=== PATIENT | male | born 1950 | race Caucasian/White ===

== ENCOUNTER 2017-08-24 19:48 | Inpatient (IN) | payer OTHER ==
[~2017-08-24] VITALS: Ht 170.2 cm; Wt 97.9 kg
[~2017-08-24 19:48] MED LIST: CADU10TA PO; CLOP75 PO; EZET10 PO; METO50TA PO; NIAS10004 PO; PRED20 PO; TREN400T PO; VASO10TA8 PO
[2017-08-24 20:05] VITALS: BP 183/85; PULSE 120; RESP 20; TEMP 98.5; O2SAT 97
--- NOTE | 2017-08-24 20:56 | RADRPT ---
EXAM DATE/TIME: 08/24/2017 20:39 [facility] COMPARISON: No previous studies available for comparison. INDICATIONS : Chest pain. MEDICAL HISTORY : Hypertension. SURGICAL HISTORY : Cardiac stents. ENCOUNTER: Initial ACUITY: 1 day PAIN SCORE: 6/10 LOCATION: Bilateral chest FINDINGS: The patient's chin obscures a portion of the medial right pulmonary apex. PA and lateral views of th e chest demonstrate the lungs to be symmetrically aerated without evidence of mass, infiltrate or eff usion. The cardiomediastinal contours are unremarkable. Osseous structures are intact. CONCLUSION: No acute cardiopulmonary disease. Mayank Villanueva MD on August 24, 2017 at 20:54 Board Certified Radiologist. This report was verified electronically.
[2017-08-24] MEDS ORDERED: NITROGLYCERIN 2% OINT 1 GM PACKET TOPICAL ONE (21:00)
--- NOTE | 2017-08-24 21:10 | PD ---
HPI Chief Complaint: Chest Pain Time Seen by Provider: 20:49 Travel History International Travel<30 days: No Contact w/Intl Traveler<30days: No Traveled to known affect area: No History of Present Illness HPI 66-year-old male came to the emergency room with history of substernal chest pain that started an hour and a half ago. Patient says the pain feels like a pressure. Currently 0 out of 10 but every time he gets up and walks a few steps the pain comes back. His heart rate was in the 1 teens to 120s when he arrived. Blood pressure in the room was more than 200. Patient has significant history of coronary artery disease, hypertension and high cholesterol. He is also had multiple peripheral vessels stented. He smokes 1 pack a day. Pain is nonradiating. Patient says he has been taking all his medication like he supposed to. His last stress test was many years ago. He has 2 stents that was put in 10 years ago. He took 2 regular strength aspirin before coming to the emergency room. [facility] Past Medical History Narrative Medical List of his past medical, surgical, social and family history is reviewed from the nursing note Arthritis: No Asthma: No Autoimmune Disease: No Blood Disorders: No Anxiety: No Depression: No Heart Rhythm Problems: No Cancer: No Cardiac Catheterization: Yes Cardiovascular Problems: Yes High Cholesterol: Yes Chemotherapy: No Chest Pain: Yes Congestive Heart Failure: No COPD: No Cerebrovascular Accident: No Diabetes: No Diminished Hearing: No Endocrine: No GERD: No Glaucoma: No Genitourinary: No Headaches: Yes Hepatitis: No Hiatal Hernia: No Hypertension: Yes Immune Disorder: No Kidney Stones: No Musculoskeletal: No Neurologic: Yes Psychiatric: No Respiratory: Yes Immunizations Current: Yes Myocardial Infarction: No Radiation Therapy: No Renal Failure: No Seizures: No Sickle Cell Disease: No Sleep Apnea: No Thyroid Disease: No Ulcer: No Past Surgical History Abdominal Surgery: Yes (APPENDECTOMY) AICD: No Appendectomy: Yes Body Medical Devices: STENT IN RIGHT AND LEFT COMMON ILIAC ARTERY Cardiac Surgery: No Coronary Stent: Yes (TIMES 2) Ear Surgery: No Endocrine Surgery: No Eye Surgery: No Genitourinary Surgery: No Gynecologic Surgery: No Joint Replacement: No Oral Surgery: Yes (WISDOM TEETH REMOVED) Pacemaker: No Thoracic Surgery: No Other Surgery: Yes (CAROTIDS) Social History Alcohol Use: No Tobacco Use: No Substance Use: No Allergies-Medications (Allergen,Severity, Reaction): Coded Allergies: No Known Allergies (Verified Allergy, Unknown, 08/24/17) Comments No known drug allergies. Reported Meds & Prescriptions Reported Meds & Active Scripts Active Reported Amlodipine-Atorvastatin 10-80 Mg Tab 1 Tab PO DAILY Plavix (Clopidogrel Bisulfate) 75 Mg Tab 75 Mg PO DAILY Enalapril (Enalapril Maleate) 20 Mg Tab 20 Mg PO BID Narrative Medication List of his home medications reviewed from the nursing note Review of Systems Except as stated in HPI: all other systems reviewed are Neg Cardiovascular: Positive: Chest Pain or Discomfort Physical Exam Narrative GENERAL: Awake, alert, obese, moderate to SKIN: Focused skin assessment warm/dry. HEAD: Atraumatic. Normocephalic. EYES: Pupils equal and round. No scleral icterus. No injection or drainage. ENT: No nasal bleeding or discharge. Mucous membranes pink and moist. NECK: Trachea midline. No JVD. CARDIOVASCULAR: Regular rate and rhythm. Tachycardia. No murmur appreciated. RESPIRATORY: No accessory muscle use. Clear to auscultation. Breath sounds equal bilaterally. GASTROINTESTINAL: Abdomen soft, non-tender, nondistended. Hepatic and splenic margins not palpable. MUSCULOSKELETAL: No obvious deformities. No clubbing. No cyanosis. No edema. NEUROLOGICAL: Awake and alert. No obvious cranial nerve deficits. Motor grossly within normal limits. Normal speech. PSYCHIATRIC: Appropriate mood and affect; insight and judgment normal. Data Data Last Documented VS Orders Orders Electrocardiogram (08/24/17 20:08) B-Type Natriuretic Peptide (08/24/17 20:08) Ckmb (Isoenzyme) Profile (08/24/17 20:08) Complete Blood Count With Diff (08/24/17 20:08) Comprehensive Metabolic Panel (08/24/17 20:08) Magnesium (Mg) (08/24/17 20:08) Prothrombin Time / Inr (Pt) (08/24/17 20:08) Act Partial Throm Time (Ptt) (08/24/17 20:08) Troponin I (08/24/17 20:08) Lipase (08/24/17 20:08) Chest, Pa & Lat (08/24/17 20:08) Nitroglycerin 2% Oint (Nitroglycerin 2% (08/24/17 21:00) Nitroglycerin-D5w 50 Mg/250 Ml (Nitrogly (08/24/17 22:00) Nitroglycerin-D5w 50 Mg/250 Ml (Nitrogly (08/24/17 22:00) Metoprolol Tartrate Inj (Lopressor Inj) (08/24/17 22:00) CKMB (08/24/17 21:15) CKMB% (08/24/17 21:15) Heparin Inj (Heparin Inj) (08/24/17 22:15) Heparin Inj (Heparin Inj) (08/25/17 04:15) Heparin Inj (Heparin Inj) (08/25/17 04:15) Heparin-D5w 25,000 U/250 Ml (Heparin-D5w (08/24/17 22:15) Act Partial Throm Time (Ptt) (08/24/17 22:09) Cbc No Diff, Includes Plts (08/24/17 22:09) Act Partial Throm Time (Ptt) (08/25/17 05:09) Occult Blood (Hemoccult) Stool (08/24/17 22:09) Admit Order (Ed Use Only) (08/24/17 22:27) Labs Laboratory Tests Test 08/24/17 21:15 White Blood Count 11.3 TH/MM3 Red Blood Count 4.73 MIL/MM3 Hemoglobin 14.4 GM/DL Hematocrit 41.5 % Mean Corpuscular Volume 87.7 FL Mean Corpuscular Hemoglobin 30.4 PG Mean Corpuscular Hemoglobin Concent 34.7 % Red Cell Distribution Width 14.6 % Platelet Count 322 TH/MM3 Mean Platelet Volume 7.4 FL Neutrophils (%) (Auto) 77.7 % Lymphocytes (%) (Auto) 11.9 % Monocytes (%) (Auto) 9.0 % Eosinophils (%) (Auto) 0.9 % Basophils (%) (Auto) 0.5 % Neutrophils # (Auto) 8.7 TH/MM3 Lymphocytes # (Auto) 1.3 TH/MM3 Monocytes # (Auto) 1.0 TH/MM3 Eosinophils # (Auto) 0.1 TH/MM3 Basophils # (Auto) 0.1 TH/MM3 CBC Comment DIFF FINAL Differential Comment Prothrombin Time 10.0 SEC Prothromb Time International Ratio 1.0 RATIO Activated Partial Thromboplast Time 23.3 SEC Blood Urea Nitrogen 23 MG/DL Creatinine 1.38 MG/DL Random Glucose 134 MG/DL Total Protein 7.8 GM/DL Albumin 4.1 GM/DL Calcium Level 10.1 MG/DL Magnesium Level 1.8 MG/DL Alkaline Phosphatase 132 U/L Aspartate Amino Transf (AST/SGOT) 25 U/L Alanine Aminotransferase (ALT/SGPT) 40 U/L Total Bilirubin 0.3 MG/DL Sodium Level 139 MEQ/L Potassium Level 4.8 MEQ/L Chloride Level 103 MEQ/L Carbon Dioxide Level 25.9 MEQ/L Anion Gap 10 MEQ/L Estimat Glomerular Filtration Rate 52 ML/MIN Total Creatine Kinase 170 U/L Creatine Kinase MB 1.9 NG/ML Troponin I 0.07 NG/ML B-Type Natriuretic Peptide 37 PG/ML Lipase 113 U/L MDM Medical Decision Making Medical Screen Exam Complete: Yes Emergency Medical Condition: Yes Medical Record Reviewed: Yes Interpretation(s) Twelve-lead EKG was reviewed by me. Normal sinus rhythm, left axis deviation, peaked T waves, tachycardia. Heart rate of 111 bpm. Differential Diagnosis ACS, non-STEMI, hypertensive emergency Narrative Course 9:53 PM patient was given 1 inch of Nitropaste and nitro drip has been ordered. Awaiting for the blood test result. Patient will need to come in medically. 10:11 PM troponin is mildly elevated. I have ordered for heparin bolus and drip. Patient will need to be admitted to at least [facility]. Awaiting for the admitting physician to call back. Critical Care Narrative Aggregate critical care time was 45 minutes. Time to perform other separately billable procedures was not included in the critical care time. My time did not include minutes spent treating any other patients simultaneously or on activities that did not directly contribute to the patient's treatment. The services I provided to this patient were to treat and/or prevent clinically significant deterioration that could result in: Chest pain, hypertensive emergency, nitro drip, elevated troponin, heparin bolus and drip I provided critical care services requiring my management, as noted below: Chart data review, documentation time, medication orders and management, vital sign assessments/reviewing monitor data, ordering and reviewing lab tests, ordering and interpreting/reviewing x-rays and diagnostic studies, care of the patient and discussion of the patient with the admitting physicians. Procedures EKG Prior to Arrival: No Diagnosis Primary Impression: Chest pain Qualified Codes: R07.9 - Chest pain, unspecified Additional Impressions: Hypertensive emergency Elevated troponin I level Renal insufficiency Admitting Information Admitting Physician Requests: Admit Scripts Metoprolol Tartrate (Metoprolol Tartrate) 25 Mg Tab 25 MG PO BID for CAD, #60 TAB 0 Refills Prov: Lakeisha Villalta MD 08/26/[address] (Aspirin 81) 81 Mg Tabdr 81 MG PO DAILY for CAD, #30 TAB 0 Refills Prov: Lakeisha Villalta MD 08/26/17 Clonidine (Catapres) 0.2 Mg Tab 0.2 MG PO Q8HR for hypertension, #90 TAB 0 Refills Prov: Lakeisha Villalta MD 08/26/17 Mallika Landry MD Aug 24, 2017 21:10
[2017-08-24 21:35] LABS: AUTOMATED NEUTROPHIL # 8.7 TH/MM3 (1.8-7.7); BASOPHIL # 0.1 TH/MM3 (0-0.2); BASOPHIL % 0.5 % (0.0-2.0); EOSINOPHIL # 0.1 TH/MM3 (0-0.4); EOSINOPHIL % 0.9 % (0.0-4.0); HEMATOCRIT 41.5 % (39.0-51.0); HEMOGLOBIN 14.4 GM/DL (13.0-17.0); LYMPH % 11.9 % (9.0-44.0); LYMPHOCYTE # 1.3 TH/MM3 (1.0-4.8); MEAN CELL VOLUME 87.7 FL (80.0-100.0); MEAN CORPUSCULAR HEMOGLOBIN 30.4 PG (27.0-34.0); MEAN CORPUSCULAR HGB CONC 34.7 % (32.0-36.0); MEAN PLATELET VOLUME 7.4 FL (7.0-11.0); NEUT % 77.7 % (16.0-70.0); PLATELET COUNT 322 TH/MM3 (150-450); RED BLOOD COUNT 4.73 MIL/MM3 (4.50-5.90); RED CELL DISTRIBUTION WIDTH 14.6 % (11.6-17.2); WHITE BLOOD COUNT 11.3 TH/MM3 (4.0-11.0)
[2017-08-24] MEDS ORDERED: ENAL20TA PO (21:54)
[2017-08-24] MEDS ORDERED: AMLO1TAB39 PO (21:54)
[2017-08-24] MEDS ORDERED: METO50TA PO (21:54)
[2017-08-24] MEDS ORDERED: PLAV75TA29 PO (21:54)
[2017-08-24] MEDS ORDERED: NIAC1TAB5 PO (21:54)
[2017-08-24 21:55] VITALS: BP 206/93; PULSE 110; RESP 18; O2SAT 96
[2017-08-24 21:56] LABS: ALBUMIN 4.1 GM/DL (3.4-5.0); ALT (GPT) 40 U/L (12-78); AST (GOT) 25 U/L (15-37); BICARBONATE 25.9 MEQ/L (21.0-32.0); BLOOD UREA NITROGEN 23 MG/DL (7-18); CALCIUM 10.1 MG/DL (8.5-10.1); CHLORIDE 103 MEQ/L (98-107); CREATININE 1.38 MG/DL (0.60-1.30); GLOMERULAR FILTRATION RATE 52 ML/MIN (>89); GLUCOSE,RANDOM 134 MG/DL (74-106); MAGNESIUM 1.8 MG/DL (1.5-2.5); SODIUM (NA) 139 MEQ/L (136-145)
[2017-08-24] MEDS ORDERED: METOPROLOL TARTRATE 5 MG/5 ML VIAL IV PUSH ONE (22:00)
[2017-08-24] MEDS ORDERED: NITROGLYCERIN-D5W 50 MG/250 ML 250 ML IV PRN (22:00)
[2017-08-24 22:01] LABS: ALKALINE PHOSPHATASE 132 U/L (45-117); TOTAL BILIRUBIN ADULT 0.3 MG/DL (0.2-1.0); TOTAL PROTEIN 7.8 GM/DL (6.4-8.2); TROPONIN I 0.07 NG/ML (0.02-0.05)
[2017-08-24] MEDS ORDERED: HEPARIN SODIUM - IV 10,000 UNITS/10 ML VIAL IV PUSH ONE (22:15)
[2017-08-24] MEDS ORDERED: HEPARIN-D5W 25,000 U/250 ML 250 ML IV PRN (22:15)
[2017-08-24 22:34] VITALS: BP 205/88; PULSE 101; RESP 18; O2SAT 93
[2017-08-24 22:41] VITALS: BP 185/77; PULSE 95
[2017-08-24 22:48] LABS: HEMATOCRIT 41.1 % (39.0-51.0); HEMOGLOBIN 14.1 GM/DL (13.0-17.0); MEAN CELL VOLUME 88.7 FL (80.0-100.0); MEAN CORPUSCULAR HEMOGLOBIN 30.5 PG (27.0-34.0); MEAN CORPUSCULAR HGB CONC 34.4 % (32.0-36.0); MEAN PLATELET VOLUME 7.4 FL (7.0-11.0); PLATELET COUNT 346 TH/MM3 (150-450); RED BLOOD COUNT 4.63 MIL/MM3 (4.50-5.90); RED CELL DISTRIBUTION WIDTH 14.7 % (11.6-17.2); WHITE BLOOD COUNT 10.9 TH/MM3 (4.0-11.0)
[2017-08-24] MEDS ORDERED: SODIUM CHLORIDE 0.9% FLUSH 10 ML FLUSH IV FLUSH PRN (23:30)
--- NOTE | 2017-08-24 23:32 | HHI.HP ---
[facility] Admission Diagnosis Chest pain, hypertensive emergency, elevated troponin Diagnoses: Travel History International Travel<30 Days: No Contact w/Intl Traveler <30 Da: No Traveled to Known Affected Are: No History of Present Illness 66-year-old male with a past medical history significant for hypertension, hyperlipidemia, CAD status post stent placement and peripheral vascular disease presents to the emergency department for evaluation of chest pain. The patient reports that 1-2 hours prior to his arrival in the emergency department he had severe, crushing substernal chest pain/pressure. He denies radiation. The patient also reports a 1 month history of new onset bilateral, pitting lower extremity edema. Denies shortness of breath or palpitations. Her had pain like this before. Denies any episodes of diaphoresis. He denies nausea/ vomiting/diarrhea. No lateralizing signs/symptoms. 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 Review of Systems Except as stated in HPI: all other systems reviewed are Neg Past Family Social History Past Medical History Hyperlipidemia Hypertension Coronary artery disease Peripheral vascular disease Past Surgical History Bilateral CEA Cardiac stent placement 2 Lower extremity stent placement bilaterally Appendectomy Reported Medications Reported Meds & Active Scripts Active Reported Niacin ER 1,000 Mg Tab 2,000 Mg PO HS Amlodipine-Atorvastatin 10-80 Mg Tab 1 Tab PO DAILY Plavix (Clopidogrel Bisulfate) 75 Mg Tab 75 Mg PO DAILY Metoprolol Tartrate 50 Mg Tab 50 Mg PO DAILY Enalapril (Enalapril Maleate) 20 Mg Tab 20 Mg PO BID Allergies: Coded Allergies: No Known Allergies (Verified Allergy, Unknown, 08/24/17) Family History Father of PR at age 46 Social History Smokes approximately one pack per day. Rare alcohol. Rare marijuana. Denies other illicit drugs. Physical Exam Vital Signs Vital Signs Date Time Temp Pulse Resp B/P (MAP) Pulse Ox O2 Delivery O2 Flow Rate FiO2 08/24/17 22:48 95 185/77 08/24/17 22:41 95 185/77 (113) 08/24/17 22:34 101 18 205/88 (127) 93 Room Air 08/24/17 21:55 110 18 206/93 (130) 96 Nasal Cannula 2.00 08/24/17 20:05 98.5 120 20 183/85 (117) 97 Physical Exam GENERAL: This, male sitting up in bed SKIN: No rashes, ecchymoses or lesions. Cool and dry. HEAD: Atraumatic. Normocephalic. No temporal or scalp tenderness. EYES: Pupils equal round and reactive. Extraocular motions intact. No scleral icterus. No injection or drainage. ENT: Nose without bleeding, purulent drainage or septal hematoma. Throat without erythema, tonsillar hypertrophy or exudate. Uvula midline. Airway patent. NECK: Trachea midline. No JVD or lymphadenopathy. Supple, nontender, no meningeal signs. CARDIOVASCULAR: Regular rate and rhythm with 2/6 TAHIR RESPIRATORY: Clear to auscultation. Breath sounds equal bilaterally. No wheezes , rales, or rhonchi. GASTROINTESTINAL: Abdomen soft, non-tender, nondistended. No hepato-splenomegaly , or palpable masses. No guarding. MUSCULOSKELETAL: 2+ pitting edema bilaterally NEUROLOGICAL: Awake and alert. Cranial nerves II through XII intact. Motor and sensory grossly within normal limits. Five out of 5 muscle strength in all muscle groups. Normal speech. Laboratory Laboratory Tests Test 08/24/17 21:15 08/24/17 22:40 White Blood Count 11.3 10.9 Red Blood Count 4.73 4.63 Hemoglobin 14.4 14.1 Hematocrit 41.5 41.1 Mean Corpuscular Volume 87.7 88.7 Mean Corpuscular Hemoglobin 30.4 30.5 Mean Corpuscular Hemoglobin Concent 34.7 34.4 Red Cell Distribution Width 14.6 14.7 Platelet Count 322 346 Mean Platelet Volume 7.4 7.4 Neutrophils (%) (Auto) 77.7 Lymphocytes (%) (Auto) 11.9 Monocytes (%) (Auto) 9.0 Eosinophils (%) (Auto) 0.9 Basophils (%) (Auto) 0.5 Neutrophils # (Auto) 8.7 Lymphocytes # (Auto) 1.3 Monocytes # (Auto) 1.0 Eosinophils # (Auto) 0.1 Basophils # (Auto) 0.1 CBC Comment DIFF FINAL Differential Comment Prothrombin Time 10.0 Prothromb Time International Ratio 1.0 Activated Partial Thromboplast Time 23.3 Blood Urea Nitrogen 23 Creatinine 1.38 Random Glucose 134 Total Protein 7.8 Albumin 4.1 Calcium Level 10.1 Magnesium Level 1.8 Alkaline Phosphatase 132 Aspartate Amino Transf (AST/SGOT) 25 Alanine Aminotransferase (ALT/SGPT) 40 Total Bilirubin 0.3 Sodium Level 139 Potassium Level 4.8 Chloride Level 103 Carbon Dioxide Level 25.9 Anion Gap 10 Estimat Glomerular Filtration Rate 52 Total Creatine Kinase 170 Creatine Kinase MB 1.9 Troponin I 0.07 B-Type Natriuretic Peptide 37 Lipase 113 Result Diagram: 08/24/17223908/24/172114 Caprini VTE Risk Assessment Caprini VTE Risk Assessment: Mod/High Risk (score >= 2) Caprini Risk Assessment Model Point Value = 1 Point Value = 2 Point Value = 3 Point Value = 5 Age 41-60 Minor surgery BMI > 25 kg/m2 Swollen legs Varicose veins or History of unexplained or recurrent spontaneous Oral contraceptives or hormone replacement Sepsis (< 1 month) Serious lung disease, including pneumonia (< 1 month) Abnormal pulmonary function Acute myocardial infarction Congestive heart failure (< 1 month) History of inflammatory bowel disease Medical patient at bed rest Age 61-74 Arthroscopic surgery Major open surgery (> 45 min) Laparoscopic surgery (> 45 min) Malignancy Confined to bed (> 72 hours) Immobilizing plaster cast Central venous access Age >= 75 History of VTE Family history of VTE Factor V Leiden Prothrombin [id number] Lupus anticoagulant Anticardiolipin antibodies Elevated serum homocysteine Heparin-induced thrombocytopenia Other congenital or acquired thrombophilia Stroke (< 1 month) Elective arthroplasty Hip, pelvis, or leg fracture Acute spinal cord injury (< 1 month) Prophylaxis Regimen Total Risk Factor Score Risk Level Prophylaxis Regimen 0-1 Low Early ambulation 2 Moderate Order ONE of the following: *Sequential Compression Device (SCD) *Heparin 5000 units SQ BID 3-4 Higher Order ONE of the following medications: *Heparin 5000 units SQ TID *Enoxaparin/Lovenox 40 mg SQ daily (WT < 150 kg, CrCl > 30 mL/min) *Enoxaparin/Lovenox 30 mg SQ daily (WT < 150 kg, CrCl > 10-29 mL/min) *Enoxaparin/Lovenox 30 mg SQ BID (WT < 150 kg, CrCl > 30 mL/min) AND/OR *Sequential Compression Device (SCD) 5 or more Highest Order ONE of the following medications: *Heparin 5000 units SQ TID (Preferred with Epidurals) *Enoxaparin/Lovenox 40 mg SQ daily (WT < 150 kg, CrCl > 30 mL/min) *Enoxaparin/Lovenox 30 mg SQ daily (WT < 150 kg, CrCl > 10-29 mL/min) *Enoxaparin/Lovenox 30 mg SQ BID (WT < 150 kg, CrCl > 30 mL/min) AND *Sequential Compression Device (SCD) Assessment and Plan Assessment and Plan Assessment/plan: 1. NSTEMI/hypertensive urgency/CAD EKG significant for atrial fibrillation with rapid ventricular response, no ST segment elevations or depressions, personally reviewed Initial troponin 0.07 ACS rule out pending; serial troponin/EKGs Heparin drip Nitro drip Cardiology consulted, appreciate recommendations Continue patient's home beta rikki, Plavix 2. DORINA Creatinine 1.38, no baseline for comparison May be chronic component Monitor renal function May be contributing to patient's elevated troponin Trend enzymes as above 3. Bilateral lower extremity edema BNP 37 Echo pending 4. Hyperlipidemia/peripheral vascular disease Continue home medications FEN NPO Electrolytes: monitor and replete prn Heparin ggt Physician Certification 2 Midnight Certification Type: Admission for Inpatient Services Order for Inpatient Services The services are ordered in accordance with Medicare regulations or non- Medicare payer requirements, as applicable. In the case of services not specified as inpatient-only, they are appropriately provided as inpatient services in accordance with the 2-midnight benchmark. Estimated LOS (days): 2 2 days is the estimated time the patient will need to remain in the hospital, assuming treatment plan goals are met and no additional complications. Post-Hospital Plan: Not yet determined Mirtha Clark MD Aug 24, 2017 23:32
[2017-08-25] VITALS (18 sets, daily range): BP systolic 101–198; BP diastolic 51–81; PULSE 60–99; RESP 16–18; TEMP 97.8–99.1; O2SAT 92–98
[2017-08-25] MEDS: NITROGLYCERIN-D5W 50 MG/250 ML 250 ML IV PRN ×4 (00:55→14:56)
[2017-08-25 03:04] LABS: BASOPHIL % 0.4 % (0.0-2.0); EOSINOPHIL # 0.1 TH/MM3 (0-0.4); EOSINOPHIL % 0.7 % (0.0-4.0); HEMATOCRIT 37.1 % (39.0-51.0); HEMOGLOBIN 12.9 GM/DL (13.0-17.0); LYMPH % 16.4 % (9.0-44.0); LYMPHOCYTE # 1.6 TH/MM3 (1.0-4.8); MEAN CELL VOLUME 88.2 FL (80.0-100.0); MEAN CORPUSCULAR HEMOGLOBIN 30.6 PG (27.0-34.0); MEAN CORPUSCULAR HGB CONC 34.7 % (32.0-36.0); MEAN PLATELET VOLUME 7.3 FL (7.0-11.0); MONO % 9.6 % (0.0-8.0); MONOCYTE # 0.9 TH/MM3 (0-0.9); NEUT % 72.9 % (16.0-70.0); PLATELET COUNT 298 TH/MM3 (150-450); RED BLOOD COUNT 4.21 MIL/MM3 (4.50-5.90); RED CELL DISTRIBUTION WIDTH 14.5 % (11.6-17.2); WHITE BLOOD COUNT 9.6 TH/MM3 (4.0-11.0)
[2017-08-25 03:27] LABS: BICARBONATE 27.5 MEQ/L (21.0-32.0); CALCIUM 10.2 MG/DL (8.5-10.1); CREATININE 0.95 MG/DL (0.60-1.30)
[2017-08-25] MEDS ORDERED: HEPARIN SODIUM - IV 10,000 UNITS/10 ML VIAL IV PUSH PRN ×2 (04:15)
[2017-08-25] MEDS: CLOPIDOGREL 75 MG TAB PO SCH (07:46)
[2017-08-25] MEDS: ENALAPRIL MALEATE 10 MG TAB PO SCH ×2 (07:47→20:40)
[2017-08-25] MEDS: SODIUM CHLORIDE 0.9% FLUSH 10 ML FLUSH IV FLUSH SCH ×2 (07:47→20:38)
[2017-08-25] MEDS: ATORVASTATIN 80 MG TAB PO SCH (07:47)
[2017-08-25] MEDS ORDERED: MIDAZOLAM HCL 2 MG/2 ML VIAL IV PUSH SCH (08:30)
[2017-08-25] MEDS ORDERED: diphenhydrAMINE HCL 50 MG CAP PO SCH (08:30)
[2017-08-25] MEDS ORDERED: DIAZEPAM 10 MG TAB PO SCH (08:30)
[2017-08-25] MEDS: SODIUM CHLOR 0.9% 1000 ML INJ 1,000 ML IV SCH ×2 (08:44→18:27)
[2017-08-25] MEDS ORDERED: METOPROLOL TARTRATE 50 MG TAB PO SCH (09:00)
[2017-08-25] MEDS ORDERED: NON-FORMULARY DRUG (Amlodipine-Atorvastatin 1 TAB) PO SCH (09:00)
--- NOTE | 2017-08-25 09:27 | MB ---
cc: Paul Brewer MD DATE OF CONSULT: REASON FOR CONSULTATION: Chest pain. HISTORY OF PRESENT ILLNESS: The patient is a 66-year-old white male with a history of coronary artery disease, hypertension, peripheral vascular disease, hyperlipidemia, who was in his usual state of health up until yesterday evening when he began to experience fairly severe substernal "pressure" associated with shortness of breath without nausea or diaphoresis. The chest discomfort lasted about 10 minutes, and he was able to relieve it temporarily by taking a deep breath and blowing out slowly. The chest discomfort recurred several times, each time lasting about 10-15 minutes. He has had no further chest discomfort this morning. He denies pleurisy, lightheadedness, syncope, near syncope, palpitations, paroxysmal nocturnal dyspnea. In the last month, he has had waxing and waning bilateral pedal edema. PAST MEDICAL HISTORY: 1. Coronary artery disease, status post stent x 2 of the distal right coronary artery 10/14/2005. 2. Hypertension. 3. Peripheral vascular disease with history of bilateral stent placements in the lower extremities about 12 years ago. 4. Carotid disease, status post right carotid endarterectomy 07/09/2005 and left carotid endarterectomy 08/17/2005. 5. Hyperlipidemia. PAST SURGICAL HISTORY: 1. Appendectomy. 2. Right carotid endarterectomy. 3. Left carotid endarterectomy. CARDIAC MEDICATIONS AT HOME: Amlodipine/atorvastatin 10/80 one daily, Plavix 75 mg daily, niacin ER 2000 mg at bedtime, metoprolol tartrate 50 mg daily, enalapril 20 mg b.i.d. ALLERGIES: NO KNOWN DRUG ALLERGIES. FAMILY HISTORY: The patient's father sustained a myocardial infarction in his 40s. SOCIAL HISTORY: The patient smokes about a pack of cigarettes per day. He denies alcohol abuse. REVIEW OF SYSTEMS: As in the history of present illness, otherwise negative or noncontributory. He also denies headache, melena, dyspepsia, bright red blood per rectum, recent flu symptoms. PHYSICAL EXAMINATION: Blood pressure 177/75 with a pulse of 96, respirations 18. GENERAL: He is a well-developed, well-nourished white male, no acute distress. HEENT: Jugular venous pressure is normal. Carotid pulses are 2+ bilaterally, possibly with a left bruit. CHEST: Reveals clear lung mckeon. CARDIAC: He has a regular rhythm and rate with a grade II/ systolic ejection murmur heard best at the base of the heart. The S2 heart sound is normal. No gallop is audible. ABDOMEN: He has a soft, obese, nontender abdomen. Bowel sounds are present. There is no definite hepatosplenomegaly. EXTREMITIES: Reveals no clubbing or cyanosis. There is trace to 1+ pretibial edema bilaterally. EKG shows sinus tachycardia, poor R-wave progression, left axis deviation. LABORATORY DATA: Includes WBC 9.6, hemoglobin 12.9, platelets 298. Potassium 4.6, BUN 22, creatinine 0.95. Troponin 0.20, CK 170. IMPRESSION: Symptoms suggestive of unstable angina in this 66-year-old white male who has a history of coronary artery disease, peripheral vascular disease, carotid disease, hypertension, hyperlipidemia, tobacco abuse. At this time he is chest pain free. EKG shows no acute ST segment or T-wave changes. His troponin level is slightly abnormal. Because of the instability of his symptoms, I have recommended he undergo cardiac catheterization with possible percutaneous coronary intervention, the risks of which have explained to him, including but not limited to , myocardial infarction, stroke, arrhythmia, bleeding, infection, renal failure. He agrees to proceed. RECOMMENDATIONS: 1. Cardiac catheterization today. 2. Check a carotid ultrasound. 3. Continue heparin drip and aspirin. 4. Continue beta rikki and CRISTÓBAL inhibitor therapy. 5. Check a fasting lipid profile. MD VICKI Scott/NATALI , 08:25 AM , 09:26 AM JIMY
--- NOTE | 2017-08-25 11:49 | RADRPT ---
EXAM DATE/TIME: 08/25/2017 11:07 [facility] COMPARISON: No previous studies available for comparison. INDICATIONS : Syncope. MEDICAL HISTORY : Hypercholesterolemia. Hypertension. SURGICAL HISTORY : Appendectomy. Carotid endarterectomy. Coronary artery stent. Cardiac cath. ENCOUNTER: Initial ACUITY: 1 day PAIN SCORE: 10 LOCATION: Bilateral neck PEAK SYSTOLIC VELOCITIES (cm/sec): ICA/CCA RATIO: Right: 4.5 Left: 2.9 ICA: Right: 131 Left: 280 CCA: Right: 29 Left: 98 ECA: Right: 98 Left: 222 VERTEBRAL: Right: 113 antegrade Left: 53 antegrade Elevated flow velocities and ICA/CCA ratios have been found to correlate with increased degrees of vessel stenosis, calculated as percentage of diameter relative to a normal segment of distal ICA/CCA FINDINGS: RIGHT CAROTID: There is mild to moderate atherosclerotic plaquing seen throughout the common carotid artery and bifu rcation. There is elevated velocity in the right internal carotid artery. LEFT CAROTID: There is moderate atherosclerotic plaquing involving the carotid bifurcation. There is elevated veloc ity in the left internal carotid artery. VERTEBRAL ARTERIES: Antegrade flow is seen in both vertebral arteries. MISCELLANEOUS: None. CONCLUSION: 1. Atherosclerotic plaquing is noted bilaterally. 2. There is elevated velocities in the internal carotid arteries bilaterally, left greater than right suggestive of at least moderate carotid artery stenosis. Recommend CTA of the carotids for further e valuation. Iam Baum MD on August 25, 2017 at 11:44 Board Certified Radiologist. This report was verified electronically.
--- NOTE | 2017-08-25 13:40 | EKG ---
Date Performed: 08/25/2017 Time Performed: 09:11:05 PTAGE: 66 years EKG: Sinus rhythm WITH SINUS ARRHYTHMIA LEFT AXIS DEVIATION ABNORMAL ECG PREVIOUS TRACING : 08/25/2017 02.46 No significant change from previous tracing noted. DOCTOR: Paul Brewer Interpretating Date/Time 08/25/2017 13:39:29
--- NOTE | 2017-08-25 14:34 | HHI.PR ---
Subjective Remarks f/u for NSTEMI Patient seen in the DOCU. He has not had a cardiac catheterization yet. Patient denying chest pain, shortness of breathing, palpitation, lightheadedness dizziness. He complains of lower extremity edema otherwise he said he is doing well. Patient is scheduled for cardiac catheterization today. Objective Vitals Vital Signs Date Time Temp Pulse Resp B/P (MAP) Pulse Ox O2 Delivery O2 Flow Rate FiO2 08/25/17 12:42 86 212/95 08/25/17 12:29 89 18 178/71 (106) 94 08/25/17 11:50 97.8 66 17 158/76 (103) 97 Nasal Cannula 2.00 08/25/17 11:04 97.9 64 17 153/75 (101) 98 Room Air 2.00 08/25/17 10:41 97.8 60 16 134/64 (87) 98 Room Air 2.00 08/25/17 09:17 98.1 69 16 162/69 (100) 97 Room Air 2.00 08/25/17 08:30 97.9 99 16 172/81 (111) 98 Room Air 2.00 08/25/17 07:10 97.8 96 18 177/75 (109) 97 Room Air 2.00 08/25/17 07:10 98 17 97 Nasal Cannula 2.00 08/25/17 06:00 88 18 173/73 (106) 94 Room Air 08/25/17 05:00 78 18 198/81 (120) 95 Room Air 08/25/17 04:00 88 18 174/74 (107) 94 Room Air 08/25/17 02:51 97 18 185/77 (113) 94 Room Air 08/25/17 00:55 91 164/70 08/25/17 00:00 98 18 164/74 (104) 96 Room Air 08/24/17 22:48 95 185/77 08/24/17 22:41 95 185/77 (113) 08/24/17 22:34 101 18 205/88 (127) 93 Room Air 08/24/17 21:55 110 18 206/93 (130) 96 Nasal Cannula 2.00 08/24/17 20:05 98.5 120 20 183/85 (117) 97 I/O 08/24/17 08/24/17 08/24/17 08/25/1708/25/18 3/8/18 07:00 15:00 23:00 07:00 15:00 23:00 Intake Total 3 ml Output Total 800 ml Balance 3 ml -800 ml Intake IV Total 3 ml Output Urine Total 800 ml # Voids 2 1 # Bowel Movements 0 Result Diagram: 08/25/1724808/25/17248 Objective Remarks GENERAL: in NAD SKIN: Warm and dry. HEAD: Normocephalic. EYES: No scleral icterus. No injection or drainage. NECK: Supple, trachea midline. No JVD or lymphadenopathy. CARDIOVASCULAR: regular rate and rhythm without murmurs, gallops, or rubs. RESPIRATORY: Breath sounds equal bilaterally. No accessory muscle use. GASTROINTESTINAL: Abdomen soft, non-tender, nondistended. MUSCULOSKELETAL: No cyanosis. trace to +1 B/L LE edema. BACK: Nontender without obvious deformity. No CVA tenderness. Medications and IVs Current Medications Nitroglycerin (Nitroglycerin 2% Oint) 1 inch ONCE ONCE TOPICAL Last administered on 08/24/17at 21:19; Start 08/24/17 at 21:00; Stop 08/24/17 at 21:01; Status DC Nitroglycerin/ Dextrose 250 ml @ 1.5 mls/hr TITRATE PRN IV Chest pain relief Last administered on 08/24/17at 22:48; Start 08/24/17 at 22:00 Nitroglycerin/ Dextrose 250 ml @ 1.5 mls/hr TITRATE PRN IV Hypertension Last administered on 08/25/17at 12:42; Start 08/24/17 at 22:00 Metoprolol Tartrate (Lopressor Inj) 5 mg ONCE ONCE IV PUSH Last administered on 08/24/17at 22:32; Start 08/24/17 at 22:00; Stop 08/24/17 at 22:01; Status DC Heparin Sodium (Porcine) (Heparin Inj) 8,000 units ONCE ONCE IV PUSH Last administered on 08/24/17at 22:32; Start 08/24/17 at 22:15; Stop 08/24/17 at 22:16; Status DC Heparin Sodium (Porcine) (Heparin Inj) 5,000 units UNSCH PRN IV PUSH APTT LESS THAN 25; Start 08/25/17 at 04:15 Heparin Sodium (Porcine) (Heparin Inj) 2,500 units UNSCH PRN IV PUSH APTT 25 TO 39; Start 08/25/17 at 04:15 Heparin Sodium/ Dextrose 250 ml @ 10 mls/hr TITRATE PRN IV Coagulation Management Last administered on 08/25/17at 00:18; Start 08/24/17 at 22:15 Sodium Chloride (NS Flush) 2 ml BID IV FLUSH ; Start 08/25/17 at 09:00 Sodium Chloride (NS Flush) 2 ml UNSCH PRN IV FLUSH FLUSH AFTER USING IV ACCESS ; Start 08/24/17 at 23:30 Clopidogrel Bisulfate (Plavix) 75 mg DAILY PO Last administered on 08/25/17at 07: 46; Start 08/25/17 at 09:00 Enalapril Maleate (Vasotec) 20 mg BID PO Last administered on 08/25/17at 07:47; Start 08/25/17 at 09:00 Metoprolol Tartrate (Lopressor) 50 mg DAILY PO Last administered on 08/25/17at 07 :47; Start 08/25/17 at 09:00 Non-Formulary Medication 1 tab DAILY PO ; Start 08/25/17 at 09:00; Status UNV Niacin (Slo-Niacin) 2,000 mg HS PO ; Start 08/25/17 at 21:00 Amlodipine Besylate (Norvasc) 10 mg DAILY PO Last administered on 08/25/17at 07: 47; Start 08/25/17 at 09:00 Atorvastatin Calcium (Lipitor) 80 mg DAILY PO Last administered on 08/25/17at 07: 47; Start 08/25/17 at 09:00 Sodium Chloride 1,000 ml @ 100 mls/hr Q10H IV Last administered on 08/25/17at 08 :44; Start 08/25/17 at 08:27; Stop 08/30/17 at 08:26 Diphenhydramine HCl (Benadryl) 50 mg [employer]ER [employer] TESTER PO ; Start 08/25/17 at 08:30; Stop 08/29/17 at 08:29 Diazepam (Valium) 10 mg [employer] TESTER PO ; Start 08/25/17 at 08:30; Stop 08/29/17 at 08:29 Midazolam HCl (Versed Inj) 1 mg [employer] TESTER IV PUSH ; Start 08/25/17 at 08:30; Stop 08/29/17 at 08:29 A/P Assessment and Plan This is a 66-year-old male past medical history of coronary disease who presented with chest pain NSTEMI -EKG significant for atrial fibrillation with rapid ventricular response, no ST segment elevations or depressions, personally reviewed -Initial troponin 0.07, 0.20, 0.16 -ACS rule out pending; serial troponin/EKGs -Heparin drip/Nitro drip -Continue beta-rikki and Plavix. Patient scheduled for cardiac catheterization with Dr. Brewer today. Hypertensive urgency -Continue home medication. On nitro drip. Will give as needed medication. DORINA -Creatinine 1.38, and now 0.96. So resolved. May be secondary to hypoperfusion. Continue to monitor. Bilateral lower extremity edema -BNP 37 -Echo pending Hyperlipidemia/peripheral vascular disease -Continue home medications DVT prophylaxis -On heparin drip Discharge Planning Patient scheduled for cardiac catheterization today. Lakeisha Villalta MD Aug 25, 2017 14:34
[2017-08-25] MEDS ORDERED: ENALAPRILAT 1.25 MG/ML VIAL IV PUSH PRN (14:45)
[2017-08-25] MEDS ORDERED: HEPARIN-NS/PF FLUSH BAG 2,000 ML IV FLUSH ONE (15:06)
[2017-08-25] MEDS ORDERED: MIDAZOLAM HCL 2 MG/2 ML VIAL ONE ×2 (15:06→16:06)
[2017-08-25] MEDS ORDERED: VERAPAMIL HCL 5 MG/2 ML VIAL ONE (15:07)
[2017-08-25] MEDS ORDERED: NITROGLYCERIN INJ 5 ML ONE (15:07)
[2017-08-25] MEDS ORDERED: HEPARIN SODIUM - IV 10,000 UNITS/10 ML VIAL ONE (15:07)
[2017-08-25] MEDS ORDERED: ENALAPRILAT 1.25 MG/ML VIAL ONE ×2 (15:44→15:53)
[2017-08-25] MEDS ORDERED: CLEVIDIPINE INJ 50 ML ONE (16:08)
[2017-08-25] MEDS ORDERED: METOPROLOL TARTRATE 5 MG/5 ML VIAL ONE (16:20)
[2017-08-25] MEDS ORDERED: ATROPINE SULFATE 1 MG/ML VIAL IV PRN (16:45)
[2017-08-25] MEDS ORDERED: MISC INFORMATION XX ONE (16:45)
[2017-08-25] MEDS ORDERED: SODIUM CHLOR 0.9% 250 ML INJ 250 ML IV PRN (16:45)
--- NOTE | 2017-08-25 16:50 | MA ---
cc: Paul Brewer MD PROCEDURE: Left heart catheterization, selective coronary angiography, left ventriculography. PROCEDURE NOTE: The patient was brought to the cardiac catheterization laboratory in a fasting state, after having signed informed consent. The right radial and right groin regions were prepped and draped as per policy. Arterial access was obtained via the right radial artery and a 6 [place] sheath placed. Coronary arteriography was performed using a Greenview catheter to engage the LAD and the anomalous left circumflex off of the right coronary. We had difficulty visualizing the right coronary with a variety of different catheters, so it was decided to take some shots through a right femoral artery approach. Arterial access was obtained via the right femoral artery and a 6 Argentine sheath placed. Additional shots of the right coronary were done using a 3DRC catheter. Left ventriculography was done using a standard 6 [place] pigtail. There were no apparent immediate complications. The femoral arteriotomy site was closed with Vascade. The radial artery access site was closed with a radial artery compression band. HEMODYNAMIC DATA: Left ventricle 189 with an end-diastolic pressure of 12, aorta 177/58 with a mean of 101. There was no significant transvalvular aortic gradient on pullback of the pigtail catheter. CORONARY ARTERIOGRAPHY: The left anterior descending is a medium size vessel, giving rise to a large diagonal. There are minimal luminal irregularities in the proximal and mid LAD and in the diagonal. In the distal LAD there is 50% to 60% tubular stenosis where the vessel is small. The left circumflex has an anomalous origin from very near the ostium of the right coronary. There appears to be diffuse ostial to proximal disease resulting in up to 40% stenosis. The right coronary artery is a large dominant vessel with what appears to be 2 distal stents, which are widely patent. In the very proximal right coronary there was some concern over a possible linear dissection in this region. [id number] analysis suggests some of this appearance may be due to streaming. It is not as evident on angiography done through the right femoral artery approach. It was decided not to intervene on the proximal right coronary where there is up to 50% disease. LEFT VENTRICULOGRAPHY: Contrast injection of the left ventricle reveals no segmental wall motion abnormalities. Ejection fraction is estimated at 70%. CONCLUSIONS: 1. Moderate 2-vessel coronary artery disease with no definite high-grade stenosis. 2. 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 3. Normal left ventricular function with estimated ejection fraction of 70%. MD VICKI Scott/NATALI , 04:34 PM , 04:47 PM JIMY
--- NOTE | 2017-08-25 16:54 | CATHPROC ---
[place] HIS Report Study Information Study Number Admission Scheduled Start Study Start [id number] Aug 24 2017 10:29PM 08/25/2017 Aug 25 2017 3:09PM [place] [facility] Cardiac Catheterization Admit Source Facility Department Emergency department [facility] - Application Specialist Physician and Clinical Staff Initial Paul Monroe Clerk Operator Antonietta Crocker,RN Clerk Operator Mirtha Rosales,ROJELIO Other Ad Leon RCIS(BS) Recorder Precious Shook,RT(R) (BS) Scrub Zoey Coughlin ,RT(R) Procedures Performed Procedure Location (Site) Vessel Name Angiogram LV LV Ventricle Coronary Angiograms LCA Left Coronary Coronary Angiograms RCA Right Coronary L Heart Cath Equipment Time Hearing Therapy Teacher Description Size Mfg Part Number Used/Scraped TRANSDUCER, TRUWAVE [id number] 15:24 KELLOGG BATES * Used W/STOCKCOCK *[id number] 16:23 [employer]gent Properties MEDICAL VASCADE, FR6 CLOSURE SYSTEM FR 6\\7 Used *[id number] [id number] *[id number] [id number] *[id number] [id number] *[id number] 534-650S *[id number] 15:24 MALLINCKRODT SYRINGE, ANGIOMAT 150ML 150ML *[id number] Used 2S RCT Logic CONCEPT DRAPE, RADIAL FEMORAL FULL 15:24 * [id number] *[id number] Used DEVELOPMENT BODY [id number] 15:24 [employer] INDUSTRIES PACK, CCL CUSTOM * Used *[id number] 15:24 [employer] SUPPORT, ARTERIAL ADULT 44632 *[id number] Used [id number] 15:24 [employer] PACER PEN, SKIN DUAL W/ RULER * Used *[id number] BAND, RADIAL COMPRESSION TR [id number] 16:40 [employer]ree[employer] 29CM Used LARGE 29 *[id number] SHEATH, FR6 RADIAL PRELUDE 15:24 [employer] FR 6 [id number] Used EASE 11CM [id number] 16:05 [employer] MEDICAL SHEATH, FR6.5 PRELUDE 11CM FR 6.5 038ACT Used *[id number] 15:24 [employer] WIRE, EXCHANGE 260CM 3MMJ 260CM Used *[id number] 15:24 NAMIC MANIFOLD, 4 PORT * Used *[id number] 16:17 NAMIC TUBING, HIGH PRESSURE 20" 20" Used *[id number] 15:24 NYCOMED OMNIPAQUE, 350 MG, 150ML 150ML [id number] Used 16:19 [employer]COMED OMNIPAQUE, 350 MG, 50ML 50ML [id number] Used [id number] 15:24 [employer] MEDICAL BLANKET,WARM AIR CCL * Used *[id number] CATHETER, FR5 OPTITORQUE [id number] 15:19 TER[employer]berry MEDICAL FR 5 Used RADIAL TIG 4.0 *[id number] History: Current Medications Medication Dosage/Unit Route Frequency Last Date/Time Taken Statins (any) Beta Janet PLAVIX History: Allergies Allergy Reaction No Known Allergies History: Risk Factors Family History of Hypertension Dyslipidemia Previous OH Previous Heart Failure Premature CAD Yes Yes Yes No No Prior Valve Prior PCI Prior PCIDate Prior CABG Surgery No Yes 10/14/2005 No Cerebrovascular Peripheral Artery Chronic Lung On Dialysis Diabetes Disease Disease Disease No No Yes No No History: Stress Tests Stress or Imaging Studies Performed No History: Other Current Smoker Method Packs a Day Years Used Pack Years Yes Cigarettes 1 50 50 Labs Hgb (g/dl) Hct (%) WBC (l/cumm) Platelets (thousands) 11.60-17.00 35.00-51.00 4.00-11.00 150.00-450.00 12.9 37.1 9.6 298 Glucose (mg/dl) BUN (mg/dl) Creatinine (mg/dl) BUN:Creatinine (1:x) 74.00-106.00 7.00-18.00 0.50-1.30 10.00-20.00 126 22 0.9 24.4 Na (meq/l) K (meq/l) 136.00-145.00 3.50-5.10 140 4.6 INR (PTT:PT) 0.90-1.10 1 Troponin I (ng/ml) CPK-MB (ng/ML) 0.02-0.05 0.50-3.60 0.16 Not Drawn Medication Medication Total Dose (Bolus/Oral) Medication Total Dosage/Unit 1% XYLOCAINE 21 mL LOPRESSOR 5 mg RADIAL COCKTAIL 1 units VASOTEC 2.5 mcg VERSED 4 mg Medications (Bolus/Oral) Medication Time Given Dosage/Unit Administered By Reason VERSED 08/25/2017 3:34:34 PM 2 mg Mirtha Rosales 2 mg VERSED given in lab by Mirtha Rosales RN in Left Antecubital via Peripheral IV. 1% XYLOCAINE 08/25/2017 3:35:18 PM 1 mL Paul Brewer 1 mL 1% XYLOCAINE given in lab by Paul Brewer in Right Radial via Subcutaneous. Ntg 200mcg Verapamil 2.5mg Heparin RADIAL COCKTAIL 08/25/2017 3:36:50 PM 1 units Tj Brewernn 2500U 1 units RADIAL COCKTAIL given in lab by Paul Brewer in Right Radial via Radial. Reason: Ntg 200mcg V erapamil 2.5mg Heparin 2500U. VASOTEC 08/25/2017 3:45:23 PM 1.25 mcg Mirtha Rosales 1.25 mcg VASOTEC given in lab by Mirtha Rosales RN in Left Antecubital via Peripheral IV. VASOTEC 08/25/2017 3:54:35 PM 1.25 mcg Mirtha Rosales 1.25 mcg VASOTEC given in lab by Mirtha Rosales RN in Left Antecubital via Peripheral IV. 1% XYLOCAINE 08/25/2017 4:06:20 PM 20 mL Paul Brewer 20 mL 1% XYLOCAINE given in lab by Paul Brewer in Right Groin via Subcutaneous. VERSED 08/25/2017 4:10:14 PM 2 mg Mirtha Rosales 2 mg VERSED given in lab by Mirtha Rosales RN in Left Antecubital via Peripheral IV. LOPRESSOR 08/25/2017 4:22:46 PM 5 mg Mirtha Rosales 5 mg LOPRESSOR given in lab by Mirtha Rosales RN in Left Antecubital via Peripheral IV. Medication (Drip) Medication Time Given Dosage/Unit Concentration/Unit Diluent (ml) Solution CLEVIPREX 08/25/2017 4:03:06 PM 1 mg/hr 50 mg 100 1 mg/hr CLEVIPREX given in lab by Mirtha Rosales RN in Left Antecubital via Peripheral IV. Pump/Dri p Flow = 2 ml/hr using [Solution Name] with a concentration of 50 mg in 100 ml. CLEVIPREX 08/25/2017 4:05:36 PM 2 mg/hr 50 mg 100 2 mg/hr CLEVIPREX given in lab by Mirtha Rosales RN in Left Antecubital via Peripheral IV. Pump/Dri p Flow = 4 ml/hr using [Solution Name] with a concentration of 50 mg in 100 ml. CLEVIPREX 08/25/2017 4:09:20 PM 4 mg/hr 50 mg 100 4 mg/hr CLEVIPREX given in lab by Mirtha Rosales RN in Left Antecubital via Peripheral IV. Pump/Dri p Flow = 8 ml/hr using [Solution Name] with a concentration of 50 mg in 100 ml. CLEVIPREX 08/25/2017 4:13:09 PM 6 mg/hr 50 mg 100 6 mg/hr CLEVIPREX given in lab by Mirtha Rosales RN in Left Antecubital via Peripheral IV. Pump/Dri p Flow = 12 ml/hr using [Solution Name] with a concentration of 50 mg in 100 ml. CLEVIPREX 08/25/2017 4:16:44 PM 8 mg/hr 50 mg 100 8 mg/hr CLEVIPREX given in lab by Mirtha Rosales RN in Left Antecubital via Peripheral IV. Pump/Dri p Flow = 16 ml/hr using [Solution Name] with a concentration of 50 mg in 100 ml. CLEVIPREX 08/25/2017 4:21:31 PM 10 mg/hr 50 mg 100 10 mg/hr CLEVIPREX given in lab by Mirtha Rosales RN in Left Antecubital via Peripheral IV. Pump/Dr ip Flow = 20 ml/hr using [Solution Name] with a concentration of 50 mg in 100 ml. CLEVIPREX 08/25/2017 4:25:34 PM 20 mg/hr 50 mg 100 20 mg/hr CLEVIPREX given in lab by Mirtha Rosales RN in Left Antecubital via Peripheral IV. Pump/Dr ip Flow = 40 ml/hr using [Solution Name] with a concentration of 50 mg in 100 ml. CLEVIPREX 08/25/2017 4:28:44 PM 24 mg/hr 50 mg 100 24 mg/hr CLEVIPREX given in lab by Mirtha Rosales RN in Left Antecubital via Peripheral IV. Pump/Dr ip Flow = 48 ml/hr using [Solution Name] with a concentration of 50 mg in 100 ml. CLEVIPREX DRIP 08/25/2017 4:30:48 PM 0 mg/hr 50 mg 100 STOPPED 0 mg/hr CLEVIPREX DRIP STOPPED given in lab by Mirtha Rosales, ROJELIO via Peripheral IV. Pump/Drip Flow = 0 ml/hr using [Solution Name] with a concentration of 50 mg in 100 ml. HEPARIN DRIP STOPPED 08/25/2017 3:29:13 PM 0 units/hr 0 Patient arrived on 0 units/hr HEPARIN DRIP STOPPED. Pump/Drip Flow = 0 ml/hr using [Solution Name]. IV Solutions 08/25/2017 3:09:01 PM 0 mL (IV) 1000 NaCl .9 Patient arrived on IV Solutions in Left Antecubital via Peripheral IV. Pump/Drip Flow = 30 ml/hr usin g NaCl .9. NITROGLYCERIN DRIP 08/25/2017 3:09:01 PM 40 mcg/min 50 mg 250 D5W Patient arrived on 40 mcg/min NITROGLYCERIN DRIP in Left Antecubital via Peripheral IV. Pump/Drip Alejandro w = 12 ml/hr using D5W with a concentration of 50 mg in 250 ml. NITROGLYCERIN DRIP 08/25/2017 3:29:16 PM 20 mcg/min 50 mg 250 D5W 20 mcg/min NITROGLYCERIN DRIP given in lab by Mirtha Rosales, ROJELIO in Left Wrist via Peripheral IV. Pu mp/Drip Flow = 6 ml/hr using D5W with a concentration of 50 mg in 250 ml. NITROGLYCERIN DRIP 08/25/2017 3:42:25 PM 50 mcg/min 50 mg 250 D5W 50 mcg/min NITROGLYCERIN DRIP given in lab by Mirtha Rosales, RN in Left Antecubital via Peripheral IV. Pump/Drip Flow = 15 ml/hr using D5W with a concentration of 50 mg in 250 ml. Initial Case Assessment Cardiovascular HR Rhythm NIBP Chest Pain 91 reg 118/61 0 Edema Present Skin color Skin None Normal Warm Dry Circulatory - Right Pulses Dorsalis Pedis Femoral Radial 3 3 3 Scale (0,1,2,3,4,d) Scale (0,1,2,3,4,d) Circulatory - Lower Extremities Color Lower Right Color Lower Left Normal Normal Neurological State Oriented to time-place- Alert Moves all extremities person Chronological Log Time Study Chronological Log 15:08:50 Patient arrived via Bed. 15:08:51 Patient Name, D.O.B, / Armband Verified By R.N. 15:08:51 Consent signed by the physician and the patient and verified by the Application Specialist staff. 15:08:52 Pre-op and post- op instructions given; patient acknowledges understanding of instructions. 15:08:52 Verbal Stimulation=2 Physical Stimulation=2 Airway=2 Respiration=2 TOTAL=8. (0=absent, 1=li mited, 2=present) 15:08:53 Presedation assessment performed by Application Specialist RN. 15:08:54 Allens test performed on the right radial and ulnar artery. 15:08:54 Immediate Presedation assesment performed by physician. 15:08:55 Patient has been NPO for More than 6Hrs. 15:08:56 Skin Breakdown none per pt 15:08:57 Patient Warmer Placed on the Table. 15:08:58 Bety Prominences Protected 15:08:59 A # 20 IV was noted in the Antecubital (left). Grade = 0 15:09:00 A # 20 IV was noted in the Wrist (left). Grade = 0 Patient arrived on 40 mcg/min NITROGLYCERIN DRIP in Left Antecubital via Peripheral IV. Pump/Dr ip Flow = 12 ml/hr 15:09:01 using D5W with a concentration of 50 mg in 250 ml. 15:09:01 Patient arrived on IV Solutions in Left Antecubital via Peripheral IV. Pump/Drip Flow = 30 ml/hr using NaCl .9. 15:09:02 History and physical on the chart or being dictated. Assessment: Initial Case, HR=91 BPM, Rhythm=reg, MWIE=356/61 mmhg, Chest Pain=0, Edema=None, Co jessica=Normal, Skin = Warm, Dry Right Pulses: Sadiq Ped=3, Femoral=3, Radial=3 15:09:57 Lower Right Extremities: Color=Normal Lower Left Extremities: Color=Normal Neurological: State=Alert, Ox3, PLUMMER Vitals capture started with the following parameters, Patient=Adult, Interval=5 min, Initial Pr tflagt=411 mmHg, 15:12:43 Deflation Rate=5 mmHg, Cuff placed on Left Leg 15:13:54 QEOU=132/61 mmhg, Pain=0, Nena=10, Cedeno=2 15:18:19 HR=86 bpm, AHRL=406/66 mmhg, SpO2=93.0 %, Resp=13 B/min, Pain=0, Nena=10, Cedeno=2 15:19:49 Right Radial and right groin prepped with 2% chlorhexidine, and draped after a 3 min. waiti ng time. 15:23:50 HR=90 bpm, JWBN=669/57 mmhg, SpO2=92.0 %, Resp=14 B/min, Pain=0, Nena=10, Cedeno=2 15:26:37 Reference ECG taken 15:28:17 HR=91 bpm, YQZP=718/61 mmhg, SpO2=96.0 %, Resp=17 B/min, Pain=0, Nena=10, Cedeno=2 15:28:30 Pressure channel 1 zero failed. 15:28:47 Pressure channel 1 zeroed. 15:29:13 Patient arrived on 0 units/hr HEPARIN DRIP STOPPED. Pump/Drip Flow = 0 ml/hr using [Solutio n Name]. 20 mcg/min NITROGLYCERIN DRIP given in lab by Mirtha Rosales, ROJELIO in Left Wrist via Peripheral IV. Pump/Drip Flow 15:29:16 = 6 ml/hr using D5W with a concentration of 50 mg in 250 ml. 15:30:44 MD arrived 15:33:51 HR=91 bpm, RCHO=221/56 mmhg, SpO2=96.0 %, Resp=13 B/min, Pain=0, Nena=10, Cedeno=2 Time Out. Correct patient, correct procedure, correct physician, power injector not loaded with contrast with surgical 15:34:17 team present. Time Out Concurred by MD and individual staff in procedure. 15:34:32 Case Start 15:34:34 2 mg VERSED given in lab by Mirtha Rosales, ROJELIO in Left Antecubital via Peripheral IV. 15:35:18 1 mL 1% XYLOCAINE given in lab by Paul Brewer in Right Radial via Subcutaneous. 15:36:25 Access site was right Radial Artery. A SHEATH, FR6 RADIAL PRELUDE EASE 11CM FR 6 was advanced into the Radial (right) using the Perc utaneous 15:36:36 technique. 1 units RADIAL COCKTAIL given in lab by Paul Brewer in Right Radial via Radial. Reason: Ntg 20 0mcg Verapamil 15:36:50 2.5mg Heparin 2500U. A CATHETER, FR5 OPTITORQUE RADIAL TIG 4.0 FR 5 was advanced over a wire. OMNIPAQUE, 350 MG, 150 ML 150ML 15:37:22 was used for injections. 15:38:21 HR=91 bpm, LFCI=615/60 mmhg, SpO2=95.0 %, Resp=16 B/min, Pain=0, Nena=10, Cedeno=2 Recorded Pressure: Ao, HR=89, Condition=Condition 1 15:38:32 (Aorta) Ao 185/67/109 15:38:52 The LCA was injected and visualized at various angles. OMNIPAQUE, 350 MG, 150ML 150ML used . 15:40:41 The RCA was injected and visualized at various angles. OMNIPAQUE, 350 MG, 150ML 150ML used . 50 mcg/min NITROGLYCERIN DRIP given in lab by Mirtha Rosales, ROJELIO in Left Antecubital via Perip heral IV. Pump/Drip 15:42:25 Flow = 15 ml/hr using D5W with a concentration of 50 mg in 250 ml. 15:43:18 VS=655 bpm, KJVM=113/74 mmhg, SpO2=96.0 %, Resp=17 B/min, Pain=0, Nena=10, Cedeno=2 After removing the current catheter a JR 5.0 INFINITI CATHETER FR 6 was advanced over a WIRE, E XCHANGE 260CM 15:43:28 3MMJ 260CM. 15:45:23 1.25 mcg VASOTEC given in lab by Mirtha Rosales, ROJELIO in Left Antecubital via Peripheral IV. After removing the current catheter a 3DRC INFINITI CATHETER FR 6 was advanced over a WIRE, EXC HANGE 260CM 15:47:05 3MMJ 260CM. 15:48:23 BB=942 bpm, VEKH=054/70 mmhg, SpO2=96.0 %, Resp=13 B/min, Pain=0, Nena=10, Cedeno=2 15:50:09 The RCA was injected and visualized at various angles. OMNIPAQUE, 350 MG, 150ML 150ML used . After removing the current catheter a AR MOD INFINITI CATHETER FR 6 was advanced over a WIRE, E XCHANGE 260CM 15:52:50 3MMJ 260CM. 15:53:22 WE=467 bpm, VMJK=134/74 mmhg, SpO2=95.0 %, Resp=17 B/min, Pain=0, Nena=10, Cedeno=2 15:54:35 1.25 mcg VASOTEC given in lab by Mirtha Rosales RN in Left Antecubital via Peripheral IV. 15:58:23 PZ=510 bpm, MESE=639/71 mmhg, SpO2=95.0 %, Resp=15 B/min, Pain=0, Nena=10, Cedeno=2 1 mg/hr CLEVIPREX given in lab by Mirtha Rosales, ROJELIO in Left Antecubital via Peripheral IV. Pu mp/Drip Flow = 2 ml/hr 16:03:06 using [Solution Name] with a concentration of 50 mg in 100 ml. 16:03:20 UG=596 bpm, LZJE=802/68 mmhg, SpO2=96.0 %, Resp=13 B/min, Pain=0, Nena=10, Cedeno=2 2 mg/hr CLEVIPREX given in lab by Mirtha Rosales RN in Left Antecubital via Peripheral IV. Pu mp/Drip Flow = 4 ml/hr 16:05:36 using [Solution Name] with a concentration of 50 mg in 100 ml. 16:06:20 20 mL 1% XYLOCAINE given in lab by Paul Brewer in Right Groin via Subcutaneous. 16:08:54 JL=408 bpm, XNQA=068/63 mmhg, SpO2=95.0 %, Resp=10 B/min, Pain=0, Nena=10, Cedeno=2 4 mg/hr CLEVIPREX given in lab by Mirtha Rosales RN in Left Antecubital via Peripheral IV. Pu mp/Drip Flow = 8 ml/hr 16:09:20 using [Solution Name] with a concentration of 50 mg in 100 ml. 16:10:14 2 mg VERSED given in lab by Mirtha Rosales RN in Left Antecubital via Peripheral IV. 16:10:24 Access site was Right Femoral Artery. 16:10:30 A SHEATH, FR6.5 PRELUDE 11CM FR 6.5 was advanced into the Fem Art (right) using the Percuta neous technique. A 3DRC INFINITI CATHETER FR 6 was advanced over a wire. OMNIPAQUE, 350 MG, 150ML 150ML was used for 16:11:36 injections. 6 mg/hr CLEVIPREX given in lab by Mirtha Rosales RN in Left Antecubital via Peripheral IV. Pu mp/Drip Flow = 12 16:13:09 ml/hr using [Solution Name] with a concentration of 50 mg in 100 ml. 16:13:24 WV=670 bpm, NIBP=87/60 mmhg, SpO2=94.0 %, Resp=16 B/min, Pain=0, Nena=10, Ceedno=2 16:14:43 Catheter was removed A PIGTAIL STR INFINITI CATHETER FR 6 was advanced over a wire. OMNIPAQUE, 350 MG, 150ML 150ML w as used for 16:16:10 injections. 8 mg/hr CLEVIPREX given in lab by Mirtha Rosales RN in Left Antecubital via Peripheral IV. Pu mp/Drip Flow = 16 16:16:44 ml/hr using [Solution Name] with a concentration of 50 mg in 100 ml. Recorded Pressure: LV, HR=98, Condition=Condition 1 16:17:19 (Left Ventricle) LV 179/9/14 16:18:23 HR=99 bpm, NIBP=92/51 mmhg, SpO2=94.0 %, Resp=19 B/min, Pain=0, Nena=10, Cedeno=2 16:18:39 The LV was injected at 12 cc/sec for a total of 42. OMNIPAQUE, 350 MG, 50ML 50ML used. Recorded Pressure: LV, Ao, RA=431, Condition=Condition 1 16:19:04 (Left Ventricle) LV 189/12/24, (Aorta) Ao 177/58/101 16:19:20 An injection in the Fem Art (right) was made through the SHEATH, FR6.5 PRELUDE 11CM FR 6.5. 16:19:28 Catheter was removed 10 mg/hr CLEVIPREX given in lab by Mirtha Rosales RN in Left Antecubital via Peripheral IV. P ump/Drip Flow = 20 16:21:31 ml/hr using [Solution Name] with a concentration of 50 mg in 100 ml. 16:22:46 5 mg LOPRESSOR given in lab by Mirtha Rosales RN in Left Antecubital via Peripheral IV. 16:23:22 HR=88 bpm, NIBP=98/51 mmhg, SpO2=95.0 %, Resp=11 B/min, Pain=0, Nena=10, Cedeno=2 16:23:40 VASCADE, FR6 CLOSURE SYSTEM FR 6\\7 placement in the Fem Art (right) 16:25:30 Case End 20 mg/hr CLEVIPREX given in lab by Mirtha Rosales RN in Left Antecubital via Peripheral IV. P ump/Drip Flow = 40 16:25:34 ml/hr using [Solution Name] with a concentration of 50 mg in 100 ml. 16:25:41 Catheter(s) removed without difficulty 16:25:48 No case complications noted. 16:25:53 A Left Heart Cath was performed. 24 mg/hr CLEVIPREX given in lab by Mirtha Rosales RN in Left Antecubital via Peripheral IV. P ump/Drip Flow = 48 16:28:44 ml/hr using [Solution Name] with a concentration of 50 mg in 100 ml. 16:29:04 HR=78 bpm, NIBP=90/36 mmhg, Resp=21 B/min, Pain=0, Nena=10, Cedeno=2 0 mg/hr CLEVIPREX DRIP STOPPED given in lab by Mirtha Rosales RN via Peripheral IV. Pump/Drip Flow = 0 ml/hr 16:30:48 using [Solution Name] with a concentration of 50 mg in 100 ml. 16:34:24 HR=70 bpm, WEMK=774/139 mmhg, SpO2=92.0 %, Resp=17 B/min, Pain=0, Nena=10, Cedeno=2 16:38:32 HR=70 bpm, WKPY=114/47 mmhg, SpO2=91.0 %, Resp=20 B/min, Pain=0, Nena=10, Cedeno=2 Radial Compression Device Used. 13 mLs of air placed in BAND, RADIAL COMPRESSION TR LARGE 29 2 9CM. Affected 16:42:43 hand 91 % O2 saturation. 16:43:25 HR=82 bpm, TCZJ=754/50 mmhg, SpO2=91.0 %, Resp=20 B/min, Pain=0, Nena=10, Cedeno=2 16:48:07 Vitals capture stopped. 16:52:37 Patient moved to stretcher End Study - Contrast Media Used In Study Contrast Total Opened (mL) Total Used (mL) Total Wasted (mL) Omnipaque 165 165 0 End Study - Maximum Contrast Load Max Contrast Load (mL) 530.1 End Study - Radiation Exposure Fluoro Time (minutes) 13.5 End Study - Sheaths Sheaths Pulled By Sheath Hold Time (min) Paul Brewer End Study - Patient Disposition Complications Transferred To Interventional Outcome No Application Specialist Holding No attempt made
[2017-08-25] MEDS ORDERED: SODIUM CHLOR 0.9% 1000 ML INJ 1,000 ML IV SCH (17:00)
[2017-08-25] MEDS ORDERED: IOHEXOL 350 MG/ML 100 ML BTL (for Cath Lab) OTHER ONE (17:44)
--- NOTE | 2017-08-25 18:33 | EKG ---
Date Performed: 08/25/2017 Time Performed: 02:46:29 PTAGE: 66 years EKG: Sinus rhythm POOR R WAVE PROGRESSION LEFT ANTERIOR FASCICULAR BLOCK ABNORMAL ECG PREVIOUS TRACING : 08/18/2017 23.38 No significant change from previous tracing noted. DOCTOR: Paul Brewer Interpretating Date/Time 08/25/2017 18:31:17
[2017-08-25] MEDS: cloNIDine HCL 0.2 MG TAB PO SCH (20:32)
[2017-08-25] MEDS: METOPROLOL TARTRATE 50 MG TAB PO SCH (20:38)
[2017-08-25] MEDS ORDERED: NIACIN 500 MG EXTENDED RELEASE TAB PO SCH (21:00)
--- NOTE | 2017-08-25 21:26 | EKG ---
Date Performed: 08/24/2017 Time Performed: 20:27:02 PTAGE: 66 years EKG: Sinus rhythm POSSIBLE LEFT ANTERIOR FASCICULAR BLOCK POOR R WAVE PROGRESSION ABNORMAL ECG NO PREVIOUS TRACING DOCTOR: Paul Brewer Interpretating Date/Time 08/25/2017 21:25:53
[2017-08-26] VITALS (10 sets, daily range): BP systolic 105–130; BP diastolic 49–55; PULSE 54–87; RESP 18; TEMP 98.4–98.7; O2SAT 94–95
[2017-08-26] MEDS: SODIUM CHLOR 0.9% 1000 ML INJ 1,000 ML IV SCH (04:27)
[2017-08-26] MEDS: cloNIDine HCL 0.2 MG TAB PO SCH (05:19)
[2017-08-26 07:21] LABS: BICARBONATE 26.3 MEQ/L (21.0-32.0); CALCIUM 8.7 MG/DL (8.5-10.1); CREATININE 0.96 MG/DL (0.60-1.30)
[2017-08-26 07:25] LABS: CHOLESTEROL/ HDL RATIO 3.74 RATIO; HDL CHOLESTEROL 37.4 MG/DL (40.0-60.0)
--- NOTE | 2017-08-26 08:18 | PD.CARD.PN ---
Subjective Subjective Remarks Infrequent, fleeting chest discomfort, relieved by taking deep breath, holding it, and slowly exhaling. No dyspnea, headache, palpitations, dizziness. Objective Medications Item Value Date Time Clonidine 0.2 mg 08/25/170 (Catapres) Q8HR/PO 08/26/17 0519 Niacin 2,000 mg 08/25/172099 (Slo-Niacin) HS/PO 08/25/172037 Metoprolol 50 mg 08/25/172099 Tartrate BID/PO 08/25/172037 (Lopressor) Clopidogrel 75 mg 08/25/17899 Bisulfate DAILY/PO 08/25/1746 (Plavix) Enalapril Maleate 20 mg 08/25/17899 (Vasotec) BID/PO 08/25/172039 Amlodipine 10 mg 08/25/17899 Besylate DAILY/PO 08/25/17746 (Norvasc) Atorvastatin 80 mg 08/25/17899 Calcium DAILY/PO 08/25/17746 (Lipitor) Nitroglycerin/ 250 ml @ 1.5 mls/hr 08/24/172199 Dextrose TITRATE PRN/IV 08/25/17 1456 Current Medications Medications (Trade) Dose Ordered Sig/Rickey Route Start Time Stop Time Status Last Admin Nitroglycerin/ Dextrose 250 ml @ 1.5 mls/hr TITRATE PRN IV 08/24/17 22:00 08/24/17 22:48 Nitroglycerin/ Dextrose 250 ml @ 1.5 mls/hr TITRATE PRN IV 08/24/17 22:00 08/25/17 14:56 (NS Flush) 2 ml BID IV FLUSH 08/25/17 09:00 08/25/17 20:38 (NS Flush) 2 ml UNSCH PRN IV FLUSH 08/24/17 23:30 (Plavix) 75 mg DAILY PO 08/25/17 09:00 08/25/17 07:46 (Vasotec) 20 mg BID PO 08/25/17 09:00 08/25/17 20:40 (Slo-Niacin) 2,000 mg HS PO 08/25/17 21:00 08/25/17 20:38 (Norvasc) 10 mg DAILY PO 08/25/17 09:00 08/25/17 07:47 (Lipitor) 80 mg DAILY PO 08/25/17 09:00 08/25/17 07:47 Sodium Chloride 1,000 ml @ 100 mls/hr Q10H IV 08/25/17 08:27 08/30/17 08:26 08/26/17 04:27 (Benadryl) 50 mg PROFESSOR OF RADIOLOGY PO 08/25/17 08:30 08/29/17 08:29 (Valium) 10 mg PROFESSOR OF RADIOLOGY PO 08/25/17 08:30 08/29/17 08:29 (Versed Inj) 1 mg PROFESSOR OF RADIOLOGY IV PUSH 08/25/17 08:30 08/29/17 08:29 (Vasotec Inj) 1.25 mg Q6H PRN IV PUSH 08/25/17 14:45 (Lopressor) 50 mg BID PO 08/25/17 21:00 08/25/17 20:38 (Atropine Inj) 0.5 mg UNSCH PRN IV 08/25/17 16:45 (Catapres) 0.2 mg Q8HR PO 08/25/17 22:00 08/26/17 05:19 Vital Signs / I&O Vital Signs Date Time Temp Pulse Resp B/P (MAP) Pulse Ox O2 Delivery O2 Flow Rate FiO2 08/26/17 07:44 98.4 84 18 105/55 (72) 95 08/26/17 07:44 68 08/26/17 06:11 87 08/26/17 05:06 65 08/26/17 04:27 54 08/26/17 04:14 98.7 64 130/49 (76) 94 08/26/17 03:06 59 08/26/17 02:00 68 08/26/17 01:00 66 08/26/17 00:00 64 08/25/17 23:00 72 08/25/17 23:00 99.1 77 101/51 (68) 92 08/25/17 22:00 78 08/25/17 21:00 82 08/25/17 20:00 88 08/25/17 19:00 66 08/25/17 19:00 98.1 77 101/51 (68) 92 08/25/17 18:00 76 08/25/17 18:00 76 08/25/17 17:00 95 Nasal Cannula 08/25/17 16:03 111 254/109 08/25/17 14:56 71 170/73 08/25/17 14:39 63 170/67 08/25/17 12:42 86 212/95 08/25/17 12:29 89 18 178/71 (106) 94 08/25/17 11:50 97.8 66 17 158/76 (103) 97 Nasal Cannula 2.00 08/25/17 11:04 97.9 64 17 153/75 (101) 98 Room Air 2.00 08/25/17 10:41 97.8 60 16 134/64 (87) 98 Room Air 2.00 08/25/17 09:17 98.1 69 16 162/69 (100) 97 Room Air 2.00 08/25/17 08:30 97.9 99 16 172/81 (111) 98 Room Air 2.00 I/O 08/25/17 08/25/17 08/25/17 08/26/17 08/26/17 08/26/17 07:00 15:00 23:00 07:00 15:00 23:00 Intake Total 3 ml 240 ml Output Total 800 ml 500 ml Balance 3 ml -800 ml -260 ml Intake Oral 240 ml IV Total 3 ml Output Urine Total 800 ml 500 ml # Voids 2 1 1 # Bowel Movements 0 1 Physical Exam GENERAL: Well developed, well nourished. No acute distress. HEENT: Jugular venous pressure hard to assess. CHEST: Lungs clear to auscultation bilaterally. Unlabored respiratory effort. CARDIAC: Regular rate and rhythm without S3, S4, or murmur. ABDOMEN: Soft, nontender, no hepatosplenomegaly. Bowel sounds present. EXTREMITIES: No clubbing, cyanosis. Trace edema. Right radial arteriotomy stable, normal radial pulse. Laboratory Laboratory Tests Test 08/25/17 09:00 08/26/17 04:42 Troponin I 0.16 NG/ML Blood Urea Nitrogen 15 MG/DL Creatinine 0.96 MG/DL Random Glucose 108 MG/DL Calcium Level 8.7 MG/DL Sodium Level 139 MEQ/L Potassium Level 4.4 MEQ/L Chloride Level 105 MEQ/L Carbon Dioxide Level 26.3 MEQ/L Anion Gap 8 MEQ/L Estimat Glomerular Filtration Rate 79 ML/MIN Triglycerides Level 144 MG/DL Cholesterol Level 140 MG/DL LDL Cholesterol 74 MG/DL HDL Cholesterol 37.4 MG/DL Cholesterol/HDL Ratio 3.74 RATIO Assessment and Plan Problem List: (1) CAD (coronary artery disease) ICD Codes: I25.10 - Atherosclerotic heart disease of [place] coronary artery without angina pectoris Status: Chronic Plan: Stable overnight. Infrequent CP's persist, overall atypical for ischemia. No definite high grade CAD on cath. REC OK to discharge home from a cardiac standpoint half-way aggressive lipid lowering management continue beta rikki, aspirin; probably should also continue Plavix with his history of PVD (2) Hypertensive emergency ICD Codes: I16.1 - Hypertensive emergency Status: Acute Plan: BP's much better on multi-drug regimen. Continue same. Stressed importance of low sodium diet. (3) Hyperlipidemia ICD Codes: E78.5 - Hyperlipidemia, unspecified Status: Chronic Plan: Fairly good lipid profile this admission. Continue atorvastatin. (4) Carotid artery disease ICD Codes: I77.9 - Disorder of arteries and arterioles, unspecified Status: Chronic Plan: Carotid USN results noted. Patient neurologically stable. Probably can have CTA done as outpatient. Code Status full code Discussed Condition With patient Problem Qualifiers (1) CAD (coronary artery disease): Qualified Codes: I25.119 - Atherosclerotic heart disease of [place] coronary artery with unspecified angina pectoris (2) Hyperlipidemia: Qualified Codes: E78.2 - Mixed hyperlipidemia (3) Carotid artery disease: Qualified Codes: I77.9 - Disorder of arteries and arterioles, unspecified Paul Brewer MD Aug 26, 2017 08:18
[2017-08-26] MEDS: SODIUM CHLORIDE 0.9% FLUSH 10 ML FLUSH IV FLUSH SCH (09:04)
[2017-08-26] MEDS: ENALAPRIL MALEATE 10 MG TAB PO SCH (09:05)
[2017-08-26] MEDS: METOPROLOL TARTRATE 50 MG TAB PO SCH (09:05)
[2017-08-26] MEDS: ATORVASTATIN 80 MG TAB PO SCH (09:05)
[2017-08-26] MEDS: CLOPIDOGREL 75 MG TAB PO SCH (09:05)
[2017-08-26] MEDS ORDERED: CLON.2 PO (09:11)
[2017-08-26] MEDS ORDERED: ASPI1TAB57 PO (09:11)
[2017-08-26] MEDS ORDERED: METO25TA3 PO (09:11)
--- NOTE | 2017-08-26 09:15 | HHI.DCPOC ---
Discharge Care Plan Diagnosis: (1) CAD (coronary artery disease) (2) Hypertensive emergency (3) Hyperlipidemia (4) Carotid artery disease Additional Problems Please see your primary care provider within 1 week due to hospitalization. You will also need a CTA of your neck/carotids due to plaque in the carotid arteries. Your primary care provider should order this on your visit in 1 week. Goals to Promote Your Health * To prevent worsening of your condition and complications * To maintain your health at the optimal level Directions to Meet Your Goals Take your medications as prescribed Follow your dietary instruction Follow activity as directed Keep your appointments as scheduled Take your immunizations and boosters as scheduled If your symptoms worsen call your PCP, if no PCP go to Urgent Care Center or Emergency Room Smoking is Dangerous to Your Health. Avoid second hand smoke Call the 24-hour hour crisis hotline for domestic abuse at Lakeisha Villalta MD Aug 26, 2017 09:15
--- NOTE | 2017-08-26 09:15 | HHI.DS ---
Discharge Summary Admission Date Aug 24, 2017 at 22:29 Admitting Diagnosis Chest pain, hypertensive emergency, elevated troponin Brief History - From Admission 66-year-old male with a past medical history significant for hypertension, hyperlipidemia, CAD status post stent placement and peripheral vascular disease presents to the emergency department for evaluation of chest pain. The patient reports that 1-2 hours prior to his arrival in the emergency department he had severe, crushing substernal chest pain/pressure. He denies radiation. The patient also reports a 1 month history of new onset bilateral, pitting lower extremity edema. Denies shortness of breath or palpitations. Her had pain like this before. Denies any episodes of diaphoresis. He denies nausea/ vomiting/diarrhea. No lateralizing signs/symptoms. 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 CBC/BMP: 08/25/17 0249 08/26/17 0442 Significant Findings Laboratory Tests Test 08/24/17 21:15 08/24/17 22:40 08/24/17 23:20 08/25/17 02:49 White Blood Count 11.3 TH/MM3 (4.0-11.0) Neutrophils (%) (Auto) 77.7 % (16.0-70.0) 72.9 % (16.0-70.0) Monocytes (%) (Auto) 9.0 % (0.0-8.0) 9.6 % (0.0-8.0) Neutrophils # (Auto) 8.7 TH/MM3 (1.8-7.7) Monocytes # (Auto) 1.0 TH/MM3 (0-0.9) Activated Partial Thromboplast Time 23.3 SEC (24.3-30.1) 229.2 SEC (24.3-30.1) Blood Urea Nitrogen 23 MG/DL (7-18) 22 MG/DL (7-18) Creatinine 1.38 MG/DL (0.60-1.30) Random Glucose 134 MG/DL (74-106) 126 MG/DL (74-106) Alkaline Phosphatase 132 U/L (45-117) Estimat Glomerular Filtration Rate 52 ML/MIN (>89) 80 ML/MIN (>89) Troponin I 0.07 NG/ML (0.02-0.05) 0.20 NG/ML (0.02-0.05) Red Blood Count 4.21 MIL/MM3 (4.50-5.90) Hemoglobin 12.9 GM/DL (13.0-17.0) Hematocrit 37.1 % (39.0-51.0) Calcium Level 10.2 MG/DL (8.5-10.1) Test 08/25/17 09:00 08/26/17 04:42 Troponin I 0.16 NG/ML (0.02-0.05) Random Glucose 108 MG/DL (74-106) Estimat Glomerular Filtration Rate 79 ML/MIN (>89) HDL Cholesterol 37.4 MG/DL (40.0-60.0) PE at Discharge GENERAL: in NAD SKIN: Warm and dry. HEAD: Normocephalic. EYES: No scleral icterus. No injection or drainage. NECK: Supple, trachea midline. No JVD or lymphadenopathy. CARDIOVASCULAR: regular rate and rhythm without murmurs, gallops, or rubs. RESPIRATORY: Breath sounds equal bilaterally. No accessory muscle use. GASTROINTESTINAL: Abdomen soft, non-tender, nondistended. MUSCULOSKELETAL: No cyanosis. trace to +1 B/L LE edema. BACK: Nontender without obvious deformity. No CVA tenderness. Pt Condition on Discharge: Good Discharge Disposition: Discharge Home Discharge Instructions DIET: Follow Instructions for: Heart Healthy Diet Activities you can perform: Regular-No Restrictions Lakeisha Villalta MD Aug 26, 2017 09:15
== END 2017-08-26 10:08 | disposition home or self-care (01) | DRG 287 ==
LOC: NEPD 19:48 → NEDA 22:29 → HCIS 08-25 17:53
PROVIDERS: ADMIT Family Medicine; ATTEND Family Medicine
PROC: B2111ZZ Fluoroscopy of Multiple Coronary Arteries using Low Osmolar Contrast (ICD-10-PCS; 2017-08-25)
PROC: B2151ZZ Fluoroscopy of Left Heart using Low Osmolar Contrast (ICD-10-PCS; 2017-08-25)
PROC: 4A023N7 Measurement of Cardiac Sampling and Pressure, Left Heart, Percutaneous Approach (ICD-10-PCS; principal; 2017-08-25 15:00)
DX: I25.119 Atherosclerotic heart disease of native coronary artery with unspecified angina pectoris (principal); N17.9 Acute kidney failure, unspecified; Q24.5 Malformation of coronary vessels; I16.1 Hypertensive emergency; I73.9 Peripheral vascular disease, unspecified; I10 Essential (primary) hypertension; I48.91 Unspecified atrial fibrillation; E78.2 Mixed hyperlipidemia; F17.210 Nicotine dependence, cigarettes, uncomplicated; R60.0 Localized edema; Z95.5 Presence of coronary angioplasty implant and graft
CPT/HCPCS: 71046; 80048; 80053; 80061; 82550; 82552; 83690; 83735; 83880; 84484; 85025; 85027; 85610; 85730; 93005; 93458; 93880; 99152; 99153; C1760; C1769; C1893; C9248; G0269; J1644; J2250; J3010; J7030; Q9967

== ENCOUNTER 2017-10-02 14:02 | Inpatient (IN) | payer OTHER ==
[2017-10-02] VITALS (9 sets, daily range): BP systolic 126–245; BP diastolic 58–109; PULSE 61–128; RESP 15–22; TEMP 98.4; O2SAT 92–98
[~2017-10-02] VITALS: Ht 170.2 cm; Wt 97.5 kg
[~2017-10-02 14:02] MED LIST changes: +AMLO1TAB39 PO; +ASPI1TAB57 PO; -CADU10TA PO; +CLON.2 PO; -CLOP75 PO; +ENAL20TA PO; -EZET10 PO; +METO25TA3 PO; -METO50TA PO; -NIAS10004 PO; +PLAV75TA29 PO; -PRED20 PO; -TREN400T PO; -VASO10TA8 PO
[2017-10-02] MEDS ORDERED: IOHEXOL 350 MG/ML 10 ML VIAL (for RAD DIAG) IVCONTRAST ONE (14:03)
[2017-10-02] MEDS ORDERED: ONDANSETRON HCL 4 MG/2 ML VIAL IV PUSH ONE (14:30)
[2017-10-02] MEDS ORDERED: SODIUM CHLORIDE 0.9% FLUSH 10 ML FLUSH IVF PRN (14:30)
[2017-10-02] MEDS ORDERED: MORPHINE SULFATE 2 MG/ML SYRINGE IV PUSH ONE (14:30)
[2017-10-02] MEDS: NITROGLYCERIN 0.4 MG SL 25 TABS/BTL SL SCH ×3 (14:35→15:27)
--- NOTE | 2017-10-02 15:03 | RADRPT ---
EXAM DATE/TIME: 10/02/2017 14:46 [facility] COMPARISON: CHEST PA & LAT, August 24, 2017, 20:39. INDICATIONS : Chest pain. MEDICAL HISTORY : Hypertension. SURGICAL HISTORY : Cardiac stent. ENCOUNTER: Initial ACUITY: 1 day PAIN SCORE: 2/10 LOCATION: Bilateral chest FINDINGS: Opacity at the right cardiophrenic angle is unchanged and presumably epicardial fat. Lungs are clear and no significant effusion is suspected. Heart size and pulmonary vascular is within normal limits. CONCLUSION: Stable chest no acute disease Luke oGldberg MD on October 02, 2017 at 15:00 Board Certified Radiologist. This report was verified electronically.
[2017-10-02 15:16] LABS: BASOPHIL # 0.1 TH/MM3 (0-0.2); BASOPHIL % 0.6 % (0.0-2.0); EOSINOPHIL # 0.1 TH/MM3 (0-0.4); EOSINOPHIL % 0.7 % (0.0-4.0); HEMATOCRIT 39.1 % (39.0-51.0); HEMOGLOBIN 13.4 GM/DL (13.0-17.0); LYMPH % 12.2 % (9.0-44.0); LYMPHOCYTE # 1.2 TH/MM3 (1.0-4.8); MEAN CELL VOLUME 88.2 FL (80.0-100.0); MEAN CORPUSCULAR HEMOGLOBIN 30.3 PG (27.0-34.0); MEAN CORPUSCULAR HGB CONC 34.3 % (32.0-36.0); MEAN PLATELET VOLUME 7.7 FL (7.0-11.0); MONO % 6.9 % (0.0-8.0); MONOCYTE # 0.7 TH/MM3 (0-0.9); NEUT % 79.6 % (16.0-70.0); PLATELET COUNT 303 TH/MM3 (150-450); RED BLOOD COUNT 4.43 MIL/MM3 (4.50-5.90); RED CELL DISTRIBUTION WIDTH 14.3 % (11.6-17.2)
--- NOTE | 2017-10-02 15:25 | PD ---
HPI Chief Complaint: Chest Pain Time Seen by Provider: 14:24 Travel History International Travel<30 days: No Contact w/Intl Traveler<30days: No Traveled to known affect area: No History of Present Illness HPI Patient is a 66-year-old male presenting to the emergency department for evaluation of chest pain. Patient states his symptoms started last night, he reports pain is pressure-like and a 10 out of 10. He reports that the pain radiates up into his shoulders and causes his shoulders ache. He also reports feeling his heart beating fast. He states that the palpitations are worse with any activity or with food. Patient states that he has edema to his lower extremities, this started 3 months ago, his primary doctor has him on a water pill but told him not to take it every day. Patient has not taken any diuretics in 4-5 days. Patient states that he feels short of breath when he lays down. He reports taking (2) 325 mg aspirin prior to arrival. Symptom onset was sudden, symptoms are severe in nature. There are no alleviating factors at this point. PFSH Past Medical History Hx Anticoagulant Therapy: Yes (Plavix) Cardiac Catheterization: Yes High Cholesterol: Yes Chest Pain: Yes Coronary Artery Disease: Yes Headaches: Yes Hypertension: Yes Neurologic: Yes Immunizations Current: Yes Past Surgical History Appendectomy: Yes Body Medical Devices: STENT IN RIGHT AND LEFT COMMON ILIAC ARTERY Coronary Stent: Yes (TIMES 2) Oral Surgery: Yes (WISDOM TEETH REMOVED) Other Surgery: Yes (CAROTIDS) Social History Alcohol Use: No Tobacco Use: Yes Substance Use: No Allergies-Medications (Allergen,Severity, Reaction): Coded Allergies: No Known Allergies (Verified Allergy, Unknown, 10/02/17) Reported Meds & Prescriptions Reported Meds & Active Scripts Active Metoprolol Tartrate 25 Mg Tab 25 Mg PO BID Aspirin 81 (Aspirin) 81 Mg Tabdr 81 Mg PO DAILY Catapres (Clonidine) 0.2 Mg Tab 0.2 Mg PO Q8HR Reported Amlodipine-Atorvastatin 10-80 Mg Tab 1 Tab PO DAILY Plavix (Clopidogrel Bisulfate) 75 Mg Tab 75 Mg PO DAILY Enalapril (Enalapril Maleate) 20 Mg Tab 20 Mg PO BID Review of Systems Except as stated in HPI: all other systems reviewed are Neg HENT: Positive: Headaches Cardiovascular: Positive: Chest Pain or Discomfort, Palpitations, Tachycardia, Dyspnea on exertion, Edema Respiratory: Positive: Shortness of Breath, No: Cough Gastrointestinal: No: Nausea, Vomiting, Abdominal Pain Musculoskeletal: No: Myalgias Neurologic: No: Weakness, Dizziness, Syncope, Focal Abnormalities Physical Exam Narrative GENERAL: Overweight, well-developed, alert elderly gentleman. Appears uncomfortable, no acute distress. SKIN: Warm and dry. HEAD: Atraumatic. Normocephalic. EYES: Pupils equal and round. No scleral icterus. No injection or drainage. ENT: No nasal bleeding or discharge. Mucous membranes pink and moist. NECK: Trachea midline. No JVD. CARDIOVASCULAR: Tachycardic RESPIRATORY: No accessory muscle use. Clear to auscultation. Breath sounds equal bilaterally. GASTROINTESTINAL: Abdomen soft, non-tender, nondistended. Hepatic and splenic margins not palpable. MUSCULOSKELETAL: Extremities without clubbing, cyanosis. No obvious deformities. 2+ pitting edema to bilateral lower extremities. NEUROLOGICAL: Awake and alert. No obvious cranial nerve deficits. Motor grossly within normal limits. Five out of 5 muscle strength in the arms and legs. Normal speech. PSYCHIATRIC: Appropriate mood and affect; insight and judgment normal. Data Data Last Documented VS Vital Signs Date Time Temp Pulse Resp B/P (MAP) Pulse Ox O2 Delivery O2 Flow Rate FiO2 10/02/17 17:54 88 18 140/65 (90) 94 Nasal Cannula 2.00 Orders Orders Electrocardiogram (10/02/17 14:24) B-Type Natriuretic Peptide (10/02/17 14:24) Ckmb (Isoenzyme) Profile (10/02/17 14:24) Complete Blood Count With Diff (10/02/17 14:24) Comprehensive Metabolic Panel (10/02/17 14:24) Magnesium (Mg) (10/02/17 14:24) Prothrombin Time / Inr (Pt) (10/02/17 14:24) Act Partial Throm Time (Ptt) (10/02/17 14:24) Troponin I (10/02/17 14:24) Lipase (10/02/17 14:24) Chest, Single Ap (10/02/17 14:24) Ecg Monitoring (10/02/17 14:24) Bilateral Bp Monitoring (10/02/17 14:24) Iv Access Insert/Monitor (10/02/17 14:24) Oximetry (10/02/17 14:24) Oxygen Administration (10/02/17 14:24) Sodium Chloride 0.9% Flush (Ns Flush) (10/02/17 14:30) Nitroglycerin Sl (Nitrostat Sl) (10/02/17 14:30) Ct Pulmonary Angiogram (10/02/17 ) Morphine Inj (Morphine Inj) (10/02/17 14:30) Ondansetron Inj (Zofran Inj) (10/02/17 14:30) CKMB (10/02/17 14:45) CKMB% (10/02/17 14:45) Magnesium Sulfate 1 Gm Premix (Magnesium (10/02/17 15:45) Iohexol 350 Inj (Omnipaque 350 Inj) (10/02/17 14:03) Heparin Inj (Heparin Inj) (10/02/17 17:45) Heparin Inj (Heparin Inj) (10/02/17 23:45) Heparin Inj (Heparin Inj) (10/02/17 23:45) Heparin-D5w 25,000 U/250 Ml (Heparin-D5w (10/02/17 17:45) Cbc No Diff, Includes Plts (10/05/17 06:00) Act Partial Throm Time (Ptt) (10/03/17 00:45) Occult Blood (Hemoccult) Stool (10/02/17 17:45) Nitroglycerin 2% Oint (Nitroglycerin 2% (10/02/17 17:45) Admit Order (Ed Use Only) (10/02/17 17:57) Labs Laboratory Tests Test 10/02/17 14:45 White Blood Count 10.0 TH/MM3 Red Blood Count 4.43 MIL/MM3 Hemoglobin 13.4 GM/DL Hematocrit 39.1 % Mean Corpuscular Volume 88.2 FL Mean Corpuscular Hemoglobin 30.3 PG Mean Corpuscular Hemoglobin Concent 34.3 % Red Cell Distribution Width 14.3 % Platelet Count 303 TH/MM3 Mean Platelet Volume 7.7 FL Neutrophils (%) (Auto) 79.6 % Lymphocytes (%) (Auto) 12.2 % Monocytes (%) (Auto) 6.9 % Eosinophils (%) (Auto) 0.7 % Basophils (%) (Auto) 0.6 % Neutrophils # (Auto) 8.0 TH/MM3 Lymphocytes # (Auto) 1.2 TH/MM3 Monocytes # (Auto) 0.7 TH/MM3 Eosinophils # (Auto) 0.1 TH/MM3 Basophils # (Auto) 0.1 TH/MM3 CBC Comment DIFF FINAL Differential Comment Prothrombin Time 10.4 SEC Prothromb Time International Ratio 1.0 RATIO Activated Partial Thromboplast Time 24.0 SEC Blood Urea Nitrogen 18 MG/DL Creatinine 1.30 MG/DL Random Glucose 203 MG/DL Total Protein 7.5 GM/DL Albumin 3.8 GM/DL Calcium Level 10.8 MG/DL Magnesium Level 1.4 MG/DL Alkaline Phosphatase 115 U/L Aspartate Amino Transf (AST/SGOT) 22 U/L Alanine Aminotransferase (ALT/SGPT) 32 U/L Total Bilirubin 0.3 MG/DL Sodium Level 137 MEQ/L Potassium Level 4.2 MEQ/L Chloride Level 102 MEQ/L Carbon Dioxide Level 27.4 MEQ/L Anion Gap 8 MEQ/L Estimat Glomerular Filtration Rate 56 ML/MIN Total Creatine Kinase 107 U/L Creatine Kinase MB 2.0 NG/ML Troponin I 0.32 NG/ML B-Type Natriuretic Peptide 79 PG/ML Lipase 102 U/L [facility] Medical Decision Making Medical Screen Exam Complete: Yes Emergency Medical Condition: Yes Medical Record Reviewed: Yes Interpretation(s) Laboratory Tests Test 10/02/17 14:45 White Blood Count 10.0 TH/MM3 Red Blood Count 4.43 MIL/MM3 Hemoglobin 13.4 GM/DL Hematocrit 39.1 % Mean Corpuscular Volume 88.2 FL Mean Corpuscular Hemoglobin 30.3 PG Mean Corpuscular Hemoglobin Concent 34.3 % Red Cell Distribution Width 14.3 % Platelet Count 303 TH/MM3 Mean Platelet Volume 7.7 FL Neutrophils (%) (Auto) 79.6 % Lymphocytes (%) (Auto) 12.2 % Monocytes (%) (Auto) 6.9 % Eosinophils (%) (Auto) 0.7 % Basophils (%) (Auto) 0.6 % Neutrophils # (Auto) 8.0 TH/MM3 Lymphocytes # (Auto) 1.2 TH/MM3 Monocytes # (Auto) 0.7 TH/MM3 Eosinophils # (Auto) 0.1 TH/MM3 Basophils # (Auto) 0.1 TH/MM3 CBC Comment DIFF FINAL Differential Comment Prothrombin Time 10.4 SEC Prothromb Time International Ratio 1.0 RATIO Activated Partial Thromboplast Time 24.0 SEC Blood Urea Nitrogen 18 MG/DL Creatinine 1.30 MG/DL Random Glucose 203 MG/DL Total Protein 7.5 GM/DL Albumin 3.8 GM/DL Calcium Level 10.8 MG/DL Magnesium Level 1.4 MG/DL Alkaline Phosphatase 115 U/L Aspartate Amino Transf (AST/SGOT) 22 U/L Alanine Aminotransferase (ALT/SGPT) 32 U/L Total Bilirubin 0.3 MG/DL Sodium Level 137 MEQ/L Potassium Level 4.2 MEQ/L Chloride Level 102 MEQ/L Carbon Dioxide Level 27.4 MEQ/L Anion Gap 8 MEQ/L Estimat Glomerular Filtration Rate 56 ML/MIN Total Creatine Kinase 107 U/L Creatine Kinase MB 2.0 NG/ML Troponin I 0.32 NG/ML B-Type Natriuretic Peptide 79 PG/ML Lipase 102 U/L Vital Signs Date Time Temp Pulse Resp B/P (MAP) Pulse Ox O2 Delivery O2 Flow Rate FiO2 10/02/17 14:09 128 22 245/109 (154) 216/92 (133) Differential Diagnosis [place] versus ACS versus pulmonary embolism versus metabolic abnormality versus arrhythmia versus other Narrative Course Patient is a 66-year-old male who presented to emergency room for evaluation of chest pain. Patient is hypotensive and tachycardic on arrival. Labs and imaging ordered and pending. Nitroglycerin and morphine ordered for pain. Patient was placed on 2 L of oxygen via nasal cannula. Chest x-ray shows no acute disease CBC with no acute findings Chemistry with magnesium 1.4, 1 g of mag sulfate ordered. BNP is normal Cardiac enzymes resulted with a troponin of 0.32, this is elevated when compared to prior in August of this year, troponin at that time was 0.16. Patient was reassessed, he reported improvement in his pain after administration of nitroglycerin and morphine, patient is currently pain-free. Blood pressure has trended down and is stable at 126 systolic. Discussed findings with Dr. Farley, reviewed prior cardiac cath with her as well as patient's current lab findings and presentation. She recommended patient be placed on a heparin drip and nitro paste to his chest wall if blood pressure could sustain it. Medications are ordered. [facility] paged for admission. Dr. Santiago accepted admit, admit orders placed. Plan of care and patient presentation was also discussed with my attending physician. Diagnosis Primary Impression: Non-ST elevation (NSTEMI) myocardial infarction Admitting Information Admitting Physician Requests: Admit Condition: Stable Vivian Kaur Oct 02, 2017 15:25
[2017-10-02 15:26] LABS: ALBUMIN 3.8 GM/DL (3.4-5.0); ALT (GPT) 32 U/L (12-78); AST (GOT) 22 U/L (15-37); BICARBONATE 27.4 MEQ/L (21.0-32.0); BLOOD UREA NITROGEN 18 MG/DL (7-18); CALCIUM 10.8 MG/DL (8.5-10.1); CHLORIDE 102 MEQ/L (98-107); GLOMERULAR FILTRATION RATE 56 ML/MIN (>89); GLUCOSE,RANDOM 203 MG/DL (74-106); MAGNESIUM 1.4 MG/DL (1.5-2.5); PROTHROMBIN TIME - PATIENT 10.4 SEC (9.8-11.6); SODIUM (NA) 137 MEQ/L (136-145)
[2017-10-02 15:30] LABS: ALKALINE PHOSPHATASE 115 U/L (45-117); TOTAL BILIRUBIN ADULT 0.3 MG/DL (0.2-1.0); TOTAL PROTEIN 7.5 GM/DL (6.4-8.2); TROPONIN I 0.32 NG/ML (0.02-0.05)
[2017-10-02] MEDS ORDERED: MAGNESIUM SULFATE 1 GM PREMIX 100 ML IV ONE (15:45)
--- NOTE | 2017-10-02 17:04 | RADRPT ---
EXAM DATE/TIME: 10/02/2017 16:31 [facility] COMPARISON: No previous studies available for comparison. INDICATIONS : Right mid chest pain IV CONTRAST: 50 cc Omnipaque 350 (iohexol) IV RADIATION DOSE: 21.35 CTDIvol (mGy) MEDICAL HISTORY : Cardiovascular disease. Hypertension. SURGICAL HISTORY : Appendectomy. Carotid surgery ENCOUNTER: Initial ACUITY: 1 day PAIN SCALE: 5/10 LOCATION: Right chest TECHNIQUE: Volumetric scanning of the chest was performed using a pulmonary embolism protocol MIP images were re constructed. Using automated exposure control and adjustment of the mA and/or kV according to patien t size, radiation dose was kept as low as reasonably achievable to obtain optimal diagnostic quality images. DICOM format image data is available electronically for review and comparison. Follow-up recommendations for detected pulmonary nodules are based at a minimum on nodule size and pa tient risk factors according to Fleischner Society Guidelines. FINDINGS: PULMONARY ARTERIES: No filling defects are seen in the pulmonary arteries through the segmental level. LUNGS: There is no consolidation or pneumothorax . No concerning pulmonary nodule is visualized. PLEURAE: There is no pleural thickening or pleural effusion. MEDIASTINUM: There is good visualization of the great vessels of the middle mediastinum. No evidence of mediastin al or hilar adenopathy/mass. MUSCULOSKELETAL: Within normal limits for patient age. MISCELLANEOUS: Lobular bilateral low density adrenal masses. CONCLUSION: No evidence of pulmonary embolism. Bilateral adrenal masses which appear fairly benign. Recommend elective followup evaluation with MRI Luke Goldberg MD on October 02, 2017 at 16:59 Board Certified Radiologist. This report was verified electronically.
[2017-10-02] MEDS ORDERED: NITROGLYCERIN 2% OINT 1 GM PACKET TOPICAL ONE (17:45)
[2017-10-02] MEDS ORDERED: HEPARIN SODIUM - IV 10,000 UNITS/10 ML VIAL IV ONE (17:45)
[2017-10-02] MEDS: HEPARIN-D5W 25,000 U/250 ML 250 ML IV PRN (18:55)
[2017-10-02] MEDS ORDERED: SENNOSIDES 8.6 MG TAB PO PRN (19:15)
[2017-10-02] MEDS ORDERED: LACTULOSE SYRUP 20 GM/30 ML CUP PO PRN (19:15)
[2017-10-02] MEDS ORDERED: MAGNESIUM HYDROXIDE SUSP 30 ML CUP PO PRN (19:15)
[2017-10-02] MEDS ORDERED: SODIUM CHLORIDE 0.9% FLUSH 10 ML FLUSH IV FLUSH PRN (19:15)
[2017-10-02] MEDS ORDERED: BISACODYL 10 MG SUPP RECTAL PRN (19:15)
[2017-10-02] MEDS ORDERED: NALOXONE HCL 0.4 MG/ML AMP IV PUSH PRN (19:15)
--- NOTE | 2017-10-02 19:22 | HHI.HP ---
[facility] Unknown Admission Diagnosis NSTEMI Diagnoses: Travel History International Travel<30 Days: No Contact w/Intl Traveler <30 Da: No Traveled to Known Affected Are: No History of Present Illness 66-year-old male with a history of coronary artery disease (previous stent) presents to the ER with substernal chest pain. The chest pain began this morning is limited to his chest and is associated with some shortness of breath with exertion. He states that he was here 1 month ago and had a angiogram which did not show any blockage on his previous stent. ER workup however reveals a troponin level of 0.32. Further history reveals that he has had ankle edema which developed only 3 months ago and has been persistent and worsening since then. He is somewhat anxious about leaving the hospital to obtain a carotid MRI which he has scheduled for tomorrow early afternoon. I explained to him that currently the heart is symptomatic and should be addressed first, he seemed to agree with this logic. Review of Systems Constitutional: COMPLAINS OF: Diaphoretic episodes, Fatigue, DENIES: Fever, Weight gain, Weight loss, Chills, Dizziness Eyes: DENIES: Blurred vision, Diplopia, Eye inflammation, Eye pain, Vision loss , Photosensitivity Ears, nose, mouth, throat: DENIES: Tinnitus, Hearing loss, Vertigo, Throat pain , Hoarseness Respiratory: DENIES: Apneas, Cough, Wheezing, Hemoptysis, Sputum production Cardiovascular: COMPLAINS OF: Chest pain, Dyspnea on Exertion, Lower Extremity Edema, DENIES: Palpitations, Syncope Gastrointestinal: DENIES: Abdominal pain, Black stools, Bloody stools, Constipation Musculoskeletal: DENIES: Joint pain, Muscle aches, Stiffness Neurologic: DENIES: Abnormal gait, Headache, Localized weakness, Paresthesias, Seizures, Speech Problems Psychiatric: DENIES: Anxiety, Confusion, Mood changes, Depression, Hallucinations Past Family Social History Past Medical History Coronary artery disease, rotator cuff tendinitis Past Surgical History Appendectomy, carotid endarterectomy, previous stent placement Allergies: Coded Allergies: No Known Allergies (Verified Allergy, Unknown, 10/02/17) Family History Coronary artery disease Social History Smokes one half pack per day of cigarettes >40 years Social alcohol use Physical Exam Vital Signs Vital Signs Date Time Temp Pulse Resp B/P (MAP) Pulse Ox O2 Delivery O2 Flow Rate FiO2 10/02/17 19:02 96 16 144/70 (94) 95 10/02/17 17:54 88 18 140/65 (90) 94 Nasal Cannula 2.00 10/02/17 16:41 90 18 156/77 (103) 92 Nasal Cannula 2.00 10/02/17 15:29 121 15 131/71 (91) 97 10/02/17 15:29 121 15 131/71 (91) 97 Nasal Cannula 2.00 10/02/17 15:28 95 Nasal Cannula 10/02/17 15:25 115 15 126/65 (85) 98 Nasal Cannula 2.00 10/02/17 15:25 115 15 126/65 (85) 98 Nasal Cannula 2.00 10/02/17 14:40 95 Room Air 10/02/17 14:09 128 22 245/109 (154) 216/92 (133) Physical Exam GENERAL: This is obese, generally deconditioned patient SKIN: No rashes, ecchymoses or lesions. Cool and dry. HEAD: Atraumatic. Normocephalic. No temporal or scalp tenderness. EYES: Pupils equal round and reactive. Extraocular motions intact. No scleral icterus. No injection or drainage. ENT: Nose without bleeding, purulent drainage or septal hematoma. Throat without erythema, tonsillar hypertrophy or exudate. Uvula midline. Airway patent. NECK: Trachea midline. No JVD or lymphadenopathy. Supple, nontender, no meningeal signs. CARDIOVASCULAR: Sinus tachycardia without murmurs, gallops, or rubs. RESPIRATORY: Clear to auscultation. Breath sounds equal bilaterally. No wheezes , rales, or rhonchi. GASTROINTESTINAL: Abdomen soft, non-tender, nondistended. No hepato-splenomegaly , or palpable masses. No guarding. MUSCULOSKELETAL: 1+ edema to mid breen. No joint tenderness, effusion, or edema noted. No calf tenderness. Negative Homans sign bilaterally. Clicking of left rotator cuff demonstrated, this causes him some mild pain. NEUROLOGICAL: Awake and alert. Cranial nerves II through XII intact. Motor and sensory grossly within normal limits. Five out of 5 muscle strength in all muscle groups. Normal speech. Laboratory Laboratory Tests Test 10/02/17 14:45 White Blood Count 10.0 Red Blood Count 4.43 Hemoglobin 13.4 Hematocrit 39.1 Mean Corpuscular Volume 88.2 Mean Corpuscular Hemoglobin 30.3 Mean Corpuscular Hemoglobin Concent 34.3 Red Cell Distribution Width 14.3 Platelet Count 303 Mean Platelet Volume 7.7 Neutrophils (%) (Auto) 79.6 Lymphocytes (%) (Auto) 12.2 Monocytes (%) (Auto) 6.9 Eosinophils (%) (Auto) 0.7 Basophils (%) (Auto) 0.6 Neutrophils # (Auto) 8.0 Lymphocytes # (Auto) 1.2 Monocytes # (Auto) 0.7 Eosinophils # (Auto) 0.1 Basophils # (Auto) 0.1 CBC Comment DIFF FINAL Differential Comment Prothrombin Time 10.4 Prothromb Time International Ratio 1.0 Activated Partial Thromboplast Time 24.0 Blood Urea Nitrogen 18 Creatinine 1.30 Random Glucose 203 Total Protein 7.5 Albumin 3.8 Calcium Level 10.8 Magnesium Level 1.4 Alkaline Phosphatase 115 Aspartate Amino Transf (AST/SGOT) 22 Alanine Aminotransferase (ALT/SGPT) 32 Total Bilirubin 0.3 Sodium Level 137 Potassium Level 4.2 Chloride Level 102 Carbon Dioxide Level 27.4 Anion Gap 8 Estimat Glomerular Filtration Rate 56 Total Creatine Kinase 107 Creatine Kinase MB 2.0 Troponin I 0.32 B-Type Natriuretic Peptide 79 Lipase 102 Result Diagram: 10/02/17 1445 10/02/17 1445 Caprini VTE Risk Assessment Caprini VTE Risk Assessment: Mod/High Risk (score >= 2) Caprini Risk Assessment Model Point Value = 1 Point Value = 2 Point Value = 3 Point Value = 5 Age 41-60 Minor surgery BMI > 25 kg/m2 Swollen legs Varicose veins or History of unexplained or recurrent spontaneous Oral contraceptives or hormone replacement Sepsis (< 1 month) Serious lung disease, including pneumonia (< 1 month) Abnormal pulmonary function Acute myocardial infarction Congestive heart failure (< 1 month) History of inflammatory bowel disease Medical patient at bed rest Age 61-74 Arthroscopic surgery Major open surgery (> 45 min) Laparoscopic surgery (> 45 min) Malignancy Confined to bed (> 72 hours) Immobilizing plaster cast Central venous access Age >= 75 History of VTE Family history of VTE Factor V Leiden Prothrombin [id number] Lupus anticoagulant Anticardiolipin antibodies Elevated serum homocysteine Heparin-induced thrombocytopenia Other congenital or acquired thrombophilia Stroke (< 1 month) Elective arthroplasty Hip, pelvis, or leg fracture Acute spinal cord injury (< 1 month) Prophylaxis Regimen Total Risk Factor Score Risk Level Prophylaxis Regimen 0-1 Low Early ambulation 2 Moderate Order ONE of the following: *Sequential Compression Device (SCD) *Heparin 5000 units SQ BID 3-4 Higher Order ONE of the following medications: *Heparin 5000 units SQ TID *Enoxaparin/Lovenox 40 mg SQ daily (WT < 150 kg, CrCl > 30 mL/min) *Enoxaparin/Lovenox 30 mg SQ daily (WT < 150 kg, CrCl > 10-29 mL/min) *Enoxaparin/Lovenox 30 mg SQ BID (WT < 150 kg, CrCl > 30 mL/min) AND/OR *Sequential Compression Device (SCD) 5 or more Highest Order ONE of the following medications: *Heparin 5000 units SQ TID (Preferred with Epidurals) *Enoxaparin/Lovenox 40 mg SQ daily (WT < 150 kg, CrCl > 30 mL/min) *Enoxaparin/Lovenox 30 mg SQ daily (WT < 150 kg, CrCl > 10-29 mL/min) *Enoxaparin/Lovenox 30 mg SQ BID (WT < 150 kg, CrCl > 30 mL/min) AND *Sequential Compression Device (SCD) Assessment and Plan Assessment and Plan Chest pain (NSTEMI) Heparin drip started in the ER along with Nitropaste, oxygen added, morphine added Serial troponins, serial EKG Echocardiogram ordered Follow patient on telemetry Cardiology consulted h/o Carotid stenosis Patient has carotid MRI ordered for tomorrow, history of bilateral endarterectomy Demonstrates patient's tendency to develop vascular plaques Rotator cuff tendinitis Not a current issue but consider chronic pain masking baseline chest pain Tobacco abuse Patient encouraged to stop smoking Nicotine patch may be made available when the cardiac causes of chest pain are ruled out or treated DVT prophylaxis Heparin drip Billy Santiago MD Oct 02, 2017 19:22
[2017-10-02] MEDS: SODIUM CHLORIDE 0.9% FLUSH 10 ML FLUSH IV FLUSH SCH (19:38)
[2017-10-02] MEDS: ENALAPRIL MALEATE 10 MG TAB PO SCH (21:23)
[2017-10-02] MEDS: METOPROLOL TARTRATE 25 MG TAB PO SCH (21:23)
[2017-10-02] MEDS ORDERED: HEPARIN SODIUM - IV 10,000 UNITS/10 ML VIAL IV PRN (23:45)
[2017-10-03] VITALS (13 sets, daily range): BP systolic 113–147; BP diastolic 60–90; PULSE 57–84; RESP 16–19; TEMP 97.4–98.6; O2SAT 91–97
[2017-10-03 01:12] LABS: AUTOMATED NEUTROPHIL # 6.1 TH/MM3 (1.8-7.7); BASOPHIL # 0.1 TH/MM3 (0-0.2); BASOPHIL % 0.5 % (0.0-2.0); EOSINOPHIL # 0.2 TH/MM3 (0-0.4); EOSINOPHIL % 2.2 % (0.0-4.0); HEMATOCRIT 37.6 % (39.0-51.0); HEMOGLOBIN 12.5 GM/DL (13.0-17.0); LYMPH % 24.8 % (9.0-44.0); LYMPHOCYTE # 2.5 TH/MM3 (1.0-4.8); MEAN CORPUSCULAR HEMOGLOBIN 29.3 PG (27.0-34.0); MEAN CORPUSCULAR HGB CONC 33.3 % (32.0-36.0); MEAN PLATELET VOLUME 7.8 FL (7.0-11.0); MONO % 11.2 % (0.0-8.0); MONOCYTE # 1.1 TH/MM3 (0-0.9); NEUT % 61.3 % (16.0-70.0); PLATELET COUNT 334 TH/MM3 (150-450); RED BLOOD COUNT 4.27 MIL/MM3 (4.50-5.90); RED CELL DISTRIBUTION WIDTH 14.3 % (11.6-17.2); WHITE BLOOD COUNT 9.9 TH/MM3 (4.0-11.0)
[2017-10-03 01:39] LABS: BICARBONATE 28.3 MEQ/L (21.0-32.0); CALCIUM 10.3 MG/DL (8.5-10.1); CREATININE 1.17 MG/DL (0.60-1.30); TROPONIN I 2.86 NG/ML (0.02-0.05)
[2017-10-03] MEDS: HEPARIN SODIUM - IV 10,000 UNITS/10 ML VIAL IV PRN ×2 (01:40→11:31)
[2017-10-03] MEDS: ONDANSETRON HCL 4 MG/2 ML VIAL IVP PRN (04:46)
--- NOTE | 2017-10-03 08:05 | HHI.PR ---
Subjective Remarks Chest pain overnight. Also shortness of breath. Feels better now. Pain is better controlled by medications. He is on no heparin drip Nitropaste. No nausea or vomiting. No diaphoresis or lightheadedness. No palpitations. Plan for cardiac cath tomorrow by Dr. Brewer. Objective Vitals Vital Signs Date Time Temp Pulse Resp B/P (MAP) Pulse Ox O2 Delivery O2 Flow Rate FiO2 10/03/17 04:00 97.4 84 19 147/68 (94) 92 10/03/17 04:00 Room Air 10/03/17 03:56 58 10/03/17 00:00 97.9 81 16 113/62 (79) 91 10/03/17 00:00 Room Air 10/02/17 23:48 65 10/02/17 22:50 98.4 61 20 166/58 (94) 93 10/02/17 20:58 69 10/02/17 20:45 Room Air 10/02/17 19:02 96 16 144/70 (94) 95 10/02/17 17:54 88 18 140/65 (90) 94 Nasal Cannula 2.00 10/02/17 16:41 90 18 156/77 (103) 92 Nasal Cannula 2.00 10/02/17 15:29 121 15 131/71 (91) 97 10/02/17 15:29 121 15 131/71 (91) 97 Nasal Cannula 2.00 10/02/17 15:28 95 Nasal Cannula 10/02/17 15:25 115 15 126/65 (85) 98 Nasal Cannula 2.00 10/02/17 15:25 115 15 126/65 (85) 98 Nasal Cannula 2.00 10/02/17 14:40 95 Room Air 10/02/17 14:09 128 22 245/109 (154) 216/92 (133) I/O 10/02/17 10/02/17 10/02/17 10/03/17 10/03/17 10/03/17 07:00 15:00 23:00 07:00 15:00 23:00 Intake Total 100 ml 420 ml Output Total 700 ml Balance 100 ml -280 ml Intake Oral 420 ml IV Total 100 ml Output Urine Total 700 ml # Bowel Movements 0 Result Diagram: 10/03/173 10/03/173 Imaging Last Impressions Chest X-Ray 10/02/17 1424 Signed Impressions: Service Date/Time: Monday, October 02, 2017 14:46 - CONCLUSION: Stable chest no acute disease Luke Goldberg MD CT Angiography 10/02/17 0000 Signed Impressions: Service Date/Time: Monday, October 02, 2017 16:31 - CONCLUSION: No evidence of pulmonary embolism. Bilateral adrenal masses which appear fairly benign. Recommend elective followup evaluation with MRI Luke Goldberg MD Objective Remarks GENERAL: This is obese, generally deconditioned patient CARDIOVASCULAR: Sinus tachycardia without murmurs, gallops, or rubs. RESPIRATORY: Clear to auscultation. Breath sounds equal bilaterally. No wheezes , rales, or rhonchi. GASTROINTESTINAL: Abdomen soft, non-tender, nondistended. No hepato-splenomegaly , or palpable masses. No guarding. MUSCULOSKELETAL: 1+ edema to mid breen. No joint tenderness, effusion, or edema noted. No calf tenderness. Negative Homans sign bilaterally. Clicking of left rotator cuff demonstrated, this causes him some mild pain. NEUROLOGICAL: Awake and alert. Cranial nerves II through XII intact. Motor and sensory grossly within normal limits. Five out of 5 muscle strength in all muscle groups. Normal speech. A/P Assessment and Plan Admit to inpatient Chest pain (NSTEMI) Continue Heparin drip , Nitropaste, oxygen added, morphine added Troponin trending up EKG reviewed Echocardiogram pending Follow patient on telemetry Cardiology consulted, plan for cardiac cath 10/04 H/o Carotid stenosis Patient has carotid MRI ordered for tomorrow, history of bilateral endarterectomy Demonstrates patient's tendency to develop vascular plaques Rotator cuff tendinitis Not a current issue but consider chronic pain masking baseline chest pain Tobacco abuse Patient encouraged to stop smoking Nicotine patch may be made available when the cardiac causes of chest pain are ruled out or treated DVT prophylaxis Heparin Drip Discussed with pt, nurse. Plan for cardiac cath 10/04 by Yeny Bosch MD Oct 03, 2017 08:05
[2017-10-03] MEDS: METOPROLOL TARTRATE 25 MG TAB PO SCH ×2 (08:36→20:38)
[2017-10-03] MEDS: ATORVASTATIN 80 MG TAB PO SCH (08:36)
[2017-10-03] MEDS: ENALAPRIL MALEATE 10 MG TAB PO SCH ×2 (08:36→20:38)
[2017-10-03] MEDS: SODIUM CHLORIDE 0.9% FLUSH 10 ML FLUSH IV FLUSH SCH ×2 (08:37→20:39)
--- NOTE | 2017-10-03 10:37 | EKG ---
Date Performed: 10/02/2017 Time Performed: 14:20:52 PTAGE: 66 years EKG: SINUS TACHYCARDIA PATTERN CONSISTENT WITH PULMONARY DISEASE LEFT ANTERIOR FASCICULAR BLOCK POSSIBLE INFERIOR MYOCARDIAL INFARCTION ABNORMAL ECG Since the PREVIOUS TRACING , no significant change noted PREVIOUS TRACING DOCTOR: Yves Quiroz Interpretating Date/Time 10/03/2017 10:34:30
--- NOTE | 2017-10-03 10:37 | EKG ---
Date Performed: 10/02/2017 Time Performed: 20:05:37 PTAGE: 66 years EKG: Sinus rhythm PATTERN CONSISTENT WITH PULMONARY DISEASE LEFT ANTERIOR FASCICULAR BLOCK ABNORMAL ECG Since the PREVIOUS TRACING , no significant change noted PREVIOUS TRACIN10/02/2017 14.20 DOCTOR: Yves Quiroz Interpretating Date/Time 10/03/2017 10:34:16
[2017-10-03] MEDS: HEPARIN-D5W 25,000 U/250 ML 250 ML IV PRN (11:32)
--- NOTE | 2017-10-03 12:07 | MB ---
cc: Paul Brewer MD DATE: 10/03/2017 REASON FOR CONSULTATION: Acute non-ST elevation myocardial infarction. HISTORY OF PRESENT ILLNESS: The patient is a 66-year-old white male with a history of coronary artery disease, peripheral vascular disease, carotid disease, hypertension and hyperlipidemia, who was doing fairly well up until 2 evenings ago when he began to experience bilateral upper chest and substernal chest discomfort described as "heartburn." There has been no associated shortness of breath, nausea or diaphoresis. The chest discomfort has been present in a constant fashion until today (2 days later). He has not been able to identify any exacerbating factors. He has gained some relief of his chest discomfort with analgesics. He denies pleurisy, dizziness, syncope, near syncope, and paroxysmal nocturnal dyspnea. The patient has noticed some increase in bilateral pedal edema in the last couple of weeks. At times, he also experiences pounding palpitations with minimal activity or when he lies flat at night. PAST MEDICAL HISTORY: 1. Coronary artery disease, status post stent x 2 of the distal right coronary artery 10/14/2005. 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 2. Hypertension. 3. Hyperlipidemia. 4. Carotid disease, status post right carotid endarterectomy 07/09/2005 and left carotid endarterectomy 08/17/2005. 5. Peripheral vascular disease with history of bilateral stent placements in the lower extremities about 12 years ago. PAST SURGICAL HISTORY: 1. Appendectomy. 2. Right carotid endarterectomy. 3. Left carotid endarterectomy. CARDIAC MEDICATIONS AT HOME: 1. Enalapril 20 mg b.i.d. 2. Plavix 75 mg daily. 3. Amlodipine/atorvastatin 10/80 one daily. 4. Clonidine 0.2 mg q.8 hours. 5. Aspirin 81 mg daily. 6. Metoprolol tartrate 25 mg b.i.d. ALLERGIES: NO KNOWN DRUG ALLERGIES. FAMILY HISTORY: Noncontributory. SOCIAL HISTORY: The patient smokes about a pack of cigarettes per day. There is no history of alcohol abuse. REVIEW OF SYSTEMS: As in the history of present illness, otherwise negative or noncontributory. He also denies melena, dyspepsia, bright red blood per rectum, headache, and unilateral weakness or numbness. PHYSICAL EXAMINATION: VITAL SIGNS: His blood pressure 136/90 with a pulse of 65, respirations 18. GENERAL: He is a well-developed, well-nourished white male, in no acute distress. NECK: Jugular venous pressure is hard to assess, it appears to be normal. Carotid pulses are 2+ bilaterally, possibly with a right carotid bruit. CHEST: Reveals clear lungs mckeon. CARDIAC: He has a regular rhythm and rate with a grade II/ systolic ejection murmur heard at the base of the heart. The S2 heart sound is normal. No gallop is audible. ABDOMEN: He has a soft, obese, nontender abdomen. Bowel sounds are present. There is no definite hepatosplenomegaly. EXTREMITIES: Reveals no clubbing or cyanosis. There is trace pretibial edema bilaterally. LABORATORY DATA: Includes WBC 9.9, hemoglobin 12.5, platelets 334. Potassium 4.3, BUN 18, creatinine 1.17. Troponin 2.86. CK 107. Total cholesterol 140. IMAGING STUDIES: Chest x-ray shows no acute disease. EKG shows sinus tachycardia, poor R-wave progression. IMPRESSION: Somewhat atypical chest pains for the past 48 hours, although with abnormal troponin levels, in this 66-year-old white male with a history of coronary artery disease, peripheral vascular disease, carotid disease, hypertension, and hyperlipidemia. Troponin level has increased to 2.86 today. On the other hand, his CK is negative for myocardial infarction despite at least 40 hours of constant chest discomfort. EKG showed no acute ST segment or T-wave changes. CT angiogram of the chest is reportedly negative for pulmonary embolism. He did on his last heart catheterization a month ago have questionable borderline disease in the very proximal right coronary. No definite high grade disease was seen in his left circumflex or left anterior descending. Overall, there is no evidence for congestive heart failure by exam or chest x-ray. His ejection fraction by cardiac catheterization last month was 70%. In light of his abnormal troponin levels and ongoing chest pains and ongoing chest pains, I have recommended he undergo cardiac catheterization with possible percutaneous coronary intervention. The nature of these procedures and potential risks have been outlined. He agrees to proceed. RECOMMENDATIONS: 1. Cardiac catheterization tomorrow. We will also consider intravascular ultrasound imaging and/or fractional flow reserve measurement of the right coronary. 2. Continue his usual comprehensive home cardiac medical regimen. MD VICKI Scott/NICANOR , 11:43 AM , 12:05 PM MTDD
[2017-10-03] MEDS ORDERED: diphenhydrAMINE HCL 50 MG CAP PO SCH (14:00)
[2017-10-03] MEDS ORDERED: DIAZEPAM 10 MG TAB PO SCH (14:00)
[2017-10-03] MEDS ORDERED: MIDAZOLAM HCL 2 MG/2 ML VIAL IV PUSH SCH (14:00)
[2017-10-03] MEDS: SODIUM CHLOR 0.9% 1000 ML INJ 1,000 ML IV SCH (14:00)
[2017-10-03] MEDS: ASPIRIN EC 325 MG TABEC PO SCH (17:03)
[2017-10-03] MEDS: CLOPIDOGREL 75 MG TAB PO SCH (17:03)
--- NOTE | 2017-10-03 17:23 | EKG ---
Date Performed: 10/03/2017 Time Performed: 00:43:46 PTAGE: 66 years EKG: Sinus arrhythmia Left axis deviation Since the previous tracing, no significant change note d Abnormal ECG PREVIOUS TRACING : 10/02/2017 20.05 DOCTOR: Yves Quiroz Interpretating Date/Time 10/03/2017 17:22:09
--- NOTE | 2017-10-03 19:52 | ECHRPT ---
Indication: Chest Pain CONCLUSIONS The left ventricular systolic function is normal with an estimated ejection fraction in the range of 55-60%. Mild concentric left ventricular hypertrophy. Trace mitral valve regurgitation. Diffuse calcification of the aortic valve. Mild aortic valve stenosis (mean gradient 17, VIOLA 1.4) There is trace tricuspid valve regurgitation. BP: 147 / 68 HR: 61 Rhythm: Sinus MEASUREMENTS (Male / Female) Normal Values Technical Quality:Fair 2D ECHO LV Diastolic Diameter PLAX 4.2 cm 4.2 - 5.9 / 3.9 - 5.3 cm LV Systolic Diameter PLAX 3.0 cm IVS Diastolic Thickness 1.4 cm 0.6 - 1.0 / 0.6 - 0.9 cm LVPW Diastolic Thickness 1.4 cm 0.6 - 1.0 / 0.6 - 0.9 cm LV Relative Wall Thickness 0.7 RV Internal Dim ED PLAX 3.1 cm LVOT Diameter 2.0 cm LA Systolic Diameter LX 4.5 cm 3.0 - 4.0 / 2.7 - 3.8 cm M-MODE Aortic Root Diameter MM 2.6 cm LA Systolic Diameter MM 4.3 cm LA Ao Ratio MM 1.6 AV Cusp Separation MM 1.3 cm DOPPLER AV Peak Velocity 303.0 cm/s AV Peak Gradient 36.7 mmHg AV Mean Gradient 17.0 mmHg AV Velocity Time Integral 61.5 cm LVOT Peak Velocity 116.0 cm/s LVOT Peak Gradient 5.4 mmHg LVOT Velocity Time Integral 26.9 cm LVOT Cardiac Index 2385.5 cm/minm AV Area Cont Eq vti 1.4 cm AV Area Cont Eq pk 1.2 cm MV Area PHT 2.8 cm Mitral E Point Velocity 74.5 cm/s Mitral A Point Velocity 68.1 cm/s Mitral E to A Ratio 1.1 LV E' Lateral Velocity 10.9 cm/s Mitral E to LV E' Lateral Ratio 6.8 LV E' Septal Velocity 7.3 cm/s Mitral E to LV E' Septal Ratio 10.2 TR Peak Velocity 258.0 cm/s TR Peak Gradient 26.6 mmHg FINDINGS LEFT VENTRICLE The left ventricular systolic function is normal with an estimated ejection fraction in the range of 55-60%. Mild concentric left ventricular hypertrophy. Normal left ventricular size. No regional wall motion abnormalities are present. RIGHT VENTRICLE Normal right ventricular size and systolic function. LEFT ATRIUM The left atrial size is mildly dilated. RIGHT ATRIUM The right atrial size is normal. ATRIAL SEPTUM Normal atrial septal thickness AORTA The aortic root and proximal ascending aorta are normal in size on limited imaging. MITRAL VALVE Mitral annular calcification is present. Trace mitral valve regurgitation. No mitral valve stenosis. AORTIC VALVE The aortic valve is not well visualized. Diffuse calcification of the aortic valve. Mild aortic valve stenosis. Aortic valve area is 1.4 cm. Aortic valve mean gradient is 17 mmHg. TRICUSPID VALVE Structurally normal tricuspid valve. There is trace tricuspid valve regurgitation. The estimated pulmonary arterial pressure is 37 mmHg. PULMONARY VALVE No pulmonary valve regurgitation or stenosis. VESSELS The inferior vena cava is normal in size. PERICARDIUM No pericardial effusion. Jerrell Bradford DO (Electronically Signed) Final Date:03 October 2017 19:51
[2017-10-04] VITALS (9 sets, daily range): BP systolic 117–203; BP diastolic 56–85; PULSE 49–98; RESP 16–20; TEMP 97.1–99; O2SAT 94–96
[2017-10-04] MEDS: SODIUM CHLORIDE 0.9% FLUSH 10 ML FLUSH IV FLUSH SCH ×2 (08:29→20:45)
[2017-10-04] MEDS: CLOPIDOGREL 75 MG TAB PO SCH (08:30)
[2017-10-04] MEDS: ENALAPRIL MALEATE 10 MG TAB PO SCH ×2 (08:30→21:00)
[2017-10-04] MEDS: ASPIRIN EC 325 MG TABEC PO SCH (08:30)
[2017-10-04] MEDS: ATORVASTATIN 80 MG TAB PO SCH (08:30)
[2017-10-04] MEDS: METOPROLOL TARTRATE 25 MG TAB PO SCH ×2 (08:31→20:44)
[2017-10-04] MEDS: SODIUM CHLOR 0.9% 1000 ML INJ 1,000 ML IV SCH ×3 (10:00→20:00)
[2017-10-04] MEDS ORDERED: MIDAZOLAM HCL 2 MG/2 ML VIAL ONE ×3 (13:29→14:22)
[2017-10-04] MEDS ORDERED: HEPARIN SODIUM - IV 10,000 UNITS/10 ML VIAL ONE ×2 (13:29→14:56)
[2017-10-04] MEDS ORDERED: HEPARIN-NS/PF FLUSH BAG 2,000 ML IV FLUSH ONE (13:29)
[2017-10-04] MEDS ORDERED: NITROGLYCERIN INJ 5 ML ONE (13:29)
[2017-10-04] MEDS ORDERED: LIDOCAINE HCL 1% PF 30 ML VIAL ONE (13:35)
[2017-10-04] MEDS ORDERED: ENALAPRILAT 1.25 MG/ML VIAL ONE (13:59)
[2017-10-04] MEDS ORDERED: cloNIDine HCL 0.1 MG TAB ONE (14:01)
[2017-10-04] MEDS ORDERED: NITROGLYCERIN-D5W 50 MG/250 ML 0 ML ONE (14:02)
[2017-10-04] MEDS: CLEVIDIPINE INJ 50 ML ONE ×2 (14:02→14:03)
[2017-10-04] MEDS ORDERED: TIROFIBAN INFUSION INJ 250 ML IV ONE (14:28)
[2017-10-04] MEDS: TIROFIBAN INFUSION INJ 250 ML IV SCH (14:36)
[2017-10-04] MEDS ORDERED: METOPROLOL TARTRATE 5 MG/5 ML VIAL ONE (14:42)
[2017-10-04] MEDS ORDERED: TICAGRELOR 90 MG TAB PO ONE (15:24)
--- NOTE | 2017-10-04 15:31 | HHI.PR ---
Subjective Remarks The patient was seen earlier in the morning. Plan for cardiac cath in the afternoon. Patient still with intermittent chest pain overnight and shortness of breath. Chest pain is substernal and nonradiating. There is no associated diaphoresis or nausea. Objective Vitals Vital Signs Date Time Temp Pulse Resp B/P (MAP) Pulse Ox O2 Delivery O2 Flow Rate FiO2 10/04/17 12:00 97.7 51 20 132/59 (83) 94 10/04/17 08:00 97.6 73 20 203/85 (124) 95 10/04/17 08:00 97 Room Air 10/04/17 08:00 54 10/04/17 04:00 Room Air 10/04/17 04:00 98.1 68 16 138/62 (87) 96 10/04/17 03:43 49 10/04/17 00:00 97.7 70 16 117/64 (81) 96 Manual Cuff/Auscultation 10/04/17 00:00 Room Air 10/03/17 23:51 57 10/03/17 20:00 Room Air 10/03/17 20:00 98.5 73 16 113/75 (88) 92 Manual Cuff/Auscultation 10/03/17 19:40 73 10/03/17 18:38 60 10/03/17 16:24 97 10/03/17 16:00 98.6 70 18 132/60 (84) 91 I/O 10/03/17 10/03/17 10/03/17 10/04/17 10/04/17 10/04/17 07:00 15:00 23:00 07:00 15:00 23:00 Intake Total 420 ml 480 ml Output Total 700 ml 1950 ml 875 ml Balance -280 ml 480 ml -1950 ml -875 ml Intake Oral 420 ml 480 ml Output Urine Total 700 ml 1950 ml 875 ml # Voids 3 # Bowel Movements 0 0 Result Diagram: 10/03/17 0043 10/03/17 0043 Imaging Last Impressions Chest X-Ray 10/02/17 1424 Signed Impressions: Service Date/Time: Monday, October 02, 2017 14:46 - CONCLUSION: Stable chest no acute disease Luke Goldberg MD CT Angiography 10/02/17 0000 Signed Impressions: Service Date/Time: Dilan, October 02, 2017 16:31 - CONCLUSION: No evidence of pulmonary embolism. Bilateral adrenal masses which appear fairly benign. Recommend elective followup evaluation with MRI Luke Goldberg MD Objective Remarks GENERAL: This is obese, generally deconditioned patient CARDIOVASCULAR: Sinus tachycardia without murmurs, gallops, or rubs. RESPIRATORY: Clear to auscultation. Breath sounds equal bilaterally. No wheezes , rales, or rhonchi. GASTROINTESTINAL: Abdomen soft, non-tender, nondistended. No hepato-splenomegaly , or palpable masses. No guarding. MUSCULOSKELETAL: 1+ edema to mid breen. No joint tenderness, effusion, or edema noted. No calf tenderness. Negative Homans sign bilaterally. Clicking of left rotator cuff demonstrated, this causes him some mild pain. NEUROLOGICAL: Awake and alert. Cranial nerves II through XII intact. Motor and sensory grossly within normal limits. Five out of 5 muscle strength in all muscle groups. Normal speech. A/P Assessment and Plan Admit to inpatient Chest pain (NSTEMI) Continue Heparin drip , Nitropaste, oxygen, morphine as need Troponin trending up EKG reviewed Echocardiogram pending Follow patient on telemetry Cardiology consulted Plan for cardiac cath 10/04 H/o Carotid stenosis Patient has carotid MRI ordered for tomorrow, history of bilateral endarterectomy Demonstrates patient's tendency to develop vascular plaques Rotator cuff tendinitis Not a current issue but consider chronic pain masking baseline chest pain Tobacco abuse Patient encouraged to stop smoking Nicotine patch may be made available when the cardiac causes of chest pain are ruled out or treated DVT prophylaxis Heparin Drip Discussed with pt, nurse. Plan for cardiac cath 10/04 by Yeny Bosch MD Oct 04, 2017 15:31
[2017-10-04] MEDS ORDERED: SODIUM CHLOR 0.9% 1000 ML INJ 1,000 ML IV SCH (15:32)
--- NOTE | 2017-10-04 15:32 | PD.CARD.PN ---
Subjective Subjective Remarks Continued episodic severe substernal CP today and last night. No pleurisy, dyspnea, nausea, dizziness, palpitations. Objective Medications Item Value Date Time Aspirin 325 mg 10/03/17 1400 (Ecotrin Ec) DAILY/PO 10/04/17 0830 Clopidogrel 75 mg 10/03/17 1400 Bisulfate DAILY/PO 10/04/17 08 (Plavix) Atorvastatin 80 mg 10/03/17 0900 Calcium DAILY/PO 10/04/17 08 (Lipitor) Amlodipine 10 mg 10/03/17 0900 Besylate DAILY/PO 10/04/17 0830 (Norvasc) Enalapril Maleate 20 mg 10/02/17 2100 (Vasotec) BID/PO 10/04/17 0830 Metoprolol 25 mg 10/02/17 2100 Tartrate BID/PO 10/04/17 0831 (Lopressor) Heparin Sodium/ 250 ml @ 10 mls/hr 10/02/17 1745 Dextrose TITRATE PRN/IV 10/03/17 1132 Current Medications Medications (Trade) Dose Ordered Sig/Rickey Route Start Time Stop Time Status Last Admin (NS Flush) 2 ml UNSCH PRN IVF 10/02/17 14:30 10/02/17 15:27 (Heparin Inj) 5,000 units UNSCH PRN IV 10/02/17 23:45 (Heparin Inj) 2,500 units UNSCH PRN IV 10/02/17 23:45 10/03/17 11:31 Heparin Sodium/ Dextrose 250 ml @ 10 mls/hr TITRATE PRN IV 10/02/17 17:45 10/03/17 11:32 (NS Flush) 2 ml UNSCH PRN IV FLUSH 10/02/17 19:15 (NS Flush) 2 ml BID IV FLUSH 10/02/17 21:00 (Zofran Inj) 4 mg Q6H PRN IVP 10/02/17 19:15 10/03/17 04:46 (Narcan Inj) 0.4 mg UNSCH PRN IV PUSH 10/02/17 19:15 (Milk Of Magnesia Liq) 30 ml Q12H PRN PO 10/02/17 19:15 (Senokot) 17.2 mg Q12H PRN PO 10/02/17 19:15 (Dulcolax Supp) 10 mg DAILY PRN RECTAL 10/02/17 19:15 (Lactulose Liq) 30 ml DAILY PRN PO 10/02/17 19:15 (Morphine Inj) 2 mg Q3H PRN IV PUSH 10/02/17 19:15 (Vasotec) 20 mg BID PO 10/02/17 21:00 10/04/17 08:30 (Lopressor) 25 mg BID PO 10/02/17 21:00 10/04/17 08:31 (Lipitor) 80 mg DAILY PO 10/03/17 09:00 10/04/17 08:30 (Norvasc) 10 mg DAILY PO 10/03/17 09:00 10/04/17 08:30 (Ecotrin Ec) 325 mg DAILY PO 10/03/17 14:00 10/04/17 08:30 (Plavix) 75 mg DAILY PO 10/03/17 14:00 10/04/17 08:30 Sodium Chloride 1,000 ml @ 100 mls/hr Q10H IV 10/03/17 14:00 10/08/17 13:59 10/04/17 10:00 (Benadryl) 50 mg FILM LIBRARY CLERK PO 10/03/17 14:00 10/07/17 13:59 10/04/17 13:15 (Valium) 10 mg FILM LIBRARY CLERK PO 10/03/17 14:00 10/07/17 13:59 10/04/17 13:15 (Versed Inj) 1 mg FILM LIBRARY CLERK IV PUSH 10/03/17 14:00 10/07/17 13:59 Vital Signs / I&O Vital Signs Date Time Temp Pulse Resp B/P (MAP) Pulse Ox O2 Delivery O2 Flow Rate FiO2 10/04/17 12:00 97.7 51 20 132/59 (83) 94 10/04/17 08:00 97.6 73 20 203/85 (124) 95 10/04/17 08:00 97 Room Air 10/04/17 08:00 54 10/04/17 04:00 Room Air 10/04/17 04:00 98.1 68 16 138/62 (87) 96 10/04/17 03:43 49 10/04/17 00:00 97.7 70 16 117/64 (81) 96 Manual Cuff/Auscultation 10/04/17 00:00 Room Air 10/03/17 23:51 57 10/03/17 20:00 Room Air 10/03/17 20:00 98.5 73 16 113/75 (88) 92 Manual Cuff/Auscultation 10/03/17 19:40 73 10/03/17 18:38 60 10/03/17 16:24 97 10/03/17 16:00 98.6 70 18 132/60 (84) 91 I/O 10/03/17 10/03/17 10/03/17 10/04/17 10/04/17 10/04/17 07:00 15:00 23:00 07:00 15:00 23:00 Intake Total 420 ml 480 ml Output Total 700 ml 1950 ml 875 ml Balance -280 ml 480 ml -1950 ml -875 ml Intake Oral 420 ml 480 ml Output Urine Total 700 ml 1950 ml 875 ml # Voids 3 # Bowel Movements 0 0 Physical Exam GENERAL: Well developed, well nourished. No acute distress. HEENT: Jugular venous pressure is normal. CHEST: Lungs clear to auscultation bilaterally. Unlabored respiratory effort. CARDIAC: Regular rate and rhythm without S3, S4. II/ TAHIR base. Normal S2. ABDOMEN: Soft, nontender, no hepatosplenomegaly. Bowel sounds present. EXTREMITIES: No clubbing, cyanosis, or edema. Laboratory Laboratory Tests Test 10/03/17 17:08 10/04/17 00:19 10/04/17 06:46 Activated Partial Thromboplast Time 37.3 SEC 43.1 SEC 42.7 SEC Assessment and Plan Problem List: (1) CAD (coronary artery disease) ICD Codes: I25.10 - Atherosclerotic heart disease of [place] coronary artery without angina pectoris Status: Chronic Plan: Continued CP's. Cath today shows unchanged angiographic findings compared to last month, but IVUS of RCA today confirms severe, ulcerated, calcified proximal disease, which was stented. Borderline disease in distal LAD also assessed with IFR measurement (0.9) indicating disease not hemodynamically significant. 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 Recommend optimize hypertension regimen, screen for pheochromocytoma. Code Status full code Discussed Condition With patient and brother Problem Qualifiers (1) CAD (coronary artery disease): Qualified Codes: I25.110 - Atherosclerotic heart disease of [place] coronary artery with unstable angina pectoris (2) Hypertension: Qualified Codes: I10 - Essential (primary) hypertension Paul Brewer MD Oct 04, 2017 15:32
[2017-10-04] MEDS ORDERED: TEMAZEPAM 15 MG CAP PO PRN (15:45)
[2017-10-04] MEDS ORDERED: MISC INFORMATION XX ONE (15:45)
--- NOTE | 2017-10-04 15:57 | MA ---
cc: Paul Brewer MD DATE: 10/04/2017 PROCEDURES PERFORMED: Left heart catheterization, selective coronary angiography, intravascular ultrasound imaging/angioplasty/stent of the proximal right coronary, instantaneous wave-free ratio (IFR) measurement of the left anterior descending coronary artery, aortic root injection. DESCRIPTION OF PROCEDURE: The patient was brought to the cardiac catheterization laboratory in a fasting state after having signed informed consent. The right groin was prepped and draped as per policy and anesthetized with 1% lidocaine. Arterial access was obtained via the right femoral artery and a 6-Romanian sheath placed. Coronary arteriography was performed using 6-Romanian Althea left 4.0 and right progressive catheters. The aortic valve was crossed briefly with a pigtail catheter, which was used to do aortic root injection. Percutaneous coronary intervention was done as described below. There were no apparent immediate complications. His arteriotomy site was closed with VASCADE with achievement of good hemostasis. HEMODYNAMIC DATA: Left ventricle 203 with an end diastolic pressure of 15. Aorta 192/62 with a mean of 114. There was an approximately 10 mmHg gradient across the aortic valve on pullback of the pigtail catheter. 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 The left anterior descending is a relatively small vessel giving rise to a large branching diagonal which may have up to 40% mid stenosis. There is diffuse up to 15% disease of the proximal LAD. In the distal third of the mid LAD, there is a somewhat eccentric, up to 60 percent stenosis. 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 There is diffuse ostial to mid disease resulting in up to 40% stenosis. The left circumflex gives rise to small distal posterolateral branches, which are free of disease. The right coronary artery is a fairly large dominant vessel, demonstrating 2 widely patent stents distally. In the very proximal vessel, there is what appears to be either calcified or dissected vessel with angiographically what appears to be 50% stenosis. LEFT VENTRICULOGRAPHY: not done. PERCUTANEOUS CORONARY INTERVENTION DESCRIPTION: Aggrastat was given as per double bolus protocol. Adequate heparin was given during the procedure to achieve an ACT greater than 250 seconds. Using a 6-Romanian progressive right guiding catheter, the ostium of the right coronary was reengaged. Using a 0.014 [place] wire the proximal disease was crossed and the tip of the wire positioned distally. Due to uncertainties regarding the significance of the proximal disease, it was decided to perform intravascular ultrasound imaging. Ultrasound images reveal heavily calcified disease with the worst diameter stenosis probably approaching 70%. Area stenosis was also measured in this region and was 69%. In addition, there is a region of what appears to be ulcerated plaque. Given these findings, it was decided to percutaneously intervene on this disease. Predilation was done using a 2.5 mm Euphora balloon catheter. Stenting was done using a 2.75 x 12 mm Resolute [place] stent, which was deployed at 15 atmospheres for 35 seconds. Final angiography shows reduction of the initial disease to 0% residual with no definite evidence for dissection or distal embolization. The intravascular ultrasound catheter was also used to re-image the vessel after stenting. The stent appears well deployed and symmetrical. The guiding catheter was exchanged for a Althea left 4.0. Due to uncertainties regarding the significance of the mid LAD disease, it was decided to perform IFR measurement. A pressure wire was normalized and then advanced distal to the lesion. The IFR was measured at 0.90. Therefore, it is decided not to intervene on this disease. AORTIC ROOT INJECTION: During the case, the patient had systolic blood pressures spiking to as high as 300. He was treated with intravenous Vasotec and Cleviprex drip with a drop in his blood pressure by the end of the case to 140/90. As the patient continued to complain of fairly severe sharp substernal chest pain with slight radiation to his back, it was decided to perform aortic root injection. No definite aortic dissection is seen. CONCLUSIONS: 1. Status post intravascular ultrasound imaging of the proximal right coronary confirming severe, ulcerated, calcified disease, now status post angioplasty and stent of this region. 2. Status post instantaneous wave-free ratio measurement of the left anterior descending confirming the absence of hemodynamically significant disease in the mid portion. 3. 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 4. Mild aortic stenosis. 5. Severe systemic hypertension. 6. No definite evidence for thoracic aortic dissection on aortic root contrast injection. MD VICKI Scott/NICANOR , 03:24 PM , 03:56 PM JIMY
--- NOTE | 2017-10-04 16:05 | CATHPROC ---
[facility] HIS Report Study Information Study Number Admission Scheduled Start Study Start [id number] Oct 02 2017 5:58PM 10/03/2017 Oct 04 2017 1:27PM [place] [facility] Cardiac Catheterization Admit Source Facility Department Other [facility] - [facility] Finisher Physician and Clinical Staff Initial Paul Monroe Connection Worker Chen Snider,ROJELIO Connection Worker Dat Best RN Connection Worker Martine Montenegro,ROJELIO Recorder Hunter Rios RN Scrub Zoey Coughlin ,RT(R) Procedures Performed Procedure Location (Site) Vessel Name Angiogram LV AO Arch (A1) Aorta Coronary Angiograms LCA Left Coronary Coronary Angiograms RCA Right Coronary Drug Eluting Inflatio RCA Ost Right Coronary IVUS RCA Right Coronary PTCA RCA Ost Right Coronary Wire insertion Fem Art (right) Femoral Art Equipment Time Garage Construction Equipment Mechanic Description Size Mfg Part Number Used/Scraped [id number] 14:14 [employer] CRITICAL CARE WIRE, [employer] PROWATER 180CM 180CM Used *[id number] TRANSDUCER, TRUWAVE [id number] 13:34 KELLOGG BATES * Used W/STOCKCOCK *[id number] 15:04 [employer]Maze[employer] MEDICAL VASCADE, FR6 CLOSURE SYSTEM FR 6\7 Used *[id number] [phone] *[id number] 670-130-00 *[id number] 534-676T *[id number] 534-648T *3005020 670-004-00 *8709714 534-620T *8922525 534-650S *4436829 670-054-00 *[id number] 13:34 MEDLINE INDUSTRIES PACK, CCL CUSTOM * Used *[id number] 13:34 MEDLINE PACER PEN, SKIN DUAL W/ RULER * Used *[id number] 14:28 MEDTRONIC BALLOON, 2.5 X 12MM EUPHORA 12MM Used *[id number] 14:37 MEDTRONIC STENT, 2.75 15MM NAGI 2.75 15MM Used *[id number] 14:31 [employer] Cloud Superstructure 30 REGINE INDEFLATOR Used *[id number] 13:34 [employer] Cloud Superstructure SHEATH, FR6.5 PRELUDE 11CM FR 6.5 038ACT Used *[id number] 13:34 MERIT MEDICAL WIRE, 3MMJ .035 180CM 180CM Used *[id number] 13:34 NAMIC MANIFOLD, 4 PORT * Used *[id number] 13:34 NYCOMED OMNIPAQUE, 350 MG, 150ML 150ML [id number] Used 14:28 NYCOMED OMNIPAQUE, 350 MG, 50ML 50ML [id number] Used 15:00 NYCOMED OMNIPAQUE, 350 MG, 50ML 50ML [id number] Used 15:01 NYCOMED OMNIPAQUE, 350 MG, 50ML 50ML [id number] Used 15:01 NYCOMED OMNIPAQUE, 350 MG, 50ML 50ML [id number] Used [id number] 13:34 [employer]MAN MED[employer] BLANKET,WARM AIR CCL * Used *[id number] CATHETER, [employer] [id number] 14:14 VOLCANO Used IMAGING *[id number] CATHETER, [employer] [id number] 14:12 VOLCANO Used IMAGING *[id number] 14:50 [employer]OLCANO PRIME WIRE, VERRATA 185CM 185CM 44915 *[id number] Used Equipment Model, Serial, Lot Number and Expiration Data Description Model Number Serial Number Lot Number Expiration Date CATHETER, [employer] [id number] 07-20-2019 IMAGING CATHETER, [employer] [id number] 07-20-2019 IMAGING PRIME WIRE, VERRATA 185CM [id number] 08-17-2020 STENT, 2.75 15MM NAGI [id number] 04-19-2019 History: Allergies Allergy Reaction No Known Allergies History: Risk Factors Family History of Hypertension Dyslipidemia Previous IN Previous Heart Failure Premature CAD Yes Yes No No No Prior Valve Prior PCI Prior PCIDate Prior CABG Surgery No Yes 10/13/2005 No Cerebrovascular Peripheral Artery Chronic Lung On Dialysis Diabetes Disease Disease Disease No No Yes No No History: CV Disease Selection Items Known CAD History: Stress Tests Stress or Imaging Studies Performed No History: Other Disease Selection Items CAD HTN History: Other Current Smoker Method Packs a Day Years Used Pack Years Yes Cigarettes 1 50 50 Labs Hgb (g/dl) Hct (%) WBC (l/cumm) Platelets (thousands) 11.60-17.00 35.00-51.00 4.00-11.00 150.00-450.00 12.5 37.6 9.9 334 Glucose (mg/dl) BUN (mg/dl) Creatinine (mg/dl) BUN:Creatinine (1:x) 74.00-106.00 7.00-18.00 0.50-1.30 10.00-20.00 98 18 1.1 16.4 Na (meq/l) K (meq/l) 136.00-145.00 3.50-5.10 141 4.3 INR (PTT:PT) 0.90-1.10 1 Troponin I (ng/ml) CPK-MB (ng/ML) 0.02-0.05 0.50-3.60 2.8 Not Drawn Medication Medication Total Dose (Bolus/Oral) Medication Total Dosage/Unit 1% XYLOCAINE 20 mL AGGRASTAT BOLUS 50 mL BRILINTA 180 mg FENTANYL 50 mcg HEPARIN 9800 units LOPRESSOR 5 mg NITROGLYCERIN S/L 0.8 mg NTG (IC) 100 mcg VERSED 4 mg Medications (Bolus/Oral) Medication Time Given Dosage/Unit Administered By Reason VERSED 10/04/2017 1:38:00 PM 1 mg Chen Snider 1 mg VERSED given by Chen Snider, ROJELIO via Peripheral IV. NITROGLYCERIN S/L 10/04/2017 1:39:43 PM 0.4 mg Chen Snider 0.4 mg NITROGLYCERIN S/L given by Chen Snider, ROJELIO via Sublingual. 1% XYLOCAINE 10/04/2017 1:50:03 PM 20 mL Paul Brewer 20 mL 1% XYLOCAINE given in lab by Paul Brewer in Right Groin via Subcutaneous. NITROGLYCERIN S/L 10/04/2017 2:02:27 PM 0.4 mg Paul Brewer 0.4 mg NITROGLYCERIN S/L given in lab by Paul Brewer via Sublingual. VERSED 10/04/2017 2:03:39 PM 1 mg Chen Snider 1 mg VERSED given in lab by Chen Snider, ROJELIO via Peripheral IV. HEPARIN 10/04/2017 2:11:52 PM 6800 units Chen Snider 6800 units HEPARIN given by Chen Snider RN via Peripheral IV. Ordered by Paul Brewer. HEPARIN 10/04/2017 2:19:00 PM 3000 units Martine Montenegro 3000 units HEPARIN given by Martine Montenegro RN via Peripheral IV. Ordered by Paul Brewer. VERSED 10/04/2017 2:25:41 PM 2 mg Chen Snider 2 mg VERSED given by Chen Snider RN via Peripheral IV. Ordered by Paul Brewer. FENTANYL 10/04/2017 2:25:48 PM 50 mcg Chen Snider 50 mcg FENTANYL given by Chen Snider RN via Peripheral IV. Ordered by Paul Brewer. AGGRASTAT BOLUS 10/04/2017 2:31:54 PM 50 mL Martine Montenegro 50 mL AGGRASTAT BOLUS given by Martine Montenegro RN via Peripheral IV. Ordered by Paul Brewer. NTG (IC) 10/04/2017 2:33:19 PM 100 mcg Paul Brewer 100 mcg NTG (IC) given by Paul Brewer via Intra-coronary. Ordered by Paul Brewer. IC RCA LOPRESSOR 10/04/2017 3:06:00 PM 5 mg Martine Montenegro 5 mg LOPRESSOR given by Martine Montenegro RN via Peripheral IV. Ordered by Paul Brewer. BRILINTA 10/04/2017 3:24:46 PM 180 mg Chen Snider 180 mg BRILINTA given by Chen Snider RN. Ordered by Paul Brewer. Medication (Drip) Medication Time Given Dosage/Unit Concentration/Unit Diluent (ml) Solution AGGRASTAT DRIP 10/04/2017 2:36:04 PM 140 mcg/kg/min 12.5 g 250 NaCl .9 140 mcg/kg/min AGGRASTAT DRIP given by Martine Montenegro RN via Peripheral IV. Pump/Drip Flow = 16.26 ml/hr using NaCl .9 with a concentration of 12.5 g in 250 ml. Ordered by Paul Brewer. Initial Case Assessment Cardiovascular Edema Present Skin color Skin None Normal Warm Dry Circulatory - Right Pulses Dorsalis Pedis Femoral 1 1 Scale (0,1,2,3,4,d) Circulatory - Left Pulses Dorsalis Pedis Femoral 1 1 Scale (0,1,2,3,4,d) Neurological State Oriented to time-place- Alert Moves all extremities person Chronological Log Time Study Chronological Log 13:27:19 Patient arrived via Bed. 13:27:20 Patient Name, D.O.B, / Armband Verified By R.N. 13:29:03 Patient has been NPO for More than 6Hrs. 13:29:06 Skin Breakdown-none per pt Vitals capture started with the following parameters, Patient=Adult, Interval=5 min, Initial Pr ttnnvz=778 mmHg, 13:33:34 Deflation Rate=5 mmHg, Cuff placed on Left Arm 13:33:48 Patient Warmer Placed on the Table. 13:33:51 Bety Prominences Protected Assessment: Initial Case, Edema=None, Color=Normal, Skin = Warm, Dry Right Pulses: Sadiq Ped=1, Femoral=1 13:33:57 Left Pulses: Sadiq Ped=1, Femoral=1 Neurological: State=Alert, Ox3, PLUMMER 13:34:15 Bilateral groins prepped with 2% chlorhexidine, and draped after a 3 minute waiting time. 13:34:22 Reference ECG taken 13:35:08 QJ=554 bpm, OBZK=740/121 mmhg, SpO2=99.0 %, Resp=13 B/min, Pain=0, Nena=10, Cedeno=2 13:38:00 1 mg VERSED given by Chen Snider, ROJELIO via Peripheral IV. 13:39:42 Pressure channel 1 zeroed. 13:39:43 0.4 mg NITROGLYCERIN S/L given by Chen Snider, ROJELIO via Sublingual. 13:40:28 EA=698 bpm, CFES=469/109 mmhg, SpO2=97.0 %, Resp=8 B/min, Pain=7, Nena=10, Cedeno=2 HR=97 bpm, OFIJ=253/81 mmhg, SpO2=94.0 %, Resp=8 B/min, Pain=2, Nena=10, Cedeno=2 chest pain resolving 13:44:19 from medication 13:49:07 Pressure channel 1 zeroed. 13:49:16 HR=99 bpm, YIWW=697/83 mmhg, SpO2=92.0 %, Resp=19 B/min, Pain=1 Time Out. Correct patient, correct procedure, correct physician, power injector loaded, or not loaded with contrast with 13:49:56 surgical team present. Time Out Concurred by MD and individual staff in procedure. 13:50:01 Case Start 13:50:03 20 mL 1% XYLOCAINE given in lab by Paul Brewer in Right Groin via Subcutaneous. 13:51:46 A SHEATH, FR6.5 PRELUDE 11CM FR 6.5 was advanced into the Fem Art (right) using the Modifmatthew d Seldinger technique. 13:52:00 A catheter was advanced over a wire. OMNIPAQUE, 350 MG, 150ML 150ML was used for injections . 13:52:15 The LCA was injected and visualized at various angles. OMNIPAQUE, 350 MG, 150ML 150ML used . Recorded Pressure: Ao, HR=91, Condition=Condition 1 13:53:53 (Aorta) Ao 144/73/98 13:54:21 HR=90 bpm, NMIN=216/76 mmhg, SpO2=98.0 %, Resp=15 B/min, Pain=0, Nena=10, Cedeno=2 After removing the current catheter a 3DRC INFINITI CATHETER FR 6 was advanced over a WIRE, 3MM J .035 180CM 13:56:20 180CM. 13:56:36 The RCA was injected and visualized at various angles. OMNIPAQUE, 350 MG, 150ML 150ML used . 14:00:11 HQ=793 bpm, IWRM=447/115 mmhg, SpO2=99.0 %, Resp=8 B/min, Pain=0, Nena=10, Cedeno=2 14:00:36 Vitals capture stopped. Vitals capture started with the following parameters, Patient=Adult, Interval=5 min, Initial Pr xgjfuz=112 mmHg, 14:01:00 Deflation Rate=5 mmHg, Cuff placed on Left Arm 14:01:28 vasotec 1.25 mg IV x 1 given by Kyleigh Hernandez RN Recorded Pressure: Ao, ZF=652, Condition=Condition 1 14:02:04 (Aorta) Ao 292/117/195 After removing the current catheter a AR MOD INFINITI CATHETER FR 6 was advanced over a WIRE, 3 MMJ .035 180CM 14:02:15 180CM. 14:02:27 0.4 mg NITROGLYCERIN S/L given in lab by Paul Brewer via Sublingual. Recorded Pressure: Ao, HX=537, Condition=Condition 1 14:03:07 (Aorta) Ao 299/122/202 Recorded Pressure: Ao, WV=938, Condition=Condition 1 14:03:12 (Aorta) Ao 304/126/200 14:03:24 The RCA was injected and visualized at various angles. OMNIPAQUE, 350 MG, 150ML 150ML used . 14:03:39 1 mg VERSED given in lab by Chen Snider, ROJELIO via Peripheral IV. 14:03:47 JG=297 bpm, DPTU=041/142 mmhg, SpO2=99.0 %, Resp=14 B/min, Pain=8, Nena=10, Cedeno=2 14:05:27 cleviprex started at 3mg/hr titrating to keep sbp < 160 IV by dat best 14:06:59 MK=496 bpm, JKSV=889/92 mmhg, SpO2=97.0 %, Resp=10 B/min, Pain=2 14:10:57 Catheter was removed 14:11:46 ZL=574 bpm, JYBT=224/74 mmhg, SpO2=94.0 %, Resp=23 B/min, Pain=0, Nena=10, Cedeno=2 14:11:52 6800 units HEPARIN given by Chen Snider, ROJELIO via Peripheral IV. Ordered by Paul Brewer. A 3DRC GUIDE CATHETER FR 6 was advanced over a wire. OMNIPAQUE, 350 MG, 150ML 150ML was used fo r 14:13:02 injections. 14:14:18 A WIRE, [employer] PROWATER 180CM 180CM was inserted via Fem Art (right). 14:14:26 NIBP STAT measurement started. 14:15:04 GQ=977 bpm, OVYA=172/80 mmhg, SpO2=96.0 %, Resp=17 B/min, Pain=0 14:17:30 UV=104 bpm, DRPK=811/70 mmhg, SpO2=98.0 %, Resp=19 B/min, Pain=0, Nena=10, Cedeno=2 14:18:49 ACT (Normal Range 90-180) = 180 14:19:00 3000 units HEPARIN given by Martine Montenegro, ROJELIO via Peripheral IV. Ordered by Paul Brewer . 14:20:07 An CATHETER, [employer] IMAGING was advanced through the lesion. Images saved o [employer] IVUS hard drive 14:20:17 IVUS in progress using CATHETER, [employer] IMAGING 14:21:42 ZL=120 bpm, LYQQ=712/82 mmhg, SpO2=99.0 %, Resp=11 B/min, Pain=0, Nena=10, Cedeno=2 14:25:41 2 mg VERSED given by Chen Snider, ROJELIO via Peripheral IV. Ordered by Paul Brewer. 14:25:48 50 mcg FENTANYL given by Chen Snider, RN via Peripheral IV. Ordered by Paul Brewer. 14:28:07 BV=977 bpm, UNYD=099/81 mmhg, SpO2=99.0 %, Resp=9 B/min, Pain=0, Nena=10, Cedeno=2 14:30:20 A BALLOON, 2.5 X 12MM EUPHORA 12MM was inserted over WIRE, ASAHI PROWATER 180CM 180CM via t he RCA Ost. A BALLOON, 2.5 X 12MM EUPHORA 12MM over a WIRE, ASAHI PROWATER 180CM 180CM in the RCA Ost was i nflated 14:30:52 using a 30 REGINE INDEFLATOR at 13 regine for 30 sec. 14:31:50 Balloon Removed. 14:31:54 DK=731 bpm, PULV=374/85 mmhg, Resp=12 B/min, Pain=2, Nena=10, Cedeno=2 14:31:54 50 mL AGGRASTAT BOLUS given by Martine Montenegro, ROJELIO via Peripheral IV. Ordered by Keyur Brewern. 14:33:19 100 mcg NTG (IC) given by Paul Brewer via Intra-coronary. Ordered by Paul Brewer. IC RCA 140 mcg/kg/min AGGRASTAT DRIP given by Martine Montenegro, ROJELIO via Peripheral IV. Pump/Drip Flow = 16.26 ml/hr 14:36:04 using NaCl .9 with a concentration of 12.5 g in 250 ml. Ordered by Paul Brewer. 14:37:24 EP=561 bpm, FHRH=201/94 mmhg, SpO2=98.0 %, Resp=6 B/min, Pain=0, Nena=10, Cedeno=2 A STENT, 2.75 15MM NAGI 2.75 15MM was advanced through a 3DRC GUIDE CATHETER FR 6 over a WIRE, ASAHI 14:37:59 PROWATER 180CM 180CM. A STENT, 2.75 15MM NAGI 2.75 15MM was deployed using a 30 REGINE INDEFLATOR at 14 atmospheres for 35 seconds 14:38:12 in the RCA Ost. 14:38:59 Delivery device removed 14:39:49 PIV #20 left hand started by Antonietta Brown. 14:41:24 An CATHETER, [employer] IMAGING was advanced through the lesion. Images saved on to IVUS hard drive 14:41:41 ACT (Normal Range 90-180) = 363 14:41:58 IVUS in progress using CATHETER, [employer] IMAGING 14:43:09 IVUS catheter removed 14:43:26 YV=581 bpm, HSOH=071/94 mmhg, SpO2=98.0 %, Resp=13 B/min, Pain=3 14:45:00 Wire removed A XB 3.5 GUIDE CATHETER FR 6 was advanced over a wire. OMNIPAQUE, 350 MG, 150ML 150ML was used for 14:45:47 injections. 14:46:00 The LCA was injected and visualized at various angles. OMNIPAQUE, 350 MG, 150ML 150ML used . 14:48:34 HR=97 bpm, UHZQ=212/93 mmhg, SpO2=96.0 %, Resp=8 B/min, Pain=0, Nena=10, Cedeno=2 14:51:50 HR=97 bpm, GGCO=095/68 mmhg, SpO2=95.0 %, Resp=10 B/min, Pain=0, Nena=10, Cedeno=2 14:53:13 Pressure channel 1 zeroed. 14:55:28 A PRIME WIRE, VERRATA 185CM 185CM was inserted via Fem Art (right). 14:57:11 Flow Wire was was placed in the LAD Mid. The IFR measures 0.89 Percent. 14:58:01 HR=93 bpm, FVAJ=274/81 mmhg, SpO2=98.0 %, Resp=8 B/min, Pain=0, Nena=10, Cedeno=2 14:58:20 The PRIME WIRE, VERRATA 185CM 185CM was removed. After removing the current catheter a PIGTAIL STR INFINITI CATHETER FR 6 was advanced over a WI RE, 3MMJ .035 14:59:11 180CM 180CM. Recorded Pressure: LV, HR=97, Condition=Condition 1 15:00:38 (Left Ventricle) LV 202/3/21 Recorded Pressure: LV, Ao, HR=97, Condition=Condition 1 15:00:46 (Left Ventricle) LV 203/4/23, (Aorta) Ao 192/62/114 15:01:48 HR=97 bpm, YPWL=339/81 mmhg, UcK3=668.0 %, Resp=9 B/min, Pain=0, Nena=10, Cedeno=2 15:03:29 The AO Arch (A1) was injected at 20 cc/sec for a total of 40. OMNIPAQUE, 350 MG, 50ML 50ML used. 15:04:00 Catheter was removed 15:04:22 An injection in the Fem Art (right) was made through the SHEATH, FR6.5 PRELUDE 11CM FR 6.5. 15:04:40 VASCADE, FR6 CLOSURE SYSTEM FR 6\7 placement in the Fem Art (right) 15:06:00 5 mg LOPRESSOR given by Martine Montenegro RN via Peripheral IV. Ordered by Paul Brewer. 15:06:41 Case End 15:06:49 HR=97 bpm, AQNR=293/88 mmhg, FbY9=302.0 %, Resp=12 B/min, Pain=0, Nena=10, Cedeno=2 15:07:32 Sterile dressing applied to site 15:07:38 Bedside Report will be given. 15:07:40 Implantable Device card placed in patient's chart. 15:11:48 HR=99 bpm, VIOH=375/83 mmhg, SpO2=97.0 %, Resp=15 B/min, Pain=0, Nena=10, Cedeno=2 15:16:52 HR=97 bpm, IKPP=112/72 mmhg, SpO2=97.0 %, Resp=10 B/min, Pain=0, Nena=10, Cedeno=2 15:21:49 IAXI=829/69 mmhg, Pain=0, Nena=10, Cedeno=2 15:24:46 180 mg BRILINTA given by Chen Snider RN. Ordered by Paul Brewer. 15:26:40 Vitals capture stopped. Vitals capture started with the following parameters, Patient=Adult, Interval=5 min, Initial P wfbgpiw=336 mmHg, 15:26:53 Deflation Rate=5 mmHg, Cuff placed on Left Arm 15:27:31 CVHK=427/66 mmhg 15:29:39 Vitals capture stopped. End Study - Contrast Media Used In Study Contrast Total Opened (mL) Total Used (mL) Total Wasted (mL) Omnipaque 300 280 20 End Study - Maximum Contrast Load Max Contrast Load (mL) 440.1 End Study - Radiation Exposure Fluoro Time (minutes) 13.3 End Study - Patient Disposition Complications Transferred To Interventional Outcome No Critical Care Bed successful
[2017-10-04] MEDS ORDERED: IOHEXOL 350 MG/ML 100 ML BTL (for Cath Lab) OTHER ONE (16:09)
[2017-10-04] MEDS: MORPHINE SULFATE 4 MG/ML INJ IV PUSH PRN (16:37)
[2017-10-04] MEDS ORDERED: cloNIDine HCL 0.2 MG TAB PO ONE (17:00)
[2017-10-04] MEDS: ONDANSETRON HCL 4 MG/2 ML VIAL IVP PRN (20:48)
[2017-10-05 03:00] VITALS: BP 138/60; PULSE 56; PULSE 65; RESP 18; TEMP 98.6; O2SAT 94
[2017-10-05] MEDS: TIROFIBAN INFUSION INJ 250 ML IV SCH (05:00)
[2017-10-05 05:16] LABS: AUTOMATED NEUTROPHIL # 6.4 TH/MM3 (1.8-7.7); BASOPHIL % 0.5 % (0.0-2.0); EOSINOPHIL # 0.2 TH/MM3 (0-0.4); EOSINOPHIL % 1.6 % (0.0-4.0); HEMATOCRIT 32.4 % (39.0-51.0); LYMPHOCYTE # 1.6 TH/MM3 (1.0-4.8); MEAN CELL VOLUME 87.9 FL (80.0-100.0); MEAN CORPUSCULAR HEMOGLOBIN 29.8 PG (27.0-34.0); MEAN CORPUSCULAR HGB CONC 33.9 % (32.0-36.0); MONO % 11.7 % (0.0-8.0); MONOCYTE # 1.1 TH/MM3 (0-0.9); NEUT % 69.2 % (16.0-70.0); PLATELET COUNT 298 TH/MM3 (150-450); RED BLOOD COUNT 3.69 MIL/MM3 (4.50-5.90); RED CELL DISTRIBUTION WIDTH 13.9 % (11.6-17.2); WHITE BLOOD COUNT 9.2 TH/MM3 (4.0-11.0)
[2017-10-05 05:37] LABS: BICARBONATE 24.8 MEQ/L (21.0-32.0); CALCIUM 8.2 MG/DL (8.5-10.1); CHOLESTEROL/ HDL RATIO 3.64 RATIO; CREATININE 0.94 MG/DL (0.60-1.30); HDL CHOLESTEROL 28.8 MG/DL (40.0-60.0)
[2017-10-05] MEDS: SODIUM CHLOR 0.9% 1000 ML INJ 1,000 ML IV SCH ×2 (06:00→16:00)
[2017-10-05 07:00] VITALS: BP 152/53; PULSE 64; PULSE 71; RESP 16; TEMP 97.9; O2SAT 95
--- NOTE | 2017-10-05 08:26 | PD.CARD.PN ---
Subjective Subjective Remarks Feels "really good". No further CP. No pleurisy, dyspnea, nausea, dizziness, palpitations, groin pain. Objective Medications Item Value Date Time Aspirin 81 mg 10/05/17 0900 (Aspirin Chew) DAILY/PO Ticagrelor 90 mg 10/05/17 0900 (Brilinta) BID/PO Clonidine 0.2 mg 10/05/17 0900 (Catapres) TID/PO Tirofiban/Sodium 250 ml @ 17.424 mls/hr 10/04/17 1532 Chloride .[id number]/IV 10/05/17 0500 Atorvastatin 80 mg 10/03/17 0900 Calcium DAILY/PO 10/04/17 0830 (Lipitor) Amlodipine 10 mg 10/03/17 0900 Besylate DAILY/PO 10/04/17 0830 (Norvasc) Enalapril Maleate 20 mg 10/02/17 2100 (Vasotec) BID/PO 10/04/17 2100 Metoprolol 25 mg 10/02/17 2100 Tartrate BID/PO 10/04/172043 (Lopressor) Current Medications Medications (Trade) Dose Ordered Sig/Rickey Route Start Time Stop Time Status Last Admin (NS Flush) 2 ml UNSCH PRN IVF 10/02/17 14:30 10/02/17 15:27 (NS Flush) 2 ml UNSCH PRN IV FLUSH 10/02/17 19:15 (NS Flush) 2 ml BID IV FLUSH 10/02/17 21:00 (Zofran Inj) 4 mg Q6H PRN IVP 10/02/17 19:15 10/04/17 20:48 (Narcan Inj) 0.4 mg UNSCH PRN IV PUSH 10/02/17 19:15 (Milk Of Magnesia Liq) 30 ml Q12H PRN PO 10/02/17 19:15 (Senokot) 17.2 mg Q12H PRN PO 10/02/17 19:15 (Dulcolax Supp) 10 mg DAILY PRN RECTAL 10/02/17 19:15 (Lactulose Liq) 30 ml DAILY PRN PO 10/02/17 19:15 (Morphine Inj) 2 mg Q3H PRN IV PUSH 10/02/17 19:15 10/04/17 16:37 (Vasotec) 20 mg BID PO 10/02/17 21:00 10/04/17 21:00 (Lopressor) 25 mg BID PO 10/02/17 21:00 10/04/17 20:44 (Lipitor) 80 mg DAILY PO 10/03/17 09:00 10/04/17 08:30 (Norvasc) 10 mg DAILY PO 10/03/17 09:00 10/04/17 08:30 Sodium Chloride 1,000 ml @ 100 mls/hr Q10H IV 10/03/17 14:00 10/08/17 13:59 10/04/17 20:00 (Benadryl) 50 mg FURNITURE STAINER PO 10/03/17 14:00 10/07/17 13:59 10/04/17 13:15 (Valium) 10 mg FURNITURE STAINER PO 10/03/17 14:00 10/07/17 13:59 10/04/17 13:15 (Versed Inj) 1 mg FURNITURE STAINER IV PUSH 10/03/17 14:00 10/07/17 13:59 (Restoril) 15 mg HS PRN PO 10/04/17 15:45 (Aspirin Chew) 81 mg DAILY PO 10/05/17 09:00 (Brilinta) 90 mg BID PO 10/05/17 09:00 Tirofiban/Sodium Chloride 250 ml @ 17.424 mls/ hr [id number] IV 10/04/17 15:32 10/05/17 09:31 10/05/17 05:00 (Catapres) 0.2 mg TID PO 10/05/17 09:00 Clevidipine 50 ml @ 2 mls/hr TITRATE PRN IV 10/04/17 17:00 10/04/17 21:40 Vital Signs / I&O Vital Signs Date Time Temp Pulse Resp B/P (MAP) Pulse Ox O2 Delivery O2 Flow Rate FiO2 10/05/17 07:00 64 10/05/17 07:00 97.9 71 16 152/53 (86) 95 10/05/17 03:00 65 10/05/17 03:00 98.6 56 18 138/60 (86) 94 10/04/17 23:00 62 10/04/17 23:00 62 18 137/71 (93) 95 4/17/18 21:40 75 153/46 417/18 21:00 96 21 417/18 20:48 101 167/77 4/17/18 20:48 101 17/18 20:39 102 167/77 417/18 19:00 94 Room Air 10/04/18 19:00 71 417/18 19:00 99.0 70 16 151/56 (87) 96 10/04/18 17:41 64 147/64 417/18 17:00 64 147/64 17/18 16:42 16 417/18 16:00 98 Nasal Cannula 3.00 10/04/18 16:00 97.1 98 16 164/72 (102) 96 10/04/18 16:00 98 10/04/18 16:00 110 179/98 17/18 15:45 98 164/72 17/18 15:27 99 128/66 4/17/18 15:27 99 128/66 4/17/18 15:27 99 128/66 4/17/18 15:27 99 128/66 4/17/18 15:27 99 128/66 4/17/18 15:27 99 128/66 4/17/18 15:27 99 128/66 4/17/18 14:03 115 300/126 4/17/18 14:03 115 300/126 /17/18 14:03 115 300/126 /17/18 14:03 115 300/126 /17/18 14:03 115 300/126 4/17/18 14:03 115 300/126 17/18 14:03 115 300/126 17/18 14:03 115 300/126 17/18 12:00 97.7 51 20 132/59 (83) 94 I/O 4/17/18 4/17/18 4/17/18 4/18/18 4/18/18 4/18/18 07:00 15:00 23:00 07:00 15:00 23:00 Intake Total 721.3 ml 1200 ml Output Total 1950 ml 875 ml 550 ml 975 ml Balance -1950 ml -875 ml 171.3 ml 225 ml Intake Oral 240 ml 1200 ml IV Total 481.3 ml Output Urine Total 1950 ml 875 ml 550 ml 975 ml # Voids 2 1 # Bowel Movements 0 1 Physical Exam GENERAL: Well developed, well nourished. No acute distress. HEENT: Jugular venous pressure is normal. CHEST: Lungs clear to auscultation bilaterally. Unlabored respiratory effort. CARDIAC: Regular rate and rhythm without S3, S4. II/ TAHIR base. Normal S2. ABDOMEN: Soft, nontender, no hepatosplenomegaly. Bowel sounds present. EXTREMITIES: No clubbing, cyanosis, or edema. Right groin nontender, no hematoma. Laboratory Laboratory Tests Test 10/05/17 03:21 10/05/17 03:27 White Blood Count 9.2 TH/MM3 Red Blood Count 3.69 MIL/MM3 Hemoglobin 11.0 GM/DL Hematocrit 32.4 % Mean Corpuscular Volume 87.9 FL Mean Corpuscular Hemoglobin 29.8 PG Mean Corpuscular Hemoglobin Concent 33.9 % Red Cell Distribution Width 13.9 % Platelet Count 298 TH/MM3 Mean Platelet Volume 8.0 FL Neutrophils (%) (Auto) 69.2 % Lymphocytes (%) (Auto) 17.0 % Monocytes (%) (Auto) 11.7 % Eosinophils (%) (Auto) 1.6 % Basophils (%) (Auto) 0.5 % Neutrophils # (Auto) 6.4 TH/MM3 Lymphocytes # (Auto) 1.6 TH/MM3 Monocytes # (Auto) 1.1 TH/MM3 Eosinophils # (Auto) 0.2 TH/MM3 Basophils # (Auto) 0.0 TH/MM3 CBC Comment DIFF FINAL Differential Comment Blood Urea Nitrogen 14 MG/DL Creatinine 0.94 MG/DL Random Glucose 76 MG/DL Calcium Level 8.2 MG/DL Sodium Level 142 MEQ/L Potassium Level 3.9 MEQ/L Chloride Level 110 MEQ/L Carbon Dioxide Level 24.8 MEQ/L Anion Gap 7 MEQ/L Estimat Glomerular Filtration Rate 81 ML/MIN Total Creatine Kinase 104 U/L Triglycerides Level 135 MG/DL Cholesterol Level 105 MG/DL LDL Cholesterol 49 MG/DL HDL Cholesterol 28.8 MG/DL Cholesterol/HDL Ratio 3.64 RATIO Assessment and Plan Problem List: (1) CAD (coronary artery disease) ICD Codes: I25.10 - Atherosclerotic heart disease of [place] coronary artery without angina pectoris Status: Chronic Plan: Doing well this morning. No further CP. Cath yesterday showed unchanged angiographic findings compared to last month, but IVUS of RCA today confirms severe, ulcerated, calcified proximal disease, which was stented. Borderline disease in distal LAD also assessed with IFR measurement (0.9) indicating disease not hemodynamically significant. REC changed Plavix to Brilinta continue beta rikki, CRISTÓBAL-I OK for discharge late today on current multidrug cardiac regimen if remains stable (2) Hypertension ICD Codes: I10 - Essential (primary) hypertension Status: Chronic Plan: Marked elevations in BP in cleaner laboratory equipment, up to as high as 300/120 treated with IV Cleviprex. BP's much better overnight. Recommend optimize hypertension regimen, screen for pheochromocytoma (24 hour urine collection for catecholamines finishes 4 PM today). Code Status full code Discussed Condition With patient Problem Qualifiers (1) CAD (coronary artery disease): Qualified Codes: I25.110 - Atherosclerotic heart disease of [place] coronary artery with unstable angina pectoris (2) Hypertension: Qualified Codes: I10 - Essential (primary) hypertension Paul Brewer MD Oct 05, 2017 08:26
[2017-10-05] MEDS: MORPHINE SULFATE 4 MG/ML INJ IV PUSH PRN (08:43)
[2017-10-05] MEDS ORDERED: AMLO10 PO (08:55)
[2017-10-05] MEDS ORDERED: BRIL90TA PO (08:55)
[2017-10-05] MEDS ORDERED: METO25TA3 PO ×2 (08:55→17:03)
--- NOTE | 2017-10-05 08:56 | HHI.DS ---
Discharge Summary Admission Date Oct 03, 2017 at 13:23 Discharge Date: Oct 05, 2017 Admitting Diagnosis NSTEMI (1) Carotid artery disease ICD Code: I77.9 - Disorder of arteries and arterioles, unspecified Status: Chronic (2) Adrenal abnormality ICD Code: E27.9 - Disorder of adrenal gland, unspecified (3) CAD (coronary artery disease) ICD Code: I25.10 - Atherosclerotic heart disease of [place] coronary artery without angina pectoris Status: Chronic (4) Hyperlipidemia ICD Code: E78.5 - Hyperlipidemia, unspecified Status: Chronic (5) Hypertension ICD Code: I10 - Essential (primary) hypertension Status: Chronic (6) Hypertensive emergency ICD Code: I16.1 - Hypertensive emergency Procedures cardiac cath by Dr Brewer 10/04/17 Brief History - From Admission 66-year-old male with a history of coronary artery disease (previous stent) presents to the ER with substernal chest pain. The chest pain began this morning is limited to his chest and is associated with some shortness of breath with exertion. He states that he was here 1 month ago and had a angiogram which did not show any blockage on his previous stent. ER workup however reveals a troponin level of 0.32. Further history reveals that he has had ankle edema which developed only 3 months ago and has been persistent and worsening since then. He is somewhat anxious about leaving the hospital to obtain a carotid MRI which he has scheduled for tomorrow early afternoon. I explained to him that currently the heart is symptomatic and should be addressed first, he seemed to agree with this logic. CBC/BMP: 10/05/17 0321 10/05/17 0327 Significant Findings Laboratory Tests Test 10/02/17 14:45 10/02/17 20:10 10/03/17 00:43 10/03/17 09:30 Red Blood Count 4.43 MIL/MM3 (4.50-5.90) 4.27 MIL/MM3 (4.50-5.90) Neutrophils (%) (Auto) 79.6 % (16.0-70.0) Neutrophils # (Auto) 8.0 TH/MM3 (1.8-7.7) Activated Partial Thromboplast Time 24.0 SEC (24.3-30.1) 34.8 SEC (24.3-30.1) 35.1 SEC (24.3-30.1) Random Glucose 203 MG/DL (74-106) Calcium Level 10.8 MG/DL (8.5-10.1) 10.3 MG/DL (8.5-10.1) Magnesium Level 1.4 MG/DL (1.5-2.5) Estimat Glomerular Filtration Rate 56 ML/MIN (>89) 63 ML/MIN (>89) Troponin I 0.32 NG/ML (0.02-0.05) 0.81 NG/ML (0.02-0.05) 2.86 NG/ML (0.02-0.05) Hemoglobin 12.5 GM/DL (13.0-17.0) Hematocrit 37.6 % (39.0-51.0) Monocytes (%) (Auto) 11.2 % (0.0-8.0) Monocytes # (Auto) 1.1 TH/MM3 (0-0.9) Test 10/03/17 17:08 10/04/17 00:19 10/04/17 06:46 10/05/17 03:21 Activated Partial Thromboplast Time 37.3 SEC (24.3-30.1) 43.1 SEC (24.3-30.1) 42.7 SEC (24.3-30.1) Red Blood Count 3.69 MIL/MM3 (4.50-5.90) Hemoglobin 11.0 GM/DL (13.0-17.0) Hematocrit 32.4 % (39.0-51.0) Monocytes (%) (Auto) 11.7 % (0.0-8.0) Monocytes # (Auto) 1.1 TH/MM3 (0-0.9) Test 10/05/17 03:27 Calcium Level 8.2 MG/DL (8.5-10.1) Chloride Level 110 MEQ/L (98-107) Estimat Glomerular Filtration Rate 81 ML/MIN (>89) Cholesterol Level 105 MG/DL (120-200) HDL Cholesterol 28.8 MG/DL (40.0-60.0) Imaging Last Impressions Chest X-Ray 10/02/17 6454 Signed Impressions: Service Date/Time: Monday, October 02, 2017 14:46 - CONCLUSION: Stable chest no acute disease Luke Goldberg MD CT Angiography 10/02/17 0000 Signed Impressions: Service Date/Time: Monday, October 02, 2017 16:31 - CONCLUSION: No evidence of pulmonary embolism. Bilateral adrenal masses which appear fairly benign. Recommend elective followup evaluation with MRI Luke Goldberg MD PE at Discharge GENERAL: This is obese, generally deconditioned patient CARDIOVASCULAR: Sinus tachycardia without murmurs, gallops, or rubs. RESPIRATORY: Clear to auscultation. Breath sounds equal bilaterally. No wheezes , rales, or rhonchi. GASTROINTESTINAL: Abdomen soft, non-tender, nondistended. No hepato-splenomegaly , or palpable masses. No guarding. MUSCULOSKELETAL: 1+ edema to mid breen. No joint tenderness, effusion, or edema noted. No calf tenderness. Negative Homans sign bilaterally. Clicking of left rotator cuff demonstrated, this causes him some mild pain. NEUROLOGICAL: Awake and alert. Cranial nerves II through XII intact. Motor and sensory grossly within normal limits. Five out of 5 muscle strength in all muscle groups. Normal speech. Hospital Course CAD Hypertension emergency Continue oxygen, morphine as need Troponins elevated EKG reviewed Echocardiogram ejection fraction 55-60%. Mild concentric left ventricular hypertrophy. Trace mitral valve regurg, mild aortic valve stenosis. Follow patient on telemetry Cardiology consulted S/P cardiac cath 10/04/[address] Brewer showed unchanged angiographic findings compared to last month, but IVUS of RCA today confirms severe, ulcerated, calcified proximal disease, which was stented. Borderline disease in distal LAD also assessed with IFR measurement (0.9) indicating disease not hemodynamically significant. Changed Plavix to Brilinta Continue beta rikki, CRISTÓBAL-I Patient however noted with BP 300.126 after cardiac cath Treated with IV Cleviprex. Screen for pheochromocytoma (24 hour urine collection for catecholamines). BP better controlled cleared by cardiology for dc to follow up as OP with PCP and cardio H/o Carotid stenosis Patient has carotid MRI ordered for tomorrow, history of bilateral endarterectomy Demonstrates patient's tendency to develop vascular plaques Rotator cuff tendinitis Not a current issue but consider chronic pain masking baseline chest pain Tobacco abuse Patient encouraged to stop smoking Nicotine patch may be made available when the cardiac causes of chest pain are ruled out or treated DVT prophylaxis Heparin Drip Discussed with pt, nurse. S/P cardiac cath 10/[address] Brewer Patient eager to go home. Patient improved, cleared by cardiology for DC to follow up as OP with PCP and cardio Pt Condition on Discharge: Stable Discharge Disposition: Discharge Home Discharge Time: > 30 minutes Discharge Instructions DIET: Follow Instructions for: Heart Healthy Diet Activities you can perform: Regular-No Restrictions Follow up Referrals: Cardiology - 1 Week PCP Follow-up - 2-3 Days New Orders: MRI Abdomen W & W/O Contrast New Medications: Metoprolol Tartrate (Metoprolol Tartrate) 25 Mg Tab 25 MG PO BID for Blood Pressure Management, #60 TAB 0 Refills Amlodipine (Norvasc) 10 Mg Tab 10 MG PO DAILY for Blood Pressure Management, #30 TAB Ticagrelor (Brilinta) 90 Mg Tab 90 MG PO BID for Blood Clot Prevention, #60 TAB Continued Medications: Amlodipine-Atorvastatin (Amlodipine-Atorvastatin) 10-80 Mg Tab 1 TAB PO DAILY for Blood Pressure Management, #30 TAB [address] (Aspirin 81) 81 Mg Tabdr 81 MG PO DAILY for CAD, #30 TAB 0 Refills Clonidine (Catapres) 0.2 Mg Tab 0.2 MG PO Q8HR for hypertension, #90 TAB 0 Refills Enalapril (Enalapril) 20 Mg Tab 20 MG PO BID, #30 TAB 0 Refills Discontinued Medications: Clopidogrel (Plavix) 75 Mg Tab 75 MG PO DAILY for Blood Clot Prevention, #30 TAB 0 Refills Yeny Suero MD Oct 05, 2017 08:56
[2017-10-05] MEDS ORDERED: ASPIRIN 81 MG CHEW TAB PO SCH (09:00)
[2017-10-05] MEDS ORDERED: TICAGRELOR 90 MG TAB PO SCH (09:00)
[2017-10-05] MEDS: METOPROLOL TARTRATE 25 MG TAB PO SCH (09:07)
[2017-10-05] MEDS: cloNIDine HCL 0.2 MG TAB PO SCH ×2 (09:07→13:00)
[2017-10-05] MEDS: ATORVASTATIN 80 MG TAB PO SCH (09:08)
[2017-10-05] MEDS: SODIUM CHLORIDE 0.9% FLUSH 10 ML FLUSH IV FLUSH SCH (09:09)
--- NOTE | 2017-10-05 09:42 | HHI.PR ---
Subjective Remarks Is in the chair he was noted with elevated blood pressure blood pressure 260 in the morning, he was started on Cleviprex in the morning of. Blood pressure is better controlled with p.o. medications. He was cleared by cardiology for discharge. Discharge patient today after urine catecholamine test collected. Objective Vitals Vital Signs Date Time Temp Pulse Resp B/P (MAP) Pulse Ox O2 Delivery O2 Flow Rate FiO2 10/05/17 09:09 16 10/05/17 08:55 96 218/70 10/05/17 07:00 64 10/05/17 07:00 97.9 71 16 152/53 (86) 95 10/05/17 03:00 65 10/05/17 03:00 98.6 56 18 138/60 (86) 94 10/04/17 23:00 62 10/04/17 23:00 62 18 137/71 (93) 95 10/04/17 21:40 75 153/46 10/04/17 21:00 96 21 10/04/17 20:48 101 167/77 10/04/17 20:48 101 10/04/17 20:39 102 167/77 10/04/17 19:00 94 Room Air 10/04/17 19:00 71 10/04/17 19:00 99.0 70 16 151/56 (87) 96 10/04/17 17:41 64 147/64 10/04/17 17:00 64 147/64 10/04/17 16:00 98 Nasal Cannula 3.00 10/04/17 16:00 97.1 98 16 164/72 (102) 96 10/04/17 16:00 98 10/04/17 16:00 110 179/98 10/04/17 15:45 98 164/72 10/04/17 15:27 99 128/66 18 15:27 99 128/66 18 15:27 99 128/66 10/04/17 15:27 99 128/66 10/04/17 15:27 99 128/66 10/04/17 15:27 99 128/66 10/04/17 15:27 99 128/66 10/04/17 14:03 115 300/126 10/04/17 14:03 115 300/126 10/04/17 14:03 115 300/126 10/04/17 14:03 115 300/126 10/04/17 14:03 115 300/126 10/04/17 14:03 115 300/126 10/04/17 14:03 115 300/126 10/04/17 14:03 115 300/126 10/04/17 12:00 97.7 51 20 132/59 (83) 94 I/O 10/04/17 10/04/17 10/04/17 10/05/17 10/05/17 10/05/17 07:00 15:00 23:00 07:00 15:00 23:00 Intake Total 721.3 ml 1200 ml Output Total 1950 ml 875 ml 550 ml 975 ml Balance -1950 ml -875 ml 171.3 ml 225 ml Intake Oral 240 ml 1200 ml IV Total 481.3 ml Output Urine Total 1950 ml 875 ml 550 ml 975 ml # Voids 2 1 # Bowel Movements 0 1 Result Diagram: 10/05/17 0321 10/05/17 0327 Imaging Last Impressions Chest X-Ray 10/02/17 1424 Signed Impressions: Service Date/Time: Monday, October 02, 2017 14:46 - CONCLUSION: Stable chest no acute disease Luke Goldberg MD CT Angiography 10/02/17 0000 Signed Impressions: Service Date/Time: Monday, October 02, 2017 16:31 - CONCLUSION: No evidence of pulmonary embolism. Bilateral adrenal masses which appear fairly benign. Recommend elective followup evaluation with MRI Luke Goldberg MD Objective Remarks GENERAL: This is obese, generally deconditioned patient CARDIOVASCULAR: Sinus tachycardia without murmurs, gallops, or rubs. RESPIRATORY: Clear to auscultation. Breath sounds equal bilaterally. No wheezes , rales, or rhonchi. GASTROINTESTINAL: Abdomen soft, non-tender, nondistended. No hepato-splenomegaly , or palpable masses. No guarding. MUSCULOSKELETAL: 1+ edema to mid breen. No joint tenderness, effusion, or edema noted. No calf tenderness. Negative Homans sign bilaterally. Clicking of left rotator cuff demonstrated, this causes him some mild pain. NEUROLOGICAL: Awake and alert. Cranial nerves II through XII intact. Motor and sensory grossly within normal limits. Five out of 5 muscle strength in all muscle groups. Normal speech. A/P Assessment and Plan CAD Hypertension emergency Continue oxygen, morphine as need Troponins elevated EKG reviewed Echocardiogram ejection fraction 55-60%. Mild concentric left ventricular hypertrophy. Trace mitral valve regurg, mild aortic valve stenosis. Follow patient on telemetry Cardiology consulted S/P cardiac cath 10/04/[address] Brewer showed unchanged angiographic findings compared to last month, but IVUS of RCA today confirms severe, ulcerated, calcified proximal disease, which was stented. Borderline disease in distal LAD also assessed with IFR measurement (0.9) indicating disease not hemodynamically significant. Changed Plavix to Brilinta Continue beta rikki, CRISTÓBAL-I Patient however noted with BP 300.126 after cardiac cath Treated with IV Cleviprex. Screen for pheochromocytoma (24 hour urine collection for catecholamines). BP better controlled cleared by cardiology for dc to follow up as OP with PCP and cardio H/o Carotid stenosis Patient has carotid MRI ordered for tomorrow, history of bilateral endarterectomy Demonstrates patient's tendency to develop vascular plaques Rotator cuff tendinitis Not a current issue but consider chronic pain masking baseline chest pain Tobacco abuse Patient encouraged to stop smoking Nicotine patch may be made available when the cardiac causes of chest pain are ruled out or treated DVT prophylaxis Heparin Drip Discussed with pt, nurse. S/P cardiac cath 10/[address] Brewer Patient eager to go home. Patient improved, cleared by cardiology for DC to follow up as OP with PCP and cardio Yeny Suero MD Oct 05, 2017 09:42
[2017-10-05] MEDS ORDERED: NIFEdipine 60 MG SUSTAINED RELEASE TAB PO SCH (09:45)
[2017-10-05] MEDS: ENALAPRIL MALEATE 10 MG TAB PO SCH (09:47)
[2017-10-05 11:00] VITALS: BP 112/59; PULSE 55; PULSE 58; RESP 16; TEMP 98.4; O2SAT 97
[2017-10-05] MEDS ORDERED: NITROGLYCERIN 2% OINT 1 GM PACKET TOPICAL SCH (12:00)
[2017-10-05 15:00] VITALS: BP 135/68; PULSE 58; PULSE 59; RESP 16; TEMP 98.1; O2SAT 95
--- NOTE | 2017-10-05 21:45 | EKG ---
Date Performed: 10/05/2017 Time Performed: 09:02:50 PTAGE: 66 years EKG: Sinus arrhythmia Left axis deviation Lateral T wave changes are nonspecific Borderline ECG PREVIOUS TRACING : 10/03/2017 00.43 Since the previous tracing, no significant change noted DOCTOR: Brendan Jimenes Interpretating Date/Time 10/05/2017 21:43:59
[2017-10-08 16:14] LABS: URINE EPINEPHRINE 4.5 mcg/24 h (<21)
== END 2017-10-05 17:31 | disposition home or self-care (01) | DRG 247 ==
LOC: NEPC 14:02 → INTOOBSV 17:58 → NEDA 17:58 → N04A 20:58 → OBSVTOIN 10-03 13:23 → HCPC 10-04 14:28 → HCVI 10-04 15:50
PROVIDERS: ADMIT Hospitalist; ATTEND Hospitalist
PROC: B2111ZZ Fluoroscopy of Multiple Coronary Arteries using Low Osmolar Contrast (ICD-10-PCS; 2017-10-04)
PROC: 4A023N7 Measurement of Cardiac Sampling and Pressure, Left Heart, Percutaneous Approach (ICD-10-PCS; 2017-10-04)
PROC: B2151ZZ Fluoroscopy of Left Heart using Low Osmolar Contrast (ICD-10-PCS; 2017-10-04)
PROC: B240ZZ3 Ultrasonography of Single Coronary Artery, Intravascular (ICD-10-PCS; 2017-10-04)
PROC: 027034Z Dilation of Coronary Artery, One Artery with Drug-eluting Intraluminal Device, Percutaneous Approach (ICD-10-PCS; principal; 2017-10-04 13:45)
DX: I21.4 Non-ST elevation (NSTEMI) myocardial infarction (principal); I95.9 Hypotension, unspecified; I16.1 Hypertensive emergency; I10 Essential (primary) hypertension; E78.5 Hyperlipidemia, unspecified; I25.110 Atherosclerotic heart disease of native coronary artery with unstable angina pectoris; F17.210 Nicotine dependence, cigarettes, uncomplicated; R00.0 Tachycardia, unspecified; G89.29 Other chronic pain; I73.9 Peripheral vascular disease, unspecified; I35.0 Nonrheumatic aortic (valve) stenosis; E27.9 Disorder of adrenal gland, unspecified; Z95.5 Presence of coronary angioplasty implant and graft; Z82.49 Family history of ischemic heart disease and other diseases of the circulatory system; Z79.82 Long term (current) use of aspirin; Z79.02 Long term (current) use of antithrombotics/antiplatelets
CPT/HCPCS: 71045; 71275; 80048; 80053; 80061; 82384; 82550; 82552; 83690; 83735; 83880; 84484; 85002; 85025; 85610; 85730; 92928; 92978; 93005; 93306; 93454; 93567; 93571; 99152; 99153; C1725; C1753; C1760; C1769; C1874; C1887; C1893; C9248; G0269; J1644; J2250; J2270; J2405; J3010; J3246; J3475; J7030; Q0163; Q9967

== ENCOUNTER 2017-10-24 11:49 | Observation (INO) | payer MEDICARE ==
[2017-10-24] VITALS (15 sets, daily range): BP systolic 110–183; BP diastolic 49–91; PULSE 37–78; RESP 16–20; TEMP 97.8–98.8; O2SAT 95–99
[~2017-10-24] VITALS: Ht 170.2 cm; Wt 93.8 kg
[~2017-10-24 11:49] MED LIST changes: +AMLO10 PO; +BRIL90TA PO; -PLAV75TA29 PO
--- NOTE | 2017-10-24 12:07 | PD ---
Physical Exam Time Seen by Provider: 12:04 Narrative 66-year-old male with history of hypertension, hypercholesterolemia, lower extremity edema, significant CAD with recent NSTEMI and cardiac stenting by Dr. Brewer on October 04, 2017, presents emergency department today for evaluation of acute onset chest pain radiating to his bilateral shoulders into his head. Patient states these were his symptoms prior to his last cardiac event. Pain was initially intermittent but has become more constant. He did take 2 325 mg tablets of aspirin at the onset. He was given sublingual nitro spray in route by EVAC which helped alleviate the pain temporarily. Patient has had mild shortness of breath with activity. Denies any nausea, vomiting. No episodes of diaphoresis or lightheaded sensation. He continues to smoke tobacco cigarettes. He has no other symptoms to report. GENERAL: Well-nourished male patient, sitting up in bed, in no acute distress. SKIN: Focused skin assessment warm/dry. HEAD: Atraumatic. Normocephalic. EYES: Pupils equal and round. No scleral icterus. No injection or drainage. ENT: No nasal bleeding or discharge. Mucous membranes pink and moist. NECK: Trachea midline. No JVD. CARDIOVASCULAR: Regular rate and rhythm. RESPIRATORY: No accessory muscle use. Diminished to auscultation. Breath sounds equal bilaterally. GASTROINTESTINAL: Abdomen soft, non-tender, nondistended. Hepatic and splenic margins not palpable. MUSCULOSKELETAL: No obvious deformities. No clubbing. No cyanosis. 2+ bilateral lower extremity edema. NEUROLOGICAL: Awake and alert. No obvious cranial nerve deficits. Motor grossly within normal limits. Normal speech. PSYCHIATRIC: Appropriate mood and affect; insight and judgment normal. Data Data Last Documented VS Vital Signs Date Time Temp Pulse Resp B/P (MAP) Pulse Ox O2 Delivery O2 Flow Rate FiO2 10/24/17 12:36 52 18 114/49 (70) 95 Room Air 10/24/17 12:07 97.8 Orders Orders Electrocardiogram (10/24/17 12:03) Basic Metabolic Panel (Bmp) (10/24/17 12:03) Ckmb (Isoenzyme) Profile (10/24/17 12:03) Complete Blood Count With Diff (10/24/17 12:03) Magnesium (Mg) (10/24/17 12:03) Prothrombin Time / Inr (Pt) (10/24/17 12:03) Act Partial Throm Time (Ptt) (10/24/17 12:03) Troponin I (10/24/17 12:03) Lipase (10/24/17 12:03) Ecg Monitoring (10/24/17 12:03) Bilateral Bp Monitoring (10/24/17 12:03) Iv Access Insert/Monitor (10/24/17 12:03) Oximetry (10/24/17 12:03) Oxygen Administration (10/24/17 12:03) Morphine Inj (Morphine Inj) (10/24/17 12:15) Sodium Chloride 0.9% Flush (Ns Flush) (10/24/17 12:15) Nitroglycerin Sl (Nitrostat Sl) (10/24/17 12:15) Chest, Pa & Lat (10/24/17 12:03) CKMB (10/24/17 12:15) CKMB% (10/24/17 12:15) Labs Laboratory Tests Test 10/24/17 12:15 White Blood Count 11.0 TH/MM3 Red Blood Count 3.45 MIL/MM3 Hemoglobin 10.3 GM/DL Hematocrit 30.2 % Mean Corpuscular Volume 87.6 FL Mean Corpuscular Hemoglobin 29.8 PG Mean Corpuscular Hemoglobin Concent 34.0 % Red Cell Distribution Width 14.4 % Platelet Count 337 TH/MM3 Mean Platelet Volume 7.7 FL Neutrophils (%) (Auto) 79.4 % Lymphocytes (%) (Auto) 9.9 % Monocytes (%) (Auto) 8.1 % Eosinophils (%) (Auto) 2.0 % Basophils (%) (Auto) 0.6 % Neutrophils # (Auto) 8.7 TH/MM3 Lymphocytes # (Auto) 1.1 TH/MM3 Monocytes # (Auto) 0.9 TH/MM3 Eosinophils # (Auto) 0.2 TH/MM3 Basophils # (Auto) 0.1 TH/MM3 CBC Comment DIFF FINAL Differential Comment Prothrombin Time 10.0 SEC Prothromb Time International Ratio 1.0 RATIO Activated Partial Thromboplast Time 22.7 SEC Blood Urea Nitrogen 22 MG/DL Creatinine 1.12 MG/DL Random Glucose 118 MG/DL Calcium Level 9.7 MG/DL Magnesium Level 1.9 MG/DL Sodium Level 139 MEQ/L Potassium Level 4.2 MEQ/L Chloride Level 105 MEQ/L Carbon Dioxide Level 23.5 MEQ/L Anion Gap 11 MEQ/L Estimat Glomerular Filtration Rate 66 ML/MIN Total Creatine Kinase 116 U/L Troponin I 0.04 NG/ML Lipase 89 U/L Maggie Roque October 24, 2017 12:07
[2017-10-24] MEDS ORDERED: FURO40TA PO (12:10)
[2017-10-24] MEDS ORDERED: MORPHINE SULFATE 4 MG/ML INJ IV PUSH ONE (12:15)
[2017-10-24] MEDS ORDERED: SODIUM CHLORIDE 0.9% FLUSH 10 ML FLUSH IVF PRN (12:15)
[2017-10-24] MEDS: NITROGLYCERIN 0.4 MG SL 25 TABS/BTL SL SCH ×3 (12:20→12:29)
[2017-10-24 12:24] LABS: AUTOMATED NEUTROPHIL # 8.7 TH/MM3 (1.8-7.7); BASOPHIL # 0.1 TH/MM3 (0-0.2); BASOPHIL % 0.6 % (0.0-2.0); EOSINOPHIL # 0.2 TH/MM3 (0-0.4); HEMATOCRIT 30.2 % (39.0-51.0); HEMOGLOBIN 10.3 GM/DL (13.0-17.0); LYMPH % 9.9 % (9.0-44.0); LYMPHOCYTE # 1.1 TH/MM3 (1.0-4.8); MEAN CELL VOLUME 87.6 FL (80.0-100.0); MEAN CORPUSCULAR HEMOGLOBIN 29.8 PG (27.0-34.0); MEAN PLATELET VOLUME 7.7 FL (7.0-11.0); MONO % 8.1 % (0.0-8.0); MONOCYTE # 0.9 TH/MM3 (0-0.9); NEUT % 79.4 % (16.0-70.0); PLATELET COUNT 337 TH/MM3 (150-450); RED BLOOD COUNT 3.45 MIL/MM3 (4.50-5.90); RED CELL DISTRIBUTION WIDTH 14.4 % (11.6-17.2)
[2017-10-24 12:53] LABS: BLOOD UREA NITROGEN 22 MG/DL (7-18); CREATININE 1.12 MG/DL (0.60-1.30); GLOMERULAR FILTRATION RATE 66 ML/MIN (>89)
[2017-10-24 12:54] LABS: BICARBONATE 23.5 MEQ/L (21.0-32.0); CALCIUM 9.7 MG/DL (8.5-10.1); CHLORIDE 105 MEQ/L (98-107); GLUCOSE,RANDOM 118 MG/DL (74-106); MAGNESIUM 1.9 MG/DL (1.5-2.5); SODIUM (NA) 139 MEQ/L (136-145)
[2017-10-24 12:55] LABS: TROPONIN I 0.04 NG/ML (0.02-0.05)
--- NOTE | 2017-10-24 12:56 | RADRPT ---
EXAM DATE/TIME: 10/24/2017 12:47 [facility] COMPARISON: CHEST PA & LAT, August 24, 2017, 20:39. INDICATIONS : Intermittent chest pain for two weeks after heart stent was put in. MEDICAL HISTORY : Hypertension. Cardiovascular disease. Hypertension. Current smoker. SURGICAL HISTORY : Appendectomy. Carotid surgery. Heart stent. ENCOUNTER: Initial ACUITY: 2 weeks PAIN SCORE: 10/10 LOCATION: Bilateral chest FINDINGS: PA and lateral views of the chest demonstrate the lungs to be symmetrically aerated without evidence of mass, infiltrate or effusion. The cardiomediastinal contours are unremarkable. Osseous structure s are intact. CONCLUSION: No acute disease. No significant change has occurred. Iam Baum MD on October 24, 2017 at 12:54 Board Certified Radiologist. This report was verified electronically.
--- NOTE | 2017-10-24 13:12 | PD ---
HPI Chief Complaint: Chest Pain Time Seen by Provider: 11:57 Travel History International Travel<30 days: No Contact w/Intl Traveler<30days: No Traveled to known affect area: No History of Present Illness HPI 66-year-old male with history of hypertension, hypercholesterolemia, lower extremity edema, significant CAD with recent NSTEMI and cardiac stenting by Dr. Brewer on October 04, 2017, presents emergency department today for evaluation of acute onset chest pain radiating to his bilateral shoulders into his head. Patient states these were his symptoms prior to his last cardiac event. Pain was initially intermittent but has become more constant. He did take 2 325 mg tablets of aspirin at the onset. He was given sublingual nitro spray in route by [facility] which helped alleviate the pain temporarily. Patient has had mild shortness of breath with activity. Denies any nausea, vomiting. No episodes of diaphoresis or lightheaded sensation. He continues to smoke tobacco cigarettes. He has no other symptoms to report. PFSH Past Medical History Hx Anticoagulant Therapy: Yes Arthritis: No Asthma: No Autoimmune Disease: No Anxiety: No Depression: No Heart Rhythm Problems: No Cancer: No Cardiac Catheterization: Yes Cardiovascular Problems: Yes High Cholesterol: Yes Chemotherapy: No Chest Pain: Yes Congestive Heart Failure: No COPD: No Cerebrovascular Accident: No Coronary Artery Disease: Yes Diabetes: No Diminished Hearing: No Endocrine: No GERD: No Genitourinary: No Headaches: Yes Hiatal Hernia: No Hypertension: Yes Immune Disorder: No Implanted Vascular Access Dvce: Yes Kidney Stones: No Musculoskeletal: Yes ("BAD LEFT SHOULDER") Neurologic: Yes Psychiatric: No Reproductive: No Respiratory: No Immunizations Current: Yes Migraines: No Radiation Therapy: No Renal Failure: No Seizures: No Sickle Cell Disease: No Sleep Apnea: No Thyroid Disease: No Ulcer: No Past Surgical History Abdominal Surgery: Yes (APPENDECTOMY) AICD: No Appendectomy: Yes Body Medical Devices: STENT IN RIGHT AND LEFT COMMON ILIAC ARTERY Cardiac Surgery: Yes (STENTS BOTH LEGS) Coronary Stent: Yes (TIMES 2) Ear Surgery: No Endocrine Surgery: No Eye Surgery: No Genitourinary Surgery: No Gynecologic Surgery: No Insulin Pump: No Joint Replacement: No Neurologic Surgery: No Oral Surgery: Yes (WISDOM TEETH REMOVED) Pacemaker: No Thoracic Surgery: No Other Surgery: Yes (CAROTIDS) Social History Alcohol Use: No Tobacco Use: Yes Substance Use: No Allergies-Medications (Allergen,Severity, Reaction): Coded Allergies: No Known Allergies (Verified Allergy, Unknown, 10/02/17) Reported Meds & Prescriptions Reported Meds & Active Scripts Active Metoprolol Tartrate 25 Mg Tab 25 Mg PO BID Norvasc (Amlodipine Besylate) 10 Mg Tab 10 Mg PO DAILY Brilinta (Ticagrelor) 90 Mg Tab 90 Mg PO BID Aspirin 81 (Aspirin) 81 Mg Tabdr 81 Mg PO DAILY Catapres (Clonidine) 0.2 Mg Tab 0.2 Mg PO Q8HR Reported Furosemide 40 Mg Tab 40 Mg PO DAILY Amlodipine-Atorvastatin 10-80 Mg Tab 1 Tab PO DAILY Enalapril (Enalapril Maleate) 20 Mg Tab 20 Mg PO BID Review of Systems Except as stated in HPI: all other systems reviewed are Neg Physical Exam Narrative GENERAL: Well-nourished male patient, sitting up in bed, in no acute distress. SKIN: Focused skin assessment warm/dry. HEAD: Atraumatic. Normocephalic. EYES: Pupils equal and round. No scleral icterus. No injection or drainage. ENT: No nasal bleeding or discharge. Mucous membranes pink and moist. NECK: Trachea midline. No JVD. CARDIOVASCULAR: Regular rate and rhythm. RESPIRATORY: No accessory muscle use. Diminished to auscultation. Breath sounds equal bilaterally. GASTROINTESTINAL: Abdomen soft, non-tender, nondistended. Hepatic and splenic margins not palpable. MUSCULOSKELETAL: No obvious deformities. No clubbing. No cyanosis. 2+ bilateral lower extremity edema. NEUROLOGICAL: Awake and alert. No obvious cranial nerve deficits. Motor grossly within normal limits. Normal speech. PSYCHIATRIC: Appropriate mood and affect; insight and judgment normal. Data Data Last Documented VS Vital Signs Date Time Temp Pulse Resp B/P (MAP) Pulse Ox O2 Delivery O2 Flow Rate FiO2 10/24/17 13:44 56 17 137/63 (87) 95 Room Air 10/24/17 12:07 97.8 Orders Orders Electrocardiogram (10/24/17 12:03) Basic Metabolic Panel (Bmp) (10/24/17 12:03) Ckmb (Isoenzyme) Profile (10/24/17 12:03) Complete Blood Count With Diff (10/24/17 12:03) Magnesium (Mg) (10/24/17 12:03) Prothrombin Time / Inr (Pt) (10/24/17 12:03) Act Partial Throm Time (Ptt) (10/24/17 12:03) Troponin I (10/24/17 12:03) Lipase (10/24/17 12:03) Ecg Monitoring (10/24/17 12:03) Bilateral Bp Monitoring (10/24/17 12:03) Iv Access Insert/Monitor (10/24/17 12:03) Oximetry (10/24/17 12:03) Oxygen Administration (10/24/17 12:03) Morphine Inj (Morphine Inj) (10/24/17 12:15) Sodium Chloride 0.9% Flush (Ns Flush) (10/24/17 12:15) Nitroglycerin Sl (Nitrostat Sl) (10/24/17 12:15) Chest, Pa & Lat (10/24/17 12:03) CKMB (10/24/17 12:15) CKMB% (10/24/17 12:15) Calcium Gluconate Inj (Calcium Gluconate (10/24/17 13:30) Naloxone Inj (Narcan Inj) (10/24/17 13:30) Labs Laboratory Tests Test 10/24/17 12:15 White Blood Count 11.0 TH/MM3 Red Blood Count 3.45 MIL/MM3 Hemoglobin 10.3 GM/DL Hematocrit 30.2 % Mean Corpuscular Volume 87.6 FL Mean Corpuscular Hemoglobin 29.8 PG Mean Corpuscular Hemoglobin Concent 34.0 % Red Cell Distribution Width 14.4 % Platelet Count 337 TH/MM3 Mean Platelet Volume 7.7 FL Neutrophils (%) (Auto) 79.4 % Lymphocytes (%) (Auto) 9.9 % Monocytes (%) (Auto) 8.1 % Eosinophils (%) (Auto) 2.0 % Basophils (%) (Auto) 0.6 % Neutrophils # (Auto) 8.7 TH/MM3 Lymphocytes # (Auto) 1.1 TH/MM3 Monocytes # (Auto) 0.9 TH/MM3 Eosinophils # (Auto) 0.2 TH/MM3 Basophils # (Auto) 0.1 TH/MM3 CBC Comment DIFF FINAL Differential Comment Prothrombin Time 10.0 SEC Prothromb Time International Ratio 1.0 RATIO Activated Partial Thromboplast Time 22.7 SEC Blood Urea Nitrogen 22 MG/DL Creatinine 1.12 MG/DL Random Glucose 118 MG/DL Calcium Level 9.7 MG/DL Magnesium Level 1.9 MG/DL Sodium Level 139 MEQ/L Potassium Level 4.2 MEQ/L Chloride Level 105 MEQ/L Carbon Dioxide Level 23.5 MEQ/L Anion Gap 11 MEQ/L Estimat Glomerular Filtration Rate 66 ML/MIN Total Creatine Kinase 116 U/L Creatine Kinase MB 2.2 NG/ML Troponin I 0.04 NG/ML Lipase 89 U/L MDM Medical Decision Making Medical Screen Exam Complete: Yes Emergency Medical Condition: Yes Medical Record Reviewed: Yes Differential Diagnosis ACS versus vasospasm versus PE versus dissection versus anxiety Narrative Course 66-year-old male presents emergency department for evaluation of acute onset chest pain radiating to his shoulders and head 2 hours prior to arrival. This was temporarily relieved with sublingual nitro spray in route by [facility] ambulance. He states the pain is severe. Vital signs are stable at this time. He is given a small amount of morphine and cardiac workup is initiated. A call has been placed to Dr. Brewer, the sheet taker who placed a stent on October 04. Laboratory Tests Test 10/24/17 12:15 White Blood Count 11.0 TH/MM3 Red Blood Count 3.45 MIL/MM3 Hemoglobin 10.3 GM/DL Hematocrit 30.2 % Mean Corpuscular Volume 87.6 FL Mean Corpuscular Hemoglobin 29.8 PG Mean Corpuscular Hemoglobin Concent 34.0 % Red Cell Distribution Width 14.4 % Platelet Count 337 TH/MM3 Mean Platelet Volume 7.7 FL Neutrophils (%) (Auto) 79.4 % Lymphocytes (%) (Auto) 9.9 % Monocytes (%) (Auto) 8.1 % Eosinophils (%) (Auto) 2.0 % Basophils (%) (Auto) 0.6 % Neutrophils # (Auto) 8.7 TH/MM3 Lymphocytes # (Auto) 1.1 TH/MM3 Monocytes # (Auto) 0.9 TH/MM3 Eosinophils # (Auto) 0.2 TH/MM3 Basophils # (Auto) 0.1 TH/MM3 CBC Comment DIFF FINAL Differential Comment Prothrombin Time 10.0 SEC Prothromb Time International Ratio 1.0 RATIO Activated Partial Thromboplast Time 22.7 SEC Blood Urea Nitrogen 22 MG/DL Creatinine 1.12 MG/DL Random Glucose 118 MG/DL Calcium Level 9.7 MG/DL Magnesium Level 1.9 MG/DL Sodium Level 139 MEQ/L Potassium Level 4.2 MEQ/L Chloride Level 105 MEQ/L Carbon Dioxide Level 23.5 MEQ/L Anion Gap 11 MEQ/L Estimat Glomerular Filtration Rate 66 ML/MIN Total Creatine Kinase 116 U/L Creatine Kinase MB 2.2 NG/ML Troponin I 0.04 NG/ML Lipase 89 U/L Last Impressions Chest X-Ray 10/24/17 1203 Signed Impressions: Service Date/Time: Tuesday, October 24, 2017 12:47 - CONCLUSION: No acute disease. No significant change has occurred. Iam Baum MD The patient is found to have heart rate decreasing into 34 bpm. I discussed this with my attending who is also reviewed the patient's case. He is ordered calcium gluconate. We will also give him a dose of Narcan in case this is secondary to morphine administration. Patient remains awake and alert. He is asymptomatic regarding this bradycardia. I spoke with Dr. Marcus, sheet taker covering for Dr. Brewer. He requests admission to medicine and consult placed to Dr. Brewer. Diagnosis Primary Impression: Chest pain Qualified Codes: R07.9 - Chest pain, unspecified Additional Impression: Bradycardia Admitting Information Admitting Physician Requests: Observation Condition: Stable Maggie Roque October 24, 2017 13:12
[2017-10-24] MEDS ORDERED: CALCIUM GLUCONATE INJ 1 GM in DEXTROSE 5% IN WATER 100ML INJ 100 ML IV ONE ×2 (13:30)
[2017-10-24] MEDS ORDERED: NALOXONE HCL 0.4 MG/ML AMP IV PUSH ONE (13:30)
[2017-10-24] MEDS ORDERED: ATROPINE SULFATE 1 MG/ML VIAL ONE (13:59)
[2017-10-24] MEDS ORDERED: ATROPINE SULFATE 1 MG/ML VIAL IV PUSH ONE (14:00)
--- NOTE | 2017-10-24 14:15 | PD ---
Data Data Last Documented VS Vital Signs Date Time Temp Pulse Resp B/P (MAP) Pulse Ox O2 Delivery O2 Flow Rate FiO2 10/24/17 13:44 56 17 137/63 (87) 95 Room Air 10/24/17 12:07 97.8 Orders Orders Electrocardiogram (10/24/17 12:03) Basic Metabolic Panel (Bmp) (10/24/17 12:03) Ckmb (Isoenzyme) Profile (10/24/17 12:03) Complete Blood Count With Diff (10/24/17 12:03) Magnesium (Mg) (10/24/17 12:03) Prothrombin Time / Inr (Pt) (10/24/17 12:03) Act Partial Throm Time (Ptt) (10/24/17 12:03) Troponin I (10/24/17 12:03) Lipase (10/24/17 12:03) Ecg Monitoring (10/24/17 12:03) Bilateral Bp Monitoring (10/24/17 12:03) Iv Access Insert/Monitor (10/24/17 12:03) Oximetry (10/24/17 12:03) Oxygen Administration (10/24/17 12:03) Morphine Inj (Morphine Inj) (10/24/17 12:15) Sodium Chloride 0.9% Flush (Ns Flush) (10/24/17 12:15) Nitroglycerin Sl (Nitrostat Sl) (10/24/17 12:15) Chest, Pa & Lat (10/24/17 12:03) CKMB (10/24/17 12:15) CKMB% (10/24/17 12:15) Calcium Gluconate Inj (Calcium Gluconate (10/24/17 13:30) Naloxone Inj (Narcan Inj) (10/24/17 13:30) Atropine Inj (Atropine Inj) (10/24/17 14:00) Atropine Inj (Atropine Inj) (10/24/17 13:59) Admit Order (Ed Use Only) (10/24/17 14:19) Consult Cardiology (10/24/17 ) Labs Laboratory Tests Test 10/24/17 12:15 White Blood Count 11.0 TH/MM3 Red Blood Count 3.45 MIL/MM3 Hemoglobin 10.3 GM/DL Hematocrit 30.2 % Mean Corpuscular Volume 87.6 FL Mean Corpuscular Hemoglobin 29.8 PG Mean Corpuscular Hemoglobin Concent 34.0 % Red Cell Distribution Width 14.4 % Platelet Count 337 TH/MM3 Mean Platelet Volume 7.7 FL Neutrophils (%) (Auto) 79.4 % Lymphocytes (%) (Auto) 9.9 % Monocytes (%) (Auto) 8.1 % Eosinophils (%) (Auto) 2.0 % Basophils (%) (Auto) 0.6 % Neutrophils # (Auto) 8.7 TH/MM3 Lymphocytes # (Auto) 1.1 TH/MM3 Monocytes # (Auto) 0.9 TH/MM3 Eosinophils # (Auto) 0.2 TH/MM3 Basophils # (Auto) 0.1 TH/MM3 CBC Comment DIFF FINAL Differential Comment Prothrombin Time 10.0 SEC Prothromb Time International Ratio 1.0 RATIO Activated Partial Thromboplast Time 22.7 SEC Blood Urea Nitrogen 22 MG/DL Creatinine 1.12 MG/DL Random Glucose 118 MG/DL Calcium Level 9.7 MG/DL Magnesium Level 1.9 MG/DL Sodium Level 139 MEQ/L Potassium Level 4.2 MEQ/L Chloride Level 105 MEQ/L Carbon Dioxide Level 23.5 MEQ/L Anion Gap 11 MEQ/L Estimat Glomerular Filtration Rate 66 ML/MIN Total Creatine Kinase 116 U/L Creatine Kinase MB 2.2 NG/ML Troponin I 0.04 NG/ML Lipase 89 U/L MDM Medical Record Reviewed: Yes Supervised Visit with TITA: Yes Narrative Course I, Dr. Bradford, have reviewed the advance practice practitioner's documentation and am in agreement, met with the patient face to face, made the diagnosis, and the medical decision making was done by me. *My assessment and Findings: Patient will be admitted. Some runs of bradycardia into the 30s were observed here. The patient is on a beta-rikki and he received morphine here. We gave Narcan and calcium. The patient dipped to 36 again and atropine was given and the pulse increased to 76. In any case the patient will be admitted for ongoing treatment and evaluation. Patient will go to the [facility]. Case discussed with Dr. Marcus. It should be noted there is a difference in the blood pressure in the left and right upper extremity. We have seen numerous prior variances upper extremity blood pressure here and overall I think it is really quite unlikely the patient has arterial dissection. There is a 2+ radial artery pulse bilaterally and there is no pain after 2 mg of morphine. EKG shows a heart rate of 62 second-degree AV block noted D/w Dr Rice for [facility]. Critical Care Narrative Aggregate critical care time was 35 minutes. Time to perform other separately billable procedures was not included in the critical care time. My time did not include minutes spent treating any other patients simultaneously or on activities that did not directly contribute to the patient's treatment. The services I provided to this patient were to treat and/or prevent clinically significant deterioration that could result in: Bradycardia, cardiopulmonary arrest I provided critical care services requiring my management, as noted below: Chart data review, documentation time, medication orders and management, vital sign assessments/reviewing monitor data, ordering and reviewing lab tests, ordering and interpreting/reviewing x-rays and diagnostic studies, care of the patient and discussion of the patient with the admitting physicians. Diagnosis Primary Impression: Chest pain Qualified Codes: R07.9 - Chest pain, unspecified Additional Impression: Bradycardia Condition: Stable Don Bradford MD October 24, 2017 14:15
[2017-10-24] MEDS ORDERED: IOHEXOL 350 MG/ML 100 ML BTL (for Cath Lab) OTHER ONE (14:23)
[2017-10-24] MEDS ORDERED: IOHEXOL 350 MG/ML 50 ML BTL (for Cath Lab) OTHER ONE (14:23)
--- NOTE | 2017-10-24 14:33 | HHI.HP ---
HPI Service Family Medicine Primary Care Physician Unknown Admission Diagnosis chest pain; new bradycardia Diagnoses: International Travel<30 Days: No Contact w/Intl Traveler<30days: No Known Affected Area: No History of Present Illness 66 yo male with history of hypertension, HLD, lower extremity edema, significant CAD with recent NSTEMI and cardiac stenting by Dr. Brewer on September presenting to the ED today with acute onset chest pain. Shortly after waking up this morning he felt significant chest pain that radiated to his back , bilateral shoulder pain and headache. [place] that his BP was elevated at that time. Took two 325mg Aspirin with minimal relief. Took a metoprolol and clonidine with still no relief. Called EMS and had some relief after getting sublingual nitroglycerin en route. No N/V. He states he has been able to feel his heart beating in his head and has had elevated HR and chest pain on minimal exertion since being discharged from his most recent hospitalization. (Karthik Garcia MD R1) Review of Systems Constitutional: COMPLAINS OF: Fatigue, DENIES: Fever, Weight gain, Weight loss , Chills, Dizziness Eyes: DENIES: Blurred vision, Diplopia, Eye pain Ears, nose, mouth, throat: DENIES: Tinnitus, Throat pain, Running Nose Respiratory: DENIES: Cough, Wheezing, Shortness of breath Cardiovascular: COMPLAINS OF: Chest pain, Palpitations, Lower Extremity Edema ( chronic), DENIES: Syncope, Orthopnea Gastrointestinal: DENIES: Abdominal pain, Bloody stools, Diarrhea, Nausea, Vomiting Genitourinary: DENIES: Hematuria, Dysuria Musculoskeletal: DENIES: Joint pain, Muscle aches Integumentary: DENIES: Rash Hematologic/lymphatic: DENIES: Bruising Neurologic: COMPLAINS OF: Headache, DENIES: Localized weakness, Paresthesias Psychiatric: DENIES: Confusion (Karthik Garcia MD R1) Past Family Social History Past Medical History HTN HLD lower extremity edema Significant CAD with recent NSTEMI and cardiac stenting by Dr. Brewer on September Past Surgical History Appendectomy Carotid endarterectomy bilateral Recent cardiac stent placement (September 2017) (Karthik Garcia MD R1) Allergies: Coded Allergies: No Known Allergies (Verified Allergy, Unknown, 10/02/17) Family History CAD Social History Lives at home by himself, currently retired. Formerly worked with [employer] Smokes one half pack per day of cigarettes >40 years Rare alcohol use No illicit drug use (Karthik Garcia MD R1) Physical Exam Vital Signs Vital Signs Date Time Temp Pulse Resp B/P (MAP) Pulse Ox O2 Delivery O2 Flow Rate FiO2 10/24/17 13:44 56 17 137/63 (87) 95 Room Air 10/24/17 12:36 52 18 114/49 (70) 95 Room Air 10/24/17 12:07 97.8 74 18 166/67 (100) 97 Room Air 126/58 (80) 10/24/17 12:05 97 Room Air 10/24/17 12:05 97.8 71 18 183/76 (111) 97 Room Air 10/24/17 12:03 72 18 97 Room Air 10/24/17 12:02 97.8 64 18 183/76 (111) 97 Room Air 10/24/17 11:56 97.8 78 17 177/74 (108) 98 Physical Exam GENERAL: This is a well-nourished, well-developed patient, in no apparent distress. SKIN: No rashes, ecchymoses or lesions. Cool and dry. HEAD: Atraumatic. Normocephalic. No temporal or scalp tenderness. EYES: Pupils equal round and reactive. Extraocular motions intact. No scleral icterus. No injection or drainage. ENT: Nose without bleeding, purulent drainage or septal hematoma. Throat without erythema, tonsillar hypertrophy or exudate. Uvula midline. Airway patent. NECK: Trachea midline. No JVD or lymphadenopathy. Supple, nontender, no meningeal signs. CARDIOVASCULAR: Regular rate and rhythm without murmurs, gallops, or rubs. RESPIRATORY: Clear to auscultation. Breath sounds equal bilaterally. No wheezes , rales, or rhonchi. GASTROINTESTINAL: Abdomen soft, non-tender, nondistended. No hepato-splenomegaly , or palpable masses. No guarding. MUSCULOSKELETAL: Extremities without clubbing, cyanosis. 2+ pitting edema to level of knee bilaterally. No joint tenderness, effusion, or edema noted. No calf tenderness. Negative Homans sign bilaterally. NEUROLOGICAL: Awake and alert. Cranial nerves II through XII intact. Motor and sensory grossly within normal limits. Five out of 5 muscle strength in all muscle groups. Normal speech. Laboratory Laboratory Tests Test 10/24/17 12:15 White Blood Count 11.0 Red Blood Count 3.45 Hemoglobin 10.3 Hematocrit 30.2 Mean Corpuscular Volume 87.6 Mean Corpuscular Hemoglobin 29.8 Mean Corpuscular Hemoglobin Concent 34.0 Red Cell Distribution Width 14.4 Platelet Count 337 Mean Platelet Volume 7.7 Neutrophils (%) (Auto) 79.4 Lymphocytes (%) (Auto) 9.9 Monocytes (%) (Auto) 8.1 Eosinophils (%) (Auto) 2.0 Basophils (%) (Auto) 0.6 Neutrophils # (Auto) 8.7 Lymphocytes # (Auto) 1.1 Monocytes # (Auto) 0.9 Eosinophils # (Auto) 0.2 Basophils # (Auto) 0.1 CBC Comment DIFF FINAL Differential Comment Prothrombin Time 10.0 Prothromb Time International Ratio 1.0 Activated Partial Thromboplast Time 22.7 Blood Urea Nitrogen 22 Creatinine 1.12 Random Glucose 118 Calcium Level 9.7 Magnesium Level 1.9 Sodium Level 139 Potassium Level 4.2 Chloride Level 105 Carbon Dioxide Level 23.5 Anion Gap 11 Estimat Glomerular Filtration Rate 66 Total Creatine Kinase 116 Creatine Kinase MB 2.2 Troponin I 0.04 Lipase 89 (Karthik Garcia MD R1) Result Diagram: 10/24/17 1215 10/24/17 1215 Imaging Last 48 hours Impressions Chest X-Ray 10/24/17 1203 Signed Impressions: Service Date/Time: Tuesday, October 24, 2017 12:47 - CONCLUSION: No acute disease. No significant change has occurred. Iam Baum MD (Karthik Garcia MD R1) Caprini VTE Risk Assessment Caprini VTE Risk Assessment: Mod/High Risk (score >= 2) Caprini Risk Assessment Model Point Value = 1 Point Value = 2 Point Value = 3 Point Value = 5 Age 41-60 Minor surgery BMI > 25 kg/m2 Swollen legs Varicose veins or History of unexplained or recurrent spontaneous Oral contraceptives or hormone replacement Sepsis (< 1 month) Serious lung disease, including pneumonia (< 1 month) Abnormal pulmonary function Acute myocardial infarction Congestive heart failure (< 1 month) History of inflammatory bowel disease Medical patient at bed rest Age 61-74 Arthroscopic surgery Major open surgery (> 45 min) Laparoscopic surgery (> 45 min) Malignancy Confined to bed (> 72 hours) Immobilizing plaster cast Central venous access Age >= 75 History of VTE Family history of VTE Factor V Leiden Prothrombin [id number] Lupus anticoagulant Anticardiolipin antibodies Elevated serum homocysteine Heparin-induced thrombocytopenia Other congenital or acquired thrombophilia Stroke (< 1 month) Elective arthroplasty Hip, pelvis, or leg fracture Acute spinal cord injury (< 1 month) Prophylaxis Regimen Total Risk Factor Score Risk Level Prophylaxis Regimen 0-1 Low Early ambulation 2 Moderate Order ONE of the following: *Sequential Compression Device (SCD) *Heparin 5000 units SQ BID 3-4 Higher Order ONE of the following medications: *Heparin 5000 units SQ TID *Enoxaparin/Lovenox 40 mg SQ daily (WT < 150 kg, CrCl > 30 mL/min) *Enoxaparin/Lovenox 30 mg SQ daily (WT < 150 kg, CrCl > 10-29 mL/min) *Enoxaparin/Lovenox 30 mg SQ BID (WT < 150 kg, CrCl > 30 mL/min) AND/OR *Sequential Compression Device (SCD) 5 or more Highest Order ONE of the following medications: *Heparin 5000 units SQ TID (Preferred with Epidurals) *Enoxaparin/Lovenox 40 mg SQ daily (WT < 150 kg, CrCl > 30 mL/min) *Enoxaparin/Lovenox 30 mg SQ daily (WT < 150 kg, CrCl > 10-29 mL/min) *Enoxaparin/Lovenox 30 mg SQ BID (WT < 150 kg, CrCl > 30 mL/min) AND *Sequential Compression Device (SCD) (Karthik Garcia MD R1) Assessment and Plan Assessment and Plan 66 yo male with history of hypertension, HLD, lower extremity edema, significant CAD with recent NSTEMI and cardiac stenting by Dr. Brewer on September presenting to the ED today with acute onset chest pain. Patient had some runs of bradycardia into the 30's in the ED and received Calcium, Narcan (after receiving morphine in the ED), Atropine and the pulse responded to 76. EKG on admission showed 2nd degree AV block. Consulting Cardiology on admission. Code Status Full code Discussed Condition With Dr. James Lara (Karthik Garcia MD R1) Problem List: (1) Chest pain ICD Codes: R07.9 - Chest pain, unspecified Status: Acute Plan: Patient with a significant history of CAD with recent NSTEMI and cardiac stenting by Dr. Brewer on October 04, 2017 EKG on admission showing second-degree AV block Troponin 0.04 on admission Patient noted to be bradycardic into the 30s in the ED. See bradycardia below We will consult cardiology We will trend troponins, EKGs Telemetry Continuing home Brilinta, Vasotec, atorvastatin, Norvasc, aspirin Will avoid morphine for now as patient was bradycardic in the ED [place] pain scale (2) Bradycardia ICD Codes: R00.1 - Bradycardia, unspecified Status: Acute Plan: Patient noted to be bradycardic into the 30s on admission Received Calcium, Narcan (after receiving morphine in the ED), Atropine and the pulse responded to 76. EKG on admission showed 2nd degree AV block Cardiology consult to Pacing on telemetry Holding home metoprolol (3) Peripheral edema ICD Codes: R60.9 - Edema, unspecified Plan: Patient noted to have 2+ pitting edema in bilateral lower extremities Appears to be chronic per chart review Echocardiogram done in September 2017 with ejection fraction 55-60%. Mild concentric left ventricular hypertrophy. Trace mitral valve regurg, mild aortic valve stenosis. Continuing home Lasix Lungs are clear to auscultation on admission (4) Hypertension ICD Codes: I10 - Essential (primary) hypertension Status: Chronic Plan: Known history of hypertension Hypertensive up to 183/76 on admission Vital signs recorded have significant difference between the right upper extremity and left upper extremity Per the ED documentation, there have been numerous prior variances and blood pressures in the ED pods so this lowers the suspicion for any type of arterial dissection. Urine catecholamine screen during previous hospitalization was normal We will continue to monitor Continuing home antihypertensive medications Adding additional Vasotec IV as needed (5) Hyperlipidemia ICD Codes: E78.5 - Hyperlipidemia, unspecified Status: Chronic Plan: Known history of hyperlipidemia Continue home atorvastatin (6) FEN Plan: No IV fluids at this time We will replace electrolytes as needed Heart healthy diet Heparin 3 times daily for DVT prophylaxis (Karthik Garcia MD R1) Problem List: (1) Chest pain ICD Codes: R07.9 - Chest pain, unspecified Status: Acute Plan: Patient with a significant history of CAD with recent NSTEMI and cardiac stenting by Dr. Brewer on October 04, 2017 EKG on admission showing second-degree AV block Troponin 0.04 on admission Patient noted to be bradycardic into the 30s in the ED. See bradycardia below We will consult cardiology We will trend troponins, EKGs Telemetry Continuing home Brilinta, Vasotec, atorvastatin, Norvasc, aspirin Will avoid morphine for now as patient was bradycardic in the ED [place] pain scale (2) Bradycardia ICD Codes: R00.1 - Bradycardia, unspecified Status: Acute Plan: Patient noted to be bradycardic into the 30s on admission Received Calcium, Narcan (after receiving morphine in the ED), Atropine and the pulse responded to 76. EKG on admission showed 2nd degree AV block Cardiology consult to Pacing on telemetry Holding home metoprolol (3) Peripheral edema ICD Codes: R60.9 - Edema, unspecified Plan: Patient noted to have 2+ pitting edema in bilateral lower extremities Appears to be chronic per chart review Echocardiogram done in September 2017 with ejection fraction 55-60%. Mild concentric left ventricular hypertrophy. Trace mitral valve regurg, mild aortic valve stenosis. Continuing home Lasix Lungs are clear to auscultation on admission (4) Hypertension ICD Codes: I10 - Essential (primary) hypertension Status: Chronic Plan: Known history of hypertension Hypertensive up to 183/76 on admission Vital signs recorded have significant difference between the right upper extremity and left upper extremity Per the ED documentation, there have been numerous prior variances and blood pressures in the ED pods so this lowers the suspicion for any type of arterial dissection. Urine catecholamine screen during previous hospitalization was normal We will continue to monitor Continuing home antihypertensive medications Adding additional Vasotec IV as needed (5) Hyperlipidemia ICD Codes: E78.5 - Hyperlipidemia, unspecified Status: Chronic Plan: Known history of hyperlipidemia Continue home atorvastatin (6) FEN Plan: No IV fluids at this time We will replace electrolytes as needed Heart healthy diet Heparin 3 times daily for DVT prophylaxis See the residents documentation for details. I saw and evaluated the patient regarding the schumacher portions of this evaluation and agree with the residents findings and plans as written. Parts of this note were created using [employer] voice recognition software program. While efforts were made to correct any mistakes made by this software, some mistakes, errors, and omissions may remain in the final note that were not caught when the note was originally created. Plan of care was discussed and agreed upon with the patient as specifically documented in the above note. An opportunity to ask questions with explanation was provided. Patient voiced understanding on all information reviewed and discussed. (Dakotah Lara MD) Problem Qualifiers (1) Chest pain: Qualified Codes: R07.9 - Chest pain, unspecified Karthik Garcia MD R1 October 24, 2017 14:32 Dakotah Lara MD October 26, 2017 11:21
[2017-10-24] MEDS ORDERED: NALOXONE HCL 0.4 MG/ML AMP IV PUSH PRN ×2 (15:15→17:15)
[2017-10-24] MEDS ORDERED: ACETAMINOPHEN 325 MG TAB PO PRN ×2 (15:15→17:15)
[2017-10-24] MEDS ORDERED: ONDANSETRON HCL 4 MG/2 ML VIAL IVP PRN (15:15)
[2017-10-24] MEDS ORDERED: LACTULOSE SYRUP 20 GM/30 ML CUP PO PRN (15:15)
[2017-10-24] MEDS ORDERED: BISACODYL 10 MG SUPP RECTAL PRN (15:15)
[2017-10-24] MEDS ORDERED: MAGNESIUM HYDROXIDE SUSP 30 ML CUP PO PRN (15:15)
[2017-10-24] MEDS ORDERED: SENNOSIDES 8.6 MG TAB PO PRN (15:15)
[2017-10-24] MEDS ORDERED: SODIUM CHLORIDE 0.9% FLUSH 10 ML FLUSH IV FLUSH PRN (15:15)
[2017-10-24] MEDS ORDERED: HEPARIN SODIUM - SQ 10,000 UNITS/ML VIAL SQ SCH (16:00)
[2017-10-24] MEDS ORDERED: ENALAPRILAT 1.25 MG/ML VIAL IV PUSH PRN (17:00)
[2017-10-24] MEDS ORDERED: ACETAMINOPHEN/HYDROcodone 325 MG/5 MG TAB PO PRN (17:15)
[2017-10-24] MEDS ORDERED: ACETAMINOPHEN/HYDROcodone 325 MG/7.5 MG TAB PO PRN (17:15)
[2017-10-24] MEDS ORDERED: oxyCODONE/ACETAMINOPHEN 5 MG/325 MG TAB PO PRN (17:15)
[2017-10-24] MEDS ORDERED: oxyCODONE/ACETAMINOPHEN 10 MG/325 MG TAB PO PRN (17:15)
[2017-10-24] MEDS: SODIUM CHLORIDE 0.9% FLUSH 10 ML FLUSH IV FLUSH SCH (20:51)
[2017-10-24] MEDS: ENALAPRIL MALEATE 10 MG TAB PO SCH (20:51)
[2017-10-24] MEDS: METOPROLOL TARTRATE 25 MG TAB PO SCH (20:51)
[2017-10-24] MEDS: TICAGRELOR 90 MG TAB PO SCH (20:51)
[2017-10-24] MEDS: DOCUSATE SODIUM 50 MG/SENNA 8.6 MG TAB PO SCH (20:51)
[2017-10-24] MEDS ORDERED: HEPARIN SODIUM - IV 10,000 UNITS/10 ML VIAL IV PUSH ONE (21:30)
[2017-10-24] MEDS: cloNIDine HCL 0.2 MG TAB PO SCH (22:00)
[2017-10-24] MEDS: HEPARIN-D5W 25,000 U/250 ML 250 ML IV PRN (23:04)
[2017-10-25] VITALS (25 sets, daily range): BP systolic 112–149; BP diastolic 55–67; PULSE 54–97; RESP 18–19; TEMP 97.8–98.2; O2SAT 96–99
[2017-10-25] MEDS ORDERED: HEPARIN SODIUM - IV 10,000 UNITS/10 ML VIAL IV PUSH PRN (03:30)
[2017-10-25] MEDS: cloNIDine HCL 0.2 MG TAB PO SCH ×3 (06:00→22:43)
[2017-10-25 06:49] LABS: AUTOMATED NEUTROPHIL # 6.3 TH/MM3 (1.8-7.7); BASOPHIL # 0.1 TH/MM3 (0-0.2); BASOPHIL % 0.6 % (0.0-2.0); EOSINOPHIL # 0.3 TH/MM3 (0-0.4); EOSINOPHIL % 2.9 % (0.0-4.0); HEMATOCRIT 29.2 % (39.0-51.0); HEMOGLOBIN 9.9 GM/DL (13.0-17.0); LYMPH % 19.9 % (9.0-44.0); LYMPHOCYTE # 1.9 TH/MM3 (1.0-4.8); MEAN CELL VOLUME 87.1 FL (80.0-100.0); MEAN CORPUSCULAR HEMOGLOBIN 29.6 PG (27.0-34.0); MEAN PLATELET VOLUME 8.1 FL (7.0-11.0); MONO % 10.6 % (0.0-8.0); PLATELET COUNT 323 TH/MM3 (150-450); RED BLOOD COUNT 3.35 MIL/MM3 (4.50-5.90); WHITE BLOOD COUNT 9.5 TH/MM3 (4.0-11.0)
[2017-10-25 07:04] LABS: BICARBONATE 26.2 MEQ/L (21.0-32.0); CALCIUM 9.8 MG/DL (8.5-10.1); CREATININE 1.13 MG/DL (0.60-1.30)
[2017-10-25] MEDS: SODIUM CHLOR 0.9% 1000 ML INJ 1,000 ML IV SCH ×2 (07:56→17:41)
[2017-10-25] MEDS ORDERED: MIDAZOLAM HCL 2 MG/2 ML VIAL IV PUSH SCH (08:00)
[2017-10-25] MEDS ORDERED: DIAZEPAM 10 MG TAB PO SCH (08:00)
[2017-10-25] MEDS ORDERED: diphenhydrAMINE HCL 50 MG CAP PO SCH (08:00)
--- NOTE | 2017-10-25 08:13 | MB ---
cc: Paul Brewer MD DATE: 10/25/2017 REASON FOR CONSULTATION: Chest pain, non-ST elevation myocardial infarction. HISTORY OF PRESENT ILLNESS: The patient is a 66-year-old white male with a history of coronary artery disease status post recent stenting of the right coronary artery, peripheral vascular disease, carotid disease, hypertension and hyperlipidemia, who soon after discharge from the hospital recently began to develop recurrent substernal chest discomfort described as pressure. Most of the episodes lasted 20-30 minutes until yesterday when the chest discomfort lasted for several hours. There is usually no associated shortness of breath, nausea or diaphoresis. He has gained some relief of the chest discomforts by purse lipped breathing. He denies pleurisy, dizziness, syncope, near syncope, palpitations, change in chronic pedal edema, paroxysmal nocturnal dyspnea. He reports compliance with his medications. PAST MEDICAL HISTORY: 1. Coronary artery disease status post stent of the distal right coronary artery x 2 on 10/14/[address] Ora Gutierrez. He is also status post stent of the proximal right coronary artery 10/04/2017 using a 2.75 x 12 mm Resolute Idris stent. On that heart catheterization, instantaneous wave free ratio measurement of the left anterior descending was done for borderline disease in the mid LAD showing the absence of hemodynamically significant disease in this region. 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 2. Hypertension. 3. Hyperlipidemia. 4. Carotid disease status post left carotid endarterectomy 08/17/2005 status post right carotid endarterectomy 07/09/2005. 5. Peripheral vascular disease with history of bilateral stent placements in the lower extremities 12 years ago. PAST SURGICAL HISTORY: 1. Appendectomy. 2. Right carotid endarterectomy. 3. Left carotid endarterectomy. MEDICATIONS AT HOME: 1. Metoprolol tartrate 25 mg b.i.d. 2. Amlodipine 10 mg daily. 3. Brilinta 90 mg b.i.d. 4. Aspirin 81 mg daily. 5. Clonidine 0.2 mg q. 8 hours. 6. Furosemide 40 mg daily. 7. Atorvastatin 80 mg at bedtime. 8. Enalapril 20 mg b.i.d. ALLERGIES: NO KNOWN DRUG ALLERGIES. FAMILY HISTORY: Noncontributory. SOCIAL HISTORY: The patient smokes about a half pack of cigarettes per day. He denies alcohol abuse. REVIEW OF SYSTEMS: As in the history of present illness, otherwise negative or noncontributory. He also denies headache, abdominal pain, melena, dyspepsia, bright red blood per rectum. PHYSICAL EXAMINATION: VITAL SIGNS: Blood pressure 136/67 with a pulse of 70, respirations 18. GENERAL: He is a well-developed, well-nourished white male, in no acute distress. NECK: Jugular venous pressure is normal. Carotid pulses are 2+ bilaterally and without bruits. CHEST: Examination of the chest reveals clear lung [place]ckeon. CARDIAC: He has a regular rhythm and rate with a grade 1-2/6 systolic ejection murmur heard at the right upper sternal border. The S2 heart sound is normal. No gallop is audible. ABDOMEN: He has a soft, nontender abdomen. Bowel sounds are present. There is no definite hepatosplenomegaly. EXTREMITIES: Reveals no clubbing or cyanosis. There is 1+ pretibial edema bilaterally. LABORATORY DATA: Includes WBC 9.5, hemoglobin 9.9, platelets 323. Potassium 4.2, BUN 19, creatinine 1.13. Troponin 14.6. Chest x-ray shows no acute disease. IMPRESSION: Recurrent non-ST elevation myocardial infarction in this 66-year-old white male with a history of recent proximal right coronary artery stenting, history of hypertension, hyperlipidemia, peripheral vascular and carotid disease. The patient does report compliance with his medications. No acute ST segment or T-wave changes are seen on EKGs. It is somewhat unlikely that his right coronary artery stent has a subacutely thrombosed without EKG changes. As noted above, the borderline disease in the mid LAD was further evaluated with instantaneous wave free ratio measurement confirming the absence of hemodynamically significant disease in this region. The very proximal right coronary artery stent placed recently may be overlapping the origin of a relatively small left circumflex which has an anomalous origin. In light of the abnormal cardiac enzymes and ongoing stuttering chest discomfort, I have recommended he undergo cardiac catheterization with possible repeat percutaneous coronary intervention, the risks of which have been explained to him including, but not limited to , myocardial infarction, stroke, arrhythmia, bleeding, infection, renal failure. He agrees to proceed. RECOMMENDATIONS: 1. Continue his comprehensive home cardiac medication regimen. 2. Cardiac catheterization today. 3. Continue heparin drip. MD DEIDRE Scott , 07:55 AM , 08:13 AM MTDD
[2017-10-25] MEDS: TICAGRELOR 90 MG TAB PO SCH ×2 (08:33→20:42)
[2017-10-25] MEDS: DOCUSATE SODIUM 50 MG/SENNA 8.6 MG TAB PO SCH ×2 (08:33→20:41)
[2017-10-25] MEDS: ASPIRIN EC 81 MG TABEC PO SCH (08:33)
[2017-10-25] MEDS: FUROSEMIDE 40 MG TAB PO SCH (08:33)
[2017-10-25] MEDS: ENALAPRIL MALEATE 10 MG TAB PO SCH ×2 (08:33→20:41)
[2017-10-25] MEDS: ATORVASTATIN 80 MG TAB PO SCH (08:33)
[2017-10-25] MEDS: METOPROLOL TARTRATE 25 MG TAB PO SCH ×2 (08:33→20:41)
[2017-10-25] MEDS: SODIUM CHLORIDE 0.9% FLUSH 10 ML FLUSH IV FLUSH SCH ×2 (08:34→20:43)
--- NOTE | 2017-10-25 11:00 | EKG ---
Date Performed: 10/24/2017 Time Performed: 23:14:16 PTAGE: 66 years EKG: Sinus bradycardia Left axis deviation Possible inferior infarct - age undetermined Abnormal ECG PREVIOUS TRACING : 10/24/2017 18.01 DOCTOR: Arnaud Brar Interpretating Date/Time 10/25/2017 10:59:59
--- NOTE | 2017-10-25 11:28 | EKG ---
Date Performed: 10/24/2017 Time Performed: 18:01:50 PTAGE: 66 years EKG: Sinus bradycardia with PAC(s). ST junctional depression is nonspecific Borderline ECG PREVIOUS TRACING : 10/24/2017 12.04 DOCTOR: Arnaud Brar Interpretating Date/Time 10/25/2017 11:27:06
--- NOTE | 2017-10-25 14:16 | EKG ---
Date Performed: 10/24/2017 Time Performed: 12:04:30 PTAGE: 66 years EKG: Sinus rhythm WITH 2ND DEGREE AV BLOCK, MOBITZ TYPE II ABNORMAL ECG PREVIOUS TRACING : 10/05/2017 09.02 DOCTOR: Arnaud Brar Interpretating Date/Time 10/25/2017 14:14:48
--- NOTE | 2017-10-25 14:53 | HHI.FPPN ---
Subjective Remarks Overnight patient's troponin was markedly elevated up to 14.6. Cardiology was made aware at that time the patient was made n.p.o. and placed on heparin drip with plan for cath. Patient did have some chest pain overnight but is currently resolved at time of interview. Currently denying shortness of breath , nausea or vomiting. (Karthik Garcia MD R1) Objective Vitals Vital Signs Date Time Temp Pulse Resp B/P (MAP) Pulse Ox O2 Delivery O2 Flow Rate FiO2 10/25/17 14:00 74 10/25/17 13:06 95 10/25/17 12:00 93 10/25/17 11:35 58 10/25/17 11:35 98.2 57 18 118/58 (78) 99 10/25/17 10:03 62 10/25/17 09:49 56 10/25/17 08:00 97.9 97 18 144/67 (92) 96 10/25/17 08:00 85 10/25/17 06:00 70 10/25/17 05:00 61 10/25/17 04:00 80 10/25/17 03:00 98.1 74 18 136/67 (90) 97 10/25/17 03:00 74 10/25/17 02:00 56 10/25/17 01:00 54 10/25/17 00:00 66 10/24/17 23:00 98.8 64 18 124/63 (83) 95 10/24/17 23:00 64 10/24/17 22:00 37 10/24/17 21:00 55 10/24/17 20:18 37 16 110/54 (72) 97 10/24/17 20:00 57 10/24/17 19:00 98.2 57 20 172/91 (118) 99 10/24/17 18:01 98.4 56 18 142/83 (102) 98 10/24/17 17:14 52 17 179/65 (103) 99 10/24/17 16:51 97.8 60 16 179/65 (103) 97 Room Air I/O 10/24/17 10/24/17 10/24/17 10/25/17 10/25/17 10/25/17 07:00 15:00 23:00 07:00 15:00 23:00 Intake Total 100 ml 680 ml Output Total 2025 ml Balance 100 ml -1345 ml Intake Oral 680 ml IV Total 100 ml Output Urine Total 2025 ml (Karthik Garcia MD R1) Result Diagram: 10/25/1754010/25/17540 Objective Remarks GENERAL: This is a well-nourished, well-developed patient, in no apparent distress. SKIN: No rashes, ecchymoses or lesions. Cool and dry. HEAD: Atraumatic. Normocephalic. No temporal or scalp tenderness. EYES: Pupils equal round and reactive. Extraocular motions intact. No scleral icterus. No injection or drainage. CARDIOVASCULAR: Regular rate and rhythm without murmurs, gallops, or rubs. RESPIRATORY: Clear to auscultation. Breath sounds equal bilaterally. No wheezes , rales, or rhonchi. GASTROINTESTINAL: Abdomen soft, non-tender, nondistended. No hepato-splenomegaly , or palpable masses. No guarding. MUSCULOSKELETAL: Extremities without clubbing, cyanosis. 2+ pitting edema to level of knee bilaterally -unchanged from prior exam. No joint tenderness, effusion, or edema noted. No calf tenderness. Negative Homans sign bilaterally. NEUROLOGICAL: Awake and alert. Normal speech (Karthik Garcia MD R1) A/P Assessment and Plan 66 yo male with history of hypertension, HLD, lower extremity edema, significant CAD with recent NSTEMI and cardiac stenting by Dr. Brewer on September presenting to the ED today with acute onset chest pain. Patient had some runs of bradycardia into the 30's in the ED and received Calcium, Narcan (after receiving morphine in the ED), Atropine and the pulse responded to 76. EKG on admission showed 2nd degree AV block. Cardiology consulted on admission. Patient has significant rise in troponin up to 14. Cardiology was made aware patient was made n.p.o. and placed on heparin drip with plan for heart cath on . Unfortunately due to scheduling conflict patient's heart cath will take place on 10/26. Discharge Planning Heart cath planned for 10/26. (Karthik Garcia MD R1) Problem List: (1) Chest pain ICD Codes: R07.9 - Chest pain, unspecified Status: Acute Plan: Patient with a significant history of CAD with recent NSTEMI and cardiac stenting by Dr. Brewer on October 04, 2017 EKG on admission showing second-degree AV block Troponin 0.04 on admission but next reading was markedly elevated at 14.6 Patient noted to be bradycardic into the 30s in the ED. See bradycardia below Cardiology consulted, currently on heparin drip with plan for heart cath Telemetry Continuing home Brilinta, Vasotec, atorvastatin, Norvasc, aspirin Will avoid morphine for now as patient was bradycardic in the ED [place] pain scale (2) Bradycardia ICD Codes: R00.1 - Bradycardia, unspecified Status: Acute Plan: Patient noted to be bradycardic into the 30s on admission Received Calcium, Narcan (after receiving morphine in the ED), Atropine and the pulse responded to 76. EKG on admission showed 2nd degree AV block, subsequent EKGs with sinus bradycardia Cardiology consulted On telemetry Holding home metoprolol (3) Peripheral edema ICD Codes: R60.9 - Edema, unspecified Plan: Patient noted to have 2+ pitting edema in bilateral lower extremities Appears to be chronic per chart review Echocardiogram done in September 2017 with ejection fraction 55-60%. Mild concentric left ventricular hypertrophy. Trace mitral valve regurg, mild aortic valve stenosis. Continuing home Lasix Lungs are clear to auscultation on admission (4) Hypertension ICD Codes: I10 - Essential (primary) hypertension Status: Chronic Plan: Known history of hypertension Hypertensive up to 183/76 on admission Vital signs recorded have significant difference between the right upper extremity and left upper extremity Per the ED documentation, there have been numerous prior variances and blood pressures in the ED pods so this lowers the suspicion for any type of arterial dissection. Urine catecholamine screen during previous hospitalization was normal We will continue to monitor Continuing home antihypertensive medications Adding additional Vasotec IV as needed (5) Hyperlipidemia ICD Codes: E78.5 - Hyperlipidemia, unspecified Status: Chronic Plan: Known history of hyperlipidemia Continue home atorvastatin (6) FEN Plan: No IV fluids at this time We will replace electrolytes as needed Heart healthy diet, n.p.o. at midnight for heart cath on 10/26 Heparin drip (Karthik Garcia MD R1) Problem List: (1) Chest pain ICD Codes: R07.9 - Chest pain, unspecified Status: Acute Plan: Patient with a significant history of CAD with recent NSTEMI and cardiac stenting by Dr. Brewer on October 04, 2017 EKG on admission showing second-degree AV block Troponin 0.04 on admission but next reading was markedly elevated at 14.6 Patient noted to be bradycardic into the 30s in the ED. See bradycardia below Cardiology consulted, currently on heparin drip with plan for heart cath Telemetry Continuing home Brilinta, Vasotec, atorvastatin, Norvasc, aspirin Will avoid morphine for now as patient was bradycardic in the ED [place] pain scale (2) Bradycardia ICD Codes: R00.1 - Bradycardia, unspecified Status: Acute Plan: Patient noted to be bradycardic into the 30s on admission Received Calcium, Narcan (after receiving morphine in the ED), Atropine and the pulse responded to 76. EKG on admission showed 2nd degree AV block, subsequent EKGs with sinus bradycardia Cardiology consulted On telemetry Holding home metoprolol (3) Peripheral edema ICD Codes: R60.9 - Edema, unspecified Plan: Patient noted to have 2+ pitting edema in bilateral lower extremities Appears to be chronic per chart review Echocardiogram done in September 2017 with ejection fraction 55-60%. Mild concentric left ventricular hypertrophy. Trace mitral valve regurg, mild aortic valve stenosis. Continuing home Lasix Lungs are clear to auscultation on admission (4) Hypertension ICD Codes: I10 - Essential (primary) hypertension Status: Chronic Plan: Known history of hypertension Hypertensive up to 183/76 on admission Vital signs recorded have significant difference between the right upper extremity and left upper extremity Per the ED documentation, there have been numerous prior variances and blood pressures in the ED pods so this lowers the suspicion for any type of arterial dissection. Urine catecholamine screen during previous hospitalization was normal We will continue to monitor Continuing home antihypertensive medications Adding additional Vasotec IV as needed (5) Hyperlipidemia ICD Codes: E78.5 - Hyperlipidemia, unspecified Status: Chronic Plan: Known history of hyperlipidemia Continue home atorvastatin (6) FEN Plan: No IV fluids at this time We will replace electrolytes as needed Heart healthy diet, n.p.o. at midnight for heart cath on 10/26 Heparin drip See the residents documentation for details. I saw and evaluated the patient regarding the schumacher portions of this evaluation and agree with the residents findings and plans as written. Parts of this note were created using [employer] voice recognition software program. While efforts were made to correct any mistakes made by this software, some mistakes, errors, and omissions may remain in the final note that were not caught when the note was originally created. Plan of care was discussed and agreed upon with the patient as specifically documented in the above note. An opportunity to ask questions with explanation was provided. Patient voiced understanding on all information reviewed and discussed. (Dakotah Lara MD) Problem Qualifiers (1) Chest pain: Qualified Codes: R07.9 - Chest pain, unspecified Karthik Garcia MD R1 October 25, 2017 14:53 Dakotah Lara MD October 26, 2017 11:59
[2017-10-25] MEDS: HEPARIN SODIUM - IV 10,000 UNITS/10 ML VIAL IV PUSH PRN ×2 (15:22→23:22)
[2017-10-25] MEDS: HEPARIN-D5W 25,000 U/250 ML 250 ML IV PRN (22:42)
[2017-10-26] VITALS (24 sets, daily range): BP systolic 111–123; BP diastolic 49–58; PULSE 53–94; RESP 15–20; TEMP 97.7–98.5; O2SAT 93–98
[2017-10-26] MEDS: cloNIDine HCL 0.2 MG TAB PO SCH ×2 (06:20→21:03)
[2017-10-26 06:36] LABS: AUTOMATED NEUTROPHIL # 5.2 TH/MM3 (1.8-7.7); BASOPHIL # 0.1 TH/MM3 (0-0.2); BASOPHIL % 0.8 % (0.0-2.0); EOSINOPHIL # 0.2 TH/MM3 (0-0.4); EOSINOPHIL % 2.4 % (0.0-4.0); HEMATOCRIT 27.6 % (39.0-51.0); HEMOGLOBIN 9.4 GM/DL (13.0-17.0); LYMPH % 24.1 % (9.0-44.0); LYMPHOCYTE # 2.1 TH/MM3 (1.0-4.8); MEAN CELL VOLUME 86.3 FL (80.0-100.0); MEAN CORPUSCULAR HEMOGLOBIN 29.4 PG (27.0-34.0); MEAN CORPUSCULAR HGB CONC 34.1 % (32.0-36.0); MEAN PLATELET VOLUME 7.8 FL (7.0-11.0); NEUT % 60.7 % (16.0-70.0); PLATELET COUNT 307 TH/MM3 (150-450); RED BLOOD COUNT 3.19 MIL/MM3 (4.50-5.90); RED CELL DISTRIBUTION WIDTH 14.3 % (11.6-17.2); WHITE BLOOD COUNT 8.6 TH/MM3 (4.0-11.0)
[2017-10-26 07:04] LABS: BICARBONATE 25.9 MEQ/L (21.0-32.0); CREATININE 1.21 MG/DL (0.60-1.30)
[2017-10-26] MEDS: ATORVASTATIN 80 MG TAB PO SCH (08:49)
[2017-10-26] MEDS: ASPIRIN EC 81 MG TABEC PO SCH (08:50)
[2017-10-26] MEDS: DOCUSATE SODIUM 50 MG/SENNA 8.6 MG TAB PO SCH ×2 (08:50→21:05)
[2017-10-26] MEDS: FUROSEMIDE 40 MG TAB PO SCH (08:50)
[2017-10-26] MEDS: TICAGRELOR 90 MG TAB PO SCH ×2 (08:51→21:05)
[2017-10-26] MEDS: ENALAPRIL MALEATE 10 MG TAB PO SCH ×2 (08:51→21:07)
[2017-10-26] MEDS: SODIUM CHLORIDE 0.9% FLUSH 10 ML FLUSH IV FLUSH SCH ×2 (08:51→21:05)
[2017-10-26] MEDS: SODIUM CHLOR 0.9% 1000 ML INJ 1,000 ML IV SCH ×3 (08:52→15:48)
[2017-10-26] MEDS: METOPROLOL TARTRATE 25 MG TAB PO SCH ×2 (09:04→21:05)
--- NOTE | 2017-10-26 10:38 | HHI.FPPN ---
Subjective Remarks Patient seen and examined this morning. No acute events overnight. Patient unable to have cath yesterday, is scheduled today for early this afternoon. Denies any symptoms. Denies any chest pain, shortness of breath. No abdominal pain, leg pain. (Rik Rice MD R2) Objective Vitals Vital Signs Date Time Temp Pulse Resp B/P (MAP) Pulse Ox O2 Delivery O2 Flow Rate FiO2 10/26/17 10:00 66 10/26/17 09:00 65 10/26/17 08:00 53 10/26/17 07:00 60 10/26/17 07:00 98.0 67 16 123/52 (75) 97 10/26/17 06:35 58 10/26/17 05:13 68 10/26/17 04:03 69 10/26/17 03:25 98.4 59 18 119/58 (78) 98 10/26/17 03:00 60 10/26/17 02:00 60 10/26/17 01:12 68 10/26/17 00:00 64 10/25/17 23:18 98.2 65 19 149/55 (86) 97 10/25/17 23:00 61 10/25/17 22:00 68 10/25/17 21:00 72 10/25/17 20:30 98.2 88 19 112/62 (79) 98 10/25/17 20:00 90 10/25/17 19:00 69 10/25/17 18:09 66 10/25/17 17:14 74 10/25/17 16:01 64 10/25/17 15:32 97.8 74 18 135/62 (86) 99 10/25/17 15:32 74 10/25/17 14:00 74 10/25/17 13:06 95 10/25/17 12:00 93 10/25/17 11:35 58 10/25/17 11:35 98.2 57 18 118/58 (78) 99 I/O 10/25/17 10/25/17 10/25/17 10/26/17 10/26/17 10/26/17 07:00 15:00 23:00 07:00 15:00 23:00 Intake Total 680 ml 530 ml 240 ml Output Total 2025 ml 2150 ml 300 ml Balance -1345 ml -1620 ml -60 ml Intake Oral 680 ml 530 ml 240 ml Output Urine Total 2025 ml 2150 ml 300 ml # Bowel Movements 1 1 (Rik Rice MD R2) Result Diagram: 10/26/17 0616 10/26/17 0616 Objective Remarks GENERAL: This is a well-nourished, well-developed patient, in no apparent distress. CARDIOVASCULAR: Regular rate and rhythm without murmurs, gallops, or rubs. RESPIRATORY: Clear to auscultation. Breath sounds equal bilaterally. GASTROINTESTINAL: Abdomen soft, non-tender, nondistended. MUSCULOSKELETAL: Extremities without clubbing, cyanosis. 2+ pitting edema to level of knee bilaterally -unchanged from prior exam. NEUROLOGICAL: Awake and alert. Normal speech (Rik Rice MD R2) A/P Assessment and Plan 66 yo male with history of hypertension, HLD, lower extremity edema, significant CAD with recent NSTEMI and cardiac stenting by Dr. Brewer on September presenting to the ED today with acute onset chest pain. Patient had some runs of bradycardia into the 30's in the ED and received Calcium, Narcan (after receiving morphine in the ED), Atropine and the pulse responded to 76. EKG on admission showed 2nd degree AV block. Cardiology consulted on admission. Patient has significant rise in troponin up to 14. Cardiology was made aware patient was made n.p.o. and placed on heparin drip with plan for heart cath on . Unfortunately due to scheduling conflict patient's heart cath will take place on 10/26. Discharge Planning Heart cath planned for 10/26. Pending cardiology recs (Rik Rice MD R2) Problem List: (1) NSTEMI (non-ST elevated myocardial infarction) ICD Codes: I21.4 - Non-ST elevation (NSTEMI) myocardial infarction Status: Acute Plan: Patient with a significant history of CAD with recent NSTEMI and cardiac stenting by Dr. Brewer on October 04, 2017 EKG on admission showing second-degree AV block Troponin 0.04 on admission but next reading was markedly elevated at 14.6 Patient noted to be bradycardic into the 30s in the ED. See bradycardia below Cardiology consulted, currently on heparin drip with plan for heart cath today Telemetry Continuing home Brilinta, Vasotec, atorvastatin, Norvasc, aspirin [place] pain scale (2) Bradycardia ICD Codes: R00.1 - Bradycardia, unspecified Status: Acute Plan: Patient noted to be bradycardic into the 30s on admission Received Calcium, Narcan (after receiving morphine in the ED), Atropine and the pulse responded to 76. EKG on admission showed 2nd degree AV block, subsequent EKGs with sinus bradycardia Cardiology consulted On telemetry Holding home metoprolol (3) Peripheral edema ICD Codes: R60.9 - Edema, unspecified Plan: Patient noted to have 2+ pitting edema in bilateral lower extremities Appears to be chronic per chart review Echocardiogram done in September 2017 with ejection fraction 55-60%. Mild concentric left ventricular hypertrophy. Trace mitral valve regurg, mild aortic valve stenosis. Continuing home Lasix Monitor fluid status (4) Hypertension ICD Codes: I10 - Essential (primary) hypertension Status: Chronic Plan: Known history of hypertension Hypertensive up to 183/76 on admission Vital signs recorded have significant difference between the right upper extremity and left upper extremity Per the ED documentation, there have been numerous prior variances and blood pressures in the ED pods so this lowers the suspicion for any type of arterial dissection. Urine catecholamine screen during previous hospitalization was normal We will continue to monitor Continuing home antihypertensive medications Adding additional Vasotec IV as needed (5) Hyperlipidemia ICD Codes: E78.5 - Hyperlipidemia, unspecified Status: Chronic Plan: Known history of hyperlipidemia Continue home atorvastatin (6) FEN Plan: No IV fluids at this time We will replace electrolytes as needed Heart healthy diet, n.p.o. at midnight for heart cath on 10/26 Heparin drip (Rik Rice MD R2) Problem List: (1) NSTEMI (non-ST elevated myocardial infarction) ICD Codes: I21.4 - Non-ST elevation (NSTEMI) myocardial infarction Status: Acute Plan: Patient with a significant history of CAD with recent NSTEMI and cardiac stenting by Dr. Brewer on October 04, 2017 EKG on admission showing second-degree AV block Troponin 0.04 on admission but next reading was markedly elevated at 14.6 Patient noted to be bradycardic into the 30s in the ED. See bradycardia below Cardiology consulted, currently on heparin drip with plan for heart cath today Telemetry Continuing home Brilinta, Vasotec, atorvastatin, Norvasc, aspirin [place] pain scale (2) Bradycardia ICD Codes: R00.1 - Bradycardia, unspecified Status: Acute Plan: Patient noted to be bradycardic into the 30s on admission Received Calcium, Narcan (after receiving morphine in the ED), Atropine and the pulse responded to 76. EKG on admission showed 2nd degree AV block, subsequent EKGs with sinus bradycardia Cardiology consulted On telemetry Holding home metoprolol (3) Peripheral edema ICD Codes: R60.9 - Edema, unspecified Plan: Patient noted to have 2+ pitting edema in bilateral lower extremities Appears to be chronic per chart review Echocardiogram done in September 2017 with ejection fraction 55-60%. Mild concentric left ventricular hypertrophy. Trace mitral valve regurg, mild aortic valve stenosis. Continuing home Lasix Monitor fluid status (4) Hypertension ICD Codes: I10 - Essential (primary) hypertension Status: Chronic Plan: Known history of hypertension Hypertensive up to 183/76 on admission Vital signs recorded have significant difference between the right upper extremity and left upper extremity Per the ED documentation, there have been numerous prior variances and blood pressures in the ED pods so this lowers the suspicion for any type of arterial dissection. Urine catecholamine screen during previous hospitalization was normal We will continue to monitor Continuing home antihypertensive medications Adding additional Vasotec IV as needed (5) Hyperlipidemia ICD Codes: E78.5 - Hyperlipidemia, unspecified Status: Chronic Plan: Known history of hyperlipidemia Continue home atorvastatin (6) FEN Plan: No IV fluids at this time We will replace electrolytes as needed Heart healthy diet, n.p.o. at midnight for heart cath on 10/26 Heparin drip See the residents documentation for details. I saw and evaluated the patient regarding the schumacher portions of this evaluation and agree with the residents findings and plans as written. Parts of this note were created using [employer] voice recognition software program. While efforts were made to correct any mistakes made by this software, some mistakes, errors, and omissions may remain in the final note that were not caught when the note was originally created. Plan of care was discussed and agreed upon with the patient as specifically documented in the above note. An opportunity to ask questions with explanation was provided. Patient voiced understanding on all information reviewed and discussed. (Dakotah Lara MD) Rik Rice MD R2 October 26, 2017 10:38 Dakotah Lara MD October 26, 2017 12:20
[2017-10-26] MEDS ORDERED: HEPARIN-NS/PF FLUSH BAG 2,000 ML IV FLUSH ONE (13:24)
[2017-10-26] MEDS ORDERED: MIDAZOLAM HCL 2 MG/2 ML VIAL ONE ×2 (13:25→14:37)
[2017-10-26] MEDS ORDERED: NITROGLYCERIN 400 MCG/SPRAY 4.9 GM BOTTLE SL ONE (13:32)
[2017-10-26] MEDS ORDERED: TIROFIBAN INFUSION INJ 250 ML IV ONE (14:15)
[2017-10-26] MEDS ORDERED: METOPROLOL TARTRATE 5 MG/5 ML VIAL ONE (14:30)
[2017-10-26] MEDS ORDERED: CLEVIDIPINE INJ 50 ML ONE (15:31)
[2017-10-26] MEDS ORDERED: ATROPINE SULFATE 1 MG/10 ML SYRINGE ONE ×2 (15:31→18:18)
[2017-10-26] MEDS ORDERED: TIROFIBAN INFUSION INJ 250 ML IV SCH (15:48)
--- NOTE | 2017-10-26 15:48 | PD.CARD.PN ---
Subjective Subjective Remarks Continued episodic CP, brief episodes today. No pleurisy, dyspnea, dizziness. Objective Medications Item Value Date Time Aspirin 81 mg 10/25/17 0900 (Ecotrin Ec) DAILY/PO 10/26/17 0850 Furosemide 40 mg 10/25/17 0900 (Lasix) DAILY/PO 10/26/17 0850 Atorvastatin 80 mg 10/25/17 0900 Calcium DAILY/PO 10/26/17 0849 (Lipitor) Amlodipine 10 mg 10/25/17 0900 Besylate DAILY/PO 10/26/17 0850 (Norvasc) Clonidine 0.2 mg 10/24/17 2200 (Catapres) Q8HR/PO 10/26/17 0620 Heparin Sodium/ 250 ml @ 10 mls/hr 10/24/17 2130 Dextrose TITRATE PRN/IV 10/25/17 2242 Enalapril Maleate 20 mg 10/24/17 2100 (Vasotec) BID/PO 10/26/17 0851 Metoprolol 25 mg 10/24/17 2100 Tartrate BID/PO 10/26/17 0904 (Lopressor) Ticagrelor 90 mg 10/24/17 2100 (Brilinta) BID/PO 10/26/17 0851 Current Medications Medications (Trade) Dose Ordered Sig/Rickey Route Start Time Stop Time Status Last Admin (NS Flush) 2 ml UNSCH PRN IV FLUSH 10/24/17 15:15 10/25/17 23:22 (NS Flush) 2 ml BID IV FLUSH 10/24/17 21:00 10/26/17 08:51 (Tylenol) 650 mg Q4H PRN PO 10/24/17 15:15 (Zofran Inj) 4 mg Q6H PRN IVP 10/24/17 15:15 (Narcan Inj) 0.4 mg UNSCH PRN IV PUSH 10/24/17 15:15 (Savita-Colace) 1 tab BID PO 10/24/17 21:00 10/26/17 08:50 (Milk Of Magnesia Liq) 30 ml Q12H PRN PO 10/24/17 15:15 (Senokot) 17.2 mg Q12H PRN PO 10/24/17 15:15 (Dulcolax Supp) 10 mg DAILY PRN RECTAL 10/24/17 15:15 (Lactulose Liq) 30 ml DAILY PRN PO 10/24/17 15:15 (Ecotrin Ec) 81 mg DAILY PO 10/25/17 09:00 10/26/17 08:50 (Catapres) 0.2 mg Q8HR PO 10/24/17 22:00 10/26/17 06:20 (Vasotec) 20 mg BID PO 10/24/17 21:00 10/26/17 08:51 (Lasix) 40 mg DAILY PO 10/25/17 09:00 10/26/17 08:50 (Lopressor) 25 mg BID PO 10/24/17 21:00 10/26/17 09:04 (Brilinta) 90 mg BID PO 10/24/17 21:00 10/26/17 08:51 (Lipitor) 80 mg DAILY PO 10/25/17 09:00 10/26/17 08:49 (Norvasc) 10 mg DAILY PO 10/25/17 09:00 10/26/17 08:50 (Vasotec Inj) 1.25 mg Q6H PRN IV PUSH 10/24/17 17:00 (Tylenol) 650 mg Q6H PRN PO 10/24/17 17:15 (Narcan Inj) 0.4 mg UNSCH PRN IV PUSH 10/24/17 17:15 ([place] 5-325 Mg) 1 tab Q4H PRN PO 10/24/17 17:15 ([place] 7.5-325 Mg) 1 tab Q4H PRN PO 10/24/17 17:15 (Heparin Inj) 5,000 units UNSCH PRN IV PUSH 10/25/17 03:30 (Heparin Inj) 2,500 units UNSCH PRN IV PUSH 10/25/17 03:30 10/25/17 23:22 Heparin Sodium/ Dextrose 250 ml @ 10 mls/hr TITRATE PRN IV 10/24/17 21:30 10/25/17 22:42 Sodium Chloride 1,000 ml @ 100 mls/hr Q10H IV 10/25/17 07:56 10/30/17 07:55 10/26/17 08:52 (Benadryl) 50 mg PERFECT BINDER FEEDER OFFBEARER PO 10/25/17 08:00 10/29/17 07:59 (Valium) 10 mg PERFECT BINDER FEEDER OFFBEARER PO 10/25/17 08:00 10/29/17 07:59 (Versed Inj) 1 mg PERFECT BINDER FEEDER OFFBEARER IV PUSH 10/25/17 08:00 10/29/17 07:59 Vital Signs / I&O Vital Signs Date Time Temp Pulse Resp B/P (MAP) Pulse Ox O2 Delivery O2 Flow Rate FiO2 10/26/17 12:00 56 10/26/17 11:00 65 10/26/17 11:00 98.5 56 15 111/55 (73) 98 10/26/17 10:00 66 10/26/17 09:00 65 10/26/17 08:00 53 10/26/17 07:00 60 10/26/17 07:00 98.0 67 16 123/52 (75) 97 10/26/17 06:35 58 10/26/17 05:13 68 10/26/17 04:03 69 10/26/17 03:25 98.4 59 18 119/58 (78) 98 10/26/17 03:00 60 10/26/17 02:00 60 10/26/17 01:12 68 10/26/17 00:00 64 10/25/17 23:18 98.2 65 19 149/55 (86) 97 10/25/17 23:00 61 10/25/17 22:00 68 10/25/17 21:00 72 10/25/17 20:30 98.2 88 19 112/62 (79) 98 10/25/17 20:00 90 10/25/17 19:00 69 10/25/17 18:09 66 10/25/17 17:14 74 10/25/17 16:01 64 I/O 10/25/17 10/25/17 10/25/17 10/26/17 10/26/17 10/26/17 06:59 14:59 22:59 06:59 14:59 22:59 Intake Total 680 ml 530 ml 240 ml Output Total 2025 ml 2150 ml 300 ml Balance -1345 ml -1620 ml -60 ml Intake Oral 680 ml 530 ml 240 ml Output Urine Total 2025 ml 2150 ml 300 ml # Bowel Movements 1 1 Physical Exam GENERAL: Well developed, well nourished. No acute distress. HEENT: Jugular venous pressure is normal. CHEST: Lungs clear to auscultation anteriorly. CARDIAC: Regular rate and rhythm without S3, S4. II/ TAHIR base. Normal S2. ABDOMEN: Soft, nontender, no hepatosplenomegaly. Bowel sounds present. EXTREMITIES: No clubbing, cyanosis, or edema. Laboratory Laboratory Tests Test 10/25/17 22:15 10/26/17 06:16 Activated Partial Thromboplast Time 32.9 SEC 43.3 SEC White Blood Count 8.6 TH/MM3 Red Blood Count 3.19 MIL/MM3 Hemoglobin 9.4 GM/DL Hematocrit 27.6 % Mean Corpuscular Volume 86.3 FL Mean Corpuscular Hemoglobin 29.4 PG Mean Corpuscular Hemoglobin Concent 34.1 % Red Cell Distribution Width 14.3 % Platelet Count 307 TH/MM3 Mean Platelet Volume 7.8 FL Neutrophils (%) (Auto) 60.7 % Lymphocytes (%) (Auto) 24.1 % Monocytes (%) (Auto) 12.0 % Eosinophils (%) (Auto) 2.4 % Basophils (%) (Auto) 0.8 % Neutrophils # (Auto) 5.2 TH/MM3 Lymphocytes # (Auto) 2.1 TH/MM3 Monocytes # (Auto) 1.0 TH/MM3 Eosinophils # (Auto) 0.2 TH/MM3 Basophils # (Auto) 0.1 TH/MM3 CBC Comment DIFF FINAL Differential Comment Blood Urea Nitrogen 23 MG/DL Creatinine 1.21 MG/DL Random Glucose 107 MG/DL Calcium Level 9.0 MG/DL Sodium Level 139 MEQ/L Potassium Level 4.1 MEQ/L Chloride Level 105 MEQ/L Carbon Dioxide Level 25.9 MEQ/L Anion Gap 8 MEQ/L Estimat Glomerular Filtration Rate 60 ML/MIN Assessment and Plan Problem List: (1) CAD (coronary artery disease) ICD Codes: I25.10 - Atherosclerotic heart disease of [place] coronary artery without angina pectoris Status: Chronic Plan: Cath today shows very difficult to discern RCA anatomy. Finally able to visualize severe residual ostial RCA disease stented with difficulty. Recently placed proximal RCA stent widely patent. 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 24 hour urine catecholamines recently normal. BP 114/65 after cath done. Continue to monitor on multidrug regimen. (3) Hyperlipidemia ICD Codes: E78.5 - Hyperlipidemia, unspecified Status: Chronic Plan: Continue statin therapy. Code Status full code Discussed Condition With patient Problem Qualifiers (1) CAD (coronary artery disease): Qualified Codes: I25.110 - Atherosclerotic heart disease of [place] coronary artery with unstable angina pectoris (2) Hypertension: Qualified Codes: I10 - Essential (primary) hypertension (3) Hyperlipidemia: Qualified Codes: E78.2 - Mixed hyperlipidemia Paul Brewer MD October 26, 2017 15:48
--- NOTE | 2017-10-26 15:49 | CATHPROC ---
[facility] HIS Report Study Information Study Number Admission Scheduled Start Study Start [id number] Oct 24 2017 2:22PM 10/25/2017 Oct 26 2017 1:08PM [place] Service Cardiac Catheterization Admit Source Facility Department Emergency department [facility] - [facility] Physician and Clinical Staff Initial Paul [place] Dater Assemblercorazon Hernandez RN, Silvana Diana,RT(R) Scrub Antonietta Owens,RT(R) Procedures Performed Procedure Location (Site) Vessel Name Angiogram LV Aortic Coronary Angiograms LCA Left Coronary Coronary Angiograms RCA Right Coronary Drug Eluting Inflatio RCA Ost Right Coronary L Heart Cath PTCA RCA Ost Right Coronary Wire insertion Fem Art (right) Femoral Art Equipment Time State Trooper Description Size Mfg Part Number Used/Scraped [id number] 14:25 [employer] WIRE, ASAHI PROWATER 180CM 180CM Used *[id number] WIRE, BALANCE MIDDLEWEIGHT [id number] 14:47 [employer] 190CM Used 190CM *[id number] TRANSDUCER, TRUWAVE [id number] 13:57 KELLOGG BATES * Used W/STOCKCOCK *[id number] ART 3.5 SH GUIDE CATHETER [id number] 14:20 [employer] FR 6 Used RUNWAY *[id number] BALLOON, 3.0 6MM NC QUANTUM [id number] 15:16 [employer] 3.0 6MM Used APEX MR *[id number] 534-676T *3328034 670-131-00 *1392376 670-035-00 *0884823 534-648T *4678477 534-620T *0537896 534-621T *3508667 534-650S *[id number] 13:57 MEDLINE INDUSTRIES PACK, CCL CUSTOM * Used *[id number] 13:57 MEDLINE PACER PEN, SKIN DUAL W/ RULER * Used *[id number] 14:43 MEDTRONIC BALLOON, 2.5 X 6MM EUPHORA 6MM Used *[id number] BALLOON, 2.75 X 12MM [id number] 14:53 MEDTRONIC 12MM Used EUPHORA *[id number] [id number] 15:02 MEDTRONIC STENT, 3.0 8MM NAGI 3.0 8MM Used *[id number] [id number] 14:45 Integrated Micro-Chromatography Systems 30 REGINE INDEFLATOR Used *[id number] 13:57 [employer] MEDICAL SHEATH, FR6.5 PRELUDE 11CM FR 6.5 038ACT Used *[id number] 13:57 [employer] [employer] MEDICAL WIRE, 3MMJ .035 180CM 180CM Used *8308931 [id number] 13:57 NAMIC MANIFOLD, 4 PORT * Used *[id number] 13:57 NYCOMED OMNIPAQUE, 350 MG, 150ML 150ML [id number] Used 15:33 NYCOMED OMNIPAQUE, 350 MG, 150ML 150ML [id number] Used 13:58 NYCOMED OMNIPAQUE, 350 MG, 50ML 50ML [id number] Used [id number] 13:57 [facility] BLANKET,WARM AIR CCL * Used *[id number] Equipment Model, Serial, Lot Number and Expiration Data Description Model Number Serial Number Lot Number Expiration Date BALLOON, 3.0 6MM NC QUANTUM [id number] 12-30-2019 APEX MR STENT, 3.0 8MM NAGI [id number] 07-12-2019 History: Current Medications Medication Dosage/Unit Route Frequency Last Date/Time Taken ASA LOPRESSOR LASIX LIPITOR BRILINTA VASOTEC NORVASC History: Allergies Allergy Reaction No Known Allergies History: Risk Factors Family History of Hypertension Dyslipidemia Previous NV Previous Heart Failure Premature CAD Yes Yes No No No Prior Valve Prior PCI Prior PCIDate Prior CABG Surgery No Yes 10/04/2017 No Cerebrovascular Peripheral Artery Chronic Lung On Dialysis Diabetes Disease Disease Disease No No Yes No No History: Symptoms/Diagnosis Selection Items Chest pain History: CV Disease Selection Items Known CAD History: Stress Tests Stress or Imaging Studies Performed No History: Other Disease Selection Items CAD HTN History: Other Current Smoker Method Packs a Day Years Used Pack Years Yes Cigarettes 1 50 50 Labs Hgb (g/dl) Hct (%) WBC (l/cumm) Platelets (thousands) 11.60-17.00 35.00-51.00 4.00-11.00 150.00-450.00 9.4 27.6 8.6 307 Glucose (mg/dl) BUN (mg/dl) Creatinine (mg/dl) BUN:Creatinine (1:x) 74.00-106.00 7.00-18.00 0.50-1.30 10.00-20.00 107 23 1.2 19.2 Na (meq/l) K (meq/l) 136.00-145.00 3.50-5.10 139 4.1 INR (PTT:PT) 0.90-1.10 1 Troponin I (ng/ml) CPK-MB (ng/ML) 0.02-0.05 0.50-3.60 13.2 Not Drawn Medication Medication Total Dose (Bolus/Oral) Medication Total Dosage/Unit 1% XYLOCAINE 20 mL AGGRASTAT BOLUS 46 mL ATROPINE 0.5 mg FENTANYL 100 mcg HEPARIN 6000 units LOPRESSOR 5 mg NITROGLYCERIN S/L 0.8 mg NTG (IC) 50 mcg OXYGEN 2 l/min VERSED 4 mg Medications (Bolus/Oral) Medication Time Given Dosage/Unit Administered By Reason NITROGLYCERIN S/L 10/26/2017 1:33:14 PM 0.4 mg Nigel Hernandez RN 0.4 mg NITROGLYCERIN S/L given in lab by Nigel Hernandez RN via Sublingual. NITROGLYCERIN S/L 10/26/2017 1:38:25 PM 0.4 mg Nigel Hernandez RN 0.4 mg NITROGLYCERIN S/L given in lab by Nigel Hernandez RN via Sublingual. OXYGEN 10/26/2017 1:46:05 PM 2 l/min Nigel Hernandez RN 2 l/min OXYGEN given in lab by Nigel Hernandez RN via Nasal. Ordered by Paul Brewer. 1% XYLOCAINE 10/26/2017 1:55:26 PM 20 mL Paul Brewer 20 mL 1% XYLOCAINE given in lab by Paul Brewer in Right Groin via Subcutaneous. VERSED 10/26/2017 1:55:50 PM 2 mg Nigel Hernandez RN 2 mg VERSED given in lab by Nigel Hernandez RN in Right Forearm via Peripheral IV. Ordered by Tj Brewer. HEPARIN 10/26/2017 2:20:26 PM 6000 units Nigel Hernandez RN 6000 units HEPARIN given in lab by Nigel Hernandez RN in Right Forearm via Peripheral IV. Ordered by Paul Chance. AGGRASTAT BOLUS 10/26/2017 2:20:46 PM 46 mL Nigel Hernandez RN 46 mL AGGRASTAT BOLUS given in lab by Nigel Hernandez RN in Right Forearm via Peripheral IV. Ordered by Paul Brewer. ATROPINE 10/26/2017 2:27:15 PM 0.5 mg Nigel Hernandez RN 0.5 mg ATROPINE given in lab by David SERRATO, Nigel in Right Forearm via Peripheral IV. Ordered by Paul Brewer. LOPRESSOR 10/26/2017 2:31:07 PM 5 mg David SERRATO, Nigel 5 mg LOPRESSOR given in lab by David SERRATO, Nigel in Right Forearm via Peripheral IV. Ordered by Paul Brewer. FENTANYL 10/26/2017 2:36:18 PM 50 mcg David SERRATO, Nigel 50 mcg FENTANYL given in lab by David SERRATO, Nigel in Right Forearm via Peripheral IV. Ordered by Paul Brewer. VERSED 10/26/2017 2:37:54 PM 2 mg David SERRATO, Nigel 2 mg VERSED given in lab by David SERRATO, Nigel in Right Forearm via Peripheral IV. Ordered by Tj Brewer. FENTANYL 10/26/2017 2:41:41 PM 50 mcg David SERRATO, Nigel 50 mcg FENTANYL given in lab by David SERRATO, Nigel in Right Forearm via Peripheral IV. Ordered by Paul Brewer. NTG (IC) 10/26/2017 3:13:26 PM 50 mcg Antonietta Owens 50 mcg NTG (IC) given in lab by Antonietta Owens, RT(R) in Right Groin via Intra-coronary. Ordered by Paul Maddox. Medication (Drip) Medication Time Given Dosage/Unit Concentration/Unit Diluent (ml) Solution AGGRASTAT DRIP 10/26/2017 2:24:36 PM 0.148 mcg/kg/min 12.5 mg 250 NaCl .9 0.148 mcg/kg/min AGGRASTAT DRIP given in lab by David SERRATO, Nigel in Right Forearm via Peripheral IV. P ump/Drip Flow = 16.5 ml/hr using NaCl .9 with a concentration of 12.5 mg in 250 ml. Ordered by Paul Brewer. CLEVIPREX 10/26/2017 2:34:09 PM 1 mg/hr 50 mg 100 1 mg/hr CLEVIPREX given in lab by Nigel Hernandez RN in Right Forearm via Peripheral IV. Pump/Drip Flow = 2 ml/hr using [Solution Name] with a concentration of 50 mg in 100 ml. Ordered by Paul Brewer. CLEVIPREX DRIP 10/26/2017 3:27:27 PM 2 mg/hr 50 mg 100 STOPPED 2 mg/hr CLEVIPREX DRIP STOPPED given in lab by Nigel Hernandez RN in Right Forearm via Peripheral IV. Pu mp/Drip Flow = 4 ml/hr using [Solution Name] with a concentration of 50 mg in 100 ml. Ordered by Paul Brewer. HEPARIN DRIP STOPPED 10/26/2017 1:08:18 PM 12 units/hr 0 12 units/hr HEPARIN DRIP STOPPED given by Nigel Hernandez RN in Right Forearm via Peripheral IV. Pump/Dr ip Flow = 0 ml/hr using [Solution Name]. IV Solutions 10/26/2017 1:18:35 PM 50 mL (IV) NaCl .9 IV Solutions given in lab by Nigel Hernandez RN in Right Forearm via Peripheral IV. Pump/Drip Flow using NaCl .9. Initial Case Assessment Cardiovascular HR Rhythm NIBP Chest Pain 81 SR 158/74 5 Edema Present Skin color Skin Moderate Normal Warm Dry Circulatory - Right Pulses Dorsalis Pedis Femoral d 2 Scale (0,1,2,3,4,d) Circulatory - Left Pulses Dorsalis Pedis Femoral d 2 Scale (0,1,2,3,4,d) Neurological State Oriented to time-place- Alert Moves all extremities person Respiration - General Respiration Rate SpO2 (%) (B/min) 12 99 Chronological Log Time Study Chronological Log 12 units/hr HEPARIN DRIP STOPPED given by Nigel Hernandez RN in Right Forearm via Peripheral IV. Pump/Drip Flow = 0 13:08:18 ml/hr using [Solution Name]. 13:18:22 Patient arrived via Bed. 13:18:23 Patient Name, D.O.B, / Armband Verified By R.N. 13:18:24 Consent signed by the physician and the patient and verified by the [employer] staff. 13:18:24 Pre-op and post- op instructions given; patient acknowledges understanding of instructions. 13:18:25 Verbal Stimulation=2 Physical Stimulation=2 Airway=2 Respiration=2 TOTAL=8. (0=absent, 1=li mited, 2=present) 13:18:28 Presedation assessment performed by P[employer] RN. 13:18:30 Patient has been NPO for More than 6Hrs. 13:18:30 Skin Breakdown- +2 lower extremity edema 13:18:31 Patient Warmer Placed on the Table. 13:18:32 Bety Prominences Protected 13:18:34 A # 22 IV was noted in the Forearm (right). Grade = 0 13:18:35 IV Solutions given in lab by Nigel Hernandez RN in Right Forearm via Peripheral IV. Pump/Drip Flow using NaCl .9. 13:18:36 History and physical on the chart or being dictated. Assessment: Initial Case, HR=81 BPM, Rhythm=SR, LHOR=663/74 mmhg, Chest Pain=5, Edema=Mod, [place] r=Normal, Skin = Warm, Dry Right Pulses: Sadiq Ped=d, Femoral=2 13:18:37 Left Pulses: Sadiq Ped=d, Femoral=2 Neurological: State=Alert, Ox3, PLUMMER Respiration: Resp=12 B/min, SpO2=99 % Vitals capture started with the following parameters, Patient=Adult, Interval=5 min, Initial Pr qpbhax=492 mmHg, 13:24:27 Deflation Rate=5 mmHg, Cuff placed on Unknown 13:25:08 Reference ECG taken 13:25:10 HR=90 bpm, CQHI=844/74 mmhg, QeO3=585.0 %, Resp=9 B/min 13:30:13 HR=75 bpm, FFLM=327/74 mmhg, GzN6=029.0 %, Resp=10 B/min 13:30:55 Pt states active chest pain of 5-6, first time occuring today 13:32:17 Bilateral groins prepped with 2% chlorhexidine, and draped after a 3 minute waiting time. 13:33:14 0.4 mg NITROGLYCERIN S/L given in lab by Nigel Hernandez RN via Sublingual. 13:35:14 HR=96 bpm, PZTK=666/88 mmhg, WjW1=988.0 %, Resp=7 B/min 13:35:32 paged 13:36:52 Pressure channel 1 zeroed. 13:38:25 0.4 mg NITROGLYCERIN S/L given in lab by Nigel Hernandez RN via Sublingual. 13:40:15 HR=68 bpm, YBQK=563/56 mmhg, SpO2=99.0 %, Resp=7 B/min 13:40:20 Pt states chest pain at 4 after 2 sprays nitro SL 13:42:06 MD responded 13:44:08 Pt states chest pain at 2 13:45:06 HR=74 bpm, HPHP=211/60 mmhg, SpO2=94.0 %, Resp=10 B/min 13:46:05 2 l/min OXYGEN given in lab by Nigel Hernandez RN via Nasal. Ordered by Paul Brewer. 13:50:07 HR=66 bpm, EJNI=287/54 mmhg, SpO2=99.0 %, Resp=12 B/min 13:50:30 Pt states chest pain at 0 Time Out. Correct patient, correct procedure, correct physician, power injector loaded with con trast with surgical team 13:54:11 present. Time Out Concurred by MD and individual staff in procedure. 13:55:23 Case Start 13:55:26 20 mL 1% XYLOCAINE given in lab by Paul Brewer in Right Groin via Subcutaneous. 13:55:34 HR=71 bpm, RJJJ=232/84 mmhg, SpO2=98.0 %, Resp=9 B/min 13:55:50 2 mg VERSED given in lab by Nigel Hernandez RN in Right Forearm via Peripheral IV. Ordered by Paul Brewer. 13:56:36 Access site was Right Femoral Artery. 13:57:02 A SHEATH, FR6.5 PRELUDE 11CM FR 6.5 was advanced into the Fem Art (right) using the Percuta neous technique. A PIGTAIL STR INFINITI CATHETER FR 6 was advanced over a wire. OMNIPAQUE, 350 MG, 50ML 50ML was used for 13:57:25 injections. 13:59:19 The Aortic was injected at 20 cc/sec for a total of 40. OMNIPAQUE, 350 MG, 50ML 50ML used. 14:00:07 HR=57 bpm, MFBT=113/57 mmhg, SpO2=98.0 %, Resp=12 B/min After removing the current catheter a AR MOD INFINITI CATHETER FR 6 was advanced over a WIRE, 3 MMJ .035 180CM 14:01:09 180CM. Recorded Pressure: Ao, HR=74, Condition=Condition 1 14:02:03 (Aorta) Ao 135/46/78 After removing the current catheter a JR 4.0 INFINITI CATHETER FR 6 was advanced over a WIRE, 3 MMJ .035 180CM 14:03:33 180CM. 14:05:08 HR=75 bpm, OLCS=438/50 mmhg, SpO2=99.0 %, Resp=15 B/min After removing the current catheter a 3DRC INFINITI CATHETER FR 6 was advanced over a WIRE, 3MM J .035 180CM 14:05:12 180CM. 14:07:15 The RCA was injected and visualized at various angles. OMNIPAQUE, 350 MG, 150ML 150ML used . 14:10:05 HR=71 bpm, NIBP=86/48 mmhg, SpO2=99.0 %, Resp=20 B/min After removing the current catheter a AL .75 SH GUIDE CATHETER FR 6 was advanced over a WIRE, 3 MMJ .035 180CM 14:13:48 180CM. 14:14:51 Activated Clotting Time Drawn 14:15:02 HR=61 bpm, NIBP=96/48 mmhg, SpO2=99.0 %, Resp=16 B/min Recorded Pressure: LV, HR=59, Condition=Condition 1 14:17:38 (Left Ventricle) LV 124/6/16 After removing the current catheter a ART 3.5 SH GUIDE CATHETER RUNWAY FR 6 was advanced over a WIRE, 3MMJ 14:19:45 .035 180CM 180CM. 14:20:26 6000 units HEPARIN given in lab by Nigel Hernandez RN in Right Forearm via Peripheral IV. Orde red by Paul Brewer. 14:20:44 HR=62 bpm, CLSP=341/51 mmhg, SpO2=98.0 %, Resp=13 B/min 14:20:46 46 mL AGGRASTAT BOLUS given in lab by Nigel Hernandez RN in Right Forearm via Peripheral IV. O rdered by Paul Brewer. 14:20:58 ACT (Normal Range 90-180) = 127 0.148 mcg/kg/min AGGRASTAT DRIP given in lab by Nigel Hernandez RN in Right Forearm via Peripheral IV. Pump/Drip Flow 14:24:36 = 16.5 ml/hr using NaCl .9 with a concentration of 12.5 mg in 250 ml. Ordered by Paul Brewer. 14:25:06 HR=81 bpm, LJNS=344/62 mmhg, SpO2=99.0 %, Resp=10 B/min 14:25:44 Activated Clotting Time Drawn 14:26:16 A WIRE, ASAPLUMgrid PROWATER 180CM 180CM was inserted via Fem Art (right). 14:27:15 0.5 mg ATROPINE given in lab by Nigel Hernandez RN in Right Forearm via Peripheral IV. Ordered by Glenn. Daniella 14:28:41 Wire removed After removing the current catheter a [address] [place] [address] GUIDE CATHETER FR 6 was advanced over a WIRE, 3MM J .035 180CM 14:30:08 180CM. 14:30:40 Pt states chest pain at 8 14:30:42 BS=643 bpm, RUOP=942/91 mmhg, SpO2=99.0 %, Resp=12 B/min 14:31:07 5 mg LOPRESSOR given in lab by Nigel Hernandez RN in Right Forearm via Peripheral IV. Ordered by Paul Brewer. 14:32:08 ACT (Normal Range 90-180) = 355 14:33:01 A WIRE, ASAHI PROWATER 180CM 180CM was inserted via Fem Art (right). 1 mg/hr CLEVIPREX given in lab by Nigle Hernandez RN in Right Forearm via Peripheral IV. Pump/Drip Flow = 2 ml/hr using 14:34:09 [Solution Name] with a concentration of 50 mg in 100 ml. Ordered by Paul Brewer. Recorded Pressure: Ao, NJ=450, Condition=Condition 1 14:34:37 (Aorta) Ao 203/81/135 14:35:18 EM=471 bpm, XOPP=141/100 mmhg, SpO2=99.0 %, Resp=8 B/min 14:36:18 50 mcg FENTANYL given in lab by Nigel Hernandez RN in Right Forearm via Peripheral IV. Ordered by Glenn. Daniella 14:36:41 Cleviprex incresed to 3 mg/hr 14:37:54 2 mg VERSED given in lab by Nigel Hernandez RN in Right Forearm via Peripheral IV. Ordered by Glenn. Daniella 14:40:20 BP=939 bpm, RHES=916/86 mmhg, SpO2=99.0 %, Resp=9 B/min 14:40:42 Cleviprex incresed to 15 mg/hr 14:41:41 50 mcg FENTANYL given in lab by Nigel Hernandez RN in Right Forearm via Peripheral IV. Ordered by Paul Brewer. 14:42:38 Interventional wire has crossed the lesion A BALLOON, 2.5 X 6MM EUPHORA 6MM was inserted over WIRE, ASAHI PROWATER 180CM 180CM via the Fem Art 14:43:30 (right). A BALLOON, 2.5 X 6MM EUPHORA 6MM over a WIRE, ASAHI PROWATER 180CM 180CM in the RCA Ost was inf lated 14:44:45 using a 30 REGINE INDEFLATOR at 8 regine for 30 sec. 14:45:37 Cleviprex incresed to 40 mg/hr 14:45:49 OY=158 bpm, FBQG=832/78 mmhg, SpO2=98.0 %, Resp=9 B/min A BALLOON, 2.5 X 6MM EUPHORA 6MM over a WIRE, ASAHI PROWATER 180CM 180CM in the RCA Ost was inf lated 14:45:58 using a 30 REGINE INDEFLATOR at 8 regine for 13 sec. 14:46:38 Balloon Removed. 14:48:19 A WIRE, BALANCE MIDDLEWEIGHT 190CM 190CM was inserted via Fem Art (right). 14:50:26 Cleviprex decresed to 32 mg/hr 14:50:52 [place]=804 bpm, CUAB=001/74 mmhg, SpO2=98.0 %, Resp=10 B/min A BALLOON, 2.75 X 12MM EUPHORA 12MM was inserted over WIRE, BALANCE MIDDLEWEIGHT 190CM 190CM vi a the 14:53:19 Fem Art (right). 14:55:15 AV=073 bpm, NBYO=426/71 mmhg, SpO2=98.0 %, Resp=7 B/min 14:55:33 Balloon Removed. No inflation. 14:56:45 Prowater Wire removed for reshaping 14:57:31 A WIRE, ASAHI PROWATER 180CM 180CM was inserted via Fem Art (right). A BALLOON, 2.75 X 12MM EUPHORA 12MM was inserted over WIRE, ASAHI PROWATER 180CM 180CM via the Fem Art 14:59:29 (right). A BALLOON, 2.75 X 12MM EUPHORA 12MM over a WIRE, ASAHI PROWATER 180CM 180CM in the RCA Ost was inflated 15:00:15 using a 30 REGINE INDEFLATOR at 11 regine for 20 sec. 15:00:20 HR=96 bpm, PKDL=725/69 mmhg, SpO2=96.0 %, Resp=7 B/min A BALLOON, 2.75 X 12MM EUPHORA 12MM over a WIRE, ASAHI PROWATER 180CM 180CM in the RCA Ost was inflated 15:01:00 using a 30 REGINE INDEFLATOR at 13 regine for 30 sec. 15:01:48 Balloon Removed. A STENT, 3.0 8MM NAGI 3.0 8MM was advanced through a [address] [place] [address] GUIDE CATHETER FR 6 over a WIRE, A GAVIN 15:02:55 PROWATER 180CM 180CM. 15:04:17 Cleviprex decresed to 3 mg/hr 15:05:13 HR=94 bpm, OSZF=376/65 mmhg, SpO2=95.0 %, Resp=12 B/min 15:08:03 BMW Wire removed 15:10:41 Cleviprex incresed to 4 mg/hr 15:10:44 HR=97 bpm, EVWC=969/75 mmhg, SpO2=95.0 %, Resp=12 B/min A STENT, 3.0 8MM NAGI 3.0 8MM was deployed using a 30 REGINE INDEFLATOR at 15 atmospheres for 35 s econds in the 15:11:56 RCA Ost. 15:12:30 Delivery device removed 15:13:26 50 mcg NTG (IC) given in lab by Antonietta Owens RT(R) in Right Groin via Intra-coronary. Or dered by Paul Brewer. 15:15:21 JO=113 bpm, NIBP=98/58 mmhg, SpO2=91.0 %, Resp=15 B/min A BALLOON, 3.0 6MM NC QUANTUM APEX MR 3.0 6MM was inserted over WIRE, ASAHI PROWATER 180CM 180C M via 15:17:29 the Fem Art (right). A BALLOON, 3.0 6MM NC QUANTUM APEX MR 3.0 6MM over a WIRE, ASAHI PROWATER 180CM 180CM in the RC A Ost 15:17:38 was inflated using a 30 REGINE INDEFLATOR at 17 regine for 30 sec. A BALLOON, 3.0 6MM NC QUANTUM APEX MR 3.0 6MM over a WIRE, ASAHI PROWATER 180CM 180CM in the RC A Ost 15:18:28 was inflated using a 30 REGINE INDEFLATOR at 18 regine for 30 sec. A BALLOON, 3.0 6MM NC QUANTUM APEX MR 3.0 6MM over a WIRE, ASAHI PROWATER 180CM 180CM in the RC A Ost 15:19:22 was inflated using a 30 REGINE INDEFLATOR at 18 regine for 30 sec. 15:20:10 HR=94 bpm, XLWH=462/64 mmhg, SpO2=95.0 %, Resp=7 B/min 15:20:15 Balloon Removed. 15:23:00 Wire removed After removing the current catheter a JL 4.0 INFINITI CATHETER FR 6 was advanced over a WIRE, 3 MMJ .035 180CM 15:24:12 180CM. 15:25:13 HR=90 bpm, UJYA=387/69 mmhg, SpO2=96.0 %, Resp=12 B/min 15:26:05 Cleviprex decresed to 2 mg/hr 15:26:36 The LCA was injected and visualized at various angles. OMNIPAQUE, 350 MG, 150ML 150ML used . 15:27:26 Catheter was removed 2 mg/hr CLEVIPREX DRIP STOPPED given in lab by Nigel Hernandez RN in Right Forearm via Peripheral IV. Pump/Drip Flow 15::27 = 4 ml/hr using [Solution Name] with a concentration of 50 mg in 100 ml. Ordered by John Brewer 15:27:38 Case End 15:30:16 HR=92 bpm, VKSU=438/69 mmhg, SpO2=96.0 %, Resp=11 B/min 15:31:29 In the Fem Art (right) the SHEATH, FR6.5 PRELUDE 11CM FR 6.[address] by Paul Brewer. 15:31:34 Sterile dressing applied to site 15:31:41 Cine recording checked. 15:31:44 Bedside Report will be given. 15:31:45 Implantable Device card placed in patient's chart. 15:31:49 Report called to floor. 15:31:51 A Left Heart Cath was performed. 15:35:19 HR=88 bpm, AAZY=964/64 mmhg, SpO2=96.0 %, Resp=11 B/min 15:37:10 Activated Clotting Time Drawn 15:42:18 ACT (Normal Range 90-180) = 318 15:43:10 Vitals capture stopped. 15:45:53 Patient moved to stretcher End Study - Contrast Media Used In Study Contrast Total Opened (mL) Total Used (mL) Total Wasted (mL) Omnipaque 240 240 0 End Study - Maximum Contrast Load Max Contrast Load (mL) 387.9 End Study - Radiation Exposure Fluoro Time (minutes) 34.8 End Study - Patient Disposition Complications Transferred To Interventional Outcome No Telemetry Bed successful
[2017-10-26] MEDS ORDERED: TEMAZEPAM 15 MG CAP PO PRN (16:00)
--- NOTE | 2017-10-26 16:03 | MA ---
cc: Paul Brewer MD DATE: 10/26/2017 PROCEDURE: Very difficult coronary arteriography, angioplasty and stent of the ostium of the right coronary artery, aortic root injection, left heart catheterization. PROCEDURE NOTES: The patient was brought to the cardiac catheterization laboratory in a fasting state after having signed informed consent. The right groin was prepped and draped as per policy and anesthetized with 1% lidocaine. Arterial access was obtained via the right femoral artery and a 6-Colombian sheath placed. Coronary arteriography was performed using a 6-Colombian Althea left 4.0 to engage the LAD, 6-Colombian Amplatz right modified to engage the anomalous left circumflex, progressive right catheter to engage the right coronary. Aortic root injection was done with a pigtail catheter. The aortic valve was crossed a number of times during manipulation of catheters demonstrating no significant transvalvular aortic gradient. Percutaneous coronary intervention was done as described below. There were no apparent immediate complications. HEMODYNAMIC DATA: Left ventricle 169 with an end diastolic pressure of 18, aorta 177/90. AORTIC ROOT INJECTION: Contrast injection of the aortic root was done to most definitively assess the origin of the left circumflex. Frame by frame analysis of the root injection shows that the origin of the left circumflex is separate from the right coronary, but very close to the origin of the right coronary. There was some concern initially that the previously placed stent in the proximal right coronary was overlapping the origin of the left circumflex. 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 The left circumflex is a relatively small vessel with diffuse ostial to mid disease resulting in up to 40% stenosis. The left anterior descending artery is a relatively small caliber vessel with a 50% to 60% mid stenosis. The LAD gives rise to a very large branching diagonal, which has up to 30% mid stenosis. This mid disease was further evaluated by IFR measurement during his recent cardiac catheterization and shown not to be hemodynamically significant. The right coronary artery demonstrates a widely patent very proximal stent. However, angiography suggests severe 99% stenosis at the true ostium of this vessel. LEFT VENTRICULOGRAPHY: Not done. PERCUTANEOUS CORONARY INTERVENTION: Adequate heparin was given during the procedure to achieve an ACT greater than 300 seconds. Aggrastat was given as per protocol. Initially, we used an Amplatz left 0.75 SH guiding catheter. We were unable to wire the ostium of the right coronary. This was exchanged for a 6-Colombian ART 3.5 with side holes. We were once again unable to wire the ostium of the right coronary artery. We finally used a progressive right guiding catheter with side holes. With difficulty, we were able to wire the ostium with a Prowater guidewire. Predilation of the ostium was done using a 2.5 mm Euphora balloon catheter. However, I suspected that the Prowater guidewire was traversing underneath a stent strut as it was difficult to advance the balloon more distally. We advanced a balanced middleweight guidewire alongside the Prowater. However, we were once again unable to advance a balloon catheter, and it was suspected that the balance middleweight guidewire was also traversing underneath a stent strut. The Prowater wire was retracted and reshaped, enabling passage through the stent in a curved tip manner, and we were confident that the wire was not traversing underneath a stent strut. Additional predilation of the ostium of the right coronary was done using a 2.75 mm Euphora balloon catheter. We then advanced a 3.0 x 8 mm Resolute [place] stent. It was extremely difficult to visualize the true ostium of the vessel. The stent was positioned and repositioned numerous times with attempts to retract the guiding catheter in order to visualize the true ostium. It was finally deployed using a balloon inflation of 15 atmospheres for 35 seconds. Post-dilation of the stent was done using a 3.0 mm noncompliant Quantum Nathalie balloon catheter, which was inflated to as high at 18 atmospheres along the length of the stent. The last post-dilation was done with the balloon protruding into the aortic root. Overall, final angiography shows good results with reduction of the initial 95-99% stenosis at the ostium to roughly 0% residual with no definite evidence for dissection or distal embolization. The patient tolerated the procedure well. He did develop chest pains with balloon inflations as well as elevations in blood pressure. CONCLUSIONS: 1. Moderate disease of the left anterior descending and left circumflex. 2. 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 3. Status post difficult angioplasty and stent of the true ostium of the right coronary artery. 4. Widely patent very proximal right coronary stent placed recently. MD VICKI Scott/NICK , 03:38 PM , 04:02 PM JIMY
[2017-10-26] MEDS ORDERED: TICAGRELOR 90 MG TAB PO SCH (21:00)
[2017-10-27] VITALS (31 sets, daily range): BP systolic 105–134; BP diastolic 51–67; PULSE 54–96; RESP 18–20; TEMP 98.2–98.5; O2SAT 93–98
[2017-10-27] MEDS: SODIUM CHLOR 0.9% 1000 ML INJ 1,000 ML IV SCH ×2 (04:23→05:30)
[2017-10-27] MEDS: cloNIDine HCL 0.2 MG TAB PO SCH ×3 (05:21→21:37)
--- NOTE | 2017-10-27 07:43 | PD.CARD.PN ---
Subjective Subjective Remarks Feels "great". No CP, palpitations, dyspnea, dizziness. Objective Medications Item Value Date Time Tirofiban/Sodium 250 ml @ 16.758 mls/hr 10/26/17 1548 Chloride .[id number] 10/27/17 0246 Aspirin 81 mg 10/25/17 0900 (Ecotrin Ec) DAILY/PO 10/26/17 0850 Furosemide 40 mg 10/25/17 0900 (Lasix) DAILY/PO 10/26/17 0850 Atorvastatin 80 mg 10/25/17 0900 Calcium DAILY/PO 10/26/17 0849 (Lipitor) Amlodipine 10 mg 10/25/17 0900 Besylate DAILY/PO 10/26/17 0850 (Norvasc) Clonidine 0.2 mg 10/24/17 2200 (Catapres) Q8HR/PO 10/27/17 0521 Enalapril Maleate 20 mg 10/24/17 2100 (Vasotec) BID/PO 10/26/17 210 Metoprolol 25 mg 10/24/17 2100 Tartrate BID/PO 10/26/17 210 (Lopressor) Ticagrelor 90 mg 10/24/17 2100 (Brilinta) BID/PO 10/26/17 210 Current Medications Medications (Trade) Dose Ordered Sig/Rickey Route Start Time Stop Time Status Last Admin (NS Flush) 2 ml UNSCH PRN IV FLUSH 10/24/17 15:15 10/25/17 23:22 (NS Flush) 2 ml BID IV FLUSH 10/24/17 21:00 10/26/17 08:51 (Tylenol) 650 mg Q4H PRN PO 10/24/17 15:15 (Zofran Inj) 4 mg Q6H PRN IVP 10/24/17 15:15 (Narcan Inj) 0.4 mg UNSCH PRN IV PUSH 10/24/17 15:15 (Savita-Colace) 1 tab BID PO 10/24/17 21:00 10/26/17 21:05 (Milk Of Magnesia Liq) 30 ml Q12H PRN PO 10/24/17 15:15 (Senokot) 17.2 mg Q12H PRN PO 10/24/17 15:15 (Dulcolax Supp) 10 mg DAILY PRN RECTAL 10/24/17 15:15 (Lactulose Liq) 30 ml DAILY PRN PO 10/24/17 15:15 (Ecotrin Ec) 81 mg DAILY PO 10/25/17 09:00 10/26/17 08:50 (Catapres) 0.2 mg Q8HR PO 10/24/17 22:00 10/27/17 05:21 (Vasotec) 20 mg BID PO 10/24/17 21:00 10/26/17 21:07 (Lasix) 40 mg DAILY PO 10/25/17 09:00 10/26/17 08:50 (Lopressor) 25 mg BID PO 10/24/17 21:00 10/26/17 21:05 (Brilinta) 90 mg BID PO 10/24/17 21:00 10/26/17 21:05 (Lipitor) 80 mg DAILY PO 10/25/17 09:00 10/26/17 08:49 (Norvasc) 10 mg DAILY PO 10/25/17 09:00 10/26/17 08:50 (Vasotec Inj) 1.25 mg Q6H PRN IV PUSH 10/24/17 17:00 (Tylenol) 650 mg Q6H PRN PO 10/24/17 17:15 (Narcan Inj) 0.4 mg UNSCH PRN IV PUSH 10/24/17 17:15 (Lamar 5-325 Mg) 1 tab Q4H PRN PO 10/24/17 17:15 (Lamar 7.5-325 Mg) 1 tab Q4H PRN PO 10/24/17 17:15 (Benadryl) 50 mg [employer] APPRAISER PO 10/25/17 08:00 10/29/17 07:59 (Valium) 10 mg COMMER[employer] APPRAISER PO 10/25/17 08:00 10/29/17 07:59 (Versed Inj) 1 mg COMMERCIAL REAL ESTATE APPRAISER IV PUSH 10/25/17 08:00 10/29/17 07:59 (Restoril) 15 mg HS PRN PO 10/26/17 16:00 10/26/17 23:13 Tirofiban/Sodium Chloride 250 ml @ 16.758 mls/ hr [id number] IV 10/26/17 15:48 10/27/17 09:47 10/27/17 02:46 Vital Signs / I&O Vital Signs Date Time Temp Pulse Resp B/P (MAP) Pulse Ox O2 Delivery O2 Flow Rate FiO2 10/27/17 06:02 83 10/27/17 05:48 76 10/27/17 04:08 63 10/27/17 03:00 98.3 78 18 106/55 (72) 94 10/27/17 03:00 64 10/27/17 02:00 58 10/27/17 01:00 58 10/27/17 00:12 63 10/26/17 23:15 98.2 65 18 120/57 (78) 94 10/26/17 23:00 64 10/26/17 22:12 65 10/26/17 21:00 72 10/26/17 20:00 62 10/26/17 19:42 98.0 62 20 113/49 (70) 95 10/26/17 19:00 60 10/26/17 18:00 94 10/26/17 17:00 97.7 71 20 117/53 (74) 93 10/26/17 17:00 71 10/26/17 16:00 87 10/26/17 14:34 120 210/100 10/26/17 12:00 56 10/26/17 11:00 65 10/26/17 11:00 98.5 56 15 111/55 (73) 98 10/26/17 10:00 66 10/26/17 09:00 65 10/26/17 08:00 53 I/O 10/26/17 10/26/17 10/26/17 10/27/17 10/27/17 10/27/17 07:00 15:00 23:00 07:00 15:00 23:00 Intake Total 240 ml 16 ml 648 ml Output Total 300 ml 1000 ml 1625 ml Balance -60 ml -984 ml -977 ml Intake Oral 240 ml 16 ml 600 ml IV Total 48 ml Output Urine Total 300 ml 1000 ml 1625 ml # Bowel Movements 1 Physical Exam GENERAL: Well developed, well nourished. No acute distress. HEENT: Jugular venous pressure is normal. CHEST: Lungs clear to auscultation anteriorly. CARDIAC: Regular rate and rhythm without S3, S4. II/ TAHIR base. Normal S2. ABDOMEN: Soft, nontender, no hepatosplenomegaly. Bowel sounds present. EXTREMITIES: No clubbing, cyanosis, or edema. Assessment and Plan Problem List: (1) CAD (coronary artery disease) ICD Codes: I25.10 - Atherosclerotic heart disease of [place] coronary artery without angina pectoris Status: Chronic Plan: Doing well. Cath yesterday showed very difficult to discern RCA anatomy. Finally able to visualize severe residual ostial RCA disease stented with difficulty. Recently placed proximal RCA stent widely patent. 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 REC discharge today on same home medications (2) Hypertension ICD Codes: I10 - Essential (primary) hypertension Status: Chronic Plan: Labile BP's, mostly normotensive past 24 hours. 24 hour urine catecholamines recently normal. Continue to monitor as outpatient on multidrug regimen. (3) Hyperlipidemia ICD Codes: E78.5 - Hyperlipidemia, unspecified Status: Chronic Plan: Continue statin therapy. Code Status full code Discussed Condition With patient Problem Qualifiers (1) CAD (coronary artery disease): Qualified Codes: I25.110 - Atherosclerotic heart disease of [place] coronary artery with unstable angina pectoris (2) Hypertension: Qualified Codes: I10 - Essential (primary) hypertension (3) Hyperlipidemia: Qualified Codes: E78.2 - Mixed hyperlipidemia Paul Brewer MD October 27, 2017 07:43
[2017-10-27 07:46] LABS: AUTOMATED NEUTROPHIL # 6.5 TH/MM3 (1.8-7.7); BASOPHIL % 0.5 % (0.0-2.0); EOSINOPHIL # 0.1 TH/MM3 (0-0.4); EOSINOPHIL % 1.7 % (0.0-4.0); HEMOGLOBIN 7.4 GM/DL (13.0-17.0); LYMPH % 13.4 % (9.0-44.0); LYMPHOCYTE # 1.2 TH/MM3 (1.0-4.8); MEAN CELL VOLUME 87.3 FL (80.0-100.0); MEAN CORPUSCULAR HGB CONC 35.5 % (32.0-36.0); MEAN PLATELET VOLUME 8.1 FL (7.0-11.0); MONO % 9.1 % (0.0-8.0); MONOCYTE # 0.8 TH/MM3 (0-0.9); NEUT % 75.3 % (16.0-70.0); PLATELET COUNT 249 TH/MM3 (150-450); RED BLOOD COUNT 2.38 MIL/MM3 (4.50-5.90); RED CELL DISTRIBUTION WIDTH 14.6 % (11.6-17.2); WHITE BLOOD COUNT 8.7 TH/MM3 (4.0-11.0)
[2017-10-27 07:53] LABS: HEMATOCRIT 20.8 % (39.0-51.0)
[2017-10-27 08:17] LABS: BICARBONATE 24.9 MEQ/L (21.0-32.0); CALCIUM 8.4 MG/DL (8.5-10.1); CREATININE 1.12 MG/DL (0.60-1.30)
[2017-10-27] MEDS ORDERED: ASPIRIN 81 MG CHEW TAB PO SCH (09:00)
[2017-10-27] MEDS: TICAGRELOR 90 MG TAB PO SCH ×2 (10:57→21:36)
[2017-10-27] MEDS: METOPROLOL TARTRATE 25 MG TAB PO SCH ×2 (10:57→21:36)
[2017-10-27] MEDS: FUROSEMIDE 40 MG TAB PO SCH (10:57)
[2017-10-27] MEDS: DOCUSATE SODIUM 50 MG/SENNA 8.6 MG TAB PO SCH ×2 (10:58→21:35)
[2017-10-27] MEDS: ASPIRIN EC 81 MG TABEC PO SCH (10:58)
[2017-10-27] MEDS: ATORVASTATIN 80 MG TAB PO SCH (10:58)
[2017-10-27] MEDS: SODIUM CHLORIDE 0.9% FLUSH 10 ML FLUSH IV FLUSH SCH ×2 (10:58→21:35)
[2017-10-27] MEDS: ENALAPRIL MALEATE 10 MG TAB PO SCH ×2 (10:58→21:36)
--- NOTE | 2017-10-27 11:13 | HHI.FPPN ---
Subjective Remarks No acute events overnight. Patient states he feels much better after the cath/ stent yesterday. Denies chest pain, shortness of breath, nausea vomiting. Patient is noted to be more anemic today. Patient denies black, bloody stools. He states that he plans to leave today and will do so AMA of not discharged. (Karthik Garcia MD R1) Objective Vitals Vital Signs Date Time Temp Pulse Resp B/P (MAP) Pulse Ox O2 Delivery O2 Flow Rate FiO2 10/27/17 07:44 98.5 81 20 107/55 (72) 98 10/27/17 06:02 83 10/27/17 05:48 76 10/27/17 04:08 63 10/27/17 03:00 98.3 78 18 106/55 (72) 94 10/27/17 03:00 64 10/27/17 02:00 58 10/27/17 01:00 58 10/27/17 00:12 63 10/26/17 23:15 98.2 65 18 120/57 (78) 94 10/26/17 23:00 64 10/26/17 22:12 65 10/26/17 21:00 72 10/26/17 20:00 62 10/26/17 19:42 98.0 62 20 113/49 (70) 95 10/26/17 19:00 60 10/26/17 18:00 94 10/26/17 17:00 97.7 71 20 117/53 (74) 93 10/26/17 17:00 71 10/26/17 16:00 87 10/26/17 14:34 120 210/100 10/26/17 12:00 56 I/O 10/26/17 10/26/17 10/26/17 10/27/17 10/27/17 10/27/17 07:00 15:00 23:00 07:00 15:00 23:00 Intake Total 240 ml 16 ml 648 ml Output Total 300 ml 1000 ml 1625 ml Balance -60 ml -984 ml -977 ml Intake Oral 240 ml 16 ml 600 ml IV Total 48 ml Output Urine Total 300 ml 1000 ml 1625 ml # Bowel Movements 1 (Karthik Garcia MD R1) Result Diagram: 10/27/1743 10/27/17 0643 Objective Remarks GENERAL: This is a well-nourished, well-developed patient, in no apparent distress. Does appear pale compared to prior exams. CARDIOVASCULAR: Regular rate and rhythm without murmurs, gallops, or rubs. RESPIRATORY: Clear to auscultation. Breath sounds equal bilaterally. GASTROINTESTINAL: Abdomen soft, non-tender, nondistended. MUSCULOSKELETAL: Extremities without clubbing, cyanosis. 2+ pitting edema to level of knee bilaterally -unchanged from prior exam. NEUROLOGICAL: Awake and alert. Normal speech (Karthik Garcia MD R1) A/P Assessment and Plan 66 yo male with history of hypertension, HLD, lower extremity edema, significant CAD with recent NSTEMI and cardiac stenting by Dr. Brewer on September presenting to the ED today with acute onset chest pain. Patient had some runs of bradycardia into the 30's in the ED and received Calcium, Narcan (after receiving morphine in the ED), Atropine and the pulse responded to 76. EKG on admission showed 2nd degree AV block. Cardiology consulted on admission. Patient has significant rise in troponin up to 14. Cardiology was made aware patient was made n.p.o. and placed on heparin drip with plan for heart cath on . Heart cath on 10/26 with RCA stent. Patient's symptoms medically improved postoperatively. He was noted to be anemic with a hemoglobin of 7.4 on 10/27, repeating CBC and ordering Hemoccult. We will plan to transfuse 2 units if hemoglobin less than 8. Otherwise will be safe for discharge. Discharge Planning Discharge likely today. (Karthik Garcia MD R1) Problem List: (1) NSTEMI (non-ST elevated myocardial infarction) ICD Codes: I21.4 - Non-ST elevation (NSTEMI) myocardial infarction Status: Acute Plan: Patient with a significant history of CAD with recent NSTEMI and cardiac stenting by Dr. Brewer on October 04, 2017 Troponin 0.04 on admission but next reading was markedly elevated at 14.6 Cardiology consulted, formed RCA stent on 10/26 Cardiology cleared for discharge and continuing on all previous home medications home Brilinta, Vasotec, atorvastatin, Norvasc, aspirin [place] pain scale (2) Anemia ICD Codes: D64.9 - Anemia, unspecified Plan: Patient noted to be anemic with a hemoglobin of 7.4 on 10/27 Was 9.4 on 10/26 Repeating CBC, ordering Hemoccult, type and screen Plan to transfuse 2 units if hemoglobin confirmed to be less than 8 We will consider bleeding scan pending lab results (3) Bradycardia ICD Codes: R00.1 - Bradycardia, unspecified Status: Acute Plan: Patient noted to be bradycardic into the 30s on admission Received Calcium, Narcan (after receiving morphine in the ED), Atropine and the pulse responded to 76. EKG on admission showed 2nd degree AV block, subsequent EKGs with sinus bradycardia Resolved (4) Peripheral edema ICD Codes: R60.9 - Edema, unspecified Plan: Patient noted to have 2+ pitting edema in bilateral lower extremities Appears to be chronic per chart review Echocardiogram done in September 2017 with ejection fraction 55-60%. Mild concentric left ventricular hypertrophy. Trace mitral valve regurg, mild aortic valve stenosis. Continuing home Lasix Monitor fluid status (5) Hypertension ICD Codes: I10 - Essential (primary) hypertension Status: Chronic Plan: Known history of hypertension Hypertensive up to 183/76 on admission Urine catecholamine screen during previous hospitalization was normal Normotensive over last 24 hours (6) Hyperlipidemia ICD Codes: E78.5 - Hyperlipidemia, unspecified Status: Chronic Plan: Known history of hyperlipidemia Continue home atorvastatin (7) FEN Plan: No IV fluids at this time We will replace electrolytes as needed Heart healthy diet (Karthik Garcia MD R1) Problem List: (1) NSTEMI (non-ST elevated myocardial infarction) ICD Codes: I21.4 - Non-ST elevation (NSTEMI) myocardial infarction Status: Acute Plan: Patient with a significant history of CAD with recent NSTEMI and cardiac stenting by Dr. Brewer on October 04, 2017 Troponin 0.04 on admission but next reading was markedly elevated at 14.6 Cardiology consulted, formed RCA stent on 10/26 Cardiology cleared for discharge and continuing on all previous home medications home Brilinta, Vasotec, atorvastatin, Norvasc, aspirin [place] pain scale (2) Anemia ICD Codes: D64.9 - Anemia, unspecified Plan: Patient noted to be anemic with a hemoglobin of 7.4 on 10/27 Was 9.4 on 10/26 Repeating CBC, ordering Hemoccult, type and screen Plan to transfuse 2 units if hemoglobin confirmed to be less than 8 We will consider bleeding scan pending lab results (3) Bradycardia ICD Codes: R00.1 - Bradycardia, unspecified Status: Acute Plan: Patient noted to be bradycardic into the 30s on admission Received Calcium, Narcan (after receiving morphine in the ED), Atropine and the pulse responded to 76. EKG on admission showed 2nd degree AV block, subsequent EKGs with sinus bradycardia Resolved (4) Peripheral edema ICD Codes: R60.9 - Edema, unspecified Plan: Patient noted to have 2+ pitting edema in bilateral lower extremities Appears to be chronic per chart review Echocardiogram done in September 2017 with ejection fraction 55-60%. Mild concentric left ventricular hypertrophy. Trace mitral valve regurg, mild aortic valve stenosis. Continuing home Lasix Monitor fluid status (5) Hypertension ICD Codes: I10 - Essential (primary) hypertension Status: Chronic Plan: Known history of hypertension Hypertensive up to 183/76 on admission Urine catecholamine screen during previous hospitalization was normal Normotensive over last 24 hours (6) Hyperlipidemia ICD Codes: E78.5 - Hyperlipidemia, unspecified Status: Chronic Plan: Known history of hyperlipidemia Continue home atorvastatin (7) FEN Plan: No IV fluids at this time We will replace electrolytes as needed Heart healthy diet See the residents documentation for details. I saw and evaluated the patient regarding the schumacher portions of this evaluation and agree with the residents findings and plans as written. Parts of this note were created using [employer] voice recognition software program. While efforts were made to correct any mistakes made by this software, some mistakes, errors, and omissions may remain in the final note that were not caught when the note was originally created. Plan of care was discussed and agreed upon with the patient as specifically documented in the above note. An opportunity to ask questions with explanation was provided. Patient voiced understanding on all information reviewed and discussed. (Dakotah Lara MD) Problem Qualifiers (1) Hypertension: Qualified Codes: I10 - Essential (primary) hypertension (2) Hyperlipidemia: Qualified Codes: E78.2 - Mixed hyperlipidemia Karthik Garcai MD R1 October 27, 2017 11:13 Dakotah Lara MD October 27, 2017 14:50
[2017-10-27 13:45] LABS: HEMATOCRIT 23.8 % (39.0-51.0); HEMOGLOBIN 8.1 GM/DL (13.0-17.0); MEAN CELL VOLUME 87.1 FL (80.0-100.0); MEAN CORPUSCULAR HEMOGLOBIN 29.5 PG (27.0-34.0); MEAN CORPUSCULAR HGB CONC 33.9 % (32.0-36.0); MEAN PLATELET VOLUME 7.6 FL (7.0-11.0); PLATELET COUNT 301 TH/MM3 (150-450); RED BLOOD COUNT 2.73 MIL/MM3 (4.50-5.90); RED CELL DISTRIBUTION WIDTH 14.3 % (11.6-17.2); WHITE BLOOD COUNT 9.9 TH/MM3 (4.0-11.0)
--- NOTE | 2017-10-27 14:32 | PD.CONS ---
HPI History of Present Illness This is a 66 year old who presented to the ER with complaints of chest pain S/P cardiac cath with stent placement yesterday, pt currently on Brilinta. Of note , pt also had a stent placed last month. Our service has been consulted to evaluate patient for drop in H/H with Hemoccult positive stool. Pt denies any obvious GIB. Denies nausea, vomiting. Denies any BRB or melena in BM this morning. Does state that BMs have been erratic but relates this to hospital food because he has been in and out of the hospital for the past month. Reports his last colonoscopy was approximately 15 years ago and states had some colon polyps. Denies ever having EGD. Occasional ETOH. Smoke 1/2 PPD. Denies NSAIDs. (Yasemin Costa) PFSH Past Medical History Coronary artery disease, rotator cuff tendinitis Past Surgical History Appendectomy, carotid endarterectomy, previous stent placement (Yasemin Costa) Coded Allergies: No Known Allergies (Verified Allergy, Unknown, 10/02/17) Social History Occasional ETOH Smokes 1/2 PPD (Yasemin Costa) Review of Systems Gastrointestinal: DENIES: Abdominal pain, Black stools, Bloody stools, Constipation, Diarrhea, Nausea, Vomiting, Heartburn, Hematemesis (Yasemin Costa) GI Exam Vitals I&O Vital Signs Date Time Temp Pulse Resp B/P (MAP) Pulse Ox O2 Delivery O2 Flow Rate FiO2 10/27/17 14:00 70 10/27/17 13:00 54 10/27/17 12:00 72 10/27/17 11:00 68 10/27/17 11:00 98.4 95 19 105/55 (72) 95 10/27/17 10:00 82 10/27/17 09:00 70 10/27/17 08:00 72 10/27/17 07:44 98.5 81 20 107/55 (72) 98 10/27/17 07:00 72 10/27/17 06:02 83 10/27/17 05:48 76 10/27/17 04:08 63 10/27/17 03:00 98.3 78 18 106/55 (72) 94 10/27/17 03:00 64 10/27/17 02:00 58 10/27/17 01:00 58 5/10/18 00:12 63 10/26/17 23:15 98.2 65 18 120/57 (78) 94 10/26/17 23:00 64 10/26/17 22:12 65 10/26/17 21:00 72 10/26/17 20:00 62 10/26/17 19:42 98.0 62 20 113/49 (70) 95 10/26/17 19:00 60 10/26/17 18:00 94 10/26/17 17:00 97.7 71 20 117/53 (74) 93 10/26/17 17:00 71 10/26/17 16:00 87 10/26/17 14:34 120 210/100 I/O 10/26/17 10/26/17 10/26/17 10/27/17 10/27/17 10/27/17 07:00 15:00 23:00 07:00 15:00 23:00 Intake Total 240 ml 16 ml 648 ml Output Total 300 ml 1000 ml 1625 ml Balance -60 ml -984 ml -977 ml Intake Oral 240 ml 16 ml 600 ml IV Total 48 ml Output Urine Total 300 ml 1000 ml 1625 ml # Bowel Movements 1 Imaging Last Impressions Chest X-Ray 10/24/17 1203 Signed Impressions: Service Date/Time: Tuesday, October 24, 2017 12:47 - CONCLUSION: No acute disease. No significant change has occurred. Iam Baum MD Laboratory Test 10/27/17 06:43 10/27/17 13:37 White Blood Count 8.7 TH/MM3 9.9 TH/MM3 Red Blood Count 2.38 MIL/MM3 2.73 MIL/MM3 Hemoglobin 7.4 GM/DL 8.1 GM/DL Hematocrit 20.8 % 23.8 % Mean Corpuscular Volume 87.3 FL 87.1 FL Mean Corpuscular Hemoglobin 31.0 PG 29.5 PG Mean Corpuscular Hemoglobin Concent 35.5 % 33.9 % Red Cell Distribution Width 14.6 % 14.3 % Platelet Count 249 TH/MM3 301 TH/MM3 Mean Platelet Volume 8.1 FL 7.6 FL Neutrophils (%) (Auto) 75.3 % Lymphocytes (%) (Auto) 13.4 % Monocytes (%) (Auto) 9.1 % Eosinophils (%) (Auto) 1.7 % Basophils (%) (Auto) 0.5 % Neutrophils # (Auto) 6.5 TH/MM3 Lymphocytes # (Auto) 1.2 TH/MM3 Monocytes # (Auto) 0.8 TH/MM3 Eosinophils # (Auto) 0.1 TH/MM3 Basophils # (Auto) 0.0 TH/MM3 CBC Comment DIFF FINAL Differential Comment Blood Urea Nitrogen 22 MG/DL Creatinine 1.12 MG/DL Random Glucose 103 MG/DL Calcium Level 8.4 MG/DL Sodium Level 141 MEQ/L Potassium Level 3.9 MEQ/L Chloride Level 107 MEQ/L Carbon Dioxide Level 24.9 MEQ/L Anion Gap 9 MEQ/L Estimat Glomerular Filtration Rate 66 ML/MIN Total Creatine Kinase 141 U/L Date/Time Source Procedure Growth Status 10/27/17 10:50 Stool Stool Stool Occult Blood (KIKE) - Final HEMOCCULT POSITIVE Complete Physical Examination HEENT: Normocephalic; atraumatic CHEST: Even/unlabored CARDIAC: RRR ABDOMEN: Soft, nondistended, nontender; bowel sounds active EXTREMITIES: No clubbing, cyanosis, or edema. SKIN: Normal; no rash; no jaundice. ASSOCIATE ATTORNEY: No focal deficits; alert and oriented times three. (Yasemin Costa) Assessment and Plan Plan Assessment: - Anemia, normocytic with Hemoccult positive stools. Denies any obvious GIB. Denies history of GIB. Has never had EGD. Last colonoscopy approx 15 years ago with findings of colon polyps. Currently on Brilinta, cardiac stent placed yesterday and recent stent placement last month Occasional ETOH, smokes 1/2 PPD, denies NSAIDs Plan: - Unable to do endoscopic procedures at this time given recent stent placement and on Brilinta - Protonix - Avoid NSAIDs - Avoid ETOH - Advised to stop smoking - GI will sign off, please reconsult as needed - Have pt follow up with GI after DC, will need endoscopic procedures when safe Pt has been seen and examined by myself and Dr. 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 Recent UT and cardiac stents. MOnitor H/H, endoscopy if active bleeding, can dc home if H/H stable with gi fu as outpatient for gi villanueva when feasible . Discussed with pt. Thank you (Edyta Mcmillan MD) Yasemin Costa October 27, 2017 14:31 Edyta Mcmillan MD October 27, 2017 15:05
[2017-10-27] MEDS ORDERED: SODIUM CHLOR 0.9% 250 ML INJ 250 ML IV ONE (15:30)
[2017-10-27] MEDS ORDERED: ACETAMINOPHEN 325 MG TAB PO PRN (15:30)
[2017-10-27] MEDS ORDERED: diphenhydrAMINE HCL 25 MG CAP PO PRN (15:30)
[2017-10-27] MEDS ORDERED: FUROSEMIDE 20 MG/2 ML VIAL IV PUSH ONE (15:45)
[2017-10-27] MEDS: PANTOPRAZOLE SOD 40 MG DELAYED RELEASE TAB PO SCH (21:36)
[2017-10-28] VITALS (12 sets, daily range): BP systolic 97–118; BP diastolic 60–68; PULSE 50–76; RESP 18; TEMP 97–98.3; O2SAT 97–98
[2017-10-28 02:43] LABS: AUTOMATED NEUTROPHIL # 5.7 TH/MM3 (1.8-7.7); BASOPHIL # 0.1 TH/MM3 (0-0.2); EOSINOPHIL # 0.2 TH/MM3 (0-0.4); EOSINOPHIL % 2.8 % (0.0-4.0); HEMATOCRIT 27.4 % (39.0-51.0); HEMOGLOBIN 9.9 GM/DL (13.0-17.0); LYMPH % 21.1 % (9.0-44.0); LYMPHOCYTE # 1.8 TH/MM3 (1.0-4.8); MEAN CELL VOLUME 86.1 FL (80.0-100.0); MEAN CORPUSCULAR HEMOGLOBIN 31.2 PG (27.0-34.0); MEAN PLATELET VOLUME 7.6 FL (7.0-11.0); MONO % 9.5 % (0.0-8.0); MONOCYTE # 0.8 TH/MM3 (0-0.9); NEUT % 65.6 % (16.0-70.0); PLATELET COUNT 234 TH/MM3 (150-450); RED BLOOD COUNT 3.18 MIL/MM3 (4.50-5.90); WHITE BLOOD COUNT 8.7 TH/MM3 (4.0-11.0)
[2017-10-28 02:45] LABS: MEAN CORPUSCULAR HGB CONC 36.2 % (32.0-36.0)
[2017-10-28 03:10] LABS: BICARBONATE 28.3 MEQ/L (21.0-32.0); CALCIUM 8.3 MG/DL (8.5-10.1); CREATININE 1.2 MG/DL (0.60-1.30)
[2017-10-28] MEDS: cloNIDine HCL 0.2 MG TAB PO SCH (05:39)
[2017-10-28] MEDS ORDERED: PANT40TA3 PO (09:10)
--- NOTE | 2017-10-28 09:11 | HHI.DCPOC ---
Discharge Care Plan Diagnosis: (1) Carotid artery disease (2) Anemia (3) Hypertension (4) Hyperlipidemia Goals to Promote Your Health * To prevent worsening of your condition and complications * To maintain your health at the optimal level Directions to Meet Your Goals Take your medications as prescribed Follow your dietary instruction Follow activity as directed Keep your appointments as scheduled Take your immunizations and boosters as scheduled If your symptoms worsen call your PCP, if no PCP go to Urgent Care Center or Emergency Room Smoking is Dangerous to Your Health. Avoid second hand smoke Call the 24-hour hour crisis hotline for domestic abuse at Karthik Garcia MD R1 October 28, 2017 09:11
--- NOTE | 2017-10-28 09:14 | HHI.FPPN ---
Subjective Remarks No acute events overnight. Patient tolerated the blood transfusion well with no complications. He states he feels better today and is ready to go home. Denies CP, SOB, N/V. We discussed at length the importance of following up with GI as he did have blood in his stool with a drop in his H/H. We also discussed the importance of returning to the hospital if he has itzel blood in his stool, black or tarry stools. (Karthik Garcia MD R1) Objective Vitals Vital Signs Date Time Temp Pulse Resp B/P (MAP) Pulse Ox O2 Delivery O2 Flow Rate FiO2 10/28/17 06:16 67 10/28/17 05:00 68 10/28/17 04:00 64 10/28/17 03:14 98.3 63 18 97/68 (78) 98 10/28/17 03:00 51 10/28/17 02:00 64 10/28/17 01:52 98 21 10/28/17 01:00 68 10/28/17 00:00 54 10/27/17 23:17 98.4 56 18 111/51 98 10/27/17 23:09 98.5 54 20 105/54 (71) 96 10/27/17 23:00 54 10/27/17 22:58 98.5 54 20 105/54 96 10/27/17 22:00 72 10/27/17 21:14 98.4 84 20 134/63 96 10/27/17 21:09 98.3 96 20 116/67 (83) 94 10/27/17 21:00 88 10/27/17 20:52 98.3 96 18 116/67 94 10/27/17 20:00 86 10/27/17 19:00 74 10/27/17 18:00 76 10/27/17 17:00 56 10/27/17 16:00 60 10/27/17 15:00 74 10/27/17 15:00 98.2 74 18 119/55 (76) 93 10/27/17 14:00 70 10/27/17 13:00 54 10/27/17 12:00 72 10/27/17 11:00 68 10/27/17 11:00 98.4 95 19 105/55 (72) 95 10/27/17 10:00 82 I/O 510/27/17 10/27/17 10/28/17 10/28/17 10/28/17 07:00 15:00 23:00 07:00 15:00 23:00 Intake Total 648 ml 1143 ml 1305 ml Output Total 1625 ml 700 ml 900 ml Balance -977 ml 443 ml 405 ml Intake Oral 600 ml 328 ml 480 ml IV Total 48 ml 15 ml Packed Cells 400 ml 400 ml Blood Product IV Normal Saline Flush 415 ml 410 ml Output Urine Total 1625 ml 700 ml 900 ml (Karthik Garcia MD R1) Result Diagram: 10/28/17 0235 10/28/17 0235 Objective Remarks GENERAL: This is a well-nourished, well-developed patient, in no apparent distress. Does appear pale compared to prior exams. CARDIOVASCULAR: Regular rate and rhythm. Noted systolic murmur RESPIRATORY: Clear to auscultation. Breath sounds equal bilaterally. GASTROINTESTINAL: Abdomen soft, non-tender, nondistended. MUSCULOSKELETAL: Extremities without clubbing, cyanosis. 2+ pitting edema to level of knee bilaterally -unchanged from prior exam. NEUROLOGICAL: Awake and alert. Normal speech (Karthik Garcia MD R1) A/P Assessment and Plan 66 yo male with history of hypertension, HLD, lower extremity edema, significant CAD with recent NSTEMI and cardiac stenting by Dr. Brewer on September presenting to the ED today with acute onset chest pain. Patient had some runs of bradycardia into the 30's in the ED and received Calcium, Narcan (after receiving morphine in the ED), Atropine and the pulse responded to 76. EKG on admission showed 2nd degree AV block. Cardiology consulted on admission. Patient has significant rise in troponin up to 14. Cardiology was made aware patient was made n.p.o. and placed on heparin drip with plan for heart cath on . Heart cath on 10/26 with RCA stent. Patient's symptoms medically improved postoperatively. He was noted to be anemic with a hemoglobin of 7.4 on 10/27. GI consulted and will follow up with him as an outpatient as he isn't a candidate for a scope with the recent cardiac procedures. Patient was transfused 2 units with appropriate response in H/H. Discharged on 10/28. We discussed at length the importance of following up with GI as he did have blood in his stool with a drop in his H/H. We also discussed the importance of returning to the hospital if he has itzel blood in his stool, black or tarry stools. Discharge Planning Discharge today. (Karthik Garcia MD R1) Problem List: (1) NSTEMI (non-ST elevated myocardial infarction) ICD Codes: I21.4 - Non-ST elevation (NSTEMI) myocardial infarction Status: Acute Plan: Patient with a significant history of CAD with recent NSTEMI and cardiac stenting by Dr. Brewer on October 04, 2017 Troponin 0.04 on admission but next reading was markedly elevated at 14.6 Cardiology consulted, formed RCA stent on 10/26 Cardiology cleared for discharge and continuing on all previous home medications home Brilinta, Vasotec, atorvastatin, Norvasc, aspirin (2) Anemia ICD Codes: D64.9 - Anemia, unspecified Plan: Patient noted to be anemic with a hemoglobin of 7.4 on 10/27 Was 9.4 on 10/26 Transfused 2 units with appropriate response. Hemoglobin up to 9.9 GI was consulted and will follow up as outpatient. Not a candidate for EGD/ Colonoscopy with recent cardiac procedure. We discussed at length the importance of following up with GI as he did have blood in his stool with a drop in his H/H. We also discussed the importance of returning to the hospital if he has itzel blood in his stool, black or tarry stools. (3) Bradycardia ICD Codes: R00.1 - Bradycardia, unspecified Status: Acute Plan: Patient noted to be bradycardic into the 30s on admission Received Calcium, Narcan (after receiving morphine in the ED), Atropine and the pulse responded to 76. EKG on admission showed 2nd degree AV block, subsequent EKGs with sinus bradycardia Resolved (4) Peripheral edema ICD Codes: R60.9 - Edema, unspecified Plan: Patient noted to have 2+ pitting edema in bilateral lower extremities Appears to be chronic per chart review Echocardiogram done in September 2017 with ejection fraction 55-60%. Mild concentric left ventricular hypertrophy. Trace mitral valve regurg, mild aortic valve stenosis. Continuing home Lasix Monitor fluid status (5) Hypertension ICD Codes: I10 - Essential (primary) hypertension Status: Chronic Plan: Known history of hypertension Hypertensive up to 183/76 on admission Urine catecholamine screen during previous hospitalization was normal Normotensive over last 24 hours (6) Hyperlipidemia ICD Codes: E78.5 - Hyperlipidemia, unspecified Status: Chronic Plan: Known history of hyperlipidemia Continue home atorvastatin (7) FEN Plan: No IV fluids at this time We will replace electrolytes as needed Heart healthy diet See the residents documentation for details. I saw and evaluated the patient regarding the schumacher portions of this evaluation and agree with the residents findings and plans as written. Parts of this note were created using [employer] voice recognition software program. While efforts were made to correct any mistakes made by this software, some mistakes, errors, and omissions may remain in the final note that were not caught when the note was originally created. Plan of care was discussed and agreed upon with the patient as specifically documented in the above note. An opportunity to ask questions with explanation was provided. Patient voiced understanding on all information reviewed and discussed. (Karthik Garcia MD R1) Problem List: (1) NSTEMI (non-ST elevated myocardial infarction) ICD Codes: I21.4 - Non-ST elevation (NSTEMI) myocardial infarction Status: Acute Plan: Patient with a significant history of CAD with recent NSTEMI and cardiac stenting by Dr. Brewer on October 04, 2017 Troponin 0.04 on admission but next reading was markedly elevated at 14.6 Cardiology consulted, formed RCA stent on 10/26 Cardiology cleared for discharge and continuing on all previous home medications home Brilinta, Vasotec, atorvastatin, Norvasc, aspirin (2) Anemia ICD Codes: D64.9 - Anemia, unspecified Plan: Patient noted to be anemic with a hemoglobin of 7.4 on 10/27 Was 9.4 on 10/26 Transfused 2 units with appropriate response. Hemoglobin up to 9.9 GI was consulted and will follow up as outpatient. Not a candidate for EGD/ Colonoscopy with recent cardiac procedure. We discussed at length the importance of following up with GI as he did have blood in his stool with a drop in his H/H. We also discussed the importance of returning to the hospital if he has itzel blood in his stool, black or tarry stools. (3) Bradycardia ICD Codes: R00.1 - Bradycardia, unspecified Status: Acute Plan: Patient noted to be bradycardic into the 30s on admission Received Calcium, Narcan (after receiving morphine in the ED), Atropine and the pulse responded to 76. EKG on admission showed 2nd degree AV block, subsequent EKGs with sinus bradycardia Resolved (4) Peripheral edema ICD Codes: R60.9 - Edema, unspecified Plan: Patient noted to have 2+ pitting edema in bilateral lower extremities Appears to be chronic per chart review Echocardiogram done in September 2017 with ejection fraction 55-60%. Mild concentric left ventricular hypertrophy. Trace mitral valve regurg, mild aortic valve stenosis. Continuing home Lasix Monitor fluid status (5) Hypertension ICD Codes: I10 - Essential (primary) hypertension Status: Chronic Plan: Known history of hypertension Hypertensive up to 183/76 on admission Urine catecholamine screen during previous hospitalization was normal Normotensive over last 24 hours (6) Hyperlipidemia ICD Codes: E78.5 - Hyperlipidemia, unspecified Status: Chronic Plan: Known history of hyperlipidemia Continue home atorvastatin (7) FEN Plan: No IV fluids at this time We will replace electrolytes as needed Heart healthy diet See the residents documentation for details. I saw and evaluated the patient regarding the schumacher portions of this evaluation and agree with the residents findings and plans as written. Parts of this note were created using [employer] voice recognition software program. While efforts were made to correct any mistakes made by this software, some mistakes, errors, and omissions may remain in the final note that were not caught when the note was originally created. Plan of care was discussed and agreed upon with the patient as specifically documented in the above note. An opportunity to ask questions with explanation was provided. Patient voiced understanding on all information reviewed and discussed. (Dakotah Lara MD) Problem Qualifiers (1) Hypertension: Qualified Codes: I10 - Essential (primary) hypertension (2) Hyperlipidemia: Qualified Codes: E78.2 - Mixed hyperlipidemia Karthik Garcia MD R1 October 28, 2017 09:14 Dakotah Lara MD October 28, 2017 14:35
--- NOTE | 2017-10-28 09:29 | HHI.DS ---
Karthik Garcia MD R1 10/28/17 0929: Discharge Summary Admission Date October 24, 2017 at 14:22 Discharge Date: October 28, 2017 Admitting Diagnosis chest pain; new bradycardia (1) NSTEMI (non-ST elevated myocardial infarction) ICD Codes: I21.4 - Non-ST elevation (NSTEMI) myocardial infarction Status: Acute (2) Anemia ICD Codes: D64.9 - Anemia, unspecified (3) Bradycardia ICD Codes: R00.1 - Bradycardia, unspecified Status: Acute (4) Peripheral edema ICD Codes: R60.9 - Edema, unspecified (5) Hypertension ICD Codes: I10 - Essential (primary) hypertension Status: Chronic (6) Hyperlipidemia ICD Codes: E78.5 - Hyperlipidemia, unspecified Status: Chronic Brief History 66 yo male with history of hypertension, HLD, lower extremity edema, significant CAD with recent NSTEMI and cardiac stenting by Dr. Brewer on September presenting to the ED today with acute onset chest pain. Shortly after waking up this morning he felt significant chest pain that radiated to his back , bilateral shoulder pain and headache. Energy that his BP was elevated at that time. Took two 325mg Aspirin with minimal relief. Took a metoprolol and clonidine with still no relief. Called EMS and had some relief after getting sublingual nitroglycerin en route. No N/V. He states he has been able to feel his heart beating in his head and has had elevated HR and chest pain on minimal exertion since being discharged from his most recent hospitalization. Known history of hypertension Hypertensive up to 183/76 on admission Urine catecholamine screen during previous hospitalization was normal Normotensive over last 24 hours CBC/BMP: 10/28/17 0235 10/28/17 0235 Significant Findings Laboratory Tests Test 10/25/17 13:33 10/25/17 22:15 10/26/17 06:16 10/27/17 06:43 Activated Partial Thromboplast Time 38.0 SEC (24.3-30.1) 32.9 SEC (24.3-30.1) 43.3 SEC (24.3-30.1) Red Blood Count 3.19 MIL/MM3 (4.50-5.90) 2.38 MIL/MM3 (4.50-5.90) Hemoglobin 9.4 GM/DL (13.0-17.0) 7.4 GM/DL (13.0-17.0) Hematocrit 27.6 % (39.0-51.0) 20.8 % (39.0-51.0) Monocytes (%) (Auto) 12.0 % (0.0-8.0) 9.1 % (0.0-8.0) Monocytes # (Auto) 1.0 TH/MM3 (0-0.9) Blood Urea Nitrogen 23 MG/DL (7-18) 22 MG/DL (7-18) Random Glucose 107 MG/DL (74-106) Estimat Glomerular Filtration Rate 60 ML/MIN (>89) 66 ML/MIN (>89) Neutrophils (%) (Auto) 75.3 % (16.0-70.0) Calcium Level 8.4 MG/DL (8.5-10.1) Test 10/27/17 13:37 10/28/17 02:35 Red Blood Count 2.73 MIL/MM3 (4.50-5.90) 3.18 MIL/MM3 (4.50-5.90) Hemoglobin 8.1 GM/DL (13.0-17.0) 9.9 GM/DL (13.0-17.0) Hematocrit 23.8 % (39.0-51.0) 27.4 % (39.0-51.0) Mean Corpuscular Hemoglobin Concent 36.2 % (32.0-36.0) Monocytes (%) (Auto) 9.5 % (0.0-8.0) Blood Urea Nitrogen 22 MG/DL (7-18) Calcium Level 8.3 MG/DL (8.5-10.1) Estimat Glomerular Filtration Rate 61 ML/MIN (>89) PE at Discharge GENERAL: This is a well-nourished, well-developed patient, in no apparent distress. Does appear pale compared to prior exams. CARDIOVASCULAR: Regular rate and rhythm. Noted systolic murmur RESPIRATORY: Clear to auscultation. Breath sounds equal bilaterally. GASTROINTESTINAL: Abdomen soft, non-tender, nondistended. MUSCULOSKELETAL: Extremities without clubbing, cyanosis. 2+ pitting edema to level of knee bilaterally -unchanged from prior exam. NEUROLOGICAL: Awake and alert. Normal speech Hospital Course Patient was admitted for ACS rule out and his initial troponin was 0.04 but was markedly elevated at the next reading at 14.6. Patient was also bradycardic on admission and received calcium, Narcan, atropine and the pulse responded to 76. EKG showed second-degree AV block, but subsequent EKGs showed sinus bradycardia and patient had no further bradycardia during the hospitalization. Cardiology was consulted and performed a RCA stent on 10/26. Cardiology's recommendations were to continue on all previous home medications home Brilinta , Vasotec, atorvastatin, Norvasc, aspirin. Patient was noted to be anemic on with a drop of hemoglobin from 9.4-7.4. Hemoccult was positive at that time. GI was consulted and stated that he was not a candidate for an EGD/ colonoscopy with his recent cardiac procedure and should follow-up with them as an outpatient. Repeat H&H on the same day showed an improved hemoglobin up to 8.1. Patient was transfused 2 units with an appropriate response and a hemoglobin of 9.9. 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 Patient was counseled at length about what to monitor for concerns of GI bleed and when to return to the ER if necessary. Pt Condition on Discharge: Good Discharge Disposition: Discharge Home Discharge Instructions DIET: Follow Instructions for: Heart Healthy Diet Activities you can perform: Regular-No Restrictions Follow up Referrals: Cardiology - 1 Week Gastroenterology - 2 Weeks PCP Follow-up - 1 Month New Medications: Pantoprazole (Pantoprazole) 40 Mg Tab 40 MG PO Q12HR, #60 TAB Continued Medications: Amlodipine (Norvasc) 10 Mg Tab 10 MG PO DAILY for Blood Pressure Management, #30 TAB Amlodipine-Atorvastatin (Amlodipine-Atorvastatin) 10-80 Mg Tab 1 TAB PO DAILY for Blood Pressure Management, #30 TAB [address] (Aspirin 81) 81 Mg Tabdr 81 MG PO DAILY for CAD, #30 TAB 0 Refills Clonidine (Catapres) 0.2 Mg Tab 0.2 MG PO Q8HR for hypertension, #90 TAB 0 Refills Enalapril (Enalapril) 20 Mg Tab 20 MG PO BID, #30 TAB 0 Refills Furosemide (Furosemide) 40 Mg Tab 40 MG PO DAILY, #30 TAB 0 Refills Metoprolol Tartrate (Metoprolol Tartrate) 25 Mg Tab 25 MG PO BID for Blood Pressure Management, #60 TAB 0 Refills Ticagrelor (Brilinta) 90 Mg Tab 90 MG PO BID for Blood Clot Prevention, #60 TAB Dakotah Lara MD 10/31/17 1156: Discharge Summary CBC/BMP: 10/28/17 0235 10/28/17 0235 Discharge Instructions Follow up Referrals: Cardiology - 1 Week Gastroenterology - 2 Weeks PCP Follow-up - 1 Month New Medications: Pantoprazole (Pantoprazole) 40 Mg Tab 40 MG PO Q12HR, #60 TAB Continued Medications: Amlodipine (Norvasc) 10 Mg Tab 10 MG PO DAILY for Blood Pressure Management, #30 TAB Amlodipine-Atorvastatin (Amlodipine-Atorvastatin) 10-80 Mg Tab 1 TAB PO DAILY for Blood Pressure Management, #30 TAB [address] (Aspirin 81) 81 Mg Tabdr 81 MG PO DAILY for CAD, #30 TAB 0 Refills Clonidine (Catapres) 0.2 Mg Tab 0.2 MG PO Q8HR for hypertension, #90 TAB 0 Refills Enalapril (Enalapril) 20 Mg Tab 20 MG PO BID, #30 TAB 0 Refills Furosemide (Furosemide) 40 Mg Tab 40 MG PO DAILY, #30 TAB 0 Refills Metoprolol Tartrate (Metoprolol Tartrate) 25 Mg Tab 25 MG PO BID for Blood Pressure Management, #60 TAB 0 Refills Ticagrelor (Brilinta) 90 Mg Tab 90 MG PO BID for Blood Clot Prevention, #60 TAB Karthik Garcia MD R1 October 28, 2017 09:29 Dakotah Lara MD October 31, 2017 11:56
[2017-10-28] MEDS: FUROSEMIDE 40 MG TAB PO SCH (09:34)
[2017-10-28] MEDS: METOPROLOL TARTRATE 25 MG TAB PO SCH (09:34)
[2017-10-28] MEDS: ASPIRIN EC 81 MG TABEC PO SCH (09:34)
[2017-10-28] MEDS: ENALAPRIL MALEATE 10 MG TAB PO SCH (09:34)
[2017-10-28] MEDS: DOCUSATE SODIUM 50 MG/SENNA 8.6 MG TAB PO SCH (09:34)
[2017-10-28] MEDS: ATORVASTATIN 80 MG TAB PO SCH (09:34)
[2017-10-28] MEDS: TICAGRELOR 90 MG TAB PO SCH (09:34)
[2017-10-28] MEDS: SODIUM CHLORIDE 0.9% FLUSH 10 ML FLUSH IV FLUSH SCH (09:35)
[2017-10-28] MEDS: PANTOPRAZOLE SOD 40 MG DELAYED RELEASE TAB PO SCH (09:38)
== END 2017-10-28 12:00 | disposition home or self-care (01) ==
LOC: NEPC 11:49 → NEDA 14:22 → HCIS 17:42
PROVIDERS: ADMIT Family Medicine; ATTEND Family Medicine
DX: R07.9 Chest pain, unspecified (principal); Z95.5 Presence of coronary angioplasty implant and graft; I21.4 Non-ST elevation (NSTEMI) myocardial infarction; I25.2 Old myocardial infarction; I25.110 Atherosclerotic heart disease of native coronary artery with unstable angina pectoris; I11.9 Hypertensive heart disease without heart failure; E78.2 Mixed hyperlipidemia; R60.0 Localized edema; R06.02 Shortness of breath; F17.210 Nicotine dependence, cigarettes, uncomplicated; Z79.01 Long term (current) use of anticoagulants; R51 Headache; Z79.899 Other long term (current) drug therapy; R00.1 Bradycardia, unspecified; I44.1 Atrioventricular block, second degree; I35.0 Nonrheumatic aortic (valve) stenosis; I73.9 Peripheral vascular disease, unspecified
CPT/HCPCS: 36430; 71046; 76937; 80048; 82272; 82550; 82552; 83690; 83735; 84484; 85002; 85025; 85027; 85610; 85730; 86850; 86900; 86901; 86920; 92928; 93005; 93454; 93567; 96360; 96361; 96365; 96366; 96367; 96372; 96375; 96376; 97161; 99152; 99153; 99291; C1725; C1769; C1874; C1887; C1893; C9248; G0378; G8987; G8988; J0461; J0610; J1644; J1940; J2250; J2270; J2310; J3010; J7030; J7050; P9016; J3246; Q9967

== ENCOUNTER 2017-11-19 14:30 | Observation (INO) | payer MEDICARE ==
[2017-11-19] VITALS (10 sets, daily range): BP systolic 155–227; BP diastolic 69–89; PULSE 94–104; RESP 16–20; TEMP 98–98.9; O2SAT 94–99
[~2017-11-19] VITALS: Ht 170.2 cm; Wt 100.0 kg
[~2017-11-19 14:30] MED LIST changes: +FURO40TA PO; +PANT40TA3 PO
--- NOTE | 2017-11-19 14:44 | PD ---
HPI Chief Complaint: General Weakness Time Seen by Provider: 14:42 Travel History International Travel<30 days: No Contact w/Intl Traveler<30days: No Traveled to known affect area: No History of Present Illness HPI Patient is a cardiac catheterization patient over a few weeks ago, by Dr. Brewer. Patient was initiated her started on Brilinta since the stent placement , and since then the patient has been having bleeding episodes, the first one was a GI episode which caused him to be admitted and to receive transfusion. Now over the last week or so he started to feel similar again, increased weakness, decreased exercise tolerance, and looking more pale. No known drug allergies Past medical history significant for denture placements, headache, non-STEMI, status post stents to legs, hypercholesterolemia, hypertension, appendectomy, claustrophobia, and carotid surgery PFSH Past Medical History Hx Anticoagulant Therapy: Yes Arthritis: No Asthma: No Autoimmune Disease: No Anxiety: No Depression: No Heart Rhythm Problems: No Cancer: No Cardiac Catheterization: Yes Cardiovascular Problems: Yes High Cholesterol: Yes Chemotherapy: No Chest Pain: Yes Congestive Heart Failure: No COPD: No Cerebrovascular Accident: No Coronary Artery Disease: Yes Diabetes: No Diminished Hearing: No Endocrine: No GERD: No Genitourinary: No Headaches: Yes Hiatal Hernia: No Hypertension: Yes Immune Disorder: No Implanted Vascular Access Dvce: Yes Kidney Stones: No Musculoskeletal: Yes ("BAD LEFT SHOULDER") Neurologic: Yes Psychiatric: No Reproductive: No Respiratory: No Immunizations Current: Yes Migraines: No Radiation Therapy: No Renal Failure: No Seizures: No Sickle Cell Disease: No Sleep Apnea: No Thyroid Disease: No Ulcer: No Past Surgical History Abdominal Surgery: Yes (APPENDECTOMY) AICD: No Appendectomy: Yes Body Medical Devices: STENT IN RIGHT AND LEFT COMMON ILIAC ARTERY Cardiac Surgery: Yes (STENTS BOTH LEGS) Coronary Stent: Yes (TIMES 2) Ear Surgery: No Endocrine Surgery: No Eye Surgery: No Genitourinary Surgery: No Gynecologic Surgery: No Insulin Pump: No Joint Replacement: No Neurologic Surgery: No Oral Surgery: Yes (WISDOM TEETH REMOVED) Pacemaker: No Thoracic Surgery: No Other Surgery: Yes (CAROTIDS) Social History Alcohol Use: No Tobacco Use: Yes Substance Use: No Allergies-Medications (Allergen,Severity, Reaction): Coded Allergies: No Known Allergies (Verified Allergy, Unknown, 11/19/17) Reported Meds & Prescriptions Reported Meds & Active Scripts Active Brilinta (Ticagrelor) 90 Mg Tab 90 Mg PO BID Aspirin 81 (Aspirin) 81 Mg Tabdr 81 Mg PO DAILY Reported Metoprolol Tartrate 50 Mg Tab 50 Mg PO BID Furosemide 40 Mg Tab 40 Mg PO DAILY Amlodipine-Atorvastatin 10-80 Mg Tab 1 Tab PO DAILY Enalapril (Enalapril Maleate) 20 Mg Tab 20 Mg PO BID Review of Systems Except as stated in HPI: all other systems reviewed are Neg General / Constitutional: Positive: Other (Generalized weakness and fatigue) Eyes: No: Visual changes HENT: No: Headaches Cardiovascular: No: Chest Pain or Discomfort Respiratory: No: Shortness of Breath Gastrointestinal: No: Abdominal Pain Genitourinary: No: Dysuria Musculoskeletal: No: Pain Skin: Positive Other Neurologic: Positive: Weakness (Generalized) Psychiatric: No: Depression Endocrine: No: Polydipsia Hematologic/Lymphatic: No: Easy Bruising Physical Exam Narrative GENERAL: SKIN: Warm and dry. Pale skin HEAD: Atraumatic. Normocephalic. EYES: Pupils equal and round. No scleral icterus. No injection or drainage. ENT: No nasal bleeding or discharge. Mucous membranes pink and moist. Pale conjunctiva NECK: Trachea midline. No JVD. CARDIOVASCULAR: Regular rate and rhythm. RESPIRATORY: No accessory muscle use. Clear to auscultation. Breath sounds equal bilaterally. GASTROINTESTINAL: Abdomen soft, non-tender, nondistended. Guaiac positive MUSCULOSKELETAL: Extremities without clubbing, cyanosis, or edema. No obvious deformities. NEUROLOGICAL: Awake and alert. No obvious cranial nerve deficits. Motor grossly within normal limits. Five out of 5 muscle strength in the arms and legs. Normal speech. PSYCHIATRIC: Appropriate mood and affect; insight and judgment normal. Data Data Last Documented VS Orders Orders Complete Blood Count With Diff (11/19/17 15:04) Comprehensive Metabolic Panel (11/19/17 15:04) Troponin I (11/19/17 15:04) B-Type Natriuretic Peptide (11/19/17 15:04) Prothrombin Time / Inr (Pt) (11/19/17 15:04) Act Partial Throm Time (Ptt) (11/19/17 15:04) Lipase (11/19/17 15:04) Urinalysis - C+S If Indicated (11/19/17 15:04) Thyroid Stimulating Hormone (11/19/17 15:04) Chest, Single Ap (11/19/17 15:04) Iv Access Insert/Monitor (11/19/17 15:04) Ecg Monitoring (11/19/17 15:04) Oximetry (11/19/17 15:04) Type And Screen (11/19/17 15:04) Admit Order (Ed Use Only) (11/19/17 16:34) Labs Laboratory Tests Test 11/19/17 15:15 11/19/17 16:30 White Blood Count 8.3 TH/MM3 Red Blood Count 2.65 MIL/MM3 Hemoglobin 7.2 GM/DL Hematocrit 22.0 % Mean Corpuscular Volume 83.0 FL Mean Corpuscular Hemoglobin 27.0 PG Mean Corpuscular Hemoglobin Concent 32.6 % Red Cell Distribution Width 17.0 % Platelet Count 395 TH/MM3 Mean Platelet Volume 7.4 FL Neutrophils (%) (Auto) 73.3 % Lymphocytes (%) (Auto) 13.0 % Monocytes (%) (Auto) 11.2 % Eosinophils (%) (Auto) 2.0 % Basophils (%) (Auto) 0.5 % Neutrophils # (Auto) 6.1 TH/MM3 Lymphocytes # (Auto) 1.1 TH/MM3 Monocytes # (Auto) 0.9 TH/MM3 Eosinophils # (Auto) 0.2 TH/MM3 Basophils # (Auto) 0.0 TH/MM3 CBC Comment DIFF FINAL Differential Comment Prothrombin Time 10.1 SEC Prothromb Time International Ratio 1.0 RATIO Activated Partial Thromboplast Time 21.7 SEC Blood Urea Nitrogen 18 MG/DL Creatinine 1.48 MG/DL Random Glucose 115 MG/DL Total Protein 6.9 GM/DL Albumin 3.5 GM/DL Calcium Level 8.7 MG/DL Alkaline Phosphatase 104 U/L Aspartate Amino Transf (AST/SGOT) 16 U/L Alanine Aminotransferase (ALT/SGPT) 29 U/L Total Bilirubin 0.2 MG/DL Sodium Level 141 MEQ/L Potassium Level 4.3 MEQ/L Chloride Level 107 MEQ/L Carbon Dioxide Level 24.3 MEQ/L Anion Gap 10 MEQ/L Estimat Glomerular Filtration Rate 48 ML/MIN Troponin I LESS THAN 0.02 NG/ML B-Type Natriuretic Peptide 116 PG/ML Lipase 132 U/L Thyroid Stimulating Hormone 3rd Gen 0.853 uIU/ML Urine Color YELLOW Urine Turbidity CLEAR Urine pH 5.5 Urine Specific [place] 1.022 Urine Protein TRACE mg/dL Urine Glucose (UA) NEG mg/dL Urine Ketones NEG mg/dL Urine Occult Blood NEG Urine Nitrite NEG Urine Bilirubin NEG Urine Urobilinogen 2.0 MG/DL Urine Leukocyte Esterase NEG Urine RBC LESS THAN 1 /hpf Urine WBC 1 /hpf Urine Squamous Epithelial Cells <1 /hpf Urine Mucus FEW /lpf Microscopic Urinalysis Comment CULT NOT INDICATED MDM Medical Decision Making Medical Screen Exam Complete: Yes Emergency Medical Condition: Yes Medical Record Reviewed: Yes Differential Diagnosis Anemia versus dehydration versus pneumonia versus UTI Narrative Course CBC shows no leukocytosis, no left shift, normal platelet count however anemia of 7.2/22 Coagulation profile is within normal limits UA is not significant for UTI Electrolytes are all within normal limits with the exception of creatinine elevation at 1.48 GFR decreased at 48 Normal liver and pancreatic enzymes and TSH screening First set of cardiac enzymes negative Diagnosis Primary Impression: Anemia Qualified Codes: D64.9 - Anemia, unspecified Admitting Information Admitting Physician Requests: Observation Marcel Schumacher MD Nov 19, 2017 14:44
[2017-11-19] MEDS ORDERED: METO50TA PO (15:14)
[2017-11-19 15:40] LABS: AUTOMATED NEUTROPHIL # 6.1 TH/MM3 (1.8-7.7); BASOPHIL % 0.5 % (0.0-2.0); EOSINOPHIL # 0.2 TH/MM3 (0-0.4); HEMOGLOBIN 7.2 GM/DL (13.0-17.0); LYMPHOCYTE # 1.1 TH/MM3 (1.0-4.8); MEAN CORPUSCULAR HGB CONC 32.6 % (32.0-36.0); MEAN PLATELET VOLUME 7.4 FL (7.0-11.0); MONO % 11.2 % (0.0-8.0); MONOCYTE # 0.9 TH/MM3 (0-0.9); NEUT % 73.3 % (16.0-70.0); PLATELET COUNT 395 TH/MM3 (150-450); RED BLOOD COUNT 2.65 MIL/MM3 (4.50-5.90); WHITE BLOOD COUNT 8.3 TH/MM3 (4.0-11.0)
--- NOTE | 2017-11-19 15:45 | RADRPT ---
EXAM DATE: 11/19/2017 3:37 PM EDT AGE/SEX: 67 years / Male INDICATIONS: General weakness, dizziness and fatigue. Shortness of breath. CLINICAL DATA: This is the patient's initial encounter. Patient reports that signs and symptoms have been present for 2 weeks and indicates a pain score of 0/10. MEDICAL/SURGICAL HISTORY: Hypercholesterolemia. Hypertension. Myocardial infarction. . Stent s both legs/ heart stents. Cardiac cath. Coronary stent. Appendectomy. Carotid. Stents placed. [place] [facility] [place]. . FINDINGS: A single AP view of the chest demonstrates the lungs to be symmetrically aerated without evidence of mass, infiltrate or effusion. The cardiomediastinal contours are unremarkable. Osseous structures a re intact. CONCLUSION: No evidence of acute cardiopulmonary disease. Electronically signed by: Luke Loera MD 11/19/2017 3:44 PM EDT
[2017-11-19 15:49] LABS: PROTHROMBIN TIME - PATIENT 10.1 SEC (9.8-11.6)
[2017-11-19 16:00] LABS: ALBUMIN 3.5 GM/DL (3.4-5.0); ALT (GPT) 29 U/L (12-78); AST (GOT) 16 U/L (15-37); BICARBONATE 24.3 MEQ/L (21.0-32.0); BLOOD UREA NITROGEN 18 MG/DL (7-18); CALCIUM 8.7 MG/DL (8.5-10.1); CHLORIDE 107 MEQ/L (98-107); CREATININE 1.48 MG/DL (0.60-1.30); GLOMERULAR FILTRATION RATE 48 ML/MIN (>89); GLUCOSE,RANDOM 115 MG/DL (74-106); SODIUM (NA) 141 MEQ/L (136-145)
[2017-11-19 16:10] LABS: ALKALINE PHOSPHATASE 104 U/L (45-117); TOTAL BILIRUBIN ADULT 0.2 MG/DL (0.2-1.0); TOTAL PROTEIN 6.9 GM/DL (6.4-8.2); TROPONIN I LESS THAN 0.02 NG/ML (0.02-0.05)
--- NOTE | 2017-11-19 16:34 | HHI.HP ---
[facility] Primary [facility] Physician Non-Staff Admission Diagnosis Diagnoses: Chief Complaint: dizziness, lightheadedness Travel History International Travel<30 Days: No Contact w/Intl Traveler <30 Da: No Traveled to Known Affected Are: No History of Present Illness This is a 67-year-old male with history of coronary artery disease, recently seen at the hospital for chest pain, status post coronary arteriography with angioplasty and stenting of the right coronary artery. He also has left circumflex and left anterior descending artery disease and was discharged on Brilinta. During that hospital stay, the patient had possible GI bleeding and was transfused 2 units of packed red blood cells. He had an EGD 11/07/2017 and was found to have a single angiectasia in the duodenum status post argon plasma coagulation. After that, he started having episodes of dizziness and lightheadedness with generalized malaise and increasing generalized weakness and exercise intolerance. He also started looking pale. He denies any melanotic stools and hematochezia. Denies any fever, chills, cough, chest pain. His basket turner is Dr. Brewer. He is very upset and does not want to be on Brilinta again. He has taken Plavix before. Review of Systems ROS Limitations: Other (All other pertinent systems were reviewed and are negative.) Past Family Social History Past Medical History Headaches Non-STEMI Hypercholesterolemia Hypertension Coronary artery disease Past Surgical History Appendectomy Bilateral common iliac artery Cardiac stenting [place] tooth removal Carotid surgery Reported Medications Pantoprazole (Pantoprazole Sodium) 40 Mg Tab 40 Mg PO Q12HR Metoprolol Tartrate 25 Mg Tab 25 Mg PO BID Norvasc (Amlodipine Besylate) 10 Mg Tab 10 Mg PO DAILY Brilinta (Ticagrelor) 90 Mg Tab 90 Mg PO BID Aspirin 81 (Aspirin) 81 Mg Tabdr 81 Mg PO DAILY Catapres (Clonidine) 0.2 Mg Tab 0.2 Mg PO Q8HR Furosemide 40 Mg Tab 40 Mg PO DAILY Amlodipine-Atorvastatin 10-80 Mg Tab 1 Tab PO DAILY Enalapril (Enalapril Maleate) 20 Mg Tab 20 Mg PO BID Allergies: Coded Allergies: No Known Allergies (Verified Allergy, Unknown, 11/19/17) Family History Father of a massive heart attack at 49. Social History Smokes 1/2 ppd since 18 yo. No significant alcohol use Physical Exam Vital Signs Vital Signs Date Time Temp Pulse Resp B/P (MAP) Pulse Ox O2 Delivery O2 Flow Rate FiO2 11/19/17 15:27 99 Room Air 11/19/17 15:20 99 Room Air 11/19/17 15:07 95 18 155/70 (98) 98 Room Air 11/19/17 14:35 98.0 104 20 227/89 (135) 99 Physical Exam Not in distress PERRL, pale palpebral conjunctivae, positive for pallor. Nose without bleeding Supple neck Borderline tachycardic, regular rhythm, 3/6 systolic ejection murmur. Clear to auscultation and symmetric bilaterally, normal respiratory effort. Normal bowel sounds, soft, non-tender, nondistended, no guarding. Obese. Extremities without clubbing, cyanosis, 1+ edema. No rash of generalized distribution. Skin is warm and dry. AAO x3, no cranial nerve deficits, moves all 4 extremities, no focal neurologic deficits Laboratory Laboratory Tests Test 11/19/17 15:15 White Blood Count 8.3 Red Blood Count 2.65 Hemoglobin 7.2 Hematocrit 22.0 Mean Corpuscular Volume 83.0 Mean Corpuscular Hemoglobin 27.0 Mean Corpuscular Hemoglobin Concent 32.6 Red Cell Distribution Width 17.0 Platelet Count 395 Mean Platelet Volume 7.4 Neutrophils (%) (Auto) 73.3 Lymphocytes (%) (Auto) 13.0 Monocytes (%) (Auto) 11.2 Eosinophils (%) (Auto) 2.0 Basophils (%) (Auto) 0.5 Neutrophils # (Auto) 6.1 Lymphocytes # (Auto) 1.1 Monocytes # (Auto) 0.9 Eosinophils # (Auto) 0.2 Basophils # (Auto) 0.0 CBC Comment DIFF FINAL Differential Comment Prothrombin Time 10.1 Prothromb Time International Ratio 1.0 Activated Partial Thromboplast Time 21.7 Blood Urea Nitrogen 18 Creatinine 1.48 Random Glucose 115 Total Protein 6.9 Albumin 3.5 Calcium Level 8.7 Alkaline Phosphatase 104 Aspartate Amino Transf (AST/SGOT) 16 Alanine Aminotransferase (ALT/SGPT) 29 Total Bilirubin 0.2 Sodium Level 141 Potassium Level 4.3 Chloride Level 107 Carbon Dioxide Level 24.3 Anion Gap 10 Estimat Glomerular Filtration Rate 48 Troponin I LESS THAN 0.02 B-Type Natriuretic Peptide 116 Lipase 132 Thyroid Stimulating Hormone 3rd Gen 0.853 Result Diagram: 11/19/17 1515 11/19/17 1515 Imaging Last Impressions Chest X-Ray 11/19/17 1504 Signed Impressions: CONCLUSION: No evidence of acute cardiopulmonary disease. Caprini VTE Risk Assessment Caprini VTE Risk Assessment: Mod/High Risk (score >= 2) VTE Pharm Contraindication: Hemorrhage Caprini Risk Assessment Model Point Value = 1 Point Value = 2 Point Value = 3 Point Value = 5 Age 41-60 Minor surgery BMI > 25 kg/m2 Swollen legs Varicose veins or History of unexplained or recurrent spontaneous Oral contraceptives or hormone replacement Sepsis (< 1 month) Serious lung disease, including pneumonia (< 1 month) Abnormal pulmonary function Acute myocardial infarction Congestive heart failure (< 1 month) History of inflammatory bowel disease Medical patient at bed rest Age 61-74 Arthroscopic surgery Major open surgery (> 45 min) Laparoscopic surgery (> 45 min) Malignancy Confined to bed (> 72 hours) Immobilizing plaster cast Central venous access Age >= 75 History of VTE Family history of VTE Factor V Leiden Prothrombin [id number] Lupus anticoagulant Anticardiolipin antibodies Elevated serum homocysteine Heparin-induced thrombocytopenia Other congenital or acquired thrombophilia Stroke (< 1 month) Elective arthroplasty Hip, pelvis, or leg fracture Acute spinal cord injury (< 1 month) Prophylaxis Regimen Total Risk Factor Score Risk Level Prophylaxis Regimen 0-1 Low Early ambulation 2 Moderate Order ONE of the following: *Sequential Compression Device (SCD) *Heparin 5000 units SQ BID 3-4 Higher Order ONE of the following medications: *Heparin 5000 units SQ TID *Enoxaparin/Lovenox 40 mg SQ daily (WT < 150 kg, CrCl > 30 mL/min) *Enoxaparin/Lovenox 30 mg SQ daily (WT < 150 kg, CrCl > 10-29 mL/min) *Enoxaparin/Lovenox 30 mg SQ BID (WT < 150 kg, CrCl > 30 mL/min) AND/OR *Sequential Compression Device (SCD) 5 or more Highest Order ONE of the following medications: *Heparin 5000 units SQ TID (Preferred with Epidurals) *Enoxaparin/Lovenox 40 mg SQ daily (WT < 150 kg, CrCl > 30 mL/min) *Enoxaparin/Lovenox 30 mg SQ daily (WT < 150 kg, CrCl > 10-29 mL/min) *Enoxaparin/Lovenox 30 mg SQ BID (WT < 150 kg, CrCl > 30 mL/min) AND *Sequential Compression Device (SCD) Assessment and Plan Assessment and Plan This is a 67-year-old male with history of coronary artery disease, hypertension , recently had a cardiac catheterization status post stenting, was placed on Brilinta. During that hospitalization, patient had GI bleeding and received 2 units of packed red blood cells, status post EGD, showed angiectasia status post argon plasma coagulation. Likely upper GI bleeding-no definite hematochezia or melena, in fact constipated. Hold Brilinta for now, last dose was this morning, consult cardiology regarding anticoagulation. Continue aspirin, check for fecal occult blood, start Protonix IV 40 mg every 12. Acute anemia secondary to most likely upper GI bleeding-transfuse 1 unit of packed red blood cells, check hemoglobin every 12 hours, check iron panel Coronary artery disease-status post recent angioplasty and stenting, restart home medications including aspirin, Toprol, statins. Hold Brilinta for now. Consult cardiology. Acute renal failure-hold Lasix, hold CRISTÓBAL inhibitors. Hypertensive urgency, uncontrolled-restart Norvasc, continue metoprolol DVT prophylaxis: Pharmacological prophylaxis contraindicated because of GI bleeding. Lamar Stanford MD Nov 19, 2017 16:34
[2017-11-19 16:39] LABS: BILIRUBIN, URINE NEG (NEG); BLOOD, URINE NEG (NEG); GLUCOSE,URINE NEG (NEG); KETONE, URINE NEG (NEG); MUCUS URINE FEW /lpf (OCC); NITRITE,URINE NEG (NEG); PH, URINE 5.5 (5.0-8.5); SQUAMOUS EPITHELIAL CELL URINE <1 /hpf (0-5); URINE COLOR YELLOW (YELLW/STRAW); URINE LEUKOCYTE ESTERASE NEG (NEG)
[2017-11-19] MEDS ORDERED: SODIUM CHLOR 0.9% 250 ML INJ 250 ML IV ONE (17:00)
[2017-11-19] MEDS ORDERED: SODIUM CHLORIDE 0.9% FLUSH 10 ML FLUSH IVF PRN (17:00)
[2017-11-19] MEDS: PANTOPRAZOLE SODIUM 40 MG VIAL IV PUSH SCH (21:16)
[2017-11-19] MEDS: METOPROLOL TARTRATE 50 MG TAB PO SCH (21:17)
[2017-11-20 03:42] VITALS: BP 192/81; PULSE 78; RESP 18; TEMP 98.7; O2SAT 96
[2017-11-20 04:01] LABS: AUTOMATED NEUTROPHIL # 5.5 TH/MM3 (1.8-7.7); BASOPHIL # 0.1 TH/MM3 (0-0.2); BASOPHIL % 0.9 % (0.0-2.0); EOSINOPHIL # 0.3 TH/MM3 (0-0.4); EOSINOPHIL % 3.3 % (0.0-4.0); HEMATOCRIT 26.6 % (39.0-51.0); HEMOGLOBIN 8.7 GM/DL (13.0-17.0); LYMPH % 20.7 % (9.0-44.0); LYMPHOCYTE # 1.8 TH/MM3 (1.0-4.8); MEAN CORPUSCULAR HGB CONC 32.6 % (32.0-36.0); MEAN PLATELET VOLUME 7.5 FL (7.0-11.0); NEUT % 63.1 % (16.0-70.0); PLATELET COUNT 394 TH/MM3 (150-450); RED BLOOD COUNT 3.21 MIL/MM3 (4.50-5.90); RED CELL DISTRIBUTION WIDTH 16.7 % (11.6-17.2); WHITE BLOOD COUNT 8.7 TH/MM3 (4.0-11.0)
[2017-11-20 04:29] LABS: BICARBONATE 25.2 MEQ/L (21.0-32.0); BLOOD UREA NITROGEN 16 MG/DL (7-18); CALCIUM 8.6 MG/DL (8.5-10.1); CHLORIDE 108 MEQ/L (98-107); CREATININE 0.94 MG/DL (0.60-1.30); GLOMERULAR FILTRATION RATE 81 ML/MIN (>89); GLUCOSE,RANDOM 146 MG/DL (74-106); SODIUM (NA) 142 MEQ/L (136-145)
[2017-11-20 04:30] LABS: % SATURATION IRON PROFILE 4.9 % (20-50); IRON (FE) 23 MCG/DL (65-175); TOTAL IRON BINDING CAPACITY 466 MCG/DL (250-450)
[2017-11-20 04:34] LABS: FERRITIN 7 NG/ML (26-388)
[2017-11-20 08:00] VITALS: BP 192/82; PULSE 89; RESP 19; TEMP 97.4; O2SAT 96
[2017-11-20] MEDS ORDERED: CLOPIDOGREL 300 MG TAB PO ONE (08:00)
--- NOTE | 2017-11-20 08:38 | MB ---
cc: Kong Marcus MD DATE: 11/20/2017 REASON FOR CONSULTATION: Evaluation of anemia, post-stenting. HISTORY OF PRESENT ILLNESS: Mayank Ochoa is a 67-year-old man with known coronary artery disease. He has had multiple procedures. He continues to smoke and being very noncompliant. He has known coronary artery disease, peripheral arterial disease and carotid disease. He has had both carotids endarterectomized in 2005, has had multiple stent procedures. He has had stents of the distal right coronary artery x 2, 10/14/2005, stent of the proximal right coronary artery with a 2.75 x 12 mm Stryker on 10/04/2017, and stent of the ostium of the right coronary artery, 10/26/2017, with a 3.0 x 8 mm Idris. 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 The procedure he had 10/26/2017, was done with Aggrastat and he had an acute hematocrit drop from 27.6-20.8. He has got persistent anemia. He has been on Brilinta. He is very upset about being on Brilinta, he felt that he did better on Plavix before. He had EGD 11/07/2017, with a single angioectasia in the duodenum that was cauterized. He comes in now with complaints of generalized malaise and increased weakness. He will not take clonidine and says it makes him paralyzed. Denies any melanotic stools, or hematochezia. Denies any anginal pain since his last stent procedure. PAST MEDICAL HISTORY: Includes headaches, coronary artery disease, hyperlipidemia, hypertension, peripheral arterial disease, hyperlipidemia. PAST SURGICAL HISTORY: Includes bilateral carotid endarterectomies, appendectomy, cardiac stenting, wisdom teeth removal. MEDICATIONS: List is charted; however, he is not taking clonidine. His last dose of Brilinta was at 8 a.m. yesterday. FAMILY HISTORY: His father of a heart attack at age 49. SOCIAL HISTORY: Smoked 1/2 pack per day since age 18 and acted annoyed when I advised him to quit smoking and does not express any desire to quit smoking. PHYSICAL EXAMINATION: GENERAL: Shows an obese, angry-appearing white male. VITAL SIGNS: Blood pressures are charted. He has had some very high readings. HEENT: Unremarkable. NECK: Shows bilateral bruits. CHEST: Clear, but mildly diminished. CARDIAC: S1, S2, regular rate and rhythm with a grade 2-3/6 systolic early peaking ejection murmur. ABDOMEN: Soft, nontender. EXTREMITIES: Reveal no clubbing, cyanosis or edema. Pedal pulses are mildly diminished. SKIN: Pale. NEUROLOGIC: Alert and oriented. LABORATORY DATA: His lab work shows normal troponin. Hematocrit is 26.6. Creatinine is 0.94, hematocrit was 22 yesterday. IMPRESSION: Symptomatic anemia. A very difficult problem to treat when there is no obvious pathology, like an ulcer that could be easily treated and suggests there may be something deeper in the small bowel, which is more difficult to get to. Brilinta is definitely more potent than Plavix. His last dose of Brilinta was 8 a.m. yesterday. He has a strong noncompliance with the smoking problem he has. His blood pressure is difficult to control. PLAN: Not all of his blood pressure medicines were resumed. I will resume the enalapril and I am going to resume his atorvastatin. At 8 a.m. this morning, I am going to load him with 600 mg of Plavix and then 75 mg daily following the international consensus statement published last fall and how to switch from Brilinta to clopidogrel. Dr. Brewer will be available to follow tomorrow. He is severely iron deficient. It seemed to me he might benefit from intravenous iron, but I will defer this to the primary service. He definitely needs to be on iron supplementation; however. Kong Marcus MD VEW/TL , 06:37 AM , 08:37 AM
[2017-11-20] MEDS: METOPROLOL TARTRATE 50 MG TAB PO SCH (08:55)
[2017-11-20] MEDS: PANTOPRAZOLE SODIUM 40 MG VIAL IV PUSH SCH (08:55)
[2017-11-20] MEDS ORDERED: NON-FORMULARY DRUG (Amlodipine-Atorvastatin 1 TAB) PO SCH (09:00)
[2017-11-20] MEDS ORDERED: ATORVASTATIN 80 MG TAB PO SCH ×2 (09:00)
[2017-11-20] MEDS ORDERED: ASPIRIN EC 81 MG TABEC PO SCH (09:00)
[2017-11-20] MEDS ORDERED: ENALAPRIL MALEATE 10 MG TAB PO SCH (09:00)
--- NOTE | 2017-11-20 09:30 | HHI.PR ---
Subjective Remarks Follow up anemia, ?GI bleed. Patient states that he feels much better today. He wants to go home. Denies chest pain, dyspnea, nausea, vomiting. No bowel movements. No bleeding reported overnight. Objective Vitals Vital Signs Date Time Temp Pulse Resp B/P (MAP) Pulse Ox O2 Delivery O2 Flow Rate FiO2 11/20/17 08:00 97.4 89 19 192/82 (118) 96 11/20/17 03:42 98.7 78 18 192/81 (118) 96 11/19/17 23:51 98.9 94 18 175/74 (107) 97 11/19/17 20:21 98.3 97 18 178/73 (108) 97 11/19/17 20:09 97 21 11/19/17 18:40 98.5 94 16 179/69 94 11/19/17 18:19 98.1 94 16 180/69 94 11/19/17 17:52 98.7 97 20 186/78 (114) 95 11/19/17 17:42 11/19/17 17:16 97 18 173/70 (104) 97 Room Air 11/19/17 15:27 99 Room Air 11/19/17 15:20 99 Room Air 11/19/17 15:07 95 18 155/70 (98) 98 Room Air 11/19/17 14:35 98.0 104 20 227/89 (135) 99 I/O 11/19/17 11/19/17 11/19/17 11/20/17 11/20/17 11/20/17 07:00 15:00 23:00 07:00 15:00 23:00 Intake Total 820 ml Balance 820 ml Intake Oral 420 ml Packed Cells 400 ml # Voids 3 Result Diagram: 11/20/17 0310 11/20/17 0310 Imaging Last Impressions Chest X-Ray 11/19/17 1504 Signed Impressions: CONCLUSION: No evidence of acute cardiopulmonary disease. Objective Remarks General: No acute distress. Heart: Regular rate and rhythm. 2/6 systolic murmur. Lungs: Clear to auscultation bilaterally. No wheezes, rales, or rhonchi. Breathing is nonlabored. Abdomen: Soft, nontender, nondistended. Extremities: No lower extremity edema. Psych: Alert and oriented. Neuro: Normal speech. No focal deficits noted. Procedures None Urinary Catheter: No Vascular Central Line Catheter: No A/P Assessment and Plan 1. Acute anemia secondary to acute blood loss, most likely from upper GI bleed : Status post transfusion of 1 unit PRBCs. Hemoglobin improved. Monitor H&H. Further labs show iron deficiency. We will add iron supplementation. Consider hematology consult. 2. Likely upper GI bleed: Patient has not had any hematochezia or melena. Consult GI. Patient had EGD on 11/07/17. Monitor for bleeding. 3. Coronary artery disease: Status post recent angioplasty with stent placement. Continue aspirin, metoprolol, statin. Appreciate cardiology recommendations. Switching from Brilinta to Plavix. 4. Acute kidney injury: Creatinine trending down. Lasix and CRISTÓBAL inhibitors on hold. Monitor BUN and creatinine. 5. Hypertensive urgency: Continue Norvasc, metoprolol. 6. DVT prophylaxis: SCDs. Avoid chemical prophylaxis secondary to GI bleed, anemia. Discharge Planning When cleared by GI, cardiology. Israel Cardenas MD Nov 20, 2017 09:30
--- NOTE | 2017-11-20 10:04 | PD.CONS ---
HPI History of Present Illness This is a 67 year old M with PMH significant for PAD, carotid disease and CAD S/ P recent stent placement on October 26, was on Brilinta last dosage was yesterday and was switched to Plavix by cardiology, received a loading dose of 600 mg today with plans for 75 mg daily. Pt presented to the ER yesterday with complaints of light headedness and feeling dizzy, denies any chest pain, SOB, palpitations. Pt was found to be anemic, hgb 7.2, received one unit of PRBCs and is currently 8.7. Pt denies any obvious GIB. Denies nausea, vomiting, acid reflux, heartburn, abdominal pain. States BMs have been brown and formed. Was recently having melanotic stools and was evaluated at [facility]. EGD on november 07 --> Normal esophagus, small hiatal hernia, single angioectasia in the duodenum treated with APC. Last colonoscopy was approximately 15 years ago and reports colon polyps. PFSH Past Medical History Headaches Non-STEMI Hypercholesterolemia Hypertension Coronary artery disease PAD Past Surgical History Appendectomy Bilateral common iliac artery Cardiac stenting [place] tooth removal Carotid surgery EGD Colonoscopy Coded Allergies: No Known Allergies (Verified Allergy, Unknown, 11/19/17) Family History Father of a massive heart attack at 49. Social History Smokes 1/2 ppd since 18 yo. No significant alcohol use Review of Systems Gastrointestinal: DENIES: Abdominal pain, Black stools, Bloody stools, Constipation, Diarrhea, Nausea, Vomiting, Swelling of Abdomen, Heartburn, Hematemesis GI Exam Vitals I&O Vital Signs Date Time Temp Pulse Resp B/P (MAP) Pulse Ox O2 Delivery O2 Flow Rate FiO2 11/20/17 08:00 97.4 89 19 192/82 (118) 96 11/20/17 03:42 98.7 78 18 192/81 (118) 96 11/19/17 23:51 98.9 94 18 175/74 (107) 97 11/19/17 20:21 98.3 97 18 178/73 (108) 97 11/19/17 20:09 97 21 11/19/17 18:40 98.5 94 16 179/69 94 11/19/17 18:19 98.1 94 16 180/69 94 11/19/17 17:52 98.7 97 20 186/78 (114) 95 11/19/17 17:42 11/19/17 17:16 97 18 173/70 (104) 97 Room Air 11/19/17 15:27 99 Room Air 11/19/17 15:20 99 Room Air 11/19/17 15:07 95 18 155/70 (98) 98 Room Air 11/19/17 14:35 98.0 104 20 227/89 (135) 99 I/O 11/19/17 11/19/17 11/19/17 11/20/17 11/20/17 11/20/17 07:00 15:00 23:00 07:00 15:00 23:00 Intake Total 820 ml Balance 820 ml Intake Oral 420 ml Packed Cells 400 ml # Voids 3 Imaging Last Impressions Chest X-Ray 11/19/17 1504 Signed Impressions: CONCLUSION: No evidence of acute cardiopulmonary disease. Laboratory Test 11/19/17 15:15 11/19/17 16:30 11/20/17 03:10 White Blood Count 8.3 TH/MM3 8.7 TH/MM3 Red Blood Count 2.65 MIL/MM3 3.21 MIL/MM3 Hemoglobin 7.2 GM/DL 8.7 GM/DL Hematocrit 22.0 % 26.6 % Mean Corpuscular Volume 83.0 FL 83.0 FL Mean Corpuscular Hemoglobin 27.0 PG 27.0 PG Mean Corpuscular Hemoglobin Concent 32.6 % 32.6 % Red Cell Distribution Width 17.0 % 16.7 % Platelet Count 395 TH/MM3 394 TH/MM3 Mean Platelet Volume 7.4 FL 7.5 FL Neutrophils (%) (Auto) 73.3 % 63.1 % Lymphocytes (%) (Auto) 13.0 % 20.7 % Monocytes (%) (Auto) 11.2 % 12.0 % Eosinophils (%) (Auto) 2.0 % 3.3 % Basophils (%) (Auto) 0.5 % 0.9 % Neutrophils # (Auto) 6.1 TH/MM3 5.5 TH/MM3 Lymphocytes # (Auto) 1.1 TH/MM3 1.8 TH/MM3 Monocytes # (Auto) 0.9 TH/MM3 1.0 TH/MM3 Eosinophils # (Auto) 0.2 TH/MM3 0.3 TH/MM3 Basophils # (Auto) 0.0 TH/MM3 0.1 TH/MM3 CBC Comment DIFF FINAL DIFF FINAL Differential Comment Prothrombin Time 10.1 SEC Prothromb Time International Ratio 1.0 RATIO Activated Partial Thromboplast Time 21.7 SEC Blood Urea Nitrogen 18 MG/DL 16 MG/DL Creatinine 1.48 MG/DL 0.94 MG/DL Random Glucose 115 MG/DL 146 MG/DL Total Protein 6.9 GM/DL Albumin 3.5 GM/DL Calcium Level 8.7 MG/DL 8.6 MG/DL Alkaline Phosphatase 104 U/L Aspartate Amino Transf (AST/SGOT) 16 U/L Alanine Aminotransferase (ALT/SGPT) 29 U/L Total Bilirubin 0.2 MG/DL Sodium Level 141 MEQ/L 142 MEQ/L Potassium Level 4.3 MEQ/L 4.2 MEQ/L Chloride Level 107 MEQ/L 108 MEQ/L Carbon Dioxide Level 24.3 MEQ/L 25.2 MEQ/L Anion Gap 10 MEQ/L 9 MEQ/L Estimat Glomerular Filtration Rate 48 ML/MIN 81 ML/MIN Troponin I LESS THAN 0.02 NG/ML B-Type Natriuretic Peptide 116 PG/ML Lipase 132 U/L Thyroid Stimulating Hormone 3rd Gen 0.853 uIU/ML Urine Color YELLOW Urine Turbidity CLEAR Urine pH 5.5 Urine Specific [place] 1.022 Urine Protein TRACE mg/dL Urine Glucose (UA) NEG mg/dL Urine Ketones NEG mg/dL Urine Occult Blood NEG Urine Nitrite NEG Urine Bilirubin NEG Urine Urobilinogen 2.0 MG/DL Urine Leukocyte Esterase NEG Urine RBC LESS THAN 1 /hpf Urine WBC 1 /hpf Urine Squamous Epithelial Cells <1 /hpf Urine Mucus FEW /lpf Microscopic Urinalysis Comment CULT NOT INDICATED Iron Level 23 MCG/DL Total Iron Binding Capacity 466 MCG/DL Percent Iron Saturation 4.9 % Ferritin 7 NG/ML Physical Examination HEENT: Normocephalic; atraumatic CHEST: Even/unlabored CARDIAC: RRR ABDOMEN: Distended, firm, nontender, bowel sounds active EXTREMITIES: No clubbing, cyanosis, or edema. SKIN: Normal; no rash; no jaundice. ACTIVITY MANAGER: Alert and oriented times three. Assessment and Plan Plan Assessment: - Anemia, normocytic but labs indicated iron deficiency Pt denies any GI symptoms including nausea, vomiting, acid reflux, abdominal pain, constipation, diarrhea, blood in stool. History of GIB, melanotic stools and was evaluated in [facility]. Pt denies any continued black stool since EGD. EGD (11/07) Normal esophagus. Small hiatal hernia. Single angiectasia in the duodenum, treated with APC. Last colonoscopy 15 years ago with polyps. Of note, was given a loading dose of Plavix 600 mg today by cardiology with plans for 75 mg daily, last dose of Brilinta was yesterday Recent cardiac stent, CAD, PAD, pt is noncompliant and continues to smoke- cardiology following At this time, unable to do GI procedures given Plavix and there is no obvious GIB. Would recommend outpatient follow up for colonoscopy and capsule endoscopy. Cardiology also has recommended iron supplementation Plan: Monitor H/H Transfuse as needed Iron replacement Unable to do GI procedures at this time GI will sign off, have pt follow up in the office after DC Pt has been seen and examined by myself and Dr. Negro and this note is written on his behalf Yasemin Costa Nov 20, 2017 10:04
[2017-11-20 12:00] VITALS: BP 160/70; PULSE 62; RESP 18; TEMP 98; O2SAT 96
[2017-11-20 16:00] VITALS: BP 192/84; PULSE 74; RESP 19; TEMP 97.4; O2SAT 96
[2017-11-20] MEDS ORDERED: FERROUS SULFATE 325 MG (65 MG ELEMENTAL IRON) TAB PO SCH (17:00)
[2017-11-20 18:16] LABS: HEMATOCRIT 26.4 % (39.0-51.0); HEMOGLOBIN 8.7 GM/DL (13.0-17.0)
--- NOTE | 2017-11-20 20:42 | PD.AMA ---
Against Medical Advice Note Discharge Disposition: Against Medical Advice Pt Condition on Discharge: Guarded AMA Statement Patient Mayank Ochoa has decided to leave the hospital against medical advice. This patient has the capacity to refuse care and understands the risks of leaving, including permanent disability and/or , and has had an opportunity to ask questions about his condition. The patient has been informed that he may return for care at any time, and follow up has been arranged/ advised. Patient states he knows when he is bleeding and will return if he does. Tomorrow he states he will follow up with Dr. Brewer. He was adamant about leaving despite advice to be monitored over night.. Johana Luis Nov 20, 2017 20:42
[2017-11-21] MEDS ORDERED: CLOPIDOGREL 75 MG TAB PO SCH (09:00)
== END 2017-11-20 20:30 | disposition left against medical advice (07) ==
LOC: NEPE 14:30 → NEDA 16:37 → NEPFCDU 18:04
PROVIDERS: ADMIT Family Medicine; ATTEND Family Medicine
DX: D50.0 Iron deficiency anemia secondary to blood loss (chronic) (principal); I25.10 Atherosclerotic heart disease of native coronary artery without angina pectoris; N17.9 Acute kidney failure, unspecified; I16.0 Hypertensive urgency; I10 Essential (primary) hypertension; E78.00 Pure hypercholesterolemia, unspecified; I25.2 Old myocardial infarction; I73.9 Peripheral vascular disease, unspecified; F40.240 Claustrophobia; F17.200 Nicotine dependence, unspecified, uncomplicated; Z95.5 Presence of coronary angioplasty implant and graft; Z79.899 Other long term (current) drug therapy; Z79.82 Long term (current) use of aspirin; Z91.19 Patient's noncompliance with other medical treatment and regimen
CPT/HCPCS: 36430; 71045; 80048; 80053; 81001; 82272; 82728; 83540; 83550; 83690; 83880; 84443; 84484; 85014; 85018; 85025; 85610; 85730; 86850; 86900; 86901; 86920; 96361; 96374; 96376; 99285; C9113; G0378; J7050; P9016

== ENCOUNTER 2018-01-11 02:40 | Inpatient (IN) ==
[2018-01-11] MEDS ORDERED: Succinylcholine Inj 200 MG/10 ML Vial ONE (02:54)
[2018-01-11] MEDS ORDERED: Etomidate Inj 40 MG/20 ML Vial IV.PUSH ONE (02:54)
[2018-01-11] MEDS ORDERED: Propofol 1000 mg/100 ml Inj 1,000 MG/100 ML BOTTLE ONE (03:08)
[2018-01-11] MEDS ORDERED: Nitroglycerin Drip Premix 50 MG/250 ML BOTTLE IV.CONT PRN (03:12)
[2018-01-11] MEDS ORDERED: Propofol 1000 mg/100 ml Inj 1,000 MG/100 ML BOTTLE IV.CONT PRN (03:14)
[2018-01-11] MEDS ORDERED: Succinylcholine Inj 100 MG/5 ML Syringe IV.PUSH ONE (03:15)
[2018-01-11] MEDS ORDERED: Etomidate Inj 20 MG/10 ML Ampul IV.PUSH ONE (03:15)
--- NOTE | 2018-01-11 03:23 | ED ---
HPI General Chief complaint: Chest Pain Stated complaint: Chest pains Time Seen by Provider: 01/11/18 03:12 Source: patient Limitations: altered mental status History of Present Illness HPI narrative: The patient is a 67 year old male who presents to the [facility] emergency department with a history of chest pain and shortness of breath brought in by private vehicle by his brother. The patient was urgently brought back prior to being triaged due to diaphoresis, severe chest pain, and shortness of breath. The patient on arrival back to the emergency department room was noted to be agitated, pale appearing, and diaphoretic. The patient reports that he has had chest pain since he had a stent placed in October 2017. The patient is initially agitated and would not allow oxygen to be placed on his face. The patient's initial O2 saturation was 82%, however he quickly went down to 64%. The patient was prepped for rapid sequence intubation. While the patient was preoxygenated with nonrebreather mask, the patient reported that he does smoke one half a pack of cigarettes per day. He is unsure whether he has a history of congestive heart failure, however he is on Lasix related to lower extremity edema. He reports that he has had a heart attack in the past. He denies any history of COPD. He reports that he did take an adult dose aspirin today along with Plavix. Related Data Home Medications Medication Instructions Recorded Confirmed atorvastatin 80 mg PO DAILY 01/11/18 01/11/18 clopidogrel 75 mg PO DAILY 01/11/18 01/11/18 enalapril maleate 20 mg PO DAILY 01/11/18 01/11/18 furosemide 40 mg PO BID 01/11/18 01/11/18 metoprolol tartrate 100 mg PO BID 01/11/18 01/11/18 Allergies Allergy/AdvReac Type Severity Reaction Status Date / Time No Known Allergies Allergy Verified 01/11/18 02:51 Review of Systems ROS Unobtainable unobtainable due to mental status (Due to respiratory distress) [facility] Medical History Medical History HTN (hypertension) (Acute) Hyperlipemia (Acute) Myocardial infarction (Acute) Surgical History Surgical History H/O cardiac catheterization (Acute) History of heart artery stent (Acute) Social History Social History Substance History: Unable to Obtain Smoking Status: Unknown if ever smoked How Often Do You Have a Drink Containing Alcohol: Unable to Obtain Recent Travel in [facility] within the Last 8 Weeks: No Recent Out of Country Travel within the Last 8 Weeks: No Immunization History Tetanus Immunization: Unable to Assess Hx Influenza Vaccine This Season: Unable to Assess Exam Const General: acute distress, anxious, diaphoretic and ill appearing Nutritional Appearance: well nourished Orientation: alert and other (Agitated) Limitations: altered mental status (Agitated due to respiratory distress) HENMT Head: normocephalic and atraumatic Nose: no nasal discharge and no epistaxis Mouth: moist mucous membranes Teeth and gingiva: other (The patient has upper dentures.) Throat: posterior oropharynx normal Eyes Sclera: normal sclerae Pupils: PERRL Neck Neck: no meningeal signs, trachea midline and no JVD Chest Chest: normal inspection of the chest Resp Effort & Inspection: cough, labored, pursed lip breathing and other (The patient has tachypnea.) Auscultation: crackles (Bilateral lung bases.) bilaterally and other (The patient has poor air movement with diminished breath sounds in bilateral bases.) Cardio Rate: tachycardic (Sinus tachycardia in the 120s. No pulse deficits to the extremities on simultaneous auscultation and palpation of his radial artery) Rhythm: regular rhythm Heart Sounds: no gallops, no murmurs and no rubs GI Inspection: non-distended Palpation: soft, no hepatosplenomegaly and nontender Skin General: other (The patient is diaphoretic and mottled.) Neuro General: alert and awake Cranial Nerves: other (The patient is uncooperative with formal neurologic exam although he has no evidence of facial asymmetry spontaneously moves all extremities with 5/5 strength, and intact sensation over all dermatomes) Speech: speech normal (The patient has conversational dyspnea.) Motor: strength 5/5 throughout and no movement abnormalities noted Extrem General: normal to inspection, no clubbing, no cyanosis and edema (2+ edema bilateral lower extremity) Laterality: bilaterally Psych Mood: congruent mood Affect: normal affect Judgment: judgment good Procedures Intubation Time Out Performed: No Sedative: etomidate Mg Given: 20 Paralytic: succinylcholine Mg Given: 100 Laryngoscope: fiber optic video scope ET Tube Size: 8 ET Tube Uncuffed: Yes Tube Secured Depth (cm): 24 Tube Secured Location: lips Tube Placement Confirmation: visualized tube passing through cords, equal breath sounds bilaterally, no breath sounds over epigastrium and confirmation by capnometry Patient Tolerated Procedure: well Intubation Complications: none Course Reevaluation(s) Reevaluation #1: The patient's brother arrived at the bedside and reports that he was called by his brother who lives just down the street from him regarding needing to go to the emergency department. He reported that he was short of breath. He reports that in route to this facility the patient was coughing of sputum. Reevaluated and noted to be bucking the ventilator. The patient had Versed added to his sedation regimen as a one-time bolus. Reevaluation #2: The patient continued to be agitated on the ventilator, intermittently hypotensive on propofol which was quickly resolved once the propofol was turned off. Patient was started on a Versed drip. Consultations Consultation #1: The patient's case including history, pertinent physical examination findings, and laboratory studies were discussed with Dr. Stephen. It was agreed that the patient would be admitted to the experience specialist's service. Initial Documented Vital Signs Pulse Rate 140 H 01/11/18 02:45 Respiratory Rate 40 H 01/11/18 02:45 Pulse Oximetry 82 L 01/11/18 02:45 Last Documented Vital Signs Temperature 97.9 F 01/11/18 03:12 Pulse Rate 102 H 01/11/18 06:12 Respiratory Rate 18 01/11/18 06:12 Blood Pressure 114/50 L 01/11/18 06:12 Pulse Oximetry 95 01/11/18 06:12 Critical Care Time Critical Care Time: Yes Total Critical Care Time: 38 Attestation: Aggregate critical care time was 38 minutes. Time to perform other separately billable procedures was not included in the critical care time. My time did not include minutes spent treating any other patients simultaneously or on activities that did not directly contribute to the patient's treatment. The services I provided to this patient were to treat and/or prevent clinically significant deterioration that could result in: Respiratory failure, versus cardiovascular collapse, versus hypoxic brain injury I provided critical care services requiring my management, as noted below: Chart data review, documentation time, medication orders and management, vital sign assessments/reviewing monitor data, ordering and reviewing lab tests, ordering and interpreting/reviewing x-rays and diagnostic studies, care of the patient and discussion of the patient with the admitting physicians. Medical Decision Making MDM Narrative Medical decision making narrative: During the course of the patient's emergency department visit, the patient's history, examination, and differential diagnosis were reviewed with the patient. The patient was placed on a equipment monitor phototypesetting with oximetry and frequent blood pressure monitoring. The patient had IV access obtained and blood work sent for analysis. Patient was in respiratory distress and was prepared for RSI. The patient was intubated by me with an 8 size endotracheal tube. Patient tolerated the procedure well. The patient was placed on propofol for sedation. The patient had an OG tube placed to intermittent suction. The patient had a Bernal catheter placed to gravity. A chest x-ray was done. The chest x-ray revealed what appeared to be congestive heart failure. The patient was given Lasix 60 mg IV. The patient had complained of chest pain with hypertensive on arrival, it was written for nitroglycerin drip to be started. Laboratory studies are remarkable for white count of 18.3, platelets 510, monocytosis at 13.5, hemoglobin is noted to be 8.1 which is compared to prior hemoglobins in the system, last hemoglobin was 8.7 on November 20. It appears that the patient has a history of GI bleed previously. The patient will be typed and crossmatched in case blood is needed to be administered. PT 10.5, PTT 21.4 , CMP is remarkable for a troponin I that is chemistries remarkable for a troponin I of 0.03, CPK 93, glucose 225, GFR 48, creatinine is 1.48, CO2 19.2, BUN 22, BNP is 356, anion gap is 20, alk phos 121, urinalysis shows trace leukocyte esterase, rare bacteria, otherwise unremarkable. An ABG on the ventilator is noted to show a PO2 of 154, PCO2 50, bicarb 29, pH 7.38. Differential Diagnosis Differential Diagnosis: Acute coronary syndrome, versus congestive heart failure , versus symptomatic anemia, versus pulmonary embolism, versus pneumonia, versus ARDS Medical Records Medical records reviewed: Yes I reviewed the patient's medical records. Lab Data Lab results reviewed: Yes I reviewed the patient's lab results. Result diagrams: 01/11/18 03:25 01/11/18 03:25 Lab Results 01/11/18 01/11/18 01/11/18 Range/Units 03:25 03:25 03:25 WBC 18.3 H (4.0-11.0) th/mm3 RBC 3.76 L (4.50-5.90) mil/mm3 Hgb 8.1 L (13.0-17.0) gm/dL Hct 28.8 L (39.0-51.0) % MCV 76.6 L (80.0-100.0) fL MCH 21.5 L (27.0-34.0) pg MCHC 28.1 L (32.0-36.0) % RDW 19.7 H (11.6-17.2) % Plt Count 510 H (150-450) th/mm3 MPV 8.2 (7.0-11.0) fL Prelim Diff (Auto) Slide review pending Neut % (Auto) 47.5 (16.0-70.0) % Lymph % (Auto) 36.0 (9.0-44.0) % [place] % (Auto) 13.5 H (0.0-8.0) % Eos % (Auto) 2.6 (0.0-4.0) % Baso % (Auto) 0.4 (0.0-2.0) % Neut # (Auto) 8.7 H (1.8-7.7) th/mm3 Lymph # (Auto) 6.6 H (1.0-4.8) th/mm3 [place] # (Auto) 2.5 H (0.0-0.9) th/mm3 Eos # (Auto) 0.5 H (0.0-0.4) th/mm3 Baso # (Auto) 0.1 (0.0-0.2) th/mm3 WBC Differential Manual diff final Seg Neuts % (Manual) 58 (16-70) % Lymphocytes % (Manual) 24 (9-44) % Monocytes % (Manual) 13 H (0-8) % Eosinophils % (Manual) 5 H (0-4) % Abs Neuts (Manual) 10.6 H (1.8-7.7) th/mm3 Differential Comment . Platelet Estimate High H (Normal) Platelet Morphology Normal (Normal) PT 10.5 (9.8-11.6) sec INR 1.0 Ratio APTT 21.4 L (24.3-30.1) sec D-Dimer Quant (PE/DVT) 0.69 H (0.00-0.50) mg/L FEU Puncture Site Patient Temperature O2 Saturation (90-100) % ABG pH (7.380-7.420) ABG pCO2 (38-42) mmHg ABG pO2 (61-120) mmHg ABG HCO3 (22-26) mmol/L ABG O2 Content (12.0-20.0) Vol % ABG Base Excess (-2-2) mmol/L ABG Methemoglobin (0-2) % Kali Test Hemoglobin (12.0-16.0) G/DL Carboxyhemoglobin (0-4) % O2 Delivery Device Vent Setting Inspired O2 % Critical Value Sodium 141 (136-145) meq/L Potassium 4.0 (3.5-5.1) meq/L Chloride 102 (98-107) meq/L Carbon Dioxide 19.2 L (21.0-32.0) meq/L Anion Gap 20 H (5-15) meq/L BUN 22 H (7-18) mg/dL Creatinine 1.48 H (0.60-1.30) mg/dL Estimated GFR 48 L (>89) mL/min Random Glucose 225 H (74-106) mg/dL Calcium 9.6 (8.5-10.1) mg/dL Magnesium 2.3 (1.5-2.5) mg/dL Total Bilirubin 0.3 (0.2-1.0) mg/dL AST 17 (15-37) U/L ALT 31 (12-78) U/L Alkaline Phosphatase 121 H (45-117) U/L Total Creatine Kinase 93 (39-308) U/L Troponin I 0.03 (0.02-0.05) ng/mL B-Natriuretic Peptide (0-100) pg/mL Total Protein 7.5 (6.4-8.2) g/dL Albumin 3.9 (3.4-5.0) g/dL Lipase 129 (73-393) U/L Urine Color (Yellw/Straw) Urine Clarity (Clear) Urine pH (5.0-8.5) Ur Specific [place] (1.002-1.035) Urine Protein (Neg-Trace) mg/dL Urine Glucose (UA) (Negative) mg/dL Urine Ketones (Negative) mg/dL Urine Occult Blood (Negative) Urine Nitrate (Negative) Urine Bilirubin (Negative) Urine Urobilinogen (Less than 2) mg/dL Ur Leukocyte Esterase (Negative) Urine RBC (0-3) /hpf Urine WBC (0-5) /hpf Ur Squamous Epith Cells (0-5) /hpf Urine Bacteria (None) /hpf Micro UA Comment Urine Culture Comments 01/11/18 01/11/18 01/11/18 Range/Units 03:25 03:50 05:20 WBC (4.0-11.0) th/mm3 RBC (4.50-5.90) mil/mm3 Hgb (13.0-17.0) gm/dL Hct (39.0-51.0) % MCV (80.0-100.0) fL MCH (27.0-34.0) pg MCHC (32.0-36.0) % RDW (11.6-17.2) % Plt Count (150-450) th/mm3 MPV (7.0-11.0) fL Prelim Diff (Auto) Neut % (Auto) (16.0-70.0) % Lymph % (Auto) (9.0-44.0) % [place] % (Auto) (0.0-8.0) % Eos % (Auto) (0.0-4.0) % Baso % (Auto) (0.0-2.0) % Neut # (Auto) (1.8-7.7) th/mm3 Lymph # (Auto) (1.0-4.8) th/mm3 [place] # (Auto) (0.0-0.9) th/mm3 Eos # (Auto) (0.0-0.4) th/mm3 Baso # (Auto) (0.0-0.2) th/mm3 WBC Differential Seg Neuts % (Manual) (16-70) % Lymphocytes % (Manual) (9-44) % Monocytes % (Manual) (0-8) % Eosinophils % (Manual) (0-4) % Abs Neuts (Manual) (1.8-7.7) th/mm3 Differential Comment Platelet Estimate (Normal) Platelet Morphology (Normal) PT (9.8-11.6) sec INR Ratio APTT (24.3-30.1) sec D-Dimer Quant (PE/DVT) (0.00-0.50) mg/L FEU Puncture Site Right radial Patient Temperature 98.6 O2 Saturation 96 (90-100) % ABG pH 7.38 (7.380-7.420) ABG pCO2 50 H (38-42) mmHg ABG pO2 154 H (61-120) mmHg ABG HCO3 29 H (22-26) mmol/L ABG O2 Content 9.4 L (12.0-20.0) Vol % ABG Base Excess 4.1 H (-2-2) mmol/L ABG Methemoglobin 0.7 (0-2) % Kali Test Present Hemoglobin 6.8 L* (12.0-16.0) G/DL Carboxyhemoglobin 3.5 (0-4) % O2 Delivery Device Ventilator Vent Setting Inspired O2 100 % Critical Value Yes Sodium (136-145) meq/L Potassium (3.5-5.1) meq/L Chloride (98-107) meq/L Carbon Dioxide (21.0-32.0) meq/L Anion Gap (5-15) meq/L BUN (7-18) mg/dL Creatinine (0.60-1.30) mg/dL Estimated GFR (>89) mL/min Random Glucose (74-106) mg/dL Calcium (8.5-10.1) mg/dL Magnesium (1.5-2.5) mg/dL Total Bilirubin (0.2-1.0) mg/dL AST (15-37) U/L ALT (12-78) U/L Alkaline Phosphatase (45-117) U/L Total Creatine Kinase (39-308) U/L Troponin I (0.02-0.05) ng/mL B-Natriuretic Peptide 356 H (0-100) pg/mL Total Protein (6.4-8.2) g/dL Albumin (3.4-5.0) g/dL Lipase (73-393) U/L Urine Color Straw (Yellw/Straw) Urine Clarity Clear (Clear) Urine pH 6.0 (5.0-8.5) Ur Specific [place] 1.005 (1.002-1.035) Urine Protein Negative (Neg-Trace) mg/dL Urine Glucose (UA) Negative (Negative) mg/dL Urine Ketones Negative (Negative) mg/dL Urine Occult Blood Negative (Negative) Urine Nitrate Negative (Negative) Urine Bilirubin Negative (Negative) Urine Urobilinogen Less than 2 (Less than 2) mg/dL Ur Leukocyte Esterase Trace H (Negative) Urine RBC 1 (0-3) /hpf Urine WBC 2 (0-5) /hpf Ur Squamous Epith Cells <1 (0-5) /hpf Urine Bacteria Rare H (None) /hpf Micro UA Comment Cath-culture ind Urine Culture Comments Cath-cult indicated Imaging Data Radiologist's impression: Chest X-Ray 01/11/18 03:12 CONCLUSION: 1. Diffuse, mixed interstitial and airspace process throughout the right lung. There may be minimal left perihilar infiltrate as well. Otherwise, left lung is clear. 2. Endotracheal tube well positioned above the bhavik. Nasogastric tube just enters the stomach and should probably be advanced a few centimeters. ECG Data EKG Prior to Arrival: Yes Attestation: I personally reviewed and interpreted this ECG as follows: Interpretation: The patient had an EKG done on arrival while the patient was in distress that showed a sinus tachycardia of 123 with a tremulous baseline artifact, therefore after intubation this was repeated. The patient had a sinus tachycardia rate of 103, QRS duration 89 ms, QTC [address] depression was noted. No acute ST segment elevation was noted. ST depression was noted in leads II, 3, aVF, lead I, V4, V5, V6. T-wave inversions were noted in aVL. Discharge Plan Discharge Disposition Patient Disposition: 30 Still Patient Discharge Details Diagnosis: Respiratory failure, Congestive heart failure Physicians Team ED Provider: Lashanda Marcus Primary Care Provider: UNKNOWN, Attending Provider: Mathew Stephen Other Providers: Krishna Beatty Status ED Status: Admitted Patient
[2018-01-11] MEDS ORDERED: Midazolam Inj 5 MG/ML 1 ML Vial ONE ×2 (03:25→04:54)
--- NOTE | 2018-01-11 03:50 | XR ---
EXAM DATE: 01/11/2018 3:39 AM EDT AGE/SEX: 67 years / Male INDICATIONS: Post intubation. CLINICAL DATA: This is the patient's initial encounter. Patient reports that signs and symptoms have been present for 1 day and indicates a pain score of Nonresponsive. MEDICAL/SURGICAL HISTORY: Hypertension. Myocardial infarction. Coronary artery stent. Cardiac catheterization. COMPARISON: [facility] [place], CHEST SINGLE AP, 11/19/2017. . FINDINGS: A single AP view of the chest demonstrates diffuse mixed interstitial and airspace process in the rig ht hemithorax. There may be some minimal perihilar infiltrate. The left lung is otherwise grossly sukhi ar. Heart size is normal. Endotracheal tube with the tip just below the clavicular heads and well abo ve the bhavik. Nasogastric tube appears to just enter the stomach with the side-port above the GE hina ction. CONCLUSION: 1. Diffuse, mixed interstitial and airspace process throughout the right lung. There may be minimal left perihilar infiltrate as well. Otherwise, left lung is clear. 2. Endotracheal tube well positioned above the bhavik. Nasogastric tube just enters the stomach and should probably be advanced a few centimeters. Electronically signed by: Arron Montgomery MD 01/11/2018 3:49 AM EDT
[2018-01-11 03:55] LABS: Alanine Aminotransferase 31 U/L (12-78); Albumin 3.9 g/dL (3.4-5.0); Anion Gap 20 meq/L (5-15); Aspartate Aminotransferase 17 U/L (15-37); Blood Urea Nitrogen 22 mg/dL (7-18); Calcium 9.6 mg/dL (8.5-10.1); Carbon Dioxide 19.2 meq/L (21.0-32.0); Chloride 102 meq/L (98-107); Glomerular Filtration Rate 48 mL/min (>89); Glucose,Random 225 mg/dL (74-106); Lipase 129 U/L (73-393); Magnesium 2.3 mg/dL (1.5-2.5); Sodium 141 meq/L (136-145)
[2018-01-11 03:59] LABS: Alkaline Phosphatase 121 U/L (45-117); Total Protein 7.5 g/dL (6.4-8.2); Troponin I 0.03 ng/mL (0.02-0.05)
[2018-01-11 04:01] LABS: Baso # (Auto) 0.1 th/mm3 (0.0-0.2); Baso % (Auto) 0.4 % (0.0-2.0); Eos # (Auto) 0.5 th/mm3 (0.0-0.4); Eos % (Auto) 2.6 % (0.0-4.0); Hematocrit 28.8 % (39.0-51.0); Hemoglobin 8.1 gm/dL (13.0-17.0); Lymph # (Auto) 6.6 th/mm3 (1.0-4.8); Mean Corpuscular Hemoglobin 21.5 pg (27.0-34.0); Mean Corpuscular Volume 76.6 fL (80.0-100.0); Mean Platelet Volume 8.2 fL (7.0-11.0); Mono # (Auto) 2.5 th/mm3 (0.0-0.9); Mono % (Auto) 13.5 % (0.0-8.0); Neut # (Auto) 8.7 th/mm3 (1.8-7.7); Neut % (Auto) 47.5 % (16.0-70.0); Platelet Count 510 th/mm3 (150-450); Red Blood Count 3.76 mil/mm3 (4.50-5.90); Red Cell Distribution Width 19.7 % (11.6-17.2); White Blood Count 18.3 th/mm3 (4.0-11.0)
[2018-01-11 04:02] LABS: Mean Corpuscular HGB Conc 28.1 % (32.0-36.0)
[2018-01-11 04:07] LABS: Creatine Kinase 93 U/L (39-308)
[2018-01-11 04:11] LABS: Activated Partial Thrombo Time 21.4 sec (24.3-30.1); Prothrombin Time 10.5 sec (9.8-11.6)
[2018-01-11 04:18] LABS: Bacteria,Urine Rare /hpf; Bilirubin,Urine Negative (Negative); Clarity,Urine Clear (Clear); Color,Urine Straw (Yellw/Straw); Glucose,Urine (UA) Negative (Negative); Leukocyte Esterase,Urine Trace (Negative); Nitrite,Urine Negative (Negative); Specific Gravity,Urine 1.005 (1.002-1.035); Squamous Epithelial Cell,Urine <1 /hpf (0-5)
[2018-01-11 04:25] LABS: D-Dimer 0.69 mg/L FEU (0.00-0.50)
[2018-01-11] MEDS ORDERED: Midazolam 50 MG/50 ML Inj 50 MG/50 ML BAG IV.CONT ONE ×2 (04:25→09:55)
[2018-01-11] MEDS: Midazolam 50 MG/50 ML Inj 50 MG/50 ML BAG IV.CONT PRN ×4 (04:35→15:31)
[2018-01-11 04:56] LABS: Eosinophils 5 % (0-4); Lymphocytes 24 % (9-44); Monocytes 13 % (0-8); Platelet Morphology Normal (Normal)
[2018-01-11] MEDS ORDERED: fentaNYL 10 mcg/mL Premix Drip 2,500 MCG/250 ML BAG ONE (05:07)
[2018-01-11] MEDS ORDERED: HYDROmorphone PF Inj 2 MG/ML Vial IV.PUSH PRN (05:12)
[2018-01-11] MEDS ORDERED: Acetaminophen 325 MG Tablet PO PRN (05:12)
[2018-01-11] MEDS ORDERED: Bisacodyl 10 MG Supp RECTAL PRN (05:12)
--- NOTE | 2018-01-11 05:22 | P.HPCC ---
History of Present Illness Primary Care Physician: UNKNOWN History of Present Illness: 67 year old male presents with a history of chest pain and shortness of breath. In the emergency department he was profusely diaphoretic with severe chest pain, and shortness of breath. He was noted to be agitated, pale appearing, and diaphoretic. Per chart review he has had chest pain since he had a stent placed in October 2017. The patient was initially agitated and would not allow oxygen to be placed on his face and was intubated by ED attending for an airway protection and severe respiratory distress. He reports that he has had a heart attack in the past. He denies any history of COPD. He reports that he did take an adult dose aspirin today along with Plavix. Inpatient Certification: I certify that the inpatient services were ordered in accordance with Medicare regulations governing the order. This includes certification that hospital inpatient services are reasonable and necessary and in the case of services not specified as inpatient-only under 42 CFR 419.22(n), that they are appropriately provided as inpatient services in accordance to with the 2-midnight benchmark under 43 CFR 412.3(e) Estimated Total Length of Stay (Days): 5 Plans for Post Hospital Care: Not yet determined Review of Systems unobtainable due to endotracheal tube PMFSH - History History Provided By: Patient - Medical History Medical History: Medical History (Last Reviewed 01/11/18 @ 03:19 by Lashanda Marcus MD) HTN (hypertension) Hyperlipemia Myocardial infarction - Surgical History Surgical History: Surgical History (Last Reviewed 01/11/18 @ 03:19 by Lashanda Marcus MD) H/O cardiac catheterization History of heart artery stent - Tobacco History Smoking Status: Unknown if ever smoked - Alcohol History How Often Do You Have a Drink Containing Alcohol: Unable to Obtain - Substance Use History Substance History: Unable to Obtain - Travel History Recent Travel in the [place] Within the Last 8 Weeks: No Recent Travel Out of the Country Within the Last 8 Weeks: No - Immunization History Tetanus Immunization: Unable to Assess Hx Influenza Vaccine This Season: Unable to Assess Medications and Allergies Active Medications: Active Medications Acetaminophen (Tylenol) 650 mg PO Q6H PRN PRN Reason: PAIN 1-10 AND/OR FEVER >101F Al Hydroxide/Mg Hydroxide (Milk Of Magnesia Liq) 30 ml PO Q12H PRN PRN Reason: Mild Constipation Atorvastatin Calcium (Lipitor) 80 mg PO DAILY [facility] Bisacodyl (Dulcolax Supp) 10 mg RECTAL DAILY PRN PRN Reason: SEVERE CONSITIPATION Chlorhexidine Gluconate (Peridex 0.12% Oral Kit) 15 ml OROPHARYNG BID@0800, 2000 [facility] Chlorhexidine Gluconate (Chlorhexidine 2% Cloth) 3 pack TOPICAL DAILY@0400 PRN PRN Reason: Extra cloth needed Stop: 01/17/18 03:59 Chlorhexidine Gluconate (Chlorhexidine 2% Cloth) 3 pack TOPICAL DAILY@0400 [facility] Stop: 01/17/18 03:59 Clopidogrel Bisulfate (Plavix) 75 mg PO DAILY [facility] Enalapril Maleate (Vasotec) 20 mg PO DAILY [facility] Famotidine (Pepcid Pf Inj) 20 mg IV.PUSH Q12HR [facility]RI[facility] Furosemide (Lasix Inj) 20 mg IV.PUSH Q6H [facility] Heparin Sodium (Porcine) (Heparin Inj) 5,000 units SQ Q8H [facility] Hydromorphone HCl (Dilaudid Pf Inj) 1 mg IV.PUSH Q4H PRN PRN Reason: PAIN SCALE 6 TO 10 Nitroglycerin/Dextrose (Nitroglycerin Drip Premix) 50 mg in 250 mls @ 0 mls/hr IV.CONT TITRATE PRN; Protocol PRN Reason: Per Protocol Propofol (Diprivan 1000 Mg/100 Ml Inj) 1,000 mg in 100 mls @ 3.402 mls/hr IV.CONT TITRATE PRN; Protocol PRN Reason: Per Protocol Midazolam HCl (Versed Inj) 50 mg in 50 mls @ 2 mls/hr IV.CONT TITRATE PRN; Protocol PRN Reason: Per Protocol Lactulose (Lactulose Liq) 30 ml PO DAILY PRN PRN Reason: SEVERE CONSITIPATION Senna/Docusate Sodium (Savita-Colace) 1 tab PO BID [facility] Sennosides (Senokot) 17.2 mg PO Q12H PRN PRN Reason: Moderate Constipation Sodium Chloride (Ns Flush) 2 ml IV.FLUSH UNSCH PRN PRN Reason: FLUSH AFTER USING IV ACCESS Sodium Chloride (Ns Flush) 2 ml IV.FLUSH PRN PRN PRN Reason: FLUSH AFTER USING IV ACCESS Sodium Chloride (Ns Flush) 2 ml IV.FLUSH BID [facility] Sodium Chloride (Ns Flush) 2 ml IV.FLUSH PRN PRN PRN Reason: FLUSH AFTER USING IV ACCESS Allergies Allergy/AdvReac Type Severity Reaction Status Date / Time No Known Allergies Allergy Verified 01/11/18 02:51 Home Medications Medication Instructions Recorded Confirmed Type atorvastatin 80 mg PO DAILY 01/11/18 01/11/18 History clopidogrel 75 mg PO DAILY 01/11/18 01/11/18 History enalapril maleate 20 mg PO DAILY 01/11/18 01/11/18 History furosemide 40 mg PO BID 01/11/18 01/11/18 History metoprolol tartrate 100 mg PO BID 01/11/18 01/11/18 History Results - Labs CBC & Chem 7: 01/11/18 03:25 01/11/18 03:25 Labs: Short CBC 01/11/18 Range/Units 03:25 WBC 18.3 H (4.0-11.0) th/mm3 Hgb 8.1 L (13.0-17.0) gm/dL Hct 28.8 L (39.0-51.0) % Plt Count 510 H (150-450) th/mm3 BMP 01/11/18 03:25 Sodium 141 Potassium 4.0 Chloride 102 Carbon Dioxide 19.2 L BUN 22 H Creatinine 1.48 H Calcium 9.6 Cardiac Enzymes 01/11/18 Range/Units 03:25 Total Creatine Kinase 93 (39-308) U/L Troponin I 0.03 (0.02-0.05) ng/mL Liver Function 01/11/18 Range/Units 03:25 Total Bilirubin 0.3 (0.2-1.0) mg/dL AST 17 (15-37) U/L ALT 31 (12-78) U/L Alkaline Phosphatase 121 H (45-117) U/L Albumin 3.9 (3.4-5.0) g/dL Urine 01/11/18 Range/Units 03:50 Urine Color Straw (Yellw/Straw) Urine Clarity Clear (Clear) Urine pH 6.0 (5.0-8.5) Ur Specific [place]key 1.005 (1.002-1.035) Urine Protein Negative (Neg-Trace) mg/dL Urine Glucose (UA) Negative (Negative) mg/dL - Imaging Impressions Chest X-Ray 01/11/18 03:12 CONCLUSION: 1. Diffuse, mixed interstitial and airspace process throughout the right lung. There may be minimal left perihilar infiltrate as well. Otherwise, left lung is clear. 2. Endotracheal tube well positioned above the bhavik. Nasogastric tube just enters the stomach and should probably be advanced a few centimeters. Exam Vital signs: Vital Signs 01/11/18 02:45 01/11/18 02:59 01/11/18 03:12 Temperature 97.9 F Pulse Rate 140 H 134 H 101 H Respiratory Rate 40 H 36 H 24 Blood Pressure 219/94 H 106/53 L Pulse Oximetry 82 L 99 100 01/11/18 03:14 01/11/18 03:22 01/11/18 03:55 Temperature Pulse Rate 106 H 110 H 116 H Respiratory Rate 20 24 Blood Pressure 154/71 H 93/51 L Pulse Oximetry 99 100 01/11/18 04:00 Temperature Pulse Rate Respiratory Rate 25 H Blood Pressure Pulse Oximetry 95 Intake & Output 01/10/18 01/10/18 01/11/18 06:59 18:59 06:59 Weight 113.398 kg - Constitutional moderate distress - Routine HEENT Exam Head: Present: normocephalic, atraumatic Eye: Present: PERRL ENT: Present: mucous membranes moist - Routine Neck Exam Absent: JVD, carotid bruit - Routine Respiratory Exam Present: patient mechanically ventilated, rales, rhonchi. Absent: stridor, wheezes - Routine Cardiovascular Exam Present: RRR, S1, S2, tachycardia - Routine Abdominal Exam Present: soft, normoactive bowel sounds. Absent: tenderness, distended - Routine Extremities Exam Absent: cyanosis, clubbing - Routine Skin Exam Present: intact. Absent: cyanosis, erythema - Routine Neurological Exam Present: moving all extremities. Absent: alert Caprini VTE Risk Assessment Caprini VTE Risk Assessment: Moderate/High Risk (score >= 2) Caprini Risk Assessment Model: Point Value = 1 Point Value = 2 Point Value = 3 Point Value = 5 Age 41-60 Minor surgery BMI > 25 kg/m2 Swollen legs Varicose veins or History of unexplained or recurrent spontaneous Oral contraceptives or hormone replacement Sepsis (< 1 month) Serious lung disease, including pneumonia (< 1 month) Abnormal pulmonary function Acute myocardial infarction Congestive heart failure (< 1 month) History of inflammatory bowel disease Medical patient at bed rest Age 61-74 Arthroscopic surgery Major open surgery (> 45 min) Laparoscopic surgery (> 45 min) Malignancy Confined to bed (> 72 hours) Immobilizing plaster cast Central venous access Age >= 75 History of VTE Family history of VTE Factor V Leiden Prothrombin [id number] Lupus anticoagulant Anticardiolipin antibodies Elevated serum homocysteine Heparin-induced thrombocytopenia Other congenital or acquired thrombophilia Stroke (< 1 month) Elective arthroplasty Hip, pelvis, or leg fracture Acute spinal cord injury (< 1 month) Prophylaxis Regimen: Total Risk Factor Score Risk Level Prophylaxis Regimen 0-1 Low Early ambulation 2 Moderate Order ONE of the following: *Sequential Compression Device (SCD) *Heparin 5000 units SQ BID 3-4 Higher Order ONE of the following medications: *Heparin 5000 units SQ TID *Enoxaparin/Lovenox 40 mg SQ daily (WT < 150 kg, CrCl > 30 mL/min) *Enoxaparin/Lovenox 30 mg SQ daily (WT < 150 kg, CrCl > 10-29 mL/min) *Enoxaparin/Lovenox 30 mg SQ BID (WT < 150 kg, CrCl > 30 mL/min) AND/OR *Sequential Compression Device (SCD) 5 or more Highest Order ONE of the following medications: *Heparin 5000 units SQ TID (Preferred with Epidurals) *Enoxaparin/Lovenox 40 mg SQ daily (WT < 150 kg, CrCl > 30 mL/min) *Enoxaparin/Lovenox 30 mg SQ daily (WT < 150 kg, CrCl > 10-29 mL/min) *Enoxaparin/Lovenox 30 mg SQ BID (WT < 150 kg, CrCl > 30 mL/min) AND *Sequential Compression Device (SCD) Assessment and Plan - Assessment and Plan Plan: Respiratory failure -Acute CHF exacerbation -Mechanical ventilation -Vent bundle -Diuresis -CXR ABG daily Acute on chronic CHF exacerbation -Known history of coronary artery disease -Recent stent placed in October 2017 -Rule out acute coronary syndrome with series of troponins and EKGs -2D echo -Cardiology consultation -Continue CRISTÓBAL inhibitor, metoprolol, and diuretics Hypertension -Reduce metoprolol dose due to borderline blood pressures with sedation -Continue CRISTÓBAL inhibitor Dyslipidemia -Atorvastatin DVT GI prophylaxis -Teds SCDs -Subcu heparin -Pepcid Critical Care: The total critical care time was 35 minutes. Time to perform other separately billable procedures was not included in the critical care time.
[2018-01-11 06:15] LABS: ABG Base Excess 4.1 mmol/L (-2-2); ABG PCO2 50 mmHg (38-42); ABG PO2 154 mmHg (61-120)
[2018-01-11] MEDS: Heparin - SQ 10,000 UNITS/ML Vial SQ SCH ×2 (06:35→13:15)
[2018-01-11] MEDS ORDERED: Famotidine PF Inj 20 MG/2 ML Vial IV.PUSH SCH (09:00)
[2018-01-11] MEDS: Sodium Chlor 0.9% Inj 250 ML IV.SIG SCH ×2 (09:57→13:04)
[2018-01-11] MEDS: Metoprolol Tartrate 25 MG Tablet PO SCH ×2 (10:40→20:20)
[2018-01-11] MEDS: Senna/Docusate Sodium 8.6/50 MG Tablet PO SCH ×2 (10:40→20:19)
[2018-01-11] MEDS: fentaNYL 10 mcg/mL Premix Drip 2,500 MCG/250 ML BAG IV.SIG PRN (10:41)
[2018-01-11] MEDS: Chlorhexidine 0.12% Oral Kit 15 ML UDC OROPHARYNG SCH ×2 (12:57→20:20)
[2018-01-11] MEDS ORDERED: Heparin Drip 25,000 UNIT/250 ML BAG IV.CONT PRN (13:00)
[2018-01-11] MEDS: Metoprolol Inj 5 MG/5 ML Vial IV.PUSH SCH ×2 (13:07→18:45)
--- NOTE | 2018-01-11 13:49 | P.DIET ---
Nutritional Evaluation Type of nutrition evaluation: initial Nutrition consult regarding: Tube Feeding Subjective Subjective Comments: SCCM/ASPEN guidelines for BMI >30 used for assessment. Objective - Diagnosis Respiratory Failure, CHF - Objective % IBW: 162 (VBQ=870#) Energy Needs - Lower Range (kCal/kg): 11 Energy Needs - Upper Range (kCal/kg): 14 Lower Limit kCal/kg (kCals): 1,247 Upper Limit kCal/kg (kCals): 1,588 Lower Limit Protein Factor (Grams per Kg): 2 Dietitian Reviewed in Medical Record: Curent medications, Intake & Output, Labs , Medical history, Tube feeding Diet Order: TF Only Objective Comments: Meds: Fentanyl, Lasix, Propofol Labs: BUN 22, rubber cutting machine tender 1.48, eGFR 48, Gluc 225 (-) BM Assessment Assessment: Pt admitted for respiratory failure and CHF. Pt is currently intubated w/ TwoCal HN @ 55mls/hr running. To better meet pts nutritional requirements, recommend Vital High Protein @ 65mls/hr to provide 1560kcals, 137g PRO, and 1304mls fluid. Dietitian following. Recommendations: 1. Recommend Vital High Protein @ 65mls/hr. Dietitian to Monitor: Lab values, Intake & Output, Tube feeding tolerance, Weight change, Medical course
[2018-01-11 14:29] LABS: Mean Corpuscular Hemoglobin 21.7 pg (27.0-34.0); Mean Platelet Volume 7.6 fL (7.0-11.0); Platelet Count 342 th/mm3 (150-450); Red Blood Count 3.11 mil/mm3 (4.50-5.90); White Blood Count 13.7 th/mm3 (4.0-11.0)
[2018-01-11 15:03] LABS: Mean Corpuscular HGB Conc 30.2 % (32.0-36.0)
[2018-01-11 15:05] LABS: Hematocrit 22.4 % (39.0-51.0); Hemoglobin 6.8 gm/dL (13.0-17.0)
[2018-01-11] MEDS: Oral Hygiene Kit OROPHARYNG SCH (15:38)
[2018-01-11] MEDS: Pantoprazole Inj 40 MG Vial IV.PUSH SCH (15:38)
--- NOTE | 2018-01-11 16:08 | P.CONGI ---
History of Present Illness Consult date: 01/11/18 Consult reason: Anemia Chief complaint: Respiratory failure, CHF History of Present Illness: This is a 67 yo M with PMH significant for PAD, carotid disease and CAD S/P stent placement on October 26, currently on Plavix and ASA. Pt was seen by our service in November for anemia, at that time was noted no endoscopic procedures due to recent stent placement and need for antiplatelet therapy. Of note, pt had Brilinta day before our exam and was given a loading dose of Plavix the day of exam. Pt was not having any obvious GIB at that time. Last EGD done at [facility] for melanotic stools. EGD on november 07 --> Normal esophagus, small hiatal hernia, single angioectasia in the duodenum treated with APC. Last colonoscopy was approximately 15 years ago and reports colon polyps. At this time, pt is on sedation and orally intubated, therefore all history has been obtained through chart review. Per RN, pt has had no obvious GIB or a BM since arrival. He presented to ER with complaints of chest pain, was found to be hypoxic and emergently intubated. Now admitted to ICU, pt with elevated troponin pending cardiology evaluation. Pt was on Heparin gtt which has since been discontinued due to low hemoglobin. <Yasemin Costa - Last Filed: 01/11/18 16:35> Review of Systems unobtainable due to endotracheal tube <Yasemin Costa - Last Filed: 01/11/18 16:35> PMFSH - History History Provided By: Patient - Medical History Medical History: Medical History (Last Reviewed 01/11/18 @ 06:46 by Enedina Marcos) HTN (hypertension) Hyperlipemia Myocardial infarction - Surgical History Surgical History: Surgical History (Last Reviewed 01/11/18 @ 06:46 by Enedina Marcos) H/O cardiac catheterization History of heart artery stent - Tobacco History Smoking Status: Unknown if ever smoked - Alcohol History How Often Do You Have a Drink Containing Alcohol: Unable to Obtain - Substance Use History Substance History: Unable to Obtain - Travel History Recent Travel in the [place] Within the Last 8 Weeks: No Recent Travel Out of the Country Within the Last 8 Weeks: No - Immunization History Tetanus Immunization: Unable to Assess Hx Influenza Vaccine This Season: Unable to Assess <Yasemin Costa - Last Filed: 01/11/18 16:35> - Medical History Medical History: Medical History (Last Reviewed 01/11/18 @ 06:46 by Enedina Marcos) HTN (hypertension) Hyperlipemia Myocardial infarction - Surgical History Surgical History: Surgical History (Last Reviewed 01/11/18 @ 06:46 by Enedina Marcos) H/O cardiac catheterization History of heart artery stent <Maritza Linares - Last Filed: 01/12/18 18:22> Medications and Allergies Active Medications: Active Medications Acetaminophen (Tylenol) 650 mg PO Q6H PRN PRN Reason: PAIN 1-10 AND/OR FEVER >101F Al Hydroxide/Mg Hydroxide (Milk Of Alcira Irene) 30 ml PO Q12H PRN PRN Reason: Mild Constipation Albuterol (Duoneb Neb (Rickey)) 1 ampul NEB Q6HR ALT NEB COUNTS INCLUDE 234 BEDS AT THE [facility] Last Admin: 01/11/18 12:04 Dose: 1 ampul Albuterol (Duoneb Neb (Prn)) 1 ampul NEB Q2HR NEB PRN PRN Reason: WHEEZING Aspirin (Aspirin Chew) 81 mg PO DAILY COUNTS INCLUDE 234 BEDS AT THE [facility] Last Admin: 01/11/18 12:56 Dose: 81 mg Atorvastatin Calcium (Lipitor) 80 mg PO DAILY COUNTS INCLUDE 234 BEDS AT THE [facility] Last Admin: 01/11/18 10:40 Dose: 80 mg Bisacodyl (Dulcolax Supp) 10 mg RECTAL DAILY PRN PRN Reason: SEVERE CONSITIPATION Chlorhexidine Gluconate (Peridex 0.12% Oral Kit) 15 ml OROPHARYNG BID@0800, 2000 COUNTS INCLUDE 234 BEDS AT THE [facility] Last Admin: 01/11/18 12:57 Dose: Not Given Chlorhexidine Gluconate (Chlorhexidine 2% Cloth) 3 pack TOPICAL DAILY@0400 PRN PRN Reason: Extra cloth needed Stop: 01/17/18 03:59 Chlorhexidine Gluconate (Chlorhexidine 2% Cloth) 3 pack TOPICAL DAILY@0400 COUNTS INCLUDE 234 BEDS AT THE [facility] Stop: 01/17/18 03:59 Clopidogrel Bisulfate (Plavix) 75 mg PO DAILY COUNTS INCLUDE 234 BEDS AT THE [facility] Last Admin: 01/11/18 10:40 Dose: 75 mg Enalapril Maleate (Vasotec) 20 mg PO DAILY COUNTS INCLUDE 234 BEDS AT THE [facility] Last Admin: 01/11/18 10:40 Dose: 20 mg Furosemide (Lasix Inj) 20 mg IV.PUSH Q6H COUNTS INCLUDE 234 BEDS AT THE [facility] Last Admin: 01/11/18 12:29 Dose: 20 mg Hydromorphone HCl (Dilaudid Pf Inj) 1 mg IV.PUSH Q4H PRN PRN Reason: PAIN SCALE 6 TO 10 Nitroglycerin/Dextrose (Nitroglycerin Drip Premix) 50 mg in 250 mls @ 0 mls/hr IV.CONT TITRATE PRN; Protocol PRN Reason: Per Protocol Propofol (Diprivan 1000 Mg/100 Ml Inj) 1,000 mg in 100 mls @ 3.402 mls/hr IV.CONT TITRATE PRN; Protocol PRN Reason: Per Protocol Last Admin: 01/11/18 03:11 Dose: 5 mcg/kg/min, 3.4 mls/hr Midazolam HCl (Versed Inj) 50 mg in 50 mls @ 2 mls/hr IV.CONT TITRATE PRN; Protocol PRN Reason: Per Protocol Last Admin: 01/11/18 15:31 Dose: 10 mg/hr, 10 mls/hr Sodium Chloride (Ns Inj) 250 mls @ 15 mls/hr IV.SIG ONCE COUNTS INCLUDE 234 BEDS AT THE [facility] Stop: 01/11/18 23:39 Last Admin: 01/11/18 13:04 Dose: 10 mls/hr Fentanyl (Fentanyl 10 Mcg/Ml Premix Drip) 2,500 mcg in 250 mls @ 5 mls/hr IV.SIG TITRATE PRN; Protocol PRN Reason: Per Protocol Last Titration: 01/11/18 12:30 Dose: 100 mcg/hr, 10 mls/hr Heparin Sodium/Dextrose (Heparin/D5w 25,000 U/250 Ml) 25,000 unit in 250 mls @ 10 mls/hr IV.CONT TITRATE PRN; Protocol PRN Reason: Per Protocol Last Admin: 01/11/18 13:07 Dose: 1,000 units/hr, 10 mls/hr Lactulose (Lactulose Liq) 30 ml PO DAILY PRN PRN Reason: SEVERE CONSITIPATION Metoprolol Tartrate (Lopressor) 12.5 mg PO BID COUNTS INCLUDE 234 BEDS AT THE [facility] Last Admin: 01/11/18 10:40 Dose: 12.5 mg Metoprolol Tartrate (Lopressor Inj) 2.5 mg IV.PUSH Q6H COUNTS INCLUDE 234 BEDS AT THE [facility] Last Admin: 01/11/18 13:07 Dose: 2.5 mg Pantoprazole Sodium (Protonix Inj) 40 mg IV.PUSH Q12H COUNTS INCLUDE 234 BEDS AT THE [facility] Last Admin: 01/11/18 15:38 Dose: 40 mg Senna/Docusate Sodium (Savita-Colace) 1 tab PO BID COUNTS INCLUDE 234 BEDS AT THE [facility] Last Admin: 01/11/18 10:40 Dose: 1 tab Sennosides (Senokot) 17.2 mg PO Q12H PRN PRN Reason: Moderate Constipation Sodium Chloride (Ns Flush) 2 ml IV.FLUSH UNSCH PRN PRN Reason: FLUSH AFTER USING IV ACCESS Sodium Chloride (Ns Flush) 2 ml IV.FLUSH BID COUNTS INCLUDE 234 BEDS AT THE [facility] Last Admin: 01/11/18 10:18 Dose: Not Given Sodium Chloride (Ns Flush) 2 ml IV.FLUSH PRN PRN PRN Reason: FLUSH AFTER USING IV ACCESS <Yasemin Costa - Last Filed: 01/11/18 16:35> Active Medications: Active Medications Acetaminophen (Tylenol) 650 mg PO Q6H PRN PRN Reason: PAIN 1-10 AND/OR FEVER >101F Last Admin: 01/12/18 16:37 Dose: 650 mg Al Hydroxide/Mg Hydroxide (Milk Of Alcira Liq) 30 ml PO Q12H PRN PRN Reason: Mild Constipation Albuterol (Duoneb Neb (Rickey)) 1 ampul NEB Q6HR ALT NEB COUNTS INCLUDE 234 BEDS AT THE [facility] Last Admin: 01/12/18 16:34 Dose: 1 ampul Albuterol (Duoneb Neb (Prn)) 1 ampul NEB Q2HR NEB PRN PRN Reason: WHEEZING Aspirin (Aspirin Chew) 81 mg PO DAILY COUNTS INCLUDE 234 BEDS AT [facility] Last Admin: 01/12/18 08:04 Dose: 81 mg Atorvastatin Calcium (Lipitor) 80 mg PO DAILY COUNTS INCLUDE 234 BEDS AT [facility] Last Admin: 01/12/18 08:04 Dose: 80 mg Bisacodyl (Dulcolax Supp) 10 mg RECTAL DAILY PRN PRN Reason: SEVERE CONSITIPATION Chlorhexidine Gluconate (Peridex 0.12% Oral Kit) 15 ml OROPHARYNG BID@0800, 2000 COUNTS INCLUDE 234 BEDS AT THE [facility] Last Admin: 01/12/18 08:04 Dose: Not Given Chlorhexidine Gluconate (Chlorhexidine 2% Cloth) 3 pack TOPICAL DAILY@0400 PRN PRN Reason: Extra cloth needed Stop: 01/17/18 03:59 Chlorhexidine Gluconate (Chlorhexidine 2% Cloth) 3 pack TOPICAL DAILY@0400 COUNTS INCLUDE 234 BEDS AT THE [facility] Stop: 01/17/18 03:59 Last Admin: 01/12/18 05:06 Dose: 3 pack Clopidogrel Bisulfate (Plavix) 75 mg PO DAILY COUNTS INCLUDE 234 BEDS AT THE [facility] Last Admin: 01/12/18 08:05 Dose: 75 mg Enalapril Maleate (Vasotec) 20 mg PO DAILY COUNTS INCLUDE 234 BEDS AT THE [facility] Last Admin: 01/12/18 08:05 Dose: 20 mg Furosemide (Lasix Inj) 20 mg IV.PUSH Q6H COUNTS INCLUDE 234 BEDS AT THE [facility] Last Admin: 01/12/18 13:30 Dose: 20 mg Haloperidol Lactate (Haldol Inj) 4 mg IV.PUSH Q6H PRN PRN Reason: AGITATION Last Admin: 01/12/18 14:12 Dose: 4 mg Hydromorphone HCl (Dilaudid Pf Inj) 1 mg IV.PUSH Q4H PRN PRN Reason: PAIN SCALE 6 TO 10 Dexmedetomidine HCl 200 mcg/ (Sodium Chloride) 50 mls @ 4.75 mls/hr IV.CONT TITRATE PRN; Protocol PRN Reason: Per Protocol Last Admin: 01/12/18 16:14 Dose: 0.5 mcg/kg/hr, 11.88 mls/hr Lactulose (Lactulose Liq) 30 ml PO DAILY PRN PRN Reason: SEVERE CONSITIPATION Lorazepam (Ativan Inj) 1 mg IV.PUSH Q2H PRN PRN Reason: AGITATION Last Admin: 01/12/18 16:17 Dose: 1 mg Metoprolol Tartrate (Lopressor Inj) 5 mg IV.PUSH Q6H COUNTS INCLUDE 234 BEDS AT THE [facility] Last Admin: 01/12/18 13:30 Dose: 5 mg Pantoprazole Sodium (Protonix Inj) 40 mg IV.PUSH Q12H COUNTS INCLUDE 234 BEDS AT THE [facility] Last Admin: 01/12/18 15:16 Dose: 40 mg Senna/Docusate Sodium (Savita-Colace) 1 tab PO BID COUNTS INCLUDE 234 BEDS AT THE [facility] Last Admin: 01/12/18 08:05 Dose: 1 tab Sennosides (Senokot) 17.2 mg PO Q12H PRN PRN Reason: Moderate Constipation Sodium Chloride (Ns Flush) 2 ml IV.FLUSH BID COUNTS INCLUDE 234 BEDS AT THE [facility] Last Admin: 01/12/18 08:05 Dose: 2 ml Sodium Chloride (Ns Flush) 2 ml IV.FLUSH PRN PRN PRN Reason: FLUSH AFTER USING IV ACCESS <Maritza Linares - Last Filed: 01/12/18 18:22> Allergies Allergy/AdvReac Type Severity Reaction Status Date / Time No Known Allergies Allergy Verified 01/11/18 02:51 Home Medications Medication Instructions Recorded Confirmed Type atorvastatin 80 mg PO DAILY 01/11/18 01/11/18 History clopidogrel 75 mg PO DAILY 01/11/18 01/11/18 History enalapril maleate 20 mg PO DAILY 01/11/18 01/11/18 History furosemide 40 mg PO BID 01/11/18 01/11/18 History metoprolol tartrate 100 mg PO BID 01/11/18 01/11/18 History Exam Vital signs: Vital Signs 01/11/18 02:45 01/11/18 02:59 01/11/18 03:12 Temperature 97.9 F Pulse Rate 140 H 134 H 101 H Respiratory Rate 40 H 36 H 24 Blood Pressure 219/94 H 106/53 L Pulse Oximetry 82 L 99 100 01/11/18 03:14 01/11/18 03:22 01/11/18 03:55 Temperature Pulse Rate 106 H 110 H 116 H Respiratory Rate 20 24 Blood Pressure 154/71 H 93/51 L Pulse Oximetry 99 100 01/11/18 04:00 01/11/18 04:30 01/11/18 05:00 Temperature Pulse Rate 126 H 104 H Respiratory Rate 25 H 24 22 Blood Pressure 146/69 H 106/51 L Pulse Oximetry 95 100 99 01/11/18 05:31 01/11/18 05:34 01/11/18 06:12 Temperature Pulse Rate 100 H 102 H Respiratory Rate 16 16 18 Blood Pressure 105/50 L 114/50 L Pulse Oximetry 95 96 95 01/11/18 06:45 01/11/18 07:07 01/11/18 07:13 Temperature Pulse Rate 101 H Respiratory Rate 18 14 14 Blood Pressure 146/65 H Pulse Oximetry 96 98 01/11/18 07:17 01/11/18 07:41 01/11/18 08:45 Temperature Pulse Rate 99 H 98 H 91 H Respiratory Rate 14 14 14 Blood Pressure 146/65 H 132/56 L 131/63 Pulse Oximetry 97 96 95 01/11/18 09:22 01/11/18 10:20 01/11/18 10:51 Temperature Pulse Rate 90 93 H 92 H Respiratory Rate 14 14 18 Blood Pressure 130/60 145/68 H Pulse Oximetry 98 97 01/11/18 11:20 01/11/18 12:05 01/11/18 12:38 Temperature 98.1 F Pulse Rate 89 85 Respiratory Rate 14 14 14 Blood Pressure 119/58 L Pulse Oximetry 97 98 01/11/18 12:52 01/11/18 12:58 01/11/18 14:29 Temperature 98 F 98 F Pulse Rate 84 84 74 Respiratory Rate 14 18 14 Blood Pressure 151/60 H 145/66 H 152/62 H Pulse Oximetry 94 L 94 L 98 01/11/18 15:45 Temperature 98.6 F Pulse Rate 72 Respiratory Rate 16 Blood Pressure 129/60 Pulse Oximetry 100 Intake & Output 01/10/18 01/11/18 01/11/18 18:59 06:59 18:59 Intake Total 184 / 184 Output Total 110 / 110 1000 / 1000 Balance -110 / -110 -816 / -816 Weight 113.398 kg Intake: IV 100 / 100 Versed Inj 50 mg In 50 ml @ 2 100 / 100 MG/HR 2 mls/hr IV.CONT TITRATE PRN Rx#:[id number] Other 84 / 84 Intake (Blood Product) Amt 0 / 0 Rbc As-3 Leukoreduced Unit 0 / 0 [id number] Output: Urine 110 / 110 Urine Amount (Catheter) 1000 / 1000 Indwelling Urethral Catheter 1000 / 1000 - Constitutional no acute distress - Routine HEENT Exam Head: Present: normocephalic, atraumatic - Routine Respiratory Exam Present: patient mechanically ventilated - Routine Cardiovascular Exam Present: RRR - Routine Abdominal Exam Present: soft, normoactive bowel sounds. Absent: distended - Routine Skin Exam Present: dry, warm - Routine Neurological Exam On sedation, unresponsive <Yasemin Costa - Last Filed: 01/11/18 16:35> Vital signs: Vital Signs 01/11/18 18:32 01/11/18 20:00 01/11/18 20:57 Temperature 98.9 F 99.1 F Pulse Rate 83 91 H Respiratory Rate 16 16 16 Blood Pressure 133/61 99/50 L Pulse Oximetry 100 100 100 01/11/18 22:00 01/12/18 00:00 01/12/18 00:51 Temperature 98.8 F Pulse Rate 94 H 98 H Respiratory Rate 16 16 Blood Pressure 133/60 Pulse Oximetry 98 99 01/12/18 02:00 01/12/18 04:00 01/12/18 04:07 Temperature 98.9 F Pulse Rate 94 H 101 H 97 H Respiratory Rate 16 16 Blood Pressure 120/56 L Pulse Oximetry 97 98 01/12/18 05:07 01/12/18 06:00 01/12/18 08:00 Temperature 98.9 F Pulse Rate 97 H 104 H Respiratory Rate 19 Blood Pressure 136/62 Pulse Oximetry 96 01/12/18 09:11 01/12/18 10:00 01/12/18 12:00 Temperature 99.0 F Pulse Rate 103 H 117 H 124 H Respiratory Rate 18 21 Blood Pressure 152/73 H Pulse Oximetry 95 95 01/12/18 14:00 01/12/18 16:00 01/12/18 16:35 Temperature 102 F H Pulse Rate 113 H 117 H 119 H Respiratory Rate 18 18 Blood Pressure 176/80 H Pulse Oximetry 96 01/12/18 18:00 Temperature Pulse Rate 108 H Respiratory Rate Blood Pressure Pulse Oximetry Intake & Output 01/11/18 01/12/18 01/12/18 18:59 06:59 18:59 Intake Total 984 / 984 750 / 750 225 / 225 Output Total 1500 / 1500 1350 / 1350 1850 / 1850 Balance -516 / -516 -600 / -600 -1625 / -1625 Weight 95.1 kg Intake: IV 100 / 100 350 / 350 225 / 225 Precedex Inj 200 MCG In NS Inj 50 / 50 48 ML @ 0.2 MCG/KG/HR 4.75 mls/ hr IV.CONT TITRATE PRN Rx#: [id number] Heparin/D5W 25,000 U/250 mL 25, 75 / 75 000 unit In 250 ml @ 1,000 UNITS/HR 10 mls/hr IV.CONT TITRATE PRN Rx#:[id number] Versed Inj 50 mg In 50 ml @ 2 100 / 100 100 / 100 MG/HR 2 mls/hr IV.CONT TITRATE PRN Rx#:[id number] Diprivan 1000 mg/100 ml Inj 1, 50 / 50 000 mg In 100 ml @ 5 MCG/KG/MIN 3.402 mls/hr IV.CONT TITRATE PRN Rx#:[id number] fentaNYL 10 mcg/mL Premix Drip 250 / 250 50 / 50 2,500 mcg In 250 ml @ 50 MCG/HR 5 mls/hr IV.SIG TITRATE PRN Rx #:[id number] Other 84 / 84 Intake (Blood Product) Amt 800 / 800 400 / 400 Rbc As-3 Leukoreduced Unit 400 / 400 [id number] Rbc As-3 Leukoreduced Unit 400 / 400 [id number] Rbc As-3 Leukoreduced Unit 0 / 0 400 / 400 [id number] Output: Urine Amount (Catheter) 1500 / 1500 1350 / 1350 1850 / 1850 Indwelling Urethral Catheter 1500 / 1500 1350 / 1350 1850 / 1850 Other: # Bowel Movements 0 <[email or web address] do - Last Filed: 01/12/18 18:22> Results - Labs CBC & Chem 7: 01/11/18 14:07 01/11/18 03:25 Labs: Laboratory Results - last 24 hr 01/11/18 01/11/18 01/11/18 03:25 03:25 03:25 WBC 18.3 H RBC 3.76 L Hgb 8.1 L Hct 28.8 L MCV 76.6 L MCH 21.5 L MCHC 28.1 L RDW 19.7 H Plt Count 510 H MPV 8.2 Prelim Diff (Auto) Slide review pending Neut % (Auto) 47.5 Lymph % (Auto) 36.0 [place] % (Auto) 13.5 H Eos % (Auto) 2.6 Baso % (Auto) 0.4 Neut # (Auto) 8.7 H Lymph # (Auto) 6.6 H [place] # (Auto) 2.5 H Eos # (Auto) 0.5 H Baso # (Auto) 0.1 WBC Differential Manual diff final Seg Neuts % (Manual) 58 Lymphocytes % (Manual) 24 Monocytes % (Manual) 13 H Eosinophils % (Manual) 5 H Abs Neuts (Manual) 10.6 H Differential Comment . Platelet Estimate High H Platelet Morphology Normal PT 10.5 INR 1.0 APTT 21.4 L D-Dimer Quant (PE/DVT) 0.69 H Puncture Site Patient Temperature O2 Saturation ABG pH ABG pCO2 ABG pO2 ABG HCO3 ABG O2 Content ABG Base Excess ABG Methemoglobin Kali Test Hemoglobin Carboxyhemoglobin O2 Delivery Device Vent Setting Inspired O2 Critical Value Sodium 141 Potassium 4.0 Chloride 102 Carbon Dioxide 19.2 L Anion Gap 20 H BUN 22 H Creatinine 1.48 H Estimated GFR 48 L Random Glucose 225 H Calcium 9.6 Magnesium 2.3 Total Bilirubin 0.3 AST 17 ALT 31 Alkaline Phosphatase 121 H Total Creatine Kinase 93 Troponin I 0.03 B-Natriuretic Peptide Total Protein 7.5 Albumin 3.9 Lipase 129 Urine Color Urine Clarity Urine pH Ur Specific [place] Urine Protein Urine Glucose (UA) Urine Ketones Urine Occult Blood Urine Nitrate Urine Bilirubin Urine Urobilinogen Ur Leukocyte Esterase Urine RBC Urine WBC Ur Squamous Epith Cells Urine Bacteria Micro UA Comment Urine Culture Comments Blood Type Antibody Screen MTS Gel Crossmatch 01/11/18 01/11/18 01/11/18 03:25 03:50 05:20 WBC RBC Hgb Hct MCV MCH MCHC RDW Plt Count MPV Prelim Diff (Auto) Neut % (Auto) Lymph % (Auto) [place] % (Auto) Eos % (Auto) Baso % (Auto) Neut # (Auto) Lymph # (Auto) [place] # (Auto) Eos # (Auto) Baso # (Auto) WBC Differential Seg Neuts % (Manual) Lymphocytes % (Manual) Monocytes % (Manual) Eosinophils % (Manual) Abs Neuts (Manual) Differential Comment Platelet Estimate Platelet Morphology PT INR APTT D-Dimer Quant (PE/DVT) Puncture Site Right radial Patient Temperature 98.6 O2 Saturation 96 ABG pH 7.38 ABG pCO2 50 H ABG pO2 154 H ABG HCO3 29 H ABG O2 Content 9.4 L ABG Base Excess 4.1 H ABG Methemoglobin 0.7 Kali Test Present Hemoglobin 6.8 L* Carboxyhemoglobin 3.5 O2 Delivery Device Ventilator Vent Setting Inspired O2 100 Critical Value Yes Sodium Potassium Chloride Carbon Dioxide Anion Gap BUN Creatinine Estimated GFR Random Glucose Calcium Magnesium Total Bilirubin AST ALT Alkaline Phosphatase Total Creatine Kinase Troponin I B-Natriuretic Peptide 356 H Total Protein Albumin Lipase Urine Color Straw Urine Clarity Clear Urine pH 6.0 Ur Specific [place] 1.005 Urine Protein Negative Urine Glucose (UA) Negative Urine Ketones Negative Urine Occult Blood Negative Urine Nitrate Negative Urine Bilirubin Negative Urine Urobilinogen Less than 2 Ur Leukocyte Esterase Trace H Urine RBC 1 Urine WBC 2 Ur Squamous Epith Cells <1 Urine Bacteria Rare H Micro UA Comment Cath-culture ind Urine Culture Comments Cath-cult indicated Blood Type Antibody Screen MTS Gel Crossmatch 01/11/18 01/11/18 01/11/18 10:08 11:05 14:07 WBC 13.7 H RBC 3.11 L Hgb 6.8 L* Hct 22.4 L MCV 72.0 L D MCH 21.7 L MCHC 30.2 L RDW 19.0 H Plt Count 342 D MPV 7.6 Prelim Diff (Auto) Neut % (Auto) Lymph % (Auto) [place] % (Auto) Eos % (Auto) Baso % (Auto) Neut # (Auto) Lymph # (Auto) [place] # (Auto) Eos # (Auto) Baso # (Auto) WBC Differential Seg Neuts % (Manual) Lymphocytes % (Manual) Monocytes % (Manual) Eosinophils % (Manual) Abs Neuts (Manual) Differential Comment Platelet Estimate Platelet Morphology PT INR APTT D-Dimer Quant (PE/DVT) Puncture Site Patient Temperature O2 Saturation ABG pH ABG pCO2 ABG pO2 ABG HCO3 ABG O2 Content ABG Base Excess ABG Methemoglobin Kali Test Hemoglobin Carboxyhemoglobin O2 Delivery Device Vent Setting Inspired O2 Critical Value Sodium Potassium Chloride Carbon Dioxide Anion Gap BUN Creatinine Estimated GFR Random Glucose Calcium Magnesium Total Bilirubin AST ALT Alkaline Phosphatase Total Creatine Kinase Troponin I 5.80 H* B-Natriuretic Peptide Total Protein Albumin Lipase Urine Color Urine Clarity Urine pH Ur Specific [place] Urine Protein Urine Glucose (UA) Urine Ketones Urine Occult Blood Urine Nitrate Urine Bilirubin Urine Urobilinogen Ur Leukocyte Esterase Urine RBC Urine WBC Ur Squamous Epith Cells Urine Bacteria Micro UA Comment Urine Culture Comments Blood Type A Negative Antibody Screen Negative MTS Gel Crossmatch See Detail 01/11/18 15:07 WBC RBC Hgb Hct MCV MCH MCHC RDW Plt Count MPV Prelim Diff (Auto) Neut % (Auto) Lymph % (Auto) [place] % (Auto) Eos % (Auto) Baso % (Auto) Neut # (Auto) Lymph # (Auto) [place] # (Auto) Eos # (Auto) Baso # (Auto) WBC Differential Seg Neuts % (Manual) Lymphocytes % (Manual) Monocytes % (Manual) Eosinophils % (Manual) Abs Neuts (Manual) Differential Comment Platelet Estimate Platelet Morphology PT INR APTT D-Dimer Quant (PE/DVT) Puncture Site Patient Temperature O2 Saturation ABG pH ABG pCO2 ABG pO2 ABG HCO3 ABG O2 Content ABG Base Excess ABG Methemoglobin Kali Test Hemoglobin Carboxyhemoglobin O2 Delivery Device Vent Setting Inspired O2 Critical Value Sodium Potassium Chloride Carbon Dioxide Anion Gap BUN Creatinine Estimated GFR Random Glucose Calcium Magnesium Total Bilirubin AST ALT Alkaline Phosphatase Total Creatine Kinase Troponin I B-Natriuretic Peptide Total Protein Albumin Lipase Urine Color Urine Clarity Urine pH Ur Specific [place] Urine Protein Urine Glucose (UA) Urine Ketones Urine Occult Blood Urine Nitrate Urine Bilirubin Urine Urobilinogen Ur Leukocyte Esterase Urine RBC Urine WBC Ur Squamous Epith Cells Urine Bacteria Micro UA Comment Urine Culture Comments Blood Type Antibody Screen MTS Gel Crossmatch See Detail - Imaging Impressions Chest X-Ray 01/11/18 03:12 CONCLUSION: 1. Diffuse, mixed interstitial and airspace process throughout the right lung. There may be minimal left perihilar infiltrate as well. Otherwise, left lung is clear. 2. Endotracheal tube well positioned above the bhavik. Nasogastric tube just enters the stomach and should probably be advanced a few centimeters. <Yasemin Costa - Last Filed: 01/11/18 16:35> - Labs CBC & Chem 7: 01/12/18 16:25 01/12/18 16:25 Labs: Laboratory Results - last 24 hr 01/11/18 01/11/18 01/11/18 10:08 14:07 15:07 WBC RBC Hgb Hct MCV MCH MCHC RDW Plt Count MPV Neut % (Auto) Lymph % (Auto) [place] % (Auto) Eos % (Auto) Baso % (Auto) Neut # (Auto) Lymph # (Auto) [place] # (Auto) Eos # (Auto) Baso # (Auto) WBC Differential Differential Comment PT INR APTT Puncture Site Patient Temperature O2 Saturation ABG pH ABG pCO2 ABG pO2 ABG HCO3 ABG O2 Content ABG Base Excess ABG Methemoglobin Kali Test Hemoglobin Carboxyhemoglobin O2 Delivery Device Liter Flow Inspired O2 Critical Value Sodium Potassium Chloride Carbon Dioxide Anion Gap BUN Creatinine Estimated GFR POC Glucose Random Glucose Lactic Acid Calcium Phosphorus Magnesium Total Bilirubin AST ALT Alkaline Phosphatase Troponin I 6.48 H* Total Protein Albumin Nasal Screen MRSA (PCR) Blood Type A Negative Antibody Screen Negative MTS Gel Crossmatch See Detail See Detail 01/11/18 01/11/18 01/11/18 18:22 18:40 22:12 WBC RBC Hgb Hct MCV MCH MCHC RDW Plt Count MPV Neut % (Auto) Lymph % (Auto) [place] % (Auto) Eos % (Auto) Baso % (Auto) Neut # (Auto) Lymph # (Auto) [place] # (Auto) Eos # (Auto) Baso # (Auto) WBC Differential Differential Comment PT INR APTT 23.5 L Puncture Site Patient Temperature O2 Saturation ABG pH ABG pCO2 ABG pO2 ABG HCO3 ABG O2 Content ABG Base Excess ABG Methemoglobin Kali Test Hemoglobin Carboxyhemoglobin O2 Delivery Device Liter Flow Inspired O2 Critical Value Sodium Potassium Chloride Carbon Dioxide Anion Gap BUN Creatinine Estimated GFR POC Glucose 113 H Random Glucose Lactic Acid Calcium Phosphorus Magnesium Total Bilirubin AST ALT Alkaline Phosphatase Troponin I Total Protein Albumin Nasal Screen MRSA (PCR) Not detected Blood Type Antibody Screen MTS Gel Crossmatch 01/12/18 01/12/18 01/12/18 01:10 01:38 01:38 WBC 14.5 H RBC 4.25 L Hgb 10.0 L D Hct 31.7 L MCV 74.6 L MCH 23.6 L MCHC 31.6 L RDW 20.7 H Plt Count 357 MPV 7.4 Neut % (Auto) 80.5 H Lymph % (Auto) 7.3 L [place] % (Auto) 11.3 H Eos % (Auto) 0.4 Baso % (Auto) 0.5 Neut # (Auto) 11.7 H Lymph # (Auto) 1.1 [place] # (Auto) 1.6 H Eos # (Auto) 0.1 Baso # (Auto) 0.1 WBC Differential . Differential Comment Auto diff final PT 10.5 INR 1.0 APTT 23.6 L Puncture Site Patient Temperature O2 Saturation ABG pH ABG pCO2 ABG pO2 ABG HCO3 ABG O2 Content ABG Base Excess ABG Methemoglobin Kali Test Hemoglobin Carboxyhemoglobin O2 Delivery Device Liter Flow Inspired O2 Critical Value Sodium Potassium Chloride Carbon Dioxide Anion Gap BUN Creatinine Estimated GFR POC Glucose 122 H Random Glucose Lactic Acid Calcium Phosphorus Magnesium Total Bilirubin AST ALT Alkaline Phosphatase Troponin I Total Protein Albumin Nasal Screen MRSA (PCR) Blood Type Antibody Screen MTS Gel Crossmatch 01/12/18 01/12/18 01/12/18 01:38 01:38 07:01 WBC RBC Hgb Hct MCV MCH MCHC RDW Plt Count MPV Neut % (Auto) Lymph % (Auto) [place] % (Auto) Eos % (Auto) Baso % (Auto) Neut # (Auto) Lymph # (Auto) [place] # (Auto) Eos # (Auto) Baso # (Auto) WBC Differential Differential Comment PT INR APTT Puncture Site Patient Temperature O2 Saturation ABG pH ABG pCO2 ABG pO2 ABG HCO3 ABG O2 Content ABG Base Excess ABG Methemoglobin Kali Test Hemoglobin Carboxyhemoglobin O2 Delivery Device Liter Flow Inspired O2 Critical Value Sodium 140 Potassium 4.0 Chloride 102 Carbon Dioxide 31.1 D Anion Gap 7 BUN 22 H Creatinine 1.11 Estimated GFR 66 L POC Glucose 135 H Random Glucose 105 D Lactic Acid 0.7 Calcium 8.8 D Phosphorus 3.6 Magnesium 2.0 Total Bilirubin 1.1 H AST 76 H ALT 36 Alkaline Phosphatase 99 Troponin I Total Protein 6.5 D Albumin 3.4 Nasal Screen MRSA (PCR) Blood Type Antibody Screen MTS Gel Crossmatch 01/12/18 01/12/18 01/12/18 11:27 16:25 16:25 WBC 20.7 H RBC 4.45 L Hgb 10.3 L Hct 32.9 L MCV 74.1 L MCH 23.1 L MCHC 31.2 L RDW 20.8 H Plt Count 356 MPV 7.2 Neut % (Auto) Lymph % (Auto) [place] % (Auto) Eos % (Auto) Baso % (Auto) Neut # (Auto) Lymph # (Auto) [place] # (Auto) Eos # (Auto) Baso # (Auto) WBC Differential Differential Comment PT INR APTT Puncture Site Right radial Patient Temperature 98.6 O2 Saturation 90 ABG pH 7.31 L ABG pCO2 67 H* ABG pO2 76 ABG HCO3 32 H ABG O2 Content 13.1 ABG Base Excess 6.1 H ABG Methemoglobin 1.5 Kali Test Present Hemoglobin 10.3 L Carboxyhemoglobin 1.6 O2 Delivery Device Mask Liter Flow 6.00 Inspired O2 21 Critical Value Yes Sodium 140 Potassium 3.8 Chloride 101 Carbon Dioxide 34.5 H Anion Gap 5 BUN 20 H Creatinine 1.15 Estimated GFR 64 L POC Glucose Random Glucose 130 H Lactic Acid Calcium 8.7 Phosphorus Magnesium Total Bilirubin 0.7 AST 390 H ALT 67 Alkaline Phosphatase 96 Troponin I Total Protein 6.7 Albumin 3.4 Nasal Screen MRSA (PCR) Blood Type Antibody Screen MTS Gel Crossmatch - Imaging Impressions Chest X-Ray 01/12/18 05:16 CONCLUSION: <Maritza Linares - Last Filed: 01/12/18 18:22> Assessment and Plan - Plan Assessment: - Anemia, microcytic, hypochromic- no obvious GIB Pt currently intubated and on sedation, all history obtained through chart review and speaking with RN. Pt has had no obvious GIB and no BM or emesis since admission. NG tube with no BRB or coffee ground material. Seen by our service in November for anemia, at that time was noted no endoscopic procedures due to recent stent placement and need for antiplatelet therapy. Of note, pt had Brilinta day before our exam and was given a loading dose of Plavix the day of exam. Pt was not having any obvious GIB at that time. EGD done at [facility] for melanotic stools --> Normal esophagus, small hiatal hernia, single angioectasia in the duodenum treated with APC. Last colonoscopy was approximately 15 years ago and reports colon polyps. - SOB- pt hypoxic in ER and was emergently intubated - NSTEMI- pt presented with chest pain- serial troponin significantly elevated- cardiology consult pending- was on Heparin gtt this was discontinued due to drop in hgb Plan: Cardiology consult pending Will need EGD when appropriate Serial H/H Transfuse as needed Protonix gtt Too unstable for EGD at this time Will continue to monitor Further recommendations to follow Pt has been seen and examined by myself and Dr. Linares and this note is written on his behalf <Yasemin Costa - Last Filed: 01/11/18 16:35> - Plan Patient was seen and examined, agree with above note, I discussed the case with Dr. Benito who is a cardiology on the case, patient is very high risk for any procedure, he is planning on doing catheter tomorrow but he thinks that he is not stable for any procedure so we will continue supportive care, packed RBC as needed, if becomes stable then we can do endoscopy at that time <Maritza Linares - Last Filed: 01/12/18 18:22>
--- NOTE | 2018-01-11 18:39 | ECG ---
Date Performed: 01/11/2018 Time Performed: 03:37:21 PTAGE: 67 years EKG: MILD SINUS TACHYCARDIA MARKED LEFT AXIS DEVIATION MODERATE ST DEPRESSION ABNORMAL ECG PREVIOUS TRACING : 01/11/2018 02.49 Since the previous tracing, no significant change noted DOCTOR: Brendan Jimenes Interpretating Date/Time 01/11/2018 18:38:34
--- NOTE | 2018-01-11 18:42 | ECG ---
Date Performed: 01/11/2018 Time Performed: 02:49:21 PTAGE: 67 years EKG: SINUS TACHYCARDIA MARKED LEFT AXIS DEVIATION MODERATE ST DEPRESSION ABNORMAL ECG PREVIOUS TRACING : 10/24/2017 23.14 Compared to previous tracing, rate faster DOCTOR: Brendan Jimenes Interpretating Date/Time 01/11/2018 18:40:05
--- NOTE | 2018-01-11 22:48 | MB ---
cc: Krishna Beatty MD DATE: 01/11/2018 HISTORY OF PRESENT ILLNESS: Mayank is currently intubated. History is obtained from the chart. The patient was initially contacted at 3:16 a.m., 01/11/2018. He presented to the emergency room with chest pain, shortness of breath, brought in by his brother in a private vehicle. Also complaining of diaphoresis, appeared to be pale and diaphoretic. He had a stent placed in 10/2017. He was intubated. PAST MEDICAL HISTORY: As per history of present illness. He has a history of myocardial infarction, history of COPD, history of hypertension. SOCIAL HISTORY: Unobtainable as he is intubated. ALLERGIES: NONE. MEDICATIONS: 1. Aspirin 81 mg a day. 2. Lipitor 80 mg daily. 3. Plavix 75 mg daily. 4. Vasotec 20 mg daily. 5. IV Fentanyl. 6. Lasix 20 mg IV every 6 hours. 7. Heparin drip. 8. Lopressor 12.5 b.i.d. 9. Versed drip. 10. Nitroglycerin drip. 11. Protonix 40 mg IV every 12 hours. 12. Propofol drip. PHYSICAL EXAMINATION: VITAL SIGNS: Blood pressure 150/62, pulse 74, temperature 98. He is on 80% oxygen with sats of 98%. GENERAL: He is intubated and sedated. NECK: Supple. No JVD. No bruit. CARDIOVASCULAR: S1, S2. No murmurs, rubs, gallops. LUNGS: Clear to auscultation bilaterally. ABDOMEN: Soft, nontender, nondistended with positive bowel sounds. EXTREMITIES: Lower extremity edema. LABORATORY DATA: Chest x-ray shows diffuse mixed interstitial and airspace process throughout the right lung. There may be minimal left perihilar infiltrate as well. Endotracheal tube well positioned above the bhavik. Nasogastric tube just underneath the stomach and should probably be advanced a few cm. EKG an 01/11/2018 at 2:49 a.m. shows sinus tachycardia at 110 beats per minute with slightly upsloping ST segment depression in leads V5 and V6 with 0.5-1 mm left anterior fascicular block. Repeat EKG done 25 minutes later shows sinus tachycardia at 103 beats per minute, 0.5-[address] segment depression in leads II, aVF, V4, V5, V6. LABORATORY DATA: White count 18.3, hemoglobin 8.1, hematocrit 28.8, platelet count 510. Second hemoglobin is 6.8. INR is 1.0. Blood gas pH 7.3, pCO2 50, pO2 154 on 100%. Sodium 141, potassium 4.0, chloride 102, bicarbonate 19.2, BUN 22, creatinine 1.48. Troponin initially 0.03, followed by 5.80. BNP 356. DIAGNOSES: 1. [id number] myocardial infarction. 2. Anemia. 3. Decompensated congestive heart failure. 4. Acute renal failure. 5. Respiratory failure. 6. Elevated white count. 7. Coronary artery disease. DISCUSSION: At this point in time, it is indeterminate whether he has a primary obstructive event or elevated troponin in a non-STEMI due to severe anemia. I suspect he probably has a secondary cause to his EKG changes and troponin elevation due to severe anemia. Obviously, he needs a blood transfusion as soon as possible, and I have discussed this with Dr. Sacha Butler. The patient [place] being [place] [facility] We will follow trends and troponin, hemoglobin, hemodynamics, and oxygenation and respiratory status. Recommend 2D echo. I recommend transfusion to hemoglobin greater than 10, and will probably hold his anticoagulants initially unless there is evidence of ST elevation or more than [address] segment depression after blood transfusion. MD RAUL Parra/karl/jerrell , 03:43 PM , 03:54 PM
[2018-01-12] MEDS: Metoprolol Inj 5 MG/5 ML Vial IV.PUSH SCH ×4 (00:42→20:29)
[2018-01-12] MEDS: Oral Hygiene Kit OROPHARYNG SCH ×4 (00:43→15:16)
[2018-01-12] MEDS: Midazolam 50 MG/50 ML Inj 50 MG/50 ML BAG IV.CONT PRN ×2 (00:44→03:19)
[2018-01-12 01:56] LABS: Baso # (Auto) 0.1 th/mm3 (0.0-0.2); Baso % (Auto) 0.5 % (0.0-2.0); Eos # (Auto) 0.1 th/mm3 (0.0-0.4); Eos % (Auto) 0.4 % (0.0-4.0); Hematocrit 31.7 % (39.0-51.0); Lymph # (Auto) 1.1 th/mm3 (1.0-4.8); Lymph % (Auto) 7.3 % (9.0-44.0); Mean Corpuscular HGB Conc 31.6 % (32.0-36.0); Mean Corpuscular Hemoglobin 23.6 pg (27.0-34.0); Mean Corpuscular Volume 74.6 fL (80.0-100.0); Mean Platelet Volume 7.4 fL (7.0-11.0); Mono # (Auto) 1.6 th/mm3 (0.0-0.9); Mono % (Auto) 11.3 % (0.0-8.0); Neut # (Auto) 11.7 th/mm3 (1.8-7.7); Neut % (Auto) 80.5 % (16.0-70.0); Platelet Count 357 th/mm3 (150-450); Red Blood Count 4.25 mil/mm3 (4.50-5.90); Red Cell Distribution Width 20.7 % (11.6-17.2); White Blood Count 14.5 th/mm3 (4.0-11.0)
[2018-01-12] MEDS: fentaNYL 10 mcg/mL Premix Drip 2,500 MCG/250 ML BAG IV.SIG PRN (02:20)
[2018-01-12 02:24] LABS: Activated Partial Thrombo Time 23.6 sec (24.3-30.1); Prothrombin Time 10.5 sec (9.8-11.6)
[2018-01-12 02:43] LABS: Alanine Aminotransferase 36 U/L (12-78); Albumin 3.4 g/dL (3.4-5.0); Alkaline Phosphatase 99 U/L (45-117); Anion Gap 7 meq/L (5-15); Aspartate Aminotransferase 76 U/L (15-37); Blood Urea Nitrogen 22 mg/dL (7-18); Calcium 8.8 mg/dL (8.5-10.1); Carbon Dioxide 31.1 meq/L (21.0-32.0); Chloride 102 meq/L (98-107); Glomerular Filtration Rate 66 mL/min (>89); Glucose,Random 105 mg/dL (74-106); Phosphorus 3.6 mg/dL (2.5-4.9); Sodium 140 meq/L (136-145); Total Protein 6.5 g/dL (6.4-8.2)
[2018-01-12] MEDS: Pantoprazole Inj 40 MG Vial IV.PUSH SCH ×2 (03:17→15:16)
[2018-01-12] MEDS ORDERED: Chlorhexidine Gluconate 2% 1 Pack (2 Cloths) TOPICAL PRN (04:00)
[2018-01-12] MEDS: Chlorhexidine Gluconate 2% 1 Pack (2 Cloths) TOPICAL SCH (05:06)
--- NOTE | 2018-01-12 05:19 | XR ---
EXAM DATE: 01/12/2018 4:10 AM EDT AGE/SEX: 67 years / Male INDICATIONS: Shortness of breath, possible pulmonary disease. CLINICAL DATA: This is the patient's subsequent encounter. Patient reports that signs and symptoms h ave been present for 2 days and indicates a pain score of 0/10. MEDICAL/SURGICAL HISTORY: Hypertension. Myocardial infarction. Coronary artery stent. COMPARISON: C, CHEST 1V SINGLE AP, 01/11/2018. . FINDINGS: A single AP view of the chest demonstrates the lungs to be symmetrically aerated with improving infil trate in the right hemithorax. There is some persistent atelectatic changes above the right hemidiaph ragm. Left lung is grossly clear. Endotracheal and nasogastric tubes appear to be stable in position. Heart size is normal. CONCLUSION: Improving aeration in the right hemithorax. Electronically signed by: Arron Montgomery MD 01/12/2018 5:17 AM EDT
--- NOTE | 2018-01-12 07:50 | P.PNCC ---
Subjective Subjective Remarks/Hospital Course: 67 year old male presents with a history of chest pain and shortness of breath. In the emergency department he was profusely diaphoretic with severe chest pain, and shortness of breath. He was noted to be agitated, pale appearing, and diaphoretic. Per chart review he has had chest pain since he had a stent placed in October 2017. The patient was initially agitated and would not allow oxygen to be placed on his face and was intubated by ED attending for an airway protection and severe respiratory distress. He reports that he has had a heart attack in the past. He denies any history of COPD. He reports that he did take an adult dose aspirin today along with Plavix. SUBJ 01/12/18: Patient remains intubated, on sedation hold patient becomes very agitated unable to do weaning parameters. Chest x-ray shows improving infiltrates but some persistent right lower lobe infiltrate. Diuresed adequately with Lasix. Will attempt extubation to nonrebreather. Further cardiac workup per Dr. Beatty. Troponin peaked at 6.48. Hemoglobin is 10 today after 3 units PRBC transfused. 2D Echo is pending at this time Objective Vital Signs / I&O: Vital Signs 01/11/18 08:45 01/11/18 09:22 01/11/18 10:20 Temperature Pulse Rate 91 H 90 93 H Respiratory Rate 14 14 14 Blood Pressure 131/63 130/60 Pulse Oximetry 95 98 01/11/18 10:51 01/11/18 11:20 01/11/18 12:05 Temperature Pulse Rate 92 H 89 Respiratory Rate 18 14 14 Blood Pressure 145/68 H Pulse Oximetry 97 97 01/11/18 12:38 01/11/18 12:52 01/11/18 12:58 Temperature 98.1 F 98 F 98 F Pulse Rate 85 84 84 Respiratory Rate 14 14 18 Blood Pressure 119/58 L 151/60 H 145/66 H Pulse Oximetry 98 94 L 94 L 01/11/18 14:29 01/11/18 15:45 01/11/18 15:57 Temperature 98.6 F Pulse Rate 74 72 Respiratory Rate 14 16 16 Blood Pressure 152/62 H 129/60 Pulse Oximetry 98 100 100 01/11/18 16:00 01/11/18 18:00 01/11/18 18:32 Temperature 98.6 F 98.9 F Pulse Rate 74 83 83 Respiratory Rate 18 16 Blood Pressure 106/53 L 133/61 Pulse Oximetry 100 100 01/11/18 20:00 01/11/18 20:57 01/11/18 22:00 Temperature 99.1 F Pulse Rate 91 H 94 H Respiratory Rate 16 16 Blood Pressure 99/50 L Pulse Oximetry 100 100 01/12/18 00:00 01/12/18 00:51 01/12/18 02:00 Temperature 98.8 F Pulse Rate 98 H 94 H Respiratory Rate 16 16 Blood Pressure 133/60 Pulse Oximetry 98 99 01/12/18 04:00 01/12/18 04:07 01/12/18 05:07 Temperature 98.9 F Pulse Rate 101 H 97 H Respiratory Rate 16 16 19 Blood Pressure 120/56 L Pulse Oximetry 97 98 01/12/18 06:00 Temperature Pulse Rate 97 H Respiratory Rate Blood Pressure Pulse Oximetry Intake & Output 01/11/18 01/12/18 01/12/18 18:59 06:59 18:59 Intake Total 984 / 984 750 / 750 Output Total 1500 / 1500 1350 / 1350 Balance -516 / -516 -600 / -600 Weight 95.1 kg Intake: IV 100 / 100 350 / 350 Versed Inj 50 mg In 50 ml @ 2 100 / 100 100 / 100 MG/HR 2 mls/hr IV.CONT TITRATE PRN Rx#:[id number] fentaNYL 10 mcg/mL Premix Drip 250 / 250 2,500 mcg In 250 ml @ 50 MCG/HR 5 mls/hr IV.SIG TITRATE PRN Rx #:[id number] Other / Intake (Blood Product) Amt 800 / 800 400 / 400 Rbc As-3 Leukoreduced Unit 400 / 400 [id number] Rbc As-3 Leukoreduced Unit 400 / 400 [id number] Rbc As-3 Leukoreduced Unit 0 / 0 400 / 400 [id number] Output: Urine Amount (Catheter) 1500 / 1500 1350 / 1350 Indwelling Urethral Catheter 1500 / 1500 1350 / 1350 Other: # Bowel Movements 0 Result Diagrams: 01/12/18 01:38 01/12/18 01:38 Objective Remarks: - Constitutional Intubated remains sedated with Versed. On sedation hold becomes very agitated - Routine HEENT Exam Head: normocephalic, atraumatic Eye: PERRL ENT: Orotracheally intubated - Routine Neck Exam No JVD, carotid bruit - Routine Respiratory Exam Patient mechanically ventilated, few basilar rales, rhonchi. No wheezes - Routine Cardiovascular Exam RRR, S1, S2, intermittent tachycardia. Systolic murmur at the apex - Routine Abdominal Exam Soft, normoactive bowel sounds. No tenderness, distended - Routine Extremities Exam No cyanosis, clubbing - Routine Skin Exam Intact. Absent: cyanosis, erythema - Routine Neurological Exam On sedation hold moving all extremities. Gets very agitated most likely due to the ET tube. But nonfocal exam Assessment and Plan - Assessment and Plan Plan: Acute hypoxemic respiratory failure -Secondary to acute CHF exacerbation -Mechanical ventilation, CPAP trials with possible extubation -Vent bundle -Diuresis IV Lasix 20 mg every 6 hours, additional 20 mg now -CXR daily NSTEMI: -Troponin peaked at 6.48 -Cardiology Dr. Beatty, Defer cath decsion to cardiology -Holding aspirin Plavix secondary to anemia requiring transfusion. No IV Heparin -Change metoprolol to 25 mg q8 -Continue atorvastatin 40 mg nightly Acute on chronic CHF exacerbation -Known history of coronary artery disease -Recent stent placed in October 2017 -Rule out acute coronary syndrome with series of troponins and EKGs -2D echo pending -Continue CRISTÓBAL inhibitor, metoprolol, and diuretics Anemia due to blood loss most likely secondary to GI bleed -Continue IV Protonix gtt, keep hemoglobin more than 8 given acute ischemia -According to GI not too unstable for endoscopy at this time -EGD done at [facility] for melanotic stools apparently Normal esophagus, small hiatal hernia, single angioectasia in the duodenum treated with APC. -Last colonoscopy about 15 years ago and reports colon polyps. Hypertension -Continue metoprolol as above -Continue CRISTÓBAL inhibitor Dyslipidemia -Atorvastatin DVT GI prophylaxis -Teds SCDs -Subcu heparin -Pepcid Critical Care: The total critical care time was 35 minutes. Time to perform other separately billable procedures was not included in the critical care time. Code Status: Full Discussed Condition With: Dr. Beatty
[2018-01-12] MEDS ORDERED: Metoprolol Tartrate 25 MG Tablet PO SCH (08:00)
[2018-01-12] MEDS: Chlorhexidine 0.12% Oral Kit 15 ML UDC OROPHARYNG SCH ×2 (08:04→20:29)
[2018-01-12] MEDS: Metoprolol Tartrate 25 MG Tablet PO SCH (08:05)
[2018-01-12] MEDS: Senna/Docusate Sodium 8.6/50 MG Tablet PO SCH ×2 (08:05→20:29)
--- NOTE | 2018-01-12 10:17 | P.PNGI ---
Subjective Interval history: Pt resting in bed, extubated this morning. Pt confused and does not answer any questions. Discussed with RN, Jennifer who states pt has not had any BM, no nausea or vomiting. <Yasemin Costa - Last Filed: 01/12/18 10:09> Physical Exam Vital signs: Vital Signs 01/11/18 10:20 01/11/18 10:51 01/11/18 11:20 Temperature Pulse Rate 93 H 92 H Respiratory Rate 14 18 14 Blood Pressure 130/60 145/68 H Pulse Oximetry 98 97 01/11/18 12:05 01/11/18 12:38 01/11/18 12:52 Temperature 98.1 F 98 F Pulse Rate 89 85 84 Respiratory Rate 14 14 14 Blood Pressure 119/58 L 151/60 H Pulse Oximetry 97 98 94 L 01/11/18 12:58 01/11/18 14:29 01/11/18 15:45 Temperature 98 F 98.6 F Pulse Rate 84 74 72 Respiratory Rate 18 14 16 Blood Pressure 145/66 H 152/62 H 129/60 Pulse Oximetry 94 L 98 100 01/11/18 15:57 01/11/18 16:00 01/11/18 18:00 Temperature 98.6 F Pulse Rate 74 83 Respiratory Rate 16 18 Blood Pressure 106/53 L Pulse Oximetry 100 100 01/11/18 18:32 01/11/18 20:00 01/11/18 20:57 Temperature 98.9 F 99.1 F Pulse Rate 83 91 H Respiratory Rate 16 16 16 Blood Pressure 133/61 99/50 L Pulse Oximetry 100 100 100 01/11/18 22:00 01/12/18 00:00 01/12/18 00:51 Temperature 98.8 F Pulse Rate 94 H 98 H Respiratory Rate 16 16 Blood Pressure 133/60 Pulse Oximetry 98 99 01/12/18 02:00 01/12/18 04:00 01/12/18 04:07 Temperature 98.9 F Pulse Rate 94 H 101 H 97 H Respiratory Rate 16 16 Blood Pressure 120/56 L Pulse Oximetry 97 98 01/12/18 05:07 01/12/18 06:00 01/12/18 08:00 Temperature 98.9 F Pulse Rate 97 H 104 H Respiratory Rate 19 Blood Pressure 136/62 Pulse Oximetry 96 01/12/18 09:11 Temperature Pulse Rate 103 H Respiratory Rate 18 Blood Pressure Pulse Oximetry 95 Intake & Output 01/11/18 01/12/18 01/12/18 18:59 06:59 18:59 Intake Total 984 / 984 750 / 750 Output Total 1500 / 1500 1350 / 1350 Balance -516 / -516 -600 / -600 Weight 95.1 kg Intake: IV 100 / 100 350 / 350 Versed Inj 50 mg In 50 ml @ 2 100 / 100 100 / 100 MG/HR 2 mls/hr IV.CONT TITRATE PRN Rx#:[id number] fentaNYL 10 mcg/mL Premix Drip 250 / 250 2,500 mcg In 250 ml @ 50 MCG/HR 5 mls/hr IV.SIG TITRATE PRN Rx #:[id number] Other / Intake (Blood Product) Amt 800 / 800 400 / 400 Rbc As-3 Leukoreduced Unit 400 / 400 [id number] Rbc As-3 Leukoreduced Unit 400 / 400 [id number] Rbc As-3 Leukoreduced Unit 0 / 0 400 / 400 [id number] Output: Urine Amount (Catheter) 1500 / 1500 1350 / 1350 Indwelling Urethral Catheter 1500 / 1500 1350 / 1350 Other: # Bowel Movements 0 - Constitutional no acute distress - Routine HEENT Exam Head: Present: normocephalic, atraumatic - Routine Abdominal Exam Present: soft, normoactive bowel sounds. Absent: distended - Routine Skin Exam Present: dry, warm - Urinary Catheter Management Indwelling Urethral Catheter Cath placed during this visit: yes Reason for continuing: Hourly intake/output Insertion date: 01/11/18 Insertion time: 03:15 <Yasemin Costa - Last Filed: 01/12/18 10:09> Vital signs: Vital Signs 01/11/18 18:32 01/11/18 20:00 01/11/18 20:57 Temperature 98.9 F 99.1 F Pulse Rate 83 91 H Respiratory Rate 16 16 16 Blood Pressure 133/61 99/50 L Pulse Oximetry 100 100 100 01/11/18 22:00 01/12/18 00:00 01/12/18 00:51 Temperature 98.8 F Pulse Rate 94 H 98 H Respiratory Rate 16 16 Blood Pressure 133/60 Pulse Oximetry 98 99 01/12/18 02:00 01/12/18 04:00 01/12/18 04:07 Temperature 98.9 F Pulse Rate 94 H 101 H 97 H Respiratory Rate 16 16 Blood Pressure 120/56 L Pulse Oximetry 97 98 01/12/18 05:07 01/12/18 06:00 01/12/18 08:00 Temperature 98.9 F Pulse Rate 97 H 104 H Respiratory Rate 19 Blood Pressure 136/62 Pulse Oximetry 96 01/12/18 09:11 01/12/18 10:00 01/12/18 12:00 Temperature 99.0 F Pulse Rate 103 H 117 H 124 H Respiratory Rate 18 21 Blood Pressure 152/73 H Pulse Oximetry 95 95 01/12/18 14:00 01/12/18 16:00 01/12/18 16:35 Temperature 102 F H Pulse Rate 113 H 117 H 119 H Respiratory Rate 18 18 Blood Pressure 176/80 H Pulse Oximetry 96 01/12/18 18:00 Temperature Pulse Rate 108 H Respiratory Rate Blood Pressure Pulse Oximetry Intake & Output 01/11/18 01/12/18 01/12/18 18:59 06:59 18:59 Intake Total 984 / 984 750 / 750 225 / 225 Output Total 1500 / 1500 1350 / 1350 1850 / 1850 Balance -516 / -516 -600 / -600 -1625 / -1625 Weight 95.1 kg Intake: IV 100 / 100 350 / 350 225 / 225 Precedex Inj 200 MCG In NS Inj 50 / 50 48 ML @ 0.2 MCG/KG/HR 4.75 mls/ hr IV.CONT TITRATE PRN Rx#: [id number] Heparin/D5W 25,000 U/250 mL 25, 75 / 75 000 unit In 250 ml @ 1,000 UNITS/HR 10 mls/hr IV.CONT TITRATE PRN Rx#:[id number] Versed Inj 50 mg In 50 ml @ 2 100 / 100 100 / 100 MG/HR 2 mls/hr IV.CONT TITRATE PRN Rx#:[id number] Diprivan 1000 mg/100 ml Inj 1, 50 / 50 000 mg In 100 ml @ 5 MCG/KG/MIN 3.402 mls/hr IV.CONT TITRATE PRN Rx#:[id number] fentaNYL 10 mcg/mL Premix Drip 250 / 250 50 / 50 2,500 mcg In 250 ml @ 50 MCG/HR 5 mls/hr IV.SIG TITRATE PRN Rx #:[id number] Other 84 / 84 Intake (Blood Product) Amt 800 / 800 400 / 400 Rbc As-3 Leukoreduced Unit 400 / 400 [id number] Rbc As-3 Leukoreduced Unit 400 / 400 [id number] Rbc As-3 Leukoreduced Unit 0 / 0 400 / 400 [id number] Output: Urine Amount (Catheter) 1500 / 1500 1350 / 1350 1850 / 1850 Indwelling Urethral Catheter 1500 / 1500 1350 / 1350 1850 / 1850 Other: # Bowel Movements 0 - Urinary Catheter Management Indwelling Urethral Catheter Cath placed during this visit: no <Maritza Linares - Last Filed: 01/12/18 18:31> Results - Labs CBC & Chem 7: 01/12/18 01:38 01/12/18 01:38 Laboratory Results - last 24 hr 01/11/18 01/11/18 01/11/18 10:08 11:05 14:07 WBC RBC Hgb Hct MCV MCH MCHC RDW Plt Count MPV Neut % (Auto) Lymph % (Auto) [place] % (Auto) Eos % (Auto) Baso % (Auto) Neut # (Auto) Lymph # (Auto) [place] # (Auto) Eos # (Auto) Baso # (Auto) WBC Differential Differential Comment PT INR APTT Sodium Potassium Chloride Carbon Dioxide Anion Gap BUN Creatinine Estimated GFR POC Glucose Random Glucose Lactic Acid Calcium Phosphorus Magnesium Total Bilirubin AST ALT Alkaline Phosphatase Troponin I 5.80 H* 6.48 H* Total Protein Albumin Nasal Screen MRSA (PCR) Blood Type A Negative Antibody Screen Negative MTS Gel Crossmatch See Detail 01/11/18 01/11/18 01/11/18 14:07 15:07 18:22 WBC 13.7 H RBC 3.11 L Hgb 6.8 L* Hct 22.4 L MCV 72.0 L D MCH 21.7 L MCHC 30.2 L RDW 19.0 H Plt Count 342 D MPV 7.6 Neut % (Auto) Lymph % (Auto) [place] % (Auto) Eos % (Auto) Baso % (Auto) Neut # (Auto) Lymph # (Auto) [place] # (Auto) Eos # (Auto) Baso # (Auto) WBC Differential Differential Comment PT INR APTT Sodium Potassium Chloride Carbon Dioxide Anion Gap BUN Creatinine Estimated GFR POC Glucose 113 H Random Glucose Lactic Acid Calcium Phosphorus Magnesium Total Bilirubin AST ALT Alkaline Phosphatase Troponin I Total Protein Albumin Nasal Screen MRSA (PCR) Blood Type Antibody Screen MTS Gel Crossmatch See Detail 01/11/18 01/11/18 01/12/18 18:40 22:12 01:10 WBC RBC Hgb Hct MCV MCH MCHC RDW Plt Count MPV Neut % (Auto) Lymph % (Auto) [place] % (Auto) Eos % (Auto) Baso % (Auto) Neut # (Auto) Lymph # (Auto) [place] # (Auto) Eos # (Auto) Baso # (Auto) WBC Differential Differential Comment PT INR APTT 23.5 L Sodium Potassium Chloride Carbon Dioxide Anion Gap BUN Creatinine Estimated GFR POC Glucose 122 H Random Glucose Lactic Acid Calcium Phosphorus Magnesium Total Bilirubin AST ALT Alkaline Phosphatase Troponin I Total Protein Albumin Nasal Screen MRSA (PCR) Not detected Blood Type Antibody Screen MTS Gel Crossmatch 01/12/18 01/12/18 01/12/18 01:38 01:38 01:38 WBC 14.5 H RBC 4.25 L Hgb 10.0 L D Hct 31.7 L MCV 74.6 L MCH 23.6 L MCHC 31.6 L RDW 20.7 H Plt Count 357 MPV 7.4 Neut % (Auto) 80.5 H Lymph % (Auto) 7.3 L [place] % (Auto) 11.3 H Eos % (Auto) 0.4 Baso % (Auto) 0.5 Neut # (Auto) 11.7 H Lymph # (Auto) 1.1 [place] # (Auto) 1.6 H Eos # (Auto) 0.1 Baso # (Auto) 0.1 WBC Differential . Differential Comment Auto diff final PT 10.5 INR 1.0 APTT 23.6 L Sodium 140 Potassium 4.0 Chloride 102 Carbon Dioxide 31.1 D Anion Gap 7 BUN 22 H Creatinine 1.11 Estimated GFR 66 L POC Glucose Random Glucose 105 D Lactic Acid Calcium 8.8 D Phosphorus 3.6 Magnesium 2.0 Total Bilirubin 1.1 H AST 76 H ALT 36 Alkaline Phosphatase 99 Troponin I Total Protein 6.5 D Albumin 3.4 Nasal Screen MRSA (PCR) Blood Type Antibody Screen MTS Gel Crossmatch 01/12/18 01/12/18 01:38 07:01 WBC RBC Hgb Hct MCV MCH MCHC RDW Plt Count MPV Neut % (Auto) Lymph % (Auto) [place] % (Auto) Eos % (Auto) Baso % (Auto) Neut # (Auto) Lymph # (Auto) [place] # (Auto) Eos # (Auto) Baso # (Auto) WBC Differential Differential Comment PT INR APTT Sodium Potassium Chloride Carbon Dioxide Anion Gap BUN Creatinine Estimated GFR POC Glucose 135 H Random Glucose Lactic Acid 0.7 Calcium Phosphorus Magnesium Total Bilirubin AST ALT Alkaline Phosphatase Troponin I Total Protein Albumin Nasal Screen MRSA (PCR) Blood Type Antibody Screen MTS Gel Crossmatch - Imaging Impressions Chest X-Ray 01/12/18 05:16 CONCLUSION: <Yasemin Costa - Last Filed: 01/12/18 10:09> - Labs CBC & Chem 7: 01/12/18 16:25 01/12/18 16:25 Laboratory Results - last 24 hr 01/11/18 01/11/18 01/11/18 10:08 14:07 15:07 WBC RBC Hgb Hct MCV MCH MCHC RDW Plt Count MPV Neut % (Auto) Lymph % (Auto) [place] % (Auto) Eos % (Auto) Baso % (Auto) Neut # (Auto) Lymph # (Auto) [place] # (Auto) Eos # (Auto) Baso # (Auto) WBC Differential Differential Comment PT INR APTT Puncture Site Patient Temperature O2 Saturation ABG pH ABG pCO2 ABG pO2 ABG HCO3 ABG O2 Content ABG Base Excess ABG Methemoglobin Kali Test Hemoglobin Carboxyhemoglobin O2 Delivery Device Liter Flow Inspired O2 Critical Value Sodium Potassium Chloride Carbon Dioxide Anion Gap BUN Creatinine Estimated GFR POC Glucose Random Glucose Lactic Acid Calcium Phosphorus Magnesium Total Bilirubin AST ALT Alkaline Phosphatase Troponin I 6.48 H* Total Protein Albumin Nasal Screen MRSA (PCR) Blood Type A Negative Antibody Screen Negative MTS Gel Crossmatch See Detail See Detail 01/11/18 01/11/18 01/12/18 18:40 22:12 01:10 WBC RBC Hgb Hct MCV MCH MCHC RDW Plt Count MPV Neut % (Auto) Lymph % (Auto) [place] % (Auto) Eos % (Auto) Baso % (Auto) Neut # (Auto) Lymph # (Auto) [place] # (Auto) Eos # (Auto) Baso # (Auto) WBC Differential Differential Comment PT INR APTT 23.5 L Puncture Site Patient Temperature O2 Saturation ABG pH ABG pCO2 ABG pO2 ABG HCO3 ABG O2 Content ABG Base Excess ABG Methemoglobin Kali Test Hemoglobin Carboxyhemoglobin O2 Delivery Device Liter Flow Inspired O2 Critical Value Sodium Potassium Chloride Carbon Dioxide Anion Gap BUN Creatinine Estimated GFR POC Glucose 122 H Random Glucose Lactic Acid Calcium Phosphorus Magnesium Total Bilirubin AST ALT Alkaline Phosphatase Troponin I Total Protein Albumin Nasal Screen MRSA (PCR) Not detected Blood Type Antibody Screen MTS Gel Crossmatch 01/12/18 01/12/18 01/12/18 01:38 01:38 01:38 WBC 14.5 H RBC 4.25 L Hgb 10.0 L D Hct 31.7 L MCV 74.6 L MCH 23.6 L MCHC 31.6 L RDW 20.7 H Plt Count 357 MPV 7.4 Neut % (Auto) 80.5 H Lymph % (Auto) 7.3 L [place] % (Auto) 11.3 H Eos % (Auto) 0.4 Baso % (Auto) 0.5 Neut # (Auto) 11.7 H Lymph # (Auto) 1.1 [place] # (Auto) 1.6 H Eos # (Auto) 0.1 Baso # (Auto) 0.1 WBC Differential . Differential Comment Auto diff final PT 10.5 INR 1.0 APTT 23.6 L Puncture Site Patient Temperature O2 Saturation ABG pH ABG pCO2 ABG pO2 ABG HCO3 ABG O2 Content ABG Base Excess ABG Methemoglobin Kali Test Hemoglobin Carboxyhemoglobin O2 Delivery Device Liter Flow Inspired O2 Critical Value Sodium 140 Potassium 4.0 Chloride 102 Carbon Dioxide 31.1 D Anion Gap 7 BUN 22 H Creatinine 1.11 Estimated GFR 66 L POC Glucose Random Glucose 105 D Lactic Acid Calcium 8.8 D Phosphorus 3.6 Magnesium 2.0 Total Bilirubin 1.1 H AST 76 H ALT 36 Alkaline Phosphatase 99 Troponin I Total Protein 6.5 D Albumin 3.4 Nasal Screen MRSA (PCR) Blood Type Antibody Screen MTS Gel Crossmatch 01/12/18 01/12/18 01/12/18 01:38 07:01 11:27 WBC RBC Hgb Hct MCV MCH MCHC RDW Plt Count MPV Neut % (Auto) Lymph % (Auto) [place] % (Auto) Eos % (Auto) Baso % (Auto) Neut # (Auto) Lymph # (Auto) [place] # (Auto) Eos # (Auto) Baso # (Auto) WBC Differential Differential Comment PT INR APTT Puncture Site Right radial Patient Temperature 98.6 O2 Saturation 90 ABG pH 7.31 L ABG pCO2 67 H* ABG pO2 76 ABG HCO3 32 H ABG O2 Content 13.1 ABG Base Excess 6.1 H ABG Methemoglobin 1.5 Kali Test Present Hemoglobin 10.3 L Carboxyhemoglobin 1.6 O2 Delivery Device Mask Liter Flow 6.00 Inspired O2 21 Critical Value Yes Sodium Potassium Chloride Carbon Dioxide Anion Gap BUN Creatinine Estimated GFR POC Glucose 135 H Random Glucose Lactic Acid 0.7 Calcium Phosphorus Magnesium Total Bilirubin AST ALT Alkaline Phosphatase Troponin I Total Protein Albumin Nasal Screen MRSA (PCR) Blood Type Antibody Screen MTS Gel Crossmatch 01/12/18 01/12/18 16:25 16:25 WBC 20.7 H RBC 4.45 L Hgb 10.3 L Hct 32.9 L MCV 74.1 L MCH 23.1 L MCHC 31.2 L RDW 20.8 H Plt Count 356 MPV 7.2 Neut % (Auto) Lymph % (Auto) [place] % (Auto) Eos % (Auto) Baso % (Auto) Neut # (Auto) Lymph # (Auto) [place] # (Auto) Eos # (Auto) Baso # (Auto) WBC Differential Differential Comment PT INR APTT Puncture Site Patient Temperature O2 Saturation ABG pH ABG pCO2 ABG pO2 ABG HCO3 ABG O2 Content ABG Base Excess ABG Methemoglobin Kali Test Hemoglobin Carboxyhemoglobin O2 Delivery Device Liter Flow Inspired O2 Critical Value Sodium 140 Potassium 3.8 Chloride 101 Carbon Dioxide 34.5 H Anion Gap 5 BUN 20 H Creatinine 1.15 Estimated GFR 64 L POC Glucose Random Glucose 130 H Lactic Acid Calcium 8.7 Phosphorus Magnesium Total Bilirubin 0.7 AST 390 H ALT 67 Alkaline Phosphatase 96 Troponin I Total Protein 6.7 Albumin 3.4 Nasal Screen MRSA (PCR) Blood Type Antibody Screen MTS Gel Crossmatch Microbiology 01/11/18 03:50 Catheterized Urine Urine Culture - Preliminary No growth in 24 hours - Imaging Impressions Chest X-Ray 01/12/18 05:16 CONCLUSION: <KevkayleighAileenmirta - Last Filed: 01/12/18 18:31> Assessment and Plan - Plan Assessment: - Anemia, microcytic, hypochromic- no obvious GIB Pt currently intubated and on sedation, all history obtained through chart review and speaking with RN. Pt has had no obvious GIB and no BM or emesis since admission. NG tube with no BRB or coffee ground material. Seen by our service in November for anemia, at that time was noted no endoscopic procedures due to recent stent placement and need for antiplatelet therapy. Of note, pt had Brilinta day before our exam and was given a loading dose of Plavix the day of exam. Pt was not having any obvious GIB at that time. EGD done at [facility] for melanotic stools --> Normal esophagus, small hiatal hernia, single angioectasia in the duodenum treated with APC. Last colonoscopy was approximately 15 years ago and reports colon polyps. - SOB- pt hypoxic in ER and was emergently intubated - NSTEMI- pt presented with chest pain- serial troponin significantly elevated- cardiology consult pending- was on Heparin gtt this was discontinued due to drop in hgb (01/12) Pt now extubated this morning, confused and unable to answer questions. Discussed with ROJELIO Rodriguez, states no BM and no emesis. S/P 3 U of PRBCs hgb is currently 10 with still no obvious GIB. Seen by cardiology, work up pending. Serial troponin elevated Plan: Will need EGD when cleared by cardiology At this time monitor H/H closely and transfuse as indicated Too unstable for EGD at this time Will continue to monitor Further recommendations to follow Pt has been seen and examined by myself and Dr. Linares and this note is written on his behalf <Yasemin Costa - Last Filed: 01/12/18 10:09> - Plan Patient is poor prognosis according to cardiology Dr. Beatty, awaiting for the results of the cardiac cath, EGD if stable enough otherwise per Dr. Beatty hospice should be considered <Maritza Linares - Last Filed: 01/12/18 18:31>
[2018-01-12] MEDS: Dexmedetomidine Inj 200 MCG in Sodium Chlor 0.9% Inj 48 ML IV.CONT PRN ×4 (10:30→23:14)
[2018-01-12] MEDS ORDERED: RASS Change Order OTHER ONE (11:00)
[2018-01-12 11:42] LABS: ABG Base Excess 6.1 mmol/L (-2-2); ABG PCO2 67 mmHg (38-42); ABG PO2 76 mmHG (61-120)
[2018-01-12] MEDS: Haloperidol Inj 5 MG/ML Ampul IV.PUSH PRN ×2 (14:12→20:29)
[2018-01-12 16:39] LABS: Hematocrit 32.9 % (39.0-51.0); Hemoglobin 10.3 gm/dL (13.0-17.0); Mean Corpuscular HGB Conc 31.2 % (32.0-36.0); Mean Corpuscular Hemoglobin 23.1 pg (27.0-34.0); Mean Corpuscular Volume 74.1 fL (80.0-100.0); Mean Platelet Volume 7.2 fL (7.0-11.0); Platelet Count 356 th/mm3 (150-450); Red Blood Count 4.45 mil/mm3 (4.50-5.90); Red Cell Distribution Width 20.8 % (11.6-17.2); White Blood Count 20.7 th/mm3 (4.0-11.0)
[2018-01-12 17:19] LABS: Alanine Aminotransferase 67 U/L (12-78); Albumin 3.4 g/dL (3.4-5.0); Alkaline Phosphatase 96 U/L (45-117); Anion Gap 5 meq/L (5-15); Aspartate Aminotransferase 390 U/L (15-37); Blood Urea Nitrogen 20 mg/dL (7-18); Calcium 8.7 mg/dL (8.5-10.1); Carbon Dioxide 34.5 meq/L (21.0-32.0); Chloride 101 meq/L (98-107); Glomerular Filtration Rate 64 mL/min (>89); Glucose,Random 130 mg/dL (74-106); Potassium 3.8 meq/L (3.5-5.1); Sodium 140 meq/L (136-145); Total Protein 6.7 g/dL (6.4-8.2)
--- NOTE | 2018-01-12 21:14 | P.PNCA ---
Subjective Interval history: sedated, restrained Physical Exam Vital signs: Vital Signs 01/11/18 22:00 01/12/18 00:00 01/12/18 00:51 Temperature 98.8 F Pulse Rate 94 H 98 H Respiratory Rate 16 16 Blood Pressure 133/60 Pulse Oximetry 98 99 01/12/18 02:00 01/12/18 04:00 01/12/18 04:07 Temperature 98.9 F Pulse Rate 94 H 101 H 97 H Respiratory Rate 16 16 Blood Pressure 120/56 L Pulse Oximetry 97 98 01/12/18 05:07 01/12/18 06:00 01/12/18 08:00 Temperature 98.9 F Pulse Rate 97 H 104 H Respiratory Rate 19 Blood Pressure 136/62 Pulse Oximetry 96 01/12/18 09:11 01/12/18 10:00 01/12/18 12:00 Temperature 99.0 F Pulse Rate 103 H 117 H 124 H Respiratory Rate 18 21 Blood Pressure 152/73 H Pulse Oximetry 95 95 01/12/18 14:00 01/12/18 16:00 01/12/18 16:35 Temperature 102 F H Pulse Rate 113 H 117 H 119 H Respiratory Rate 18 18 Blood Pressure 176/80 H Pulse Oximetry 96 01/12/18 18:00 Temperature Pulse Rate 108 H Respiratory Rate Blood Pressure Pulse Oximetry Intake & Output 01/12/18 01/12/18 01/13/18 06:59 18:59 06:59 Intake Total 750 / 750 225 / 225 50 / 50 Output Total 1350 / 1350 1850 / 1850 Balance -600 / -600 -1625 / -1625 50 / 50 Weight 95.1 kg Intake: IV 350 / 350 225 / 225 50 / 50 Precedex Inj 200 MCG In NS Inj 50 / 50 50 / 50 48 ML @ 0.2 MCG/KG/HR 4.75 mls/ hr IV.CONT TITRATE PRN Rx#: [id number] Heparin/D5W 25,000 U/250 mL 25, 75 / 75 000 unit In 250 ml @ 1,000 UNITS/HR 10 mls/hr IV.CONT TITRATE PRN Rx#:[id number] Versed Inj 50 mg In 50 ml @ 2 100 / 100 MG/HR 2 mls/hr IV.CONT TITRATE PRN Rx#:[id number] Diprivan 1000 mg/100 ml Inj 1, 50 / 50 000 mg In 100 ml @ 5 MCG/KG/MIN 3.402 mls/hr IV.CONT TITRATE PRN Rx#:[id number] fentaNYL 10 mcg/mL Premix Drip 250 / 250 50 / 50 2,500 mcg In 250 ml @ 50 MCG/HR 5 mls/hr IV.SIG TITRATE PRN Rx #:[id number] Intake (Blood Product) Amt 400 / 400 Rbc As-3 Leukoreduced Unit 400 / 400 [id number] Output: Urine Amount (Catheter) 1350 / 1350 1850 / 1850 Indwelling Urethral Catheter 1350 / 1350 1850 / 1850 Other: # Bowel Movements 0 - Urinary Catheter Management Indwelling Urethral Catheter Cath placed during this visit: yes Reason for continuing: Hourly intake/output Insertion date: 01/11/18 Insertion time: 03:15 Assessment and Plan - Assessment (1) NSTEMI (non-ST elevated myocardial infarction) Code(s): I21.4 - Non-ST elevation (NSTEMI) myocardial infarction Status: Acute (2) CAD (coronary artery disease) Code(s): I25.10 - Atherosclerotic heart disease of [place] coronary artery without angina pectoris Status: Acute (3) Anemia Code(s): D64.9 - Anemia, unspecified Status: Acute (4) Anemia Code(s): D64.9 - Anemia, unspecified Status: Acute - Plan 1.) NSTEMI - sedated an unconsentable, d/w Dr Pena, plan to trend hgb and mental status, will obtain consent from patient if possible if he can not consent will need surrogate, also will need to determine if hgb remains stable, d/w nursing staff
[2018-01-13] MEDS: Dexmedetomidine Inj 200 MCG in Sodium Chlor 0.9% Inj 48 ML IV.CONT PRN ×7 (01:56→20:04)
[2018-01-13] MEDS: Oral Hygiene Kit OROPHARYNG SCH ×4 (02:51→16:45)
[2018-01-13] MEDS: Haloperidol Inj 5 MG/ML Ampul IV.PUSH PRN ×3 (02:51→23:51)
[2018-01-13] MEDS: Metoprolol Inj 5 MG/5 ML Vial IV.PUSH SCH ×4 (03:04→20:05)
[2018-01-13] MEDS: Pantoprazole Inj 40 MG Vial IV.PUSH SCH ×2 (03:04→16:44)
[2018-01-13] MEDS: Chlorhexidine Gluconate 2% 1 Pack (2 Cloths) TOPICAL SCH (03:04)
[2018-01-13 05:37] LABS: Hematocrit 32.5 % (39.0-51.0); Hemoglobin 10.1 gm/dL (13.0-17.0); Mean Corpuscular HGB Conc 31.2 % (32.0-36.0); Mean Corpuscular Hemoglobin 23.5 pg (27.0-34.0); Mean Corpuscular Volume 75.3 fL (80.0-100.0); Mean Platelet Volume 7.9 fL (7.0-11.0); Platelet Count 327 th/mm3 (150-450); Red Blood Count 4.32 mil/mm3 (4.50-5.90); Red Cell Distribution Width 21.1 % (11.6-17.2); White Blood Count 21.9 th/mm3 (4.0-11.0)
--- NOTE | 2018-01-13 05:43 | XR ---
EXAM DATE: 01/13/2018 5:38 AM EDT AGE/SEX: 67 years / Male INDICATIONS: Shortness of breath. Possible pulmonary disease. CLINICAL DATA: This is the patient's subsequent encounter. Patient reports that signs and symptoms h ave been present for 3 days and indicates a pain score of Nonresponsive. MEDICAL/SURGICAL HISTORY: . Hypertension. Myocardial infarction. Coronary artery stent. COMPARISON: [facility], CHEST 1V SINGLE AP, 01/11/2018. . FINDINGS: NGT has been removed. Patient has been extubated. Cardiac silhouette is enlarged with persistent diff use interstitial prominence. Persistent right lower lung zone airspace disease. Worsening left lower lung zone airspace disease. Remainder of the exam is unchanged. CONCLUSION: 1. Status post extubation with removal of NGT. 2. Cardiomegaly with positive fluid balance. 3. Medial right lower lung zone airspace disease. 4. Worsening left lower lung zone airspace disease which may reflect atelectasis. Electronically signed by: Alexis Ramsay MD 01/13/2018 5:41 AM EDT
[2018-01-13 05:50] LABS: Alanine Aminotransferase 80 U/L (12-78); Anion Gap 8 meq/L (5-15); Aspartate Aminotransferase 452 U/L (15-37); Blood Urea Nitrogen 20 mg/dL (7-18); Calcium 9.1 mg/dL (8.5-10.1); Carbon Dioxide 31.7 meq/L (21.0-32.0); Chloride 101 meq/L (98-107); Glomerular Filtration Rate 72 mL/min (>89); Glucose,Random 138 mg/dL (74-106); Magnesium 2.1 mg/dL (1.5-2.5); Potassium 4.1 meq/L (3.5-5.1); Sodium 141 meq/L (136-145)
[2018-01-13 05:53] LABS: Alkaline Phosphatase 86 U/L (45-117); Total Protein 6.5 g/dL (6.4-8.2)
[2018-01-13] MEDS: Senna/Docusate Sodium 8.6/50 MG Tablet PO SCH ×2 (09:09→20:05)
[2018-01-13] MEDS: Chlorhexidine 0.12% Oral Kit 15 ML UDC OROPHARYNG SCH (09:10)
--- NOTE | 2018-01-13 09:39 | P.PNCC ---
Subjective Subjective Remarks/Hospital Course: 67 year old male presents with a history of chest pain and shortness of breath. In the emergency department he was profusely diaphoretic with severe chest pain, and shortness of breath. He was noted to be agitated, pale appearing, and diaphoretic. Per chart review he has had chest pain since he had a stent placed in October 2017. The patient was initially agitated and would not allow oxygen to be placed on his face and was intubated by ED attending for an airway protection and severe respiratory distress. He reports that he has had a heart attack in the past. He denies any history of COPD. He reports that he did take an adult dose aspirin today along with Plavix. SUBJ 01/12/18: Patient remains intubated, on sedation hold patient becomes very agitated unable to do weaning parameters. Chest x-ray shows improving infiltrates but some persistent right lower lobe infiltrate. Diuresed adequately with Lasix. Will attempt extubation to nonrebreather. Further cardiac workup per Dr. Beatty. Troponin peaked at 6.48. Hemoglobin is 10 today after 3 units PRBC transfused. 2D Echo is pending at this time 01/13: Patient remains critical, currently sedated with Precedex 1 mcg/kg/h. On lightening sedation patient is slightly more awake today able to follow some commands. Had fever 102 yesterday WBC count is increased to 21.9. Urine culture negative. Check blood cultures sputum culture today. Cannot rule out pneumonia based on chest x-ray, start Zosyn 3.375 g IV every 6 hours Objective Vital Signs / I&O: Vital Signs 01/12/18 10:00 01/12/18 12:00 01/12/18 14:00 Temperature 99.0 F Pulse Rate 117 H 124 H 113 H Respiratory Rate 21 Blood Pressure 152/73 H Pulse Oximetry 95 01/12/18 16:00 01/12/18 16:35 01/12/18 18:00 Temperature 102 F H Pulse Rate 117 H 119 H 108 H Respiratory Rate 18 18 Blood Pressure 176/80 H Pulse Oximetry 96 01/12/18 20:00 01/12/18 21:26 01/12/18 22:00 Temperature 99.8 F H Pulse Rate 82 76 92 H Respiratory Rate 18 18 Blood Pressure 151/67 H Pulse Oximetry 97 98 01/13/18 00:00 01/13/18 01:33 01/13/18 02:00 Temperature 99.5 F Pulse Rate 89 86 93 H Respiratory Rate 18 18 Blood Pressure 152/67 H Pulse Oximetry 96 01/13/18 04:00 01/13/18 06:00 01/13/18 08:00 Temperature 99.3 F Pulse Rate 81 82 Respiratory Rate 18 14 Blood Pressure 170/74 H Pulse Oximetry 95 01/13/18 08:45 Temperature Pulse Rate 80 Respiratory Rate 18 Blood Pressure Pulse Oximetry 93 L Intake & Output 01/12/18 01/13/18 01/13/18 18:59 06:59 18:59 Intake Total 225 / 225 275 / 275 50 / 50 Output Total 1849 Balance -1625 / -1625 275 / 275 50 / 50 Intake: IV 225 / 225 250 / 250 50 / 50 Precedex Inj 200 MCG In NS Inj 50 / 50 250 / 250 50 / 50 48 ML @ 0.2 MCG/KG/HR 4.75 mls/ hr IV.CONT TITRATE PRN Rx#: [id number] Heparin/D5W 25,000 U/250 mL 25, 75 / 75 000 unit In 250 ml @ 1,000 UNITS/HR 10 mls/hr IV.CONT TITRATE PRN Rx#:[id number] Diprivan 1000 mg/100 ml Inj 1, 50 / 50 000 mg In 100 ml @ 5 MCG/KG/MIN 3.402 mls/hr IV.CONT TITRATE PRN Rx#:[id number] fentaNYL 10 mcg/mL Premix Drip 50 / 50 2,500 mcg In 250 ml @ 50 MCG/HR 5 mls/hr IV.SIG TITRATE PRN Rx #:[id number] Oral 25 / 25 Output: Urine Amount (Catheter) 1849 Indwelling Urethral Catheter 1849 Result Diagrams: 01/13/18 04:30 01/13/18 04:30 Objective Remarks: - Constitutional Patient is sedated with Precedex - Routine HEENT Exam Head: normocephalic, atraumatic Eye: PERRL ENT: Oral cavity is moist - Routine Neck Exam No JVD, carotid bruit. Neck is supple - Routine Respiratory Exam An entry diminished bilaterally with no anterior wheezes or crackles - Routine Cardiovascular Exam RRR, S1, S2, intermittent tachycardia. Systolic murmur at the apex - Routine Abdominal Exam Soft, normoactive bowel sounds. Mild right upper quadrant tenderness - Routine Extremities Exam No cyanosis, clubbing - Routine Neurological Exam On sedation hold moving all extremities. Follows commands with bilateral upper and lower extremities today. Assessment and Plan - Assessment and Plan Plan: ASSESSMENT/PLAN: Acute hypoxemic respiratory failure -Secondary to acute CHF exacerbation -Extubated, tolerating well, maintaining good oxygen saturation -DuoNeb every 6 hours -Diuresis IV Lasix 20 mg every 12 hours -CXR daily NSTEMI: -Troponin peaked at 6.48 -Cardiology Dr. Beatty, plan for cath once mentation improved -Resume aspirin Plavix as hemoglobin remained stable. No IV Heparin -Continue metoprolol to 25 mg q8 -Continue atorvastatin 40 mg nightly Acute on chronic CHF exacerbation -Known history of coronary artery disease -Recent stent placed in October 2017 -Diuresis IV Lasix 20 mg every 12 hours, reduced from every 6 -2D echo pending -Continue CRISTÓBAL inhibitor, metoprolol, and diuretics Agitated delirium/metabolic encephalopathy -Currently on Precedex continue to wean to DC -Use as needed Ativan and Haldol -Delirium secondary to acute illness Anemia due to blood loss most likely secondary to GI bleed -Continue IV Protonix 40 mg q12, keep hemoglobin more than 8 given acute ischemia -According to GI not too unstable for endoscopy at this time -EGD done at [facility] for melanotic stools apparently Normal esophagus, small hiatal hernia, single angioectasia in the duodenum treated with APC. -Last colonoscopy about 15 years ago and reports colon polyps. Fever leukocytosis Probable sepsis -There is no evidence of meningitis there is no neck stiffness, mentation improving -Cannot rule out pneumonia start Zosyn 3.375 g IV every 6 hours -Urine culture negative, send blood and sputum culture Hypertension -Continue metoprolol as above -Continue CRISTÓBAL inhibitor Dyslipidemia -Atorvastatin DVT GI prophylaxis -Teds SCDs -IV Protonix Critical Care: The total critical care time was 35 minutes. Time to perform other separately billable procedures was not included in the critical care time. Code Status: Full Discussed Condition With: Dr. Beatty
--- NOTE | 2018-01-13 10:12 | P.PNCA ---
Subjective Interval history: sedated, restrained Physical Exam Vital signs: Vital Signs 01/12/18 12:00 01/12/18 14:00 01/12/18 16:00 Temperature 99.0 F 102 F H Pulse Rate 124 H 113 H 117 H Respiratory Rate 21 18 Blood Pressure 152/73 H 176/80 H Pulse Oximetry 95 96 01/12/18 16:35 01/12/18 18:00 01/12/18 20:00 Temperature 99.8 F H Pulse Rate 119 H 108 H 82 Respiratory Rate 18 18 Blood Pressure 151/67 H Pulse Oximetry 97 01/12/18 21:26 01/12/18 22:00 01/13/18 00:00 Temperature 99.5 F Pulse Rate 76 92 H 89 Respiratory Rate 18 18 Blood Pressure 152/67 H Pulse Oximetry 98 96 01/13/18 01:33 01/13/18 02:00 01/13/18 04:00 Temperature 99.3 F Pulse Rate 86 93 H 81 Respiratory Rate 18 18 Blood Pressure 170/74 H Pulse Oximetry 95 01/13/18 06:00 01/13/18 08:00 01/13/18 08:45 Temperature Pulse Rate 82 80 Respiratory Rate 14 18 Blood Pressure Pulse Oximetry 93 L Intake & Output 01/12/18 01/13/18 01/13/18 18:59 06:59 18:59 Intake Total 225 / 225 275 / 275 50 / 50 Output Total 1850 / 1850 Balance -1625 / -1625 275 / 275 50 / 50 Intake: IV 225 / 225 250 / 250 50 / 50 Precedex Inj 200 MCG In NS Inj 50 / 50 250 / 250 50 / 50 48 ML @ 0.2 MCG/KG/HR 4.75 mls/ hr IV.CONT TITRATE PRN Rx#: [id number] Heparin/D5W 25,000 U/250 mL 25, 75 / 75 000 unit In 250 ml @ 1,000 UNITS/HR 10 mls/hr IV.CONT TITRATE PRN Rx#:[id number] Diprivan 1000 mg/100 ml Inj 1, 50 / 50 000 mg In 100 ml @ 5 MCG/KG/MIN 3.402 mls/hr IV.CONT TITRATE PRN Rx#:[id number] fentaNYL 10 mcg/mL Premix Drip 50 / 50 2,500 mcg In 250 ml @ 50 MCG/HR 5 mls/hr IV.SIG TITRATE PRN Rx #:[id number] Oral Output: Urine Amount (Catheter) 1849 Indwelling Urethral Catheter 1849 - Urinary Catheter Management Indwelling Urethral Catheter Cath placed during this visit: yes Reason for continuing: Hourly intake/output Insertion date: 01/11/18 Insertion time: 03:15 Assessment and Plan - Assessment (1) NSTEMI (non-ST elevated myocardial infarction) Code(s): I21.4 - Non-ST elevation (NSTEMI) myocardial infarction Status: Acute (2) CAD (coronary artery disease) Code(s): I25.10 - Atherosclerotic heart disease of [place] coronary artery without angina pectoris Status: Acute (3) Anemia Code(s): D64.9 - Anemia, unspecified Status: Acute (4) Anemia Code(s): D64.9 - Anemia, unspecified Status: Acute - Plan 1.) NSTEMI - sedated and unconsentable, d/w Dr Pena, plan to trend hgb and mental status, will obtain consent from patient if possible if he can not consent will need surrogate, also will need to determine if hgb remains stable, cath if/when consent signed and patient able to co operate; d/w Dr Pena, patient still too agitated off sedation and unable to follow simple commands due to sedation
--- NOTE | 2018-01-13 10:30 | P.PNGI ---
Subjective Interval history: Pt is resting in bed, alert, awake, confused, on o2 via NC. in restraints, no bleeding reported per nurse <Pema Hylton - Last Filed: 01/13/18 10:21> Interval history: Patient was seen and examined, agree with above note, no active GI bleed, patient is not a candidate at this time for any GI procedure, he need cardiac cath, no consent available, if the patient get cardiac cath and cleared by cardiology then we will might proceed with endoscopy if needed, please call us back for consultation at that time, meanwhile continue packed RBC and supportive care <Maritza Linares - Last Filed: 01/13/18 18:05> Physical Exam Vital signs: Vital Signs 01/12/18 12:00 01/12/18 14:00 01/12/18 16:00 Temperature 99.0 F 102 F H Pulse Rate 124 H 113 H 117 H Respiratory Rate 21 18 Blood Pressure 152/73 H 176/80 H Pulse Oximetry 95 96 01/12/18 16:35 01/12/18 18:00 01/12/18 20:00 Temperature 99.8 F H Pulse Rate 119 H 108 H 82 Respiratory Rate 18 18 Blood Pressure 151/67 H Pulse Oximetry 97 01/12/18 21:26 01/12/18 22:00 01/13/18 00:00 Temperature 99.5 F Pulse Rate 76 92 H 89 Respiratory Rate 18 18 Blood Pressure 152/67 H Pulse Oximetry 98 96 01/13/18 01:33 01/13/18 02:00 01/13/18 04:00 Temperature 99.3 F Pulse Rate 86 93 H 81 Respiratory Rate 18 18 Blood Pressure 170/74 H Pulse Oximetry 95 01/13/18 06:00 01/13/18 08:00 01/13/18 08:45 Temperature Pulse Rate 82 80 Respiratory Rate 14 18 Blood Pressure Pulse Oximetry 93 L Intake & Output 01/12/18 01/13/18 01/13/18 18:59 06:59 18:59 Intake Total 225 / 225 275 / 275 50 / 50 Output Total 1850 / 1850 Balance -1625 / -1625 275 / 275 50 / 50 Intake: IV 225 / 225 250 / 250 50 / 50 Precedex Inj 200 MCG In NS Inj 50 / 50 250 / 250 50 / 50 48 ML @ 0.2 MCG/KG/HR 4.75 mls/ hr IV.CONT TITRATE PRN Rx#: [id number] Heparin/D5W 25,000 U/250 mL 25, 75 / 75 000 unit In 250 ml @ 1,000 UNITS/HR 10 mls/hr IV.CONT TITRATE PRN Rx#:[id number] Diprivan 1000 mg/100 ml Inj 1, 50 / 50 000 mg In 100 ml @ 5 MCG/KG/MIN 3.402 mls/hr IV.CONT TITRATE PRN Rx#:[id number] fentaNYL 10 mcg/mL Premix Drip 50 / 50 2,500 mcg In 250 ml @ 50 MCG/HR 5 mls/hr IV.SIG TITRATE PRN Rx #:[id number] Oral 25 / 25 Output: Urine Amount (Catheter) 1849 Indwelling Urethral Catheter 1849 - Constitutional no acute distress - Routine HEENT Exam Head: Present: normocephalic - Routine Neck Exam Present: supple - Routine Respiratory Exam Present: diminished air movement - Routine Cardiovascular Exam Present: RRR - Routine Abdominal Exam Present: soft, normoactive bowel sounds. Absent: tenderness - Routine Skin Exam Present: intact, dry - Routine Neurological Exam Present: alert - Urinary Catheter Management Indwelling Urethral Catheter Cath placed during this visit: yes Reason for continuing: Hourly intake/output Insertion date: 01/11/18 Insertion time: 03:15 <Pema Hylton - Last Filed: 01/13/18 10:21> Vital signs: Vital Signs 01/12/18 20:00 01/12/18 21:26 01/12/18 22:00 Temperature 99.8 F H Pulse Rate 82 76 92 H Respiratory Rate 18 18 Blood Pressure 151/67 H Pulse Oximetry 97 98 01/13/18 00:00 01/13/18 01:33 01/13/18 02:00 Temperature 99.5 F Pulse Rate 89 86 93 H Respiratory Rate 18 18 Blood Pressure 152/67 H Pulse Oximetry 96 01/13/18 04:00 01/13/18 06:00 01/13/18 08:00 Temperature 99.3 F 98.9 F Pulse Rate 81 82 80 Respiratory Rate 18 20 Blood Pressure 170/74 H 165/73 H Pulse Oximetry 95 95 01/13/18 08:45 01/13/18 10:00 01/13/18 12:00 Temperature 99.3 F Pulse Rate 80 67 82 Respiratory Rate 18 22 Blood Pressure 160/72 H Pulse Oximetry 93 L 93 L 01/13/18 14:00 01/13/18 16:00 Temperature 100.2 F H Pulse Rate 81 82 Respiratory Rate 21 Blood Pressure 172/74 H Pulse Oximetry 97 Intake & Output 01/12/18 01/13/18 01/13/18 18:59 06:59 18:59 Intake Total 225 / 225 275 / 275 200 / 200 Output Total 1849 Balance -1625 / -1625 275 / 275 200 / 200 Weight 90.8 kg Intake: IV 225 / 225 250 / 250 200 / 200 Precedex Inj 200 MCG In NS Inj 50 / 50 250 / 250 150 / 150 48 ML @ 0.2 MCG/KG/HR 4.75 mls/ hr IV.CONT TITRATE PRN Rx#: [id number] Heparin/D5W 25,000 U/250 mL 25, 75 / 75 000 unit In 250 ml @ 1,000 UNITS/HR 10 mls/hr IV.CONT TITRATE PRN Rx#:[id number] Diprivan 1000 mg/100 ml Inj 1, 50 / 50 000 mg In 100 ml @ 5 MCG/KG/MIN 3.402 mls/hr IV.CONT TITRATE PRN Rx#:[id number] Zosyn 3.375 GM Premix 50 ML @ 50 / 50 100 mls/hr IV.SIG Q6H BRIA Rx#: [id number] fentaNYL 10 mcg/mL Premix Drip 50 / 50 2,500 mcg In 250 ml @ 50 MCG/HR 5 mls/hr IV.SIG TITRATE PRN Rx #:[id number] Oral 25 / 25 Output: Urine Amount (Catheter) 1849 Indwelling Urethral Catheter 1849 - Urinary Catheter Management Indwelling Urethral Catheter Cath placed during this visit: no <Maritza Linares - Last Filed: 01/13/18 18:05> Results - Labs CBC & Chem 7: 01/13/18 04:30 01/13/18 04:30 Laboratory Results - last 24 hr 01/12/18 01/12/18 01/12/18 11:27 16:25 16:25 WBC 20.7 H RBC 4.45 L Hgb 10.3 L Hct 32.9 L MCV 74.1 L MCH 23.1 L MCHC 31.2 L RDW 20.8 H Plt Count 356 MPV 7.2 Puncture Site Right radial Patient Temperature 98.6 O2 Saturation 90 ABG pH 7.31 L ABG pCO2 67 H* ABG pO2 76 ABG HCO3 32 H ABG O2 Content 13.1 ABG Base Excess 6.1 H ABG Methemoglobin 1.5 Kali Test Present Hemoglobin 10.3 L Carboxyhemoglobin 1.6 O2 Delivery Device Mask Liter Flow 6.00 Inspired O2 21 Critical Value Yes Sodium 140 Potassium 3.8 Chloride 101 Carbon Dioxide 34.5 H Anion Gap 5 BUN 20 H Creatinine 1.15 Estimated GFR 64 L POC Glucose Random Glucose 130 H Calcium 8.7 Magnesium Total Bilirubin 0.7 AST 390 H ALT 67 Alkaline Phosphatase 96 Total Protein 6.7 Albumin 3.4 01/12/18 01/13/18 01/13/18 19:01 00:26 04:30 WBC 21.9 H RBC 4.32 L Hgb 10.1 L Hct 32.5 L MCV 75.3 L MCH 23.5 L MCHC 31.2 L RDW 21.1 H Plt Count 327 MPV 7.9 Puncture Site Patient Temperature O2 Saturation ABG pH ABG pCO2 ABG pO2 ABG HCO3 ABG O2 Content ABG Base Excess ABG Methemoglobin Kali Test Hemoglobin Carboxyhemoglobin O2 Delivery Device Liter Flow Inspired O2 Critical Value Sodium Potassium Chloride Carbon Dioxide Anion Gap BUN Creatinine Estimated GFR POC Glucose 161 H 178 H Random Glucose Calcium Magnesium Total Bilirubin AST ALT Alkaline Phosphatase Total Protein Albumin 01/13/18 04:30 WBC RBC Hgb Hct MCV MCH MCHC RDW Plt Count MPV Puncture Site Patient Temperature O2 Saturation ABG pH ABG pCO2 ABG pO2 ABG HCO3 ABG O2 Content ABG Base Excess ABG Methemoglobin Kali Test Hemoglobin Carboxyhemoglobin O2 Delivery Device Liter Flow Inspired O2 Critical Value Sodium 141 Potassium 4.1 Chloride 101 Carbon Dioxide 31.7 Anion Gap 8 BUN 20 H Creatinine 1.04 Estimated GFR 72 L POC Glucose Random Glucose 138 H Calcium 9.1 Magnesium 2.1 Total Bilirubin 0.9 AST 452 H ALT 80 H Alkaline Phosphatase 86 Total Protein 6.5 Albumin 3.0 L Microbiology 01/11/18 03:50 Catheterized Urine Urine Culture - Final No growth in 48 hours - Imaging Impressions Chest X-Ray 01/13/18 06:00 CONCLUSION: <Pema Hylton - Last Filed: 01/13/18 10:21> - Labs CBC & Chem 7: 01/13/18 04:30 01/13/18 04:30 Laboratory Results - last 24 hr 01/12/18 01/13/18 01/13/18 19:01 00:26 04:30 WBC 21.9 H RBC 4.32 L Hgb 10.1 L Hct 32.5 L MCV 75.3 L MCH 23.5 L MCHC 31.2 L RDW 21.1 H Plt Count 327 MPV 7.9 Sodium Potassium Chloride Carbon Dioxide Anion Gap BUN Creatinine Estimated GFR POC Glucose 161 H 178 H Random Glucose Calcium Magnesium Total Bilirubin AST ALT Alkaline Phosphatase Total Protein Albumin 01/13/18 01/13/18 01/13/18 04:30 12:01 17:42 WBC RBC Hgb Hct MCV MCH MCHC RDW Plt Count MPV Sodium 141 Potassium 4.1 Chloride 101 Carbon Dioxide 31.7 Anion Gap 8 BUN 20 H Creatinine 1.04 Estimated GFR 72 L POC Glucose 161 H 153 H Random Glucose 138 H Calcium 9.1 Magnesium 2.1 Total Bilirubin 0.9 AST 452 H ALT 80 H Alkaline Phosphatase 86 Total Protein 6.5 Albumin 3.0 L Microbiology 01/11/18 03:50 Catheterized Urine Urine Culture - Final No growth in 48 hours - Imaging Impressions Chest X-Ray 01/12/18 05:16 CONCLUSION: Improving aeration in the right hemithorax. Gallbladder Ultrasound 01/13/18 00:00 CONCLUSION: 1. Echogenic liver without ductal dilatation. 2. No ascites. 3. No gallstones Chest X-Ray 01/13/18 06:00 CONCLUSION: 1. Status post extubation with removal of NGT. 2. Cardiomegaly with positive fluid balance. 3. Medial right lower lung zone airspace disease. 4. Worsening left lower lung zone airspace disease which may reflect atelectasis. <Maritza Linares - Last Filed: 01/13/18 18:05> Assessment and Plan - Plan Anemia, microcytic, hypochromic- no obvious GIB Seen by our service in November for anemia, at that time was noted no endoscopic procedures due to recent stent placement and need for antiplatelet therapy. Of note, pt had Brilinta day before our exam and was given a loading dose of Plavix the day of exam. Pt was not having any obvious GIB at that time. EGD done at [facility] for melanotic stools --> Normal esophagus, small hiatal hernia, single angioectasia in the duodenum treated with APC. Last colonoscopy was approximately 15 years ago and reports colon polyps. - SOB- pt hypoxic in ER and was emergently intubated - NSTEMI- pt presented with chest pain- serial troponin significantly elevated- cardiology consult pending- was on Heparin gtt this was discontinued due to drop in hgb (01/12) Pt now extubated this morning, confused and unable to answer questions. Discussed with ROJELIO Rodriguez, states no BM and no emesis. S/P 3 U of PRBCs hgb is currently 10 with still no obvious GIB. Seen by cardiology, work up pending. Serial troponin elevated (01/13/18) Patient remains critically ill , no obvious bleeding reported, hh stable Cardiology work up still pending. Plan: Will need EGD when cleared by cardiology and medically stable At this time monitor H/H closely and transfuse as indicated Too unstable for EGD at this time Will continue to monitor Further recommendations to follow Pt seen and examined by Dr. Linares and myself <Pema Hylton - Last Filed: 01/13/18 10:21>
[2018-01-13] MEDS: Piperacil/Tazo 3.375 GM Premix 50 ML IV.SIG SCH ×3 (11:53→23:50)
--- NOTE | 2018-01-13 12:07 | US ---
EXAM DATE: 01/13/2018 11:52 AM EDT AGE/SEX: 67 years / Male INDICATIONS: Right upper quadrant pain. CLINICAL DATA: This is the patient's initial encounter. Patient reports that signs and symptoms have been present for 1 day and indicates a pain score of 3/10. MEDICAL/SURGICAL HISTORY: Hypertension. Hyperlipidemia. Myocardial infarction. . Cardiac cath eterization. Heart artery stent. Limited exam by body habitus COMPARISON: No prior exams available for comparison. MEASUREMENTS: Liver:__ 17.8 cm. Common Bile Duct:__ 3mm. FINDINGS: Liver: Increased echotexture without focal lesion or ductal dilation. Portal Vein: Hepatopedal flow seen in portal vein. Common Duct: No intraluminal mass or stone visualized. Gallbladder: Demonstrates no wall thickening or pericholecystic fluid. No stones visualized. Pancreas: Not well visualized. Right Kidney: Normal echotexture and cortical thickness. No mass or hydronephrosis. CONCLUSION: 1. Echogenic liver without ductal dilatation. 2. No ascites. 3. No gallstones Electronically signed by: Holland Beck MD 01/13/2018 12:06 PM EDT
--- NOTE | 2018-01-13 12:40 | ECHRPT ---
Indication: HEART FAILURE CONCLUSIONS The left ventricular systolic function is normal with an estimated ejection fraction in the range of 60-65%. Normal left ventricular size. Wall thickness is normal. No regional wall motion abnormalities are present. Mild thickening of the mitral valve leaflets. Calcification of the posterior mitral valve leaflet. Mild mitral annular calcification. Trace mitral valve regurgitation. Aortic valve sclerosis is present. Mild aortic valve stenosis. Aortic valve area is 1.2 cm. Aortic valve mean gradient is 15.5 mmHg. There is trace tricuspid valve regurgitation. The estimated pulmonary arterial pressure is 31.3 mmHg. BP: / HR: Rhythm: Sinus MEASUREMENTS (Male / Female) Normal Values Technical Quality:Fair 2D ECHO LV Diastolic Diameter PLAX 4.7 cm 4.2 - 5.9 / 3.9 - 5.3 cm LV Systolic Diameter PLAX 3.3 cm IVS Diastolic Thickness 1.0 cm 0.6 - 1.0 / 0.6 - 0.9 cm LVPW Diastolic Thickness 1.0 cm 0.6 - 1.0 / 0.6 - 0.9 cm LV Relative Wall Thickness 0.4 RV Internal Dim ED PLAX 2.2 cm LVOT Diameter 1.7 cm LA Systolic Diameter LX 3.6 cm 3.0 - 4.0 / 2.7 - 3.8 cm LV Ejection Fraction MOD 4C 61.0 % LV Ejection Fraction 4C AL 63.9 % M-MODE Aortic Root Diameter MM 2.2 cm LA Systolic Diameter MM 3.7 cm LA Ao Ratio MM 1.7 AV Cusp Separation MM 1.5 cm DOPPLER AV Peak Velocity 275.0 cm/s AV Peak Gradient 30.3 mmHg AV Mean Gradient 15.5 mmHg AV Velocity Time Integral 50.8 cm LVOT Peak Velocity 127.0 cm/s LVOT Peak Gradient 6.5 mmHg LVOT Velocity Time Integral 27.9 cm AV Area Cont Eq vti 1.2 cm AV Area Cont Eq pk 1.0 cm MV Area PHT 4.2 cm Mitral E Point Velocity 124.0 cm/s Mitral A Point Velocity 79.5 cm/s Mitral E to A Ratio 1.6 LV E' Lateral Velocity 8.1 cm/s Mitral E to LV E' Lateral Ratio 15.3 LV E' Septal Velocity 7.2 cm/s Mitral E to LV E' Septal Ratio 17.2 TR Peak Velocity 231.0 cm/s TR Peak Gradient 21.3 mmHg Right Atrial Pressure 10.0 mmHg Pulmonary Artery Systolic Pressu 31.3 mmHg Right Ventricular Systolic Press 31.3 mmHg PV Peak Velocity 130.0 cm/s PV Peak Gradient 6.8 mmHg FINDINGS LEFT VENTRICLE The left ventricular systolic function is normal with an estimated ejection fraction in the range of 60-65%. Normal left ventricular size. Wall thickness is normal. No regional wall motion abnormalities are present. RIGHT VENTRICLE Normal right ventricular size and systolic function. LEFT ATRIUM The left atrial size is normal. RIGHT ATRIUM The right atrial size is normal. ATRIAL SEPTUM Normal atrial septal thickness without atrial level shunting by limited color doppler interrogation. AORTA The aortic root and proximal ascending aorta are normal in size on limited imaging. MITRAL VALVE Mild thickening of the mitral valve leaflets. Calcification of the posterior mitral valve leaflet. Mild mitral annular calcification. Trace mitral valve regurgitation. AORTIC VALVE Trileaflet aortic valve. Aortic valve sclerosis is present. Mild aortic valve stenosis. Aortic valve area is 1.2 cm. Aortic valve mean gradient is 15.5 mmHg. TRICUSPID VALVE Structurally normal tricuspid valve. There is trace tricuspid valve regurgitation. The estimated pulmonary arterial pressure is 31.3 mmHg. PULMONARY VALVE No pulmonary valve regurgitation or stenosis. VESSELS The inferior vena cava is normal in size. PERICARDIUM No pericardial effusion. Arnaud Brar MD, FACC (Electronically Signed) Final Date:13 January 2018 12:39
[2018-01-13] MEDS ORDERED: Dexmedetomidine Inj 1,000 MCG in Sodium Chlor 0.9% Inj 240 ML IV.CONT PRN (20:32)
[2018-01-14] MEDS: Metoprolol Inj 5 MG/5 ML Vial IV.PUSH SCH ×2 (02:57→07:47)
[2018-01-14] MEDS: Oral Hygiene Kit OROPHARYNG SCH ×4 (02:58→17:39)
[2018-01-14] MEDS: Chlorhexidine Gluconate 2% 1 Pack (2 Cloths) TOPICAL SCH (03:02)
[2018-01-14] MEDS: Pantoprazole Inj 40 MG Vial IV.PUSH SCH (03:02)
[2018-01-14] MEDS: Piperacil/Tazo 3.375 GM Premix 50 ML IV.SIG SCH ×4 (05:25→22:09)
[2018-01-14] MEDS: Haloperidol Inj 5 MG/ML Ampul IV.PUSH PRN (05:27)
[2018-01-14] MEDS: Senna/Docusate Sodium 8.6/50 MG Tablet PO SCH ×2 (08:00→20:48)
[2018-01-14] MEDS: Chlorhexidine 0.12% Oral Kit 15 ML UDC OROPHARYNG SCH ×2 (09:30→20:49)
[2018-01-14 11:43] LABS: Hematocrit 33.4 % (39.0-51.0); Hemoglobin 10.4 gm/dL (13.0-17.0); Mean Corpuscular HGB Conc 31.1 % (32.0-36.0); Mean Corpuscular Hemoglobin 23.3 pg (27.0-34.0); Mean Corpuscular Volume 74.9 fL (80.0-100.0); Mean Platelet Volume 7.8 fL (7.0-11.0); Platelet Count 328 th/mm3 (150-450); Red Blood Count 4.46 mil/mm3 (4.50-5.90); Red Cell Distribution Width 21.5 % (11.6-17.2); White Blood Count 15.8 th/mm3 (4.0-11.0)
--- NOTE | 2018-01-14 11:45 | P.PNCC ---
Subjective Subjective Remarks/Hospital Course: 67 year old male presents with a history of chest pain and shortness of breath. In the emergency department he was profusely diaphoretic with severe chest pain, and shortness of breath. He was noted to be agitated, pale appearing, and diaphoretic. Per chart review he has had chest pain since he had a stent placed in October 2017. The patient was initially agitated and would not allow oxygen to be placed on his face and was intubated by ED attending for an airway protection and severe respiratory distress. He reports that he has had a heart attack in the past. He denies any history of COPD. He reports that he did take an adult dose aspirin today along with Plavix. SUBJ 01/12/18: Patient remains intubated, on sedation hold patient becomes very agitated unable to do weaning parameters. Chest x-ray shows improving infiltrates but some persistent right lower lobe infiltrate. Diuresed adequately with Lasix. Will attempt extubation to nonrebreather. Further cardiac workup per Dr. Beatty. Troponin peaked at 6.48. Hemoglobin is 10 today after 3 units PRBC transfused. 2D Echo is pending at this time 01/13: Patient remains critical, currently sedated with Precedex 1 mcg/kg/h. On lightening sedation patient is slightly more awake today able to follow some commands. Had fever 102 yesterday WBC count is increased to 21.9. Urine culture negative. Check blood cultures sputum culture today. Cannot rule out pneumonia based on chest x-ray, start Zosyn 3.375 g IV every 6 hours 01/14: Clinically improving currently off Precedex able to follow commands. White count is pending today. No fever. Urine output adequate. Continue scheduled enalapril increase dose to 20 twice daily. Change IV metoprolol to p.o. possible cath Tuesday Objective Vital Signs / I&O: Vital Signs 01/13/18 12:00 01/13/18 14:00 01/13/18 16:00 Temperature 99.3 F 100.2 F H Pulse Rate 82 81 82 Respiratory Rate 22 21 Blood Pressure 160/72 H 172/74 H Pulse Oximetry 93 L 97 01/13/18 18:00 01/13/18 19:40 01/13/18 20:00 Temperature 99.3 F Pulse Rate 86 92 H 97 H Respiratory Rate 22 21 Blood Pressure 187/78 H Pulse Oximetry 98 90 L 07/27/18 22:00 01/14/18 00:00 01/14/18 00:50 Temperature 98.6 F Pulse Rate 97 H 82 82 Respiratory Rate 19 22 Blood Pressure 171/77 H Pulse Oximetry 93 L 01/14/18 02:00 01/14/18 04:00 01/14/18 06:00 Temperature 99.2 F Pulse Rate 86 80 76 Respiratory Rate 19 Blood Pressure 148/64 H Pulse Oximetry 96 01/14/18 08:10 Temperature Pulse Rate 69 Respiratory Rate 18 Blood Pressure Pulse Oximetry 96 Intake & Output 01/13/18 01/14/18 01/14/18 18:59 06:59 18:59 Intake Total 840 / 840 200 / 200 Output Total 700 / 700 Balance 140 / 140 200 / 200 Weight 90.8 kg 89.3 kg Intake: IV 200 / 200 200 / 200 Precedex Inj 200 MCG In NS Inj 150 / 150 100 / 100 48 ML @ 0.2 MCG/KG/HR 4.75 mls/ hr IV.CONT TITRATE PRN Rx#: [id number] Zosyn 3.375 GM Premix 50 ML @ 50 / 50 100 / 100 100 mls/hr IV.SIG Q6H BRIA Rx#: [id number] Oral 640 / 640 0 / 0 Output: Urine Amount (Catheter) 700 / 700 Indwelling Urethral Catheter 700 / 700 Other: Date of Last Bowel Movement 01/13/18 01/13/18 # Bowel Movements 1 1 Result Diagrams: 01/14/18 10:47 01/13/18 04:30 Objective Remarks: - Constitutional Patient is more awake today following some commands - Routine HEENT Exam Head: normocephalic, atraumatic Eye: PERRL ENT: Oral cavity is moist - Routine Neck Exam No JVD, carotid bruit. Neck is supple - Routine Respiratory Exam An entry diminished bilaterally with no anterior wheezes or crackles - Routine Cardiovascular Exam RRR, S1, S2, intermittent tachycardia. Systolic murmur at the apex - Routine Abdominal Exam Soft, normoactive bowel sounds - Routine Extremities Exam No cyanosis, clubbing - Routine Neurological Exam Patient is more awake and alert. Following commands no focal deficits Assessment and Plan - Assessment and Plan Plan: ASSESSMENT/PLAN: Acute hypoxemic respiratory failure -Secondary to acute CHF exacerbation, improved -Extubated, tolerating well, maintaining good oxygen saturation -DuoNeb every 6 hours -Diuresis IV Lasix 20 mg every 12 hours -CXR daily NSTEMI: -Troponin peaked at 6.48 -Cardiology Dr. Beatty, plan for cath most likely Tuesday -Continue aspirin Plavix as hemoglobin remained stable. No IV Heparin -DC IV metoprolol, start metoprolol 50 mg every 12 -Continue enalapril -Continue atorvastatin 40 mg nightly Acute on chronic CHF exacerbation -Known history of coronary artery disease -Recent stent placed in October 2017 -Diuresis IV Lasix 20 mg every 12 hours -2D echo The left ventricular systolic function is normal with an estimated ejection fraction in the range of 60-65%. -No regional wall motion abnormalities are present. Agitated delirium/metabolic encephalopathy -Currently off Precedex -Use as needed Ativan and Haldol -Delirium secondary to acute illness, now improved Anemia due to blood loss most likely secondary to GI bleed -Continue Protonix 40 mg q12, keep hemoglobin more than 8 given acute ischemia -According to GI not too unstable for endoscopy at this time -EGD done at [facility] for melanotic stools apparently Normal esophagus, small hiatal hernia, single angiectasia in the duodenum treated with APC. -Last colonoscopy about 15 years ago and reports colon polyps. Fever leukocytosis -There is no evidence of meningitis there is no neck stiffness, mentation improving -Cannot rule out pneumonia started on Zosyn 3.375 g IV every 6 hours -Urine culture negative, f/u blood and sputum culture Hypertension -Continue metoprolol as above -Continue CRISTÓBAL inhibitor Dyslipidemia -Atorvastatin DVT GI prophylaxis -Teds SCDs -IV Protonix Critical Care: Level 3 Consult hospitalist to assume care 01/15/2018. However continue ICU care for today Code Status: Full
[2018-01-14 11:47] LABS: Alanine Aminotransferase 77 U/L (12-78); Albumin 2.6 g/dL (3.4-5.0); Alkaline Phosphatase 91 U/L (45-117); Anion Gap 7 meq/L (5-15); Aspartate Aminotransferase 259 U/L (15-37); Blood Urea Nitrogen 31 mg/dL (7-18); Calcium 9.4 mg/dL (8.5-10.1); Carbon Dioxide 32.1 meq/L (21.0-32.0); Chloride 102 meq/L (98-107); Glomerular Filtration Rate 53 mL/min (>89); Glucose,Random 184 mg/dL (74-106); Potassium 3.5 meq/L (3.5-5.1); Sodium 141 meq/L (136-145); Total Protein 6.8 g/dL (6.4-8.2)
--- NOTE | 2018-01-14 15:00 | P.PNCA ---
Subjective Interval history: Denies CP, dyspnea, syncope, palpitations. Mild dizziness with standing or sitting up. Physical Exam Vital signs: Vital Signs 01/13/18 16:00 01/13/18 18:00 01/13/18 19:40 Temperature 100.2 F H Pulse Rate 82 86 92 H Respiratory Rate 21 22 Blood Pressure 172/74 H Pulse Oximetry 97 98 01/13/18 20:00 01/13/18 22:00 01/14/18 00:00 Temperature 99.3 F 98.6 F Pulse Rate 97 H 97 H 82 Respiratory Rate 21 19 Blood Pressure 187/78 H 171/77 H Pulse Oximetry 90 L 93 L 01/14/18 00:50 01/14/18 02:00 01/14/18 04:00 Temperature 99.2 F Pulse Rate 82 86 80 Respiratory Rate 22 19 Blood Pressure 148/64 H Pulse Oximetry 96 01/14/18 06:00 01/14/18 08:10 Temperature Pulse Rate 76 69 Respiratory Rate 18 Blood Pressure Pulse Oximetry 96 Intake & Output 01/13/18 01/14/18 01/14/18 18:59 06:59 18:59 Intake Total 840 / 840 250 / 250 Output Total 700 / 700 Balance 140 / 140 250 / 250 Weight 90.8 kg 89.3 kg Intake: IV 200 / 200 250 / 250 Precedex Inj 200 MCG In NS Inj 150 / 150 100 / 100 48 ML @ 0.2 MCG/KG/HR 4.75 mls/ hr IV.CONT TITRATE PRN Rx#: [id number] Zosyn 3.375 GM Premix 50 ML @ 50 / 50 150 / 150 100 mls/hr IV.SIG Q6H BRIA Rx#: [id number] Oral 640 / 640 0 / 0 Output: Urine Amount (Catheter) 700 / 700 Indwelling Urethral Catheter 700 / 700 Other: Date of Last Bowel Movement 01/13/18 01/13/18 # Bowel Movements 1 1 - Constitutional no acute distress - Routine Neck Exam Absent: JVD - Routine Respiratory Exam Present: decreased breath sounds, crackles Comments: Few bibasilar crackles. Diffusely diminished breath sounds. - Routine Cardiovascular Exam Present: RRR, S1, S2, murmur. Absent: gallop Comments: II/ TAHIR base with normal S2. - Routine Abdominal Exam Present: soft, normoactive bowel sounds. Absent: tenderness, organomegaly - Routine Extremities Exam Absent: cyanosis, clubbing, edema - Urinary Catheter Management Indwelling Urethral Catheter Cath placed during this visit: yes Reason for continuing: Hourly intake/output Insertion date: 01/11/18 Insertion time: 03:15 Assessment and Plan - Assessment (1) CAD (coronary artery disease) Code(s): I25.10 - Atherosclerotic heart disease of [place] coronary artery without angina pectoris Status: Chronic Plan: Status post NSTEMI. Stable overnight. Patient notes recent angina like symptoms. No definite CHF. EF 65% by echo this admission. He likely has had restenosis of his ostial RCA stent. Patient reports compliance with cardiac medications. REC cath only when cleared for IV anticoagulation and IV antiplatelet therapy by GI; patient cleared for endoscopy (2) Hypertension Code(s): I10 - Essential (primary) hypertension Status: Chronic Plan: Mostly hypertensive. Recommend increase metoprolol dosing. - Plan Code Status: full code Discussed Condition With: patient (1) CAD (coronary artery disease) Qualifiers: Coronary Disease-Associated Artery/Lesion type: [place] artery [place] vs. transplanted heart: [place] heart Associated angina: with unstable angina Qualified Code(s): I25.110 - Atherosclerotic heart disease of [place] coronary artery with unstable angina pectoris (2) Hypertension Qualifiers: Hypertension type: essential hypertension Qualified Code(s): I10 - Essential (primary) hypertension
[2018-01-14 19:19] LABS: Activated Partial Thrombo Time 26.8 sec (24.3-30.1); INR 1.1 Ratio
[2018-01-14] MEDS: Heparin Drip 25,000 UNIT/250 ML BAG IV.CONT PRN (19:24)
[2018-01-14] MEDS: Metoprolol Tartrate 100 MG Tablet PO SCH (20:49)
[2018-01-14] MEDS ORDERED: Metoprolol Tartrate 50 MG Tablet PO SCH (21:00)
[2018-01-15] MEDS: Oral Hygiene Kit OROPHARYNG SCH ×4 (01:49→17:56)
[2018-01-15] MEDS: Piperacil/Tazo 3.375 GM Premix 50 ML IV.SIG SCH ×4 (04:26→22:21)
[2018-01-15] MEDS: Chlorhexidine Gluconate 2% 1 Pack (2 Cloths) TOPICAL SCH (04:26)
--- NOTE | 2018-01-15 04:52 | XR ---
EXAM DATE: 01/15/2018 4:36 AM EDT AGE/SEX: 67 years / Male INDICATIONS: Shortness of breath, possible pulmonary disease. CLINICAL DATA: This is the patient's subsequent encounter. Patient reports that signs and symptoms h ave been present for 4 - 6 days and indicates a pain score of Nonresponsive. MEDICAL/SURGICAL HISTORY: . Hypertension. Hyperlipidemia. Myocardial infarction Coronary [place] ry stent. COMPARISON: C, CHEST 1V SINGLE AP, 01/13/2018. . FINDINGS: Improved aeration of the lower lung zones. Mild diffuse interstitial prominence also improved. Cardio mediastinal contours are stable. Remainder of the exam is unchanged. CONCLUSION: 1. Improved positive fluid balance. 2. Improved aeration of the lower lung zones. Electronically signed by: Alexis Ramsay MD 01/15/2018 4:51 AM EDT
[2018-01-15 05:50] LABS: Hematocrit 29.1 % (39.0-51.0); Hemoglobin 9.2 gm/dL (13.0-17.0); Mean Corpuscular HGB Conc 31.5 % (32.0-36.0); Mean Corpuscular Hemoglobin 23.3 pg (27.0-34.0); Mean Corpuscular Volume 73.7 fL (80.0-100.0); Mean Platelet Volume 7.8 fL (7.0-11.0); Platelet Count 322 th/mm3 (150-450); Red Blood Count 3.95 mil/mm3 (4.50-5.90); Red Cell Distribution Width 21.9 % (11.6-17.2); White Blood Count 14.7 th/mm3 (4.0-11.0)
[2018-01-15 06:10] LABS: Alanine Aminotransferase 93 U/L (12-78); Albumin 2.4 g/dL (3.4-5.0); Alkaline Phosphatase 94 U/L (45-117); Anion Gap 11 meq/L (5-15); Aspartate Aminotransferase 298 U/L (15-37); Blood Urea Nitrogen 42 mg/dL (7-18); Calcium 8.7 mg/dL (8.5-10.1); Chloride 98 meq/L (98-107); Glomerular Filtration Rate 40 mL/min (>89); Glucose,Random 122 mg/dL (74-106); Magnesium 2.1 mg/dL (1.5-2.5); Sodium 139 meq/L (136-145); Total Protein 6.3 g/dL (6.4-8.2)
[2018-01-15 06:21] LABS: Potassium 2.8 meq/L (3.5-5.1)
[2018-01-15] MEDS: Potassium Chlor 20 mEq Premix 20 MEQ/100 ML PIGGYBACK IV.SIG SCH ×2 (06:55→08:52)
[2018-01-15] MEDS: Metoprolol Tartrate 100 MG Tablet PO SCH ×2 (08:47→21:46)
[2018-01-15] MEDS: Senna/Docusate Sodium 8.6/50 MG Tablet PO SCH ×2 (08:48→21:48)
[2018-01-15] MEDS: Chlorhexidine 0.12% Oral Kit 15 ML UDC OROPHARYNG SCH ×2 (08:48→21:47)
--- NOTE | 2018-01-15 10:10 | P.PNCA ---
Subjective Interval history: No CP, dyspnea, dizziness, palpitations. Physical Exam Vital signs: Vital Signs 01/14/18 11:00 01/14/18 12:00 01/14/18 12:09 Temperature Pulse Rate 77 98 H 85 Respiratory Rate Blood Pressure 117/57 L 86/47 L Pulse Oximetry 100 92 L 95 01/14/18 13:00 01/14/18 13:17 01/14/18 13:48 Temperature Pulse Rate 93 H 91 H 102 H Respiratory Rate Blood Pressure 77/56 L 80/52 L 80/50 L Pulse Oximetry 100 100 95 01/14/18 14:00 01/14/18 14:56 01/14/18 15:07 Temperature Pulse Rate 104 H 103 H 104 H Respiratory Rate Blood Pressure 60/39 L 85/55 L Pulse Oximetry 94 L 97 95 01/14/18 16:00 01/14/18 18:00 01/14/18 18:55 Temperature 97.2 F L Pulse Rate 91 H 103 H 104 H Respiratory Rate Blood Pressure 120/58 L Pulse Oximetry 92 L 80 L 87 L 01/14/18 19:00 01/14/18 20:00 01/14/18 20:01 Temperature 99 F Pulse Rate 105 H 97 H 96 H Respiratory Rate 18 Blood Pressure 90/46 L 130/58 L 130/58 L Pulse Oximetry 91 L 99 89 L 01/14/18 20:28 01/14/18 20:47 01/14/18 21:00 Temperature Pulse Rate 93 H 97 H 101 H Respiratory Rate 22 Blood Pressure 142/61 H 138/59 L Pulse Oximetry 98 100 97 01/14/18 22:00 01/14/18 23:02 01/15/18 00:00 Temperature 98.4 F Pulse Rate 81 75 78 Respiratory Rate 18 Blood Pressure 131/58 L 92/55 L 103/52 L Pulse Oximetry 80 L 97 95 01/15/18 00:25 01/15/18 01:00 01/15/18 02:00 Temperature Pulse Rate 78 89 91 H Respiratory Rate 20 Blood Pressure 96/67 L 107/56 L Pulse Oximetry 85 L 89 L 01/15/18 03:00 01/15/18 04:00 01/15/18 05:01 Temperature 98.7 F Pulse Rate 93 H 85 85 Respiratory Rate 18 Blood Pressure 111/59 L 119/57 L 119/57 L Pulse Oximetry 96 92 L 95 01/15/18 06:00 01/15/18 09:33 Temperature Pulse Rate 84 94 H Respiratory Rate 18 Blood Pressure 134/63 Pulse Oximetry 98 99 Intake & Output 01/14/18 01/15/18 01/15/18 18:59 06:59 18:59 Intake Total 900 / 900 340 / 340 100 / 100 Output Total 650 / 650 Balance 250 / 250 340 / 340 100 / 100 Weight 88.8 kg Intake: IV 50 / 50 100 / 100 100 / 100 Zosyn 3.375 GM Premix 50 ML @ 50 / 50 100 / 100 100 mls/hr IV.SIG Q6H BRIA Rx#: [id number] KCl 20 mEq Premix Inj 20 meq In 100 / 100 100 ml @ 50 mls/hr IV.SIG Q2H BRIA Rx#:[id number] Oral 850 / 850 240 / 240 Other 0 / 0 Output: Urine 650 / 650 Other: # Voids 2 4 Date of Last Bowel Movement 01/14/18 01/14/18 # Bowel Movements 2 1 - Constitutional no acute distress - Routine Neck Exam Absent: JVD - Routine Respiratory Exam Present: decreased breath sounds - Routine Cardiovascular Exam Present: RRR, S1, S2, murmur. Absent: gallop Comments: II/ TAHIR base with normal S2 - Routine Abdominal Exam Present: soft, normoactive bowel sounds. Absent: tenderness, organomegaly - Routine Extremities Exam Absent: cyanosis, clubbing, edema - Urinary Catheter Management Indwelling Urethral Catheter Cath placed during this visit: yes, but has since been removed by the nurse Reason for continuing: Decision to DC catheter Insertion date: 01/11/18 Insertion time: 03:15 Removal date: 01/14/18 Removal time: 09:30 Assessment and Plan - Assessment (1) CAD (coronary artery disease) Code(s): I25.10 - Atherosclerotic heart disease of [place] coronary artery without angina pectoris Status: Chronic Plan: Status post NSTEMI. Stable overnight. Patient notes recent angina like symptoms. No definite CHF. EF 65% by echo this admission. He likely has had restenosis of his ostial RCA stent. Patient reports compliance with cardiac medications. REC cath tomorrow if no evidence for recurrent anemia on heparin drip, Plavix, aspirin (2) Hypertension Code(s): I10 - Essential (primary) hypertension Status: Chronic Plan: Stable. Now normotensive. (3) Hyperlipidemia Code(s): E78.5 - Hyperlipidemia, unspecified Status: Chronic Plan: Continue high dose statin, monitoring as outpatient. - Plan Code Status: full code Discussed Condition With: patient (1) CAD (coronary artery disease) Qualifiers: Coronary Disease-Associated Artery/Lesion type: [place] artery [place] vs. transplanted heart: [place] heart Associated angina: with unstable angina Qualified Code(s): I25.110 - Atherosclerotic heart disease of [place] coronary artery with unstable angina pectoris (2) Hypertension Qualifiers: Hypertension type: essential hypertension Qualified Code(s): I10 - Essential (primary) hypertension (3) Hyperlipidemia Qualifiers: Hyperlipidemia type: mixed hyperlipidemia Qualified Code(s): E78.2 - Mixed hyperlipidemia
--- NOTE | 2018-01-15 10:32 | P.PN ---
Subjective Interval history: Nursing denies any deterioration since last night. Repeat Hemoccult stool is negative. No melena no hematochezia on overnight bowel movements. Patient denies having any substantial chest pain. Nursing reports he appeared to have had a deep tissue injury while in the ICU. Physical Exam Vital signs: Vital Signs 01/14/18 11:00 01/14/18 12:00 01/14/18 12:09 Temperature Pulse Rate 77 98 H 85 Respiratory Rate Blood Pressure 117/57 L 86/47 L Pulse Oximetry 100 92 L 95 01/14/18 13:00 01/14/18 13:17 01/14/18 13:48 Temperature Pulse Rate 93 H 91 H 102 H Respiratory Rate Blood Pressure 77/56 L 80/52 L 80/50 L Pulse Oximetry 100 100 95 01/14/18 14:00 01/14/18 14:56 01/14/18 15:07 Temperature Pulse Rate 104 H 103 H 104 H Respiratory Rate Blood Pressure 60/39 L 85/55 L Pulse Oximetry 94 L 97 95 01/14/18 16:00 01/14/18 18:00 01/14/18 18:55 Temperature 97.2 F L Pulse Rate 91 H 103 H 104 H Respiratory Rate Blood Pressure 120/58 L Pulse Oximetry 92 L 80 L 87 L 01/14/18 19:00 01/14/18 20:00 01/14/18 20:01 Temperature 99 F Pulse Rate 105 H 97 H 96 H Respiratory Rate 18 Blood Pressure 90/46 L 130/58 L 130/58 L Pulse Oximetry 91 L 99 89 L 01/14/18 20:28 01/14/18 20:47 01/14/18 21:00 Temperature Pulse Rate 93 H 97 H 101 H Respiratory Rate 22 Blood Pressure 142/61 H 138/59 L Pulse Oximetry 98 100 97 01/14/18 22:00 01/14/18 23:02 01/15/18 00:00 Temperature 98.4 F Pulse Rate 81 75 78 Respiratory Rate 18 Blood Pressure 131/58 L 92/55 L 103/52 L Pulse Oximetry 80 L 97 95 01/15/18 00:25 01/15/18 01:00 01/15/18 02:00 Temperature Pulse Rate 78 89 91 H Respiratory Rate 20 Blood Pressure 96/67 L 107/56 L Pulse Oximetry 85 L 89 L 01/15/18 03:00 01/15/18 04:00 01/15/18 05:01 Temperature 98.7 F Pulse Rate 93 H 85 85 Respiratory Rate 18 Blood Pressure 111/59 L 119/57 L 119/57 L Pulse Oximetry 96 92 L 95 01/15/18 06:00 01/15/18 07:01 01/15/18 08:00 Temperature 97.6 F Pulse Rate 84 96 H 101 H Respiratory Rate 20 Blood Pressure 134/63 94/51 L 105/50 L Pulse Oximetry 98 97 98 01/15/18 09:28 01/15/18 09:33 01/15/18 10:00 Temperature Pulse Rate 103 H 94 H 90 Respiratory Rate 18 Blood Pressure 104/53 L Pulse Oximetry 98 99 94 L 01/15/18 10:01 Temperature Pulse Rate 89 Respiratory Rate Blood Pressure 97/64 L Pulse Oximetry 93 L Intake & Output 01/14/18 01/15/18 01/15/18 18:59 06:59 18:59 Intake Total 900 / 900 340 / 340 100 / 100 Output Total 650 / 650 Balance 250 / 250 340 / 340 100 / 100 Weight 88.8 kg Intake: IV 50 / 50 100 / 100 100 / 100 Zosyn 3.375 GM Premix 50 ML @ 50 / 50 100 / 100 100 mls/hr IV.SIG Q6H BRIA Rx#: [id number] KCl 20 mEq Premix Inj 20 meq In 100 / 100 100 ml @ 50 mls/hr IV.SIG Q2H BRIA Rx#:[id number] Oral 850 / 850 240 / 240 Other 0 / 0 Output: Urine 650 / 650 Other: # Voids 2 4 Date of Last Bowel Movement 01/14/18 01/14/18 # Bowel Movements 2 1 Narrative: Heart sounds regular rate rhythm No lower extremity edema Unlabored breathing - Urinary Catheter Management Indwelling Urethral Catheter Cath placed during this visit: yes, but has since been removed by the nurse Reason for continuing: Decision to DC catheter Insertion date: 01/11/18 Insertion time: 03:15 Removal date: 01/14/18 Removal time: 09:30 Results - Labs CBC & Chem 7: 01/15/18 04:47 01/15/18 04:47 Laboratory Results - last 24 hr 01/14/18 01/14/18 01/14/18 10:47 10:47 10:47 WBC Cancelled 15.8 H Corrected WBC Cancelled RBC Cancelled 4.46 L Hgb Cancelled 10.4 L Hct Cancelled 33.4 L MCV Cancelled 74.9 L MCH Cancelled 23.3 L MCHC Cancelled 31.1 L RDW Cancelled 21.5 H Plt Count Cancelled 328 MPV Cancelled 7.8 Hematology Comments Cancelled PT INR APTT Sodium 141 Potassium 3.5 Chloride 102 Carbon Dioxide 32.1 H Anion Gap 7 BUN 31 H Creatinine 1.34 H Estimated GFR 53 L POC Glucose Random Glucose 184 H Calcium 9.4 Magnesium Total Bilirubin 0.7 AST 259 H ALT 77 Alkaline Phosphatase 91 Total Protein 6.8 Albumin 2.6 L 01/14/18 01/14/18 01/15/18 18:15 18:26 00:20 WBC Corrected WBC RBC Hgb Hct MCV MCH MCHC RDW Plt Count MPV Hematology Comments PT 11.0 INR 1.1 APTT 26.8 31.1 H Sodium Potassium Chloride Carbon Dioxide Anion Gap BUN Creatinine Estimated GFR POC Glucose 149 H Random Glucose Calcium Magnesium Total Bilirubin AST ALT Alkaline Phosphatase Total Protein Albumin 01/15/18 01/15/18 01/15/18 00:20 01:58 04:47 WBC 14.7 H Corrected WBC RBC 3.95 L Hgb 10.4 L 9.2 L Hct 29.1 L MCV 73.7 L MCH 23.3 L MCHC 31.5 L RDW 21.9 H Plt Count 322 MPV 7.8 Hematology Comments PT INR APTT Sodium Potassium Chloride Carbon Dioxide Anion Gap BUN Creatinine Estimated GFR POC Glucose 135 H Random Glucose Calcium Magnesium Total Bilirubin AST ALT Alkaline Phosphatase Total Protein Albumin 01/15/18 01/15/18 04:47 08:35 WBC Corrected WBC RBC Hgb Hct MCV MCH MCHC RDW Plt Count MPV Hematology Comments PT INR APTT 32.2 H Sodium 139 Potassium 2.8 L* Chloride 98 Carbon Dioxide 30.0 Anion Gap 11 BUN 42 H Creatinine 1.71 H Estimated GFR 40 L POC Glucose Random Glucose 122 H Calcium 8.7 Magnesium 2.1 Total Bilirubin 0.7 AST 298 H ALT 93 H Alkaline Phosphatase 94 Total Protein 6.3 L Albumin 2.4 L Microbiology 01/14/18 23:00 Stool Stool Occult Blood (KIKE) - Final Hemoccult negative 01/13/18 11:06 Blood - Peripheral Aerobic Blood Culture - Preliminary No growth in 1 day 01/13/18 11:06 Blood - Peripheral Anaerobic Blood Culture - Preliminary No growth in 1 day 01/13/18 11:13 Blood - Peripheral Aerobic Blood Culture - Preliminary No growth in 1 day 01/13/18 11:13 Blood - Peripheral Anaerobic Blood Culture - Preliminary No growth in 1 day - Imaging Impressions Chest X-Ray 01/15/18 06:00 CONCLUSION: 1. Improved positive fluid balance. 2. Improved aeration of the lower lung zones. Assessment and Plan - Plan Acute hypoxemic respiratory failure -Secondary to acute CHF exacerbation, improved -Extubated, tolerating well, maintaining good oxygen saturation -DuoNeb every 6 hours -Diuresis IV Lasix 20 mg every 12 hours NSTEMI: -Troponin peaked at 6.48 -Cardiology plans for cath most likely Tuesday -Continue aspirin Plavix as hemoglobin remained stable. No IV Heparin -DC IV metoprolol, start metoprolol 50 mg every 12 -Continue enalapril -Continue atorvastatin 40 mg nightly Acute on chronic CHF exacerbation -Known history of coronary artery disease -Recent stent placed in October 2017 -Diuresis IV Lasix 20 mg every 12 hours -EF of 60-65%. -No regional wall motion abnormalities are present. Agitated delirium/metabolic encephalopathy -Currently off Precedex -Use as needed Ativan and Haldol -Delirium secondary to acute illness, now improved Anemia due to blood loss most likely secondary to GI bleed -Continue Protonix 40 mg q12, keep hemoglobin more than 8 given acute ischemia -According to GI not too unstable for endoscopy at this time -EGD done at [facility] for melanotic stools apparently Normal esophagus, small hiatal hernia, single angiectasia in the duodenum treated with APC. -Last colonoscopy about 15 years ago and reports colon polyps. Fever leukocytosis -There is no evidence of meningitis there is no neck stiffness, mentation improving -No recurrence of any fever, -? pneumonia, chest x-ray independently reviewed those obtained this morning, appears to show no obvious infiltrates, continue Zosyn 3.375 g IV every 6 hours -Urine culture negative -Blood cultures still pending Hypertension -Continue metoprolol as above -Continue CRISTÓBAL inhibitor Dyslipidemia -Atorvastatin DVT GI prophylaxis -Teds SCDs -IV Protonix
[2018-01-15] MEDS: Heparin Drip 25,000 UNIT/250 ML BAG IV.CONT PRN (15:23)
[2018-01-16] MEDS: Oral Hygiene Kit OROPHARYNG SCH ×3 (04:05→17:54)
[2018-01-16] MEDS: Chlorhexidine Gluconate 2% 1 Pack (2 Cloths) TOPICAL SCH (04:33)
[2018-01-16] MEDS: Piperacil/Tazo 3.375 GM Premix 50 ML IV.SIG SCH ×4 (04:34→22:25)
[2018-01-16] MEDS: Sod Chloride 0.9% Inj 1,000 ML IV.CONT SCH ×4 (06:29→18:54)
[2018-01-16 07:51] LABS: Hematocrit 32.6 % (39.0-51.0); Hemoglobin 10.2 gm/dL (13.0-17.0); Mean Corpuscular HGB Conc 31.1 % (32.0-36.0); Mean Corpuscular Hemoglobin 23.2 pg (27.0-34.0); Mean Corpuscular Volume 74.5 fL (80.0-100.0); Mean Platelet Volume 7.7 fL (7.0-11.0); Platelet Count 377 th/mm3 (150-450); Red Blood Count 4.38 mil/mm3 (4.50-5.90); Red Cell Distribution Width 21.7 % (11.6-17.2)
[2018-01-16] MEDS: Metoprolol Tartrate 100 MG Tablet PO SCH ×2 (08:01→20:19)
[2018-01-16] MEDS: Senna/Docusate Sodium 8.6/50 MG Tablet PO SCH ×2 (08:02→20:18)
[2018-01-16] MEDS: Chlorhexidine 0.12% Oral Kit 15 ML UDC OROPHARYNG SCH ×2 (08:02→20:19)
--- NOTE | 2018-01-16 08:27 | P.PNCA ---
Subjective Interval history: Denies CP, dyspnea, dizziness, palpitations. Physical Exam Vital signs: Vital Signs 01/15/18 09:28 01/15/18 09:33 01/15/18 10:00 Temperature Pulse Rate 103 H 94 H 90 Respiratory Rate 18 Blood Pressure 104/53 L Pulse Oximetry 98 99 94 L 01/15/18 10:01 01/15/18 11:00 01/15/18 12:00 Temperature 98.7 F Pulse Rate 89 78 76 Respiratory Rate Blood Pressure 97/64 L 102/55 L Pulse Oximetry 93 L 99 90 L 01/15/18 12:01 01/15/18 13:01 01/15/18 13:38 Temperature Pulse Rate 76 90 88 Respiratory Rate 20 Blood Pressure 149/68 H 141/104 H Pulse Oximetry 92 L 92 L 01/15/18 14:00 01/15/18 15:00 01/15/18 16:00 Temperature 99.1 F Pulse Rate 76 96 H 93 H Respiratory Rate 24 15 21 Blood Pressure 96/50 L 99/70 L 109/58 L Pulse Oximetry 93 L 95 94 L 01/15/18 18:00 01/15/18 20:00 01/15/18 22:00 Temperature 99.2 F Pulse Rate 105 H 95 H 93 H Respiratory Rate 27 H Blood Pressure 148/62 H Pulse Oximetry 93 L 01/16/18 00:00 01/16/18 02:00 01/16/18 04:00 Temperature 98.4 F 99.2 F Pulse Rate 79 72 86 Respiratory Rate 19 21 Blood Pressure 149/69 H 184/82 H Pulse Oximetry 94 L 94 L 01/16/18 06:00 Temperature Pulse Rate 87 Respiratory Rate Blood Pressure Pulse Oximetry Intake & Output 01/15/18 01/16/18 01/16/18 18:59 06:59 18:59 Intake Total 1290 / 1290 290 / 290 Output Total 500 / 500 900 / 900 Balance 790 / 790 -610 / -610 Weight 88 kg Intake: IV 450 / 450 50 / 50 Heparin/D5W 25,000 U/250 mL 25, 250 / 250 000 unit In 250 ml @ 1,000 UNITS/HR 10 mls/hr IV.CONT TITRATE PRN Rx#:[id number] Zosyn 3.375 GM Premix 50 ML @ 100 / 100 50 / 50 100 mls/hr IV.SIG Q6H BRIA Rx#: [id number] KCl 20 mEq Premix Inj 20 meq In 100 / 100 100 ml @ 50 mls/hr IV.SIG Q2H BRIA Rx#:[id number] Oral 840 / 840 240 / 240 Output: Urine 500 / 500 900 / 900 Other: # Voids 5 Date of Last Bowel Movement 01/15/18 01/16/18 # Bowel Movements 4 # Incontinent Bowel Movements 4 - Constitutional no acute distress - Routine Neck Exam Absent: JVD - Routine Respiratory Exam Present: CTA bilaterally - Routine Cardiovascular Exam Present: RRR, S1, S2, murmur. Absent: gallop Comments: II/ TAHIR base with normal S2 - Routine Abdominal Exam Present: soft, normoactive bowel sounds. Absent: tenderness, organomegaly - Routine Extremities Exam Absent: cyanosis, clubbing, edema - Urinary Catheter Management Indwelling Urethral Catheter Cath placed during this visit: yes, but has since been removed by the nurse Reason for continuing: Decision to DC catheter Insertion date: 01/11/18 Insertion time: 03:15 Removal date: 01/14/18 Removal time: 09:30 Assessment and Plan - Assessment (1) CAD (coronary artery disease) Code(s): I25.10 - Atherosclerotic heart disease of [place] coronary artery without angina pectoris Status: Chronic Plan: Status post NSTEMI. Stable overnight. Patient notes recent angina like symptoms. No definite CHF. EF 65% by echo this admission. He likely has had restenosis of his ostial RCA stent. Hgb stable on heparin drip, Plavix, aspirin. REC cath today, recheck BMP, stop furosemide with evidence for prerenal azotemia (2) Hypertension Code(s): I10 - Essential (primary) hypertension Status: Chronic Plan: Relatively low BP's yesterday, now mostly hypertensive. Continue to monitor. Consider add clonidine or amlodipine. (3) Hyperlipidemia Code(s): E78.5 - Hyperlipidemia, unspecified Status: Chronic Plan: Continue high dose statin, monitoring as outpatient. - Plan Code Status: full code Discussed Condition With: patient (1) CAD (coronary artery disease) Qualifiers: Coronary Disease-Associated Artery/Lesion type: [place] artery [place] vs. transplanted heart: [place] heart Associated angina: with unstable angina Qualified Code(s): I25.110 - Atherosclerotic heart disease of [place] coronary artery with unstable angina pectoris (2) Hypertension Qualifiers: Hypertension type: essential hypertension Qualified Code(s): I10 - Essential (primary) hypertension (3) Hyperlipidemia Qualifiers: Hyperlipidemia type: mixed hyperlipidemia Qualified Code(s): E78.2 - Mixed hyperlipidemia
[2018-01-16] MEDS: Heparin Drip 25,000 UNIT/250 ML BAG IV.CONT PRN (10:25)
--- NOTE | 2018-01-16 10:29 | P.PN ---
Subjective Interval history: Nursing denies any deterioration since last night. Denies any CP and abdominal pain. says his buttock pain is relatively unchanged Physical Exam Vital signs: Vital Signs 01/15/18 11:00 01/15/18 12:00 01/15/18 12:01 Temperature 98.7 F Pulse Rate 78 76 76 Respiratory Rate Blood Pressure 102/55 L 149/68 H Pulse Oximetry 99 90 L 92 L 01/15/18 13:01 01/15/18 13:38 01/15/18 14:00 Temperature Pulse Rate 90 88 76 Respiratory Rate 20 24 Blood Pressure 141/104 H 96/50 L Pulse Oximetry 92 L 93 L 01/15/18 15:00 01/15/18 16:00 01/15/18 17:00 Temperature 99.1 F Pulse Rate 96 H 93 H 106 H Respiratory Rate 15 21 19 Blood Pressure 99/70 L 109/58 L 112/58 L Pulse Oximetry 95 94 L 94 L 01/15/18 18:00 01/15/18 18:01 01/15/18 19:27 Temperature Pulse Rate 93 H 95 H 102 H Respiratory Rate 29 H 22 22 Blood Pressure 156/67 H 97/54 L Pulse Oximetry 93 L 87 L 92 L 01/15/18 20:00 01/15/18 20:01 01/15/18 21:00 Temperature 99.2 F Pulse Rate 95 H 97 H 93 H Respiratory Rate 27 H 22 27 H Blood Pressure 148/62 H 148/62 H 165/74 H Pulse Oximetry 93 L 95 94 L 01/15/18 22:00 01/15/18 23:00 01/16/18 00:00 Temperature 98.4 F Pulse Rate 93 H 80 79 Respiratory Rate 26 H 23 18 Blood Pressure 175/78 H 169/75 H 149/69 H Pulse Oximetry 94 L 92 L 94 L 01/16/18 01:13 01/16/18 02:00 01/16/18 03:00 Temperature Pulse Rate 75 72 79 Respiratory Rate 23 18 20 Blood Pressure 133/59 L 150/67 H 147/66 H Pulse Oximetry 95 91 L 91 L 01/16/18 04:00 01/16/18 04:01 01/16/18 04:02 Temperature 99.2 F Pulse Rate 86 86 87 Respiratory Rate 21 20 22 Blood Pressure 184/82 H 180/105 H 184/82 H Pulse Oximetry 94 L 95 94 L 01/16/18 05:01 01/16/18 06:00 01/16/18 06:06 Temperature Pulse Rate 84 87 91 H Respiratory Rate 17 12 10 L Blood Pressure 136/62 116/66 Pulse Oximetry 97 95 01/16/18 07:51 01/16/18 08:00 01/16/18 09:00 Temperature 98.9 F Pulse Rate 91 H 89 Respiratory Rate 21 26 H Blood Pressure 151/64 H 142/65 H Pulse Oximetry 94 L 91 L 98 01/16/18 09:01 Temperature Pulse Rate 84 Respiratory Rate 25 H Blood Pressure 139/58 L Pulse Oximetry 80 L Intake & Output 01/15/18 01/16/18 01/16/18 18:59 06:59 18:59 Intake Total 1290 / 1290 290 / 290 Output Total 500 / 500 900 / 900 Balance 790 / 790 -610 / -610 Weight 88 kg Intake: IV 450 / 450 50 / 50 Heparin/D5W 25,000 U/250 mL 25, 250 / 250 000 unit In 250 ml @ 1,000 UNITS/HR 10 mls/hr IV.CONT TITRATE PRN Rx#:[id number] Zosyn 3.375 GM Premix 50 ML @ 100 / 100 50 / 50 100 mls/hr IV.SIG Q6H BRIA Rx#: [id number] KCl 20 mEq Premix Inj 20 meq In 100 / 100 100 ml @ 50 mls/hr IV.SIG Q2H BRAI Rx#:[id number] Oral 840 / 840 240 / 240 Output: Urine 500 / 500 900 / 900 Other: # Voids 5 Date of Last Bowel Movement 01/15/18 01/16/18 # Bowel Movements 4 # Incontinent Bowel Movements 4 Narrative: Heart sounds regular rate rhythm, no murmurs No lower extremity edema Clear lungs bilaterally, unlabored breathing Abdomen soft, nontender, nondistended - Urinary Catheter Management Indwelling Urethral Catheter Cath placed during this visit: yes, but has since been removed by the nurse Reason for continuing: Decision to DC catheter Insertion date: 01/11/18 Insertion time: 03:15 Removal date: 01/14/18 Removal time: 09:30 Results - Labs CBC & Chem 7: 01/16/18 07:37 01/15/18 16:35 Laboratory Results - last 24 hr 01/15/18 01/15/18 01/15/18 12:08 14:02 16:35 WBC RBC Hgb 9.7 L Hct MCV MCH MCHC RDW Plt Count MPV APTT Potassium 3.2 L POC Glucose 151 H 01/15/18 01/15/18 01/15/18 16:35 17:54 22:16 WBC RBC Hgb 9.8 L Hct MCV MCH MCHC RDW Plt Count MPV APTT 31.6 H Potassium POC Glucose 143 H 01/16/18 01/16/18 01/16/18 00:51 00:52 06:26 WBC RBC Hgb Hct MCV MCH MCHC RDW Plt Count MPV APTT 35.9 H Potassium POC Glucose 128 H 144 H 01/16/18 01/16/18 07:37 07:37 WBC 10.0 RBC 4.38 L Hgb 10.2 L Hct 32.6 L MCV 74.5 L MCH 23.2 L MCHC 31.1 L RDW 21.7 H Plt Count 377 MPV 7.7 APTT 40.2 H Potassium POC Glucose Microbiology 01/13/18 11:06 Blood - Peripheral Aerobic Blood Culture - Preliminary No growth in 2 days 01/13/18 11:06 Blood - Peripheral Anaerobic Blood Culture - Preliminary No growth in 2 days 01/13/18 11:13 Blood - Peripheral Aerobic Blood Culture - Preliminary No growth in 2 days 01/13/18 11:13 Blood - Peripheral Anaerobic Blood Culture - Preliminary No growth in 2 days Assessment and Plan - Plan Acute hypoxemic respiratory failure -Secondary to acute CHF exacerbation, improved -Extubated, tolerating well, maintaining good oxygen saturation -DuoNeb every 6 hours -holding lasix in light of DORINA NSTEMI: -Troponin peaked at 6.48 -Cardiology plans for cath pending stable RF on pending BMP -Continue aspirin, Plavix, heparin drip, metoprolol, Lipitor Acute on chronic CHF exacerbation -holding lasix in light of DORINA -EF of 60-65%. -No regional wall motion abnormalities are present. Agitated delirium/metabolic encephalopathy -resolved Anemia due to blood loss most likely secondary to GI bleed -Continue Protonix 40 mg q12, keep hemoglobin more than 8 given acute ischemia; GI deferring colonoscopy in light of cardiac concern -EGD done at [facility] for melanotic stools apparently Normal esophagus, small hiatal hernia, single angiectasia in the duodenum treated with APC. -Last colonoscopy about 15 years ago and reports colon polyps. leukocytosis -improving white count -fever resolved -? pneumonia, chest x-ray independently reviewed those obtained this morning, appears to show no obvious infiltrates, continue Zosyn 3.375 g IV every 6 hours -Urine culture negative -Blood cultures neg Hypertension -Continue metoprolol as above -Continue CRISTÓBAL inhibitor Dyslipidemia -Atorvastatin DVT GI prophylaxis -Teds SCDs -IV Protonix
[2018-01-16 11:25] LABS: Calcium 9.1 mg/dL (8.5-10.1); Carbon Dioxide 28.3 meq/L (21.0-32.0); Potassium 3.8 meq/L (3.5-5.1)
[2018-01-16] MEDS ORDERED: Heparin/NS PF Inj 500 ML ONE (14:03)
[2018-01-16] MEDS ORDERED: fentaNYL Citrate Inj 100 MCG/2 ML Ampul ONE (14:12)
--- NOTE | 2018-01-16 14:46 | CATHPROC ---
Patient Name: Mayank Ochoa Study #: [id number] Initial MD: Paul Brewer Date of : 1950 Study Date: 01/16/2018 Cardiac Catheterization Report 01/16/2018 2:57:38 PM Financial #: [id number] 1 of 10 Patient Name: Mayank Ochoa Study #: [id number] Initial MD: Paul Brewer Date of : 1950 Study Date: 01/16/2018 Entire Case Report Patient Information Patient Name Mayank Ochoa Date of 1950 Age 67 years Financial # [id number] Gender M AlternateID Lab Number 5 Room Number 512 Height (in) 68.0 Height (cm) 172.7 BSA 2.02 Weight (lbs) 194.1 Weight (kg) 88.2 Patient Address/Phone Number Home Address [facility] Home Phone Number [address] [address] Study Information Study Number Admission Scheduled Start Study Start [id number] Jan 11 2018 4:47AM 01/16/2018 Jan 16 2018 1:48PM [place] Service Cath Endovascular Study Admit Source Facility Department Emergency department [facility] - Pipeline Operator Physician and Clinical Staff Initial Paul Monroe Ground Crew Chief Chen Snider,ROJELIO Recorder Precious Shook RT(R) (BS) Scrub Ad Leon RCIS(BS) Scrub Mirtha Rosales RN Procedures Performed Procedure Location (Site) Vessel Name Angiogram LV LV Ventricle Coronary Angiograms LCA Left Coronary Coronary Angiograms RCA Right Coronary L Heart Cath 01/16/2018 2:57:38 PM Financial #: [id number] 2 of 10 Patient Name: Mayank Ochoa Study #: [id number] Initial MD: Paul Brewer Date of : 1950 Study Date: 01/16/2018 Equipment Time Test And Research Reactor Operator Description Size Mfg Part Number Used/Scraped TRANSDUCER, TRUWAVE [id number] 14:14 KELLOGG BATES * Used W/STOCKCOCK *[id number] 14:33 [facility] MEDICAL VASCADE, FR6 CLOSURE SYSTEM FR 6\7 Used *[id number] 534-676T *[id number] 534-648T *[id number] 534-620T *[id number] 534-621T *7345541 534-650S *[id number] 14:14 MEDLINE [employer] BLANKET,WARM AIR CCL * Used *[id number] 14:14 [employer]LINE [employer] PACK, CCL CUSTOM * Used *[id number] 14:14 MEDLINE PACER PEN, SKIN DUAL W/ RULER * Used *[id number] 14:14 ClearFit SHEATH, FR6.5 PRELUDE 11CM FR 6.5 038ACT Used *[id number] 14:14 ClearFit WIRE, 3MMJ .035 180CM 180CM Used *[id number] 14:14 NAMIC MANIFOLD, 4 PORT * Used *[id number] 14:14 NYCOMED OMNIPAQUE, 350 MG, 150ML 150ML [id number] Used Insurance Information Insurance Payor Medicare, Private Health Insurance Third Green Party Third Green Party Number MEDICARE A B MCRAB History: Current Medications Medication Dosage/Unit Route Frequency Last Date/Time Taken PLAVIX LASIX Beta Janet ASA History: Allergies Allergy Reaction No Known Allergies 01/16/2018 2:57:38 PM Financial #: [id number] Patient Name: Mayank Ochoa Study #: [id number] Initial MD: Paul Brewer Date of : 1950 Study Date: 01/16/2018 History: Risk Factors Family History of Hypertension Dyslipidemia Previous CA Previous Heart Failure Premature CAD Yes Yes No Yes No Prior Valve Prior PCI Prior PCIDate Prior CABG Surgery No Yes 10/26/2017 No Cerebrovascular Peripheral Artery Chronic Lung On Dialysis Diabetes Disease Disease Disease No No No Yes No History: Symptoms/Diagnosis Selection Items Chest pain History: Stress Tests Stress or Imaging Studies Performed No History: Other Current Smoker Quit Packs a Day Years Used Pack Years No 6 Years Ago 1 10 10 Labs Hgb (g/dl) Hct (%) WBC (l/cumm) Platelets (thousands) 11.60-17.00 35.00-51.00 4.00-11.00 150.00-450.00 10.2 32.6 10 377 Glucose (mg/dl) BUN (mg/dl) Creatinine (mg/dl) BUN:Creatinine (1:x) 74.00-106.00 7.00-18.00 0.50-1.30 10.00-20.00 115 27 1.1 24.5 Na (meq/l) 136.00-145.00 139 INR (PTT:PT) 0.90-1.10 1.1 Troponin I (ng/ml) CPK-MB (ng/ML) 0.02-0.05 0.50-3.60 6.48 Not Drawn Medication 01/16/2018 2:57:38 PM Financial #: [id number] Patient Name: Mayank Ochoa Study #: [id number] Initial MD: Paul Brewer Date of : 1950 Study Date: 01/17/20 18 Medication Total Dose (Bolus/Oral) Medication Total Dosage/Unit 1% XYLOCAINE 20 mL FENTANYL 50 mcg OXYGEN 2 l/min VASOTEC 1.25 mg VERSED 2 mg Medications (Bolus/Oral) Medication Time Given Dosage/Unit Administered By Reason 1% XYLOCAINE 01/16/2018 2:12:15 PM 20 mL Paul Brewer 20 mL 1% XYLOCAINE given in lab by Paul Brewer in Right Groin via Subcutaneous. VERSED 01/16/2018 2:13:19 PM 2 mg Chen Snider 2 mg VERSED given in lab by Chen Snider RN via Peripheral IV. FENTANYL 01/16/2018 2:15:15 PM 50 mcg Chen Snider 50 mcg FENTANYL given in lab by Chen Snider, ROJELIO via Peripheral IV. OXYGEN 01/16/2018 2:22:18 PM 2 l/min Chen Snider 2 l/min OXYGEN given in lab by Chen Snider RN via Nasal. VASOTEC 01/16/2018 2:37:08 PM 1.25 mg Chen Snider 1.25 mg VASOTEC given in lab by Chen Snider RN via Peripheral IV. Medication (Drip) Medication Time Given Dosage/Unit Concentration/Unit Diluent (ml) Solution HEPARIN DRIP STOPPED 01/16/2018 1:33:41 PM 0 units/hr 0 Patient arrived on 0 units/hr HEPARIN DRIP STOPPED given by Chen Snider, ROJELIO. Pump/Drip Flow = 0 m l/hr using [Solution Name]. IV Solutions 01/16/2018 1:48:07 PM 0 mL (IV) 500 NaCl .9 IV Solutions given in lab by Chen Snider, RN via Peripheral IV. Pump/Drip Flow = 30 ml/hr using N aCl .9. 01/16/2018 2:57:38 PM Financial #: [id number] 5 of 10 Patient Name: Mayank Ochoa Study #: [id number] Initial MD: Paul Brewer Date of : 1950 Study Date: 01/16/2018 Initial Case Assessment Cardiovascular HR Rhythm NIBP Chest Pain 81 reg 144/66 0 Edema Present Skin color Skin None Normal Warm Dry Circulatory - Right Pulses Dorsalis Pedis Femoral 1 2 Scale (0,1,2,3,4,d) Circulatory - Left Pulses Dorsalis Pedis Femoral 1 2 Scale (0,1,2,3,4,d) Circulatory - Lower Extremities Color Lower Right Color Lower Left Normal Normal Neurological State Oriented to time-place- Alert Moves all extremities person Respiration - General Respiration Rate SpO2 (%) (B/min) 20 93 Vitals Summary Pain Time HR NIBP SpO2 Resp Temp EtCO2 Apnea Nena Cedeno Comment Level 13:54:44 144/66 94.0 10 0 2 14:00:26 76 159/72 91.0 12 10 0 2 14:01:58 76 155/67 93.0 18 10 0 2 14:06:57 78 151/71 95.0 18 10 0 2 14:11:59 80 149/69 92.0 18 10 0 2 14:16:58 77 155/68 90.0 18 10 0 2 14:21:59 79 152/72 92.0 22 10 0 2 14:26:58 88 153/73 92.0 23 10 0 2 14:32:01 88 160/69 96.0 20 10 0 2 14:37:02 87 158/74 91.0 23 10 0 2 01/16/2018 2:57:38 PM Financial #: [id number] 6 of 10 Patient Name: Mayank Ochoa Study #: [id number] Initial MD: Paul Brewer Date of : 1950 Study Date: 01/16/2018 Nena Score Summary Time Activity Resp Circ LOC Color Total Score 13:54:44 2 2 2 2 2 10 14:00:26 2 2 2 2 2 10 14:01:58 2 2 2 2 2 10 14:06:57 2 2 2 2 2 10 14:11:59 2 2 2 2 2 10 14:16:58 2 2 2 2 2 10 14:21:59 2 2 2 2 2 10 14:26:58 2 2 2 2 2 10 14:32:01 2 2 2 2 2 10 14:37:02 2 2 2 2 2 10 Nena Score Definition Table Activity - 0 Activity - 1 Activity - 2 No Movement to Command Weak Hand Grasp Lift Head, Good Hand Grasp Respiration - 0 Respiration - 1 Respiration - 2 Apneic or Obstructed Shallow Breath, Airway Adjunct Deep Breath, Cough Freely Circulation - 0 Circulation - 1 Circulation - 2 B/P > 50% Admission B/P B/P > 20-50% Admission B/P B/P Stable X3 Level of Consciousness - 0 Level of Consciousness - 1 Level of Consciousness - 2 Not Responding Arousable On Calling Awake and Aware Color - 0 Color- 1 Color - 2 Cyanotic Lips, Nailbed, Skin Pale, Dusky [place] Or Normal Chronological Log Time Study Chronological Log Patient arrived on 0 units/hr HEPARIN DRIP STOPPED given by Chen Snider, ROJELIO. Pump/Drip Fl ow = 0 ml/hr using 13:33:41 [Solution Name]. 13:47:53 Patient arrived via Bed. 13:47:54 Patient Name, D.O.B, / Armband Verified By R.N. 13:47:55 Consent signed by the physician and the patient and verified by the Pipeline Operator staff. 13:47:56 Pre-op and post- op instructions given; patient acknowledges understanding of instruction s. 13:47:58 Presedation assessment performed by Pipeline Operator RN. 13:48:01 Patient has been NPO for More than 6Hrs. 13:48:02 Skin Breakdown - deep tissue injury to buttox. 13:48:04 Patient Warmer Placed on the Table. 13:48:05 Bety Prominences Protected 13:48:06 A # 20 IV was noted in the Wrist (right). Grade = ~GRADE~ 01/16/2018 2:57:38 PM Financial #: [id number] Patient Name: Mayank Ochoa Study #: [id number] Initial MD: Paul Brewer Date of : 1950 Study Date: 01/16/2018 13:48:07 IV Solutions given in lab by Chen Snider RN via Peripheral IV. Pump/Drip Flow = 30 ml/ hr using NaCl .9. 13:48:08 History and physical on the chart or being dictated. Assessment: Initial Case, HR=81 BPM, Rhythm=reg, ZJYR=707/66 mmhg, Chest Pain=0, Edema=None, Co jessica=Normal, Skin = Warm, Dry Right Pulses: Sadiq Ped=1, Femoral=2 Left Pulses: Sadiq Ped=1, Femoral=2 13:48:11 Lower Right Extremities: Color=Normal Lower Left Extremities: Color=Normal Neurological: State=Alert, Ox3, PLMUMER Respiration: Resp=20 B/min, SpO2=93 % Vitals capture started with the following parameters, Patient=Adult, Interval=5 min, Initial Pr jzblht=286 mmHg, 13:54:07 Deflation Rate=5 mmHg, Cuff placed on Left Arm 13:54:44 IAGH=718/66 mmhg, SpO2=94.0 %, Pain=0, Nena=10, Cedeno=2 14:00:26 HR=76 bpm, THPQ=866/72 mmhg, SpO2=91.0 %, Resp=12 B/min, Pain=0, Nena=10, Cedeno=2 14:00:32 Vitals capture stopped. Vitals capture started with the following parameters, Patient=Adult, Interval=5 min, Initial Pr iauwtq=350 mmHg, 14:01:16 Deflation Rate=5 mmHg, Cuff placed on Left Arm 14:01:58 HR=76 bpm, BUJY=059/67 mmhg, SpO2=93.0 %, Resp=18 B/min, Pain=0, Nena=10, Cedeno=2 14:02:32 Bilateral groins prepped with 2% chlorhexidine, and draped after a 3 minute waiting time. 14:04:27 paged 14:04:57 MD responded 14:06:57 HR=78 bpm, SZYD=251/71 mmhg, SpO2=95.0 %, Resp=18 B/min, Pain=0, Nena=10, Cedeno=2 14:10:10 Pressure channel 1 zeroed. Time Out. Correct patient, correct procedure, correct physician, labs, allergies, and equipment verified with semiconductor lab technician 14:10:52 team present. Fire risk assesment completed (see hard stop sheet for coding). Time Out Conc urred by MD and individual staff in procedure. 14:11:18 Case Start 14:11:36 Reference ECG taken 14:11:59 HR=80 bpm, JDIS=365/69 mmhg, SpO2=92.0 %, Resp=18 B/min, Pain=0, Nena=10, Cedneo=2 14:12:15 20 mL 1% XYLOCAINE given in lab by Paul Brewer in Right Groin via Subcutaneous. 14:13:19 2 mg VERSED given in lab by Chen Snider, ROJELIO via Peripheral IV. 14:13:28 Access site was Right Femoral Artery. 14:13:33 A SHEATH, FR6.5 PRELUDE 11CM FR 6.5 was advanced into the Fem Art (right) using the Percuta neous technique. 14:14:29 Activated Clotting Time Drawn A JL 4.0 INFINITI CATHETER FR 6 was advanced over a wire. OMNIPAQUE, 350 MG, 150ML 150ML was us ed for 14:14:36 injections. 14:15:15 50 mcg FENTANYL given in lab by Chen Snider, RN via Peripheral IV. Recorded Pressure: Ao, HR=78, Condition=Condition 1 14:15:49 (Aorta) Ao 161/52/91 14:16:02 The LCA was injected and visualized at various angles. OMNIPAQUE, 350 MG, 150ML 150ML used . 14:16:58 HR=77 bpm, LOFP=642/68 mmhg, SpO2=90.0 %, Resp=18 B/min, Pain=0, Nena=10, Cedeno=2 14:18:11 ACT (Normal Range 90-180) = 176 14:18:37 Catheter was removed A 3DRC INFINITI CATHETER FR 6 was advanced over a wire. OMNIPAQUE, 350 MG, 150ML 150ML was used for 14:18:38 injections. 01/16/2018 2:57:38 PM Financial #: [id number] 8 of 10 Patient Name: Mayank Ochoa Study #: [id number] Initial MD: Paul Brewer Date of : 1950 Study Date: 01/16/2018 14:18:49 The RCA was injected and visualized at various angles. OMNIPAQUE, 350 MG, 150ML 150ML used . 14:19:44 Catheter was removed A AR MOD INFINITI CATHETER FR 6 was advanced over a wire. OMNIPAQUE, 350 MG, 150ML 150ML was us ed for 14:19:46 injections. 14:21:59 HR=79 bpm, DSZL=568/72 mmhg, SpO2=92.0 %, Resp=22 B/min, Pain=0, Nena=10, Cedeno=2 14:22:03 Catheter was removed 14:22:18 2 l/min OXYGEN given in lab by Chen Snider RN via Nasal. A PIGTAIL STR INFINITI CATHETER FR 6 was advanced over a wire. OMNIPAQUE, 350 MG, 150ML 150ML w as used for 14:23:24 injections. Recorded Pressure: LV, HR=86, Condition=Condition 1 14:24:56 (Left Ventricle) LV 212/-4/29 14:26:31 The LV was injected at 12 cc/sec for a total of 40. OMNIPAQUE, 350 MG, 150ML 150ML used. Recorded Pressure: LV, Ao, HR=90, Condition=Condition 1 14:26:44 (Left Ventricle) LV 215/1/29, (Aorta) Ao 211/50/117 14:26:58 HR=88 bpm, FVKF=960/73 mmhg, SpO2=92.0 %, Resp=23 B/min, Pain=0, Nena=10, Cedeno=2 14:27:12 Catheter was removed A JR 4.0 INFINITI CATHETER FR 6 was advanced over a wire. OMNIPAQUE, 350 MG, 150ML 150ML was us ed for 14:27:39 injections. Recorded Pressure: LSCA, Ao, HR=89, Condition=Condition 1 14:30:17 (Left Subclavian Artery) LSCA 160/58/97, (Aorta) Ao 210/57/117 14:31:04 Catheter was removed 14:31:22 Case End (Physician broke scrub) 14:32:01 HR=88 bpm, YXNR=950/69 mmhg, SpO2=96.0 %, Resp=20 B/min, Pain=0, Nena=10, Cedeno=2 14:35:15 VASCADE, FR6 CLOSURE SYSTEM FR 6\7 placement in the Fem Art (right) 14:37:02 HR=87 bpm, SXSF=693/74 mmhg, SpO2=91.0 %, Resp=23 B/min, Pain=0, Nena=10, Cedeno=2 14:37:08 1.25 mg VASOTEC given in lab by Chen Snider RN via Peripheral IV. 14:38:35 Sterile dressing applied to site 14:38:41 No case complications noted. 14:38:53 Bedside Report will be given. 14:38:54 Implantable Device card placed in patient's chart. 14:38:56 A Left Heart Cath was performed. 14:39:15 Vitals capture stopped. 14:40:38 Patient moved to stretcher Recorded Pressures: Condition 1 01/16/2018 2:57:38 PM Financial #: [id number] Patient Name: Maynak Ochoa Study #: [id number] Initial MD: Paul Brewer Date of : 1950 Study Date: 01/16/2018 Time Chamber Pressure Manual Override (*) 14:15:49 Ao 161/52/91 s/d/m 14:24:56 LV 212/-4/29 s/bd/ed 14:26:44 LV 215/1/29 s/bd/ed 14:26:44 Ao 211/50/117 s/d/m 14:30:17 Ao 210/57/117 s/d/m 14:30:17 LSCA 160/58/97 s/d/m End Study - Contrast Media Used In Study Contrast Total Opened (mL) Total Used (mL) Total Wasted (mL) Omnipaque 165 165 0 End Study - Maximum Contrast Load Max Contrast Load (mL) 401.0 End Study - Radiation Exposure Fluoro Time (minutes) 3.8 End Study - Sheaths Sheaths Pulled By Sheath Hold Time (min) Ad Leon End Study - Patient Disposition Complications Transferred To Interventional Outcome No Critical Care Bed No attempt made 01/16/2018 2:57:38 PM Financial #: [id number] 10 10
[2018-01-16] MEDS: Labetalol HCl Inj 100 MG/20 ML Vial IV.PUSH PRN ×2 (14:56→18:12)
--- NOTE | 2018-01-16 15:02 | MA ---
cc: Paul Brewer MD DATE: 01/16/2018 PROCEDURE: Left heart catheterization, selective coronary angiography, left ventriculography, left subclavian angiography. PROCEDURE NOTES: The patient was brought to the cardiac catheterization laboratory in a fasting state after having signed informed consent. The right groin was prepped and draped as per policy and anesthetized with 1% lidocaine. Arterial access was obtained via the right femoral artery and a 6-Sinhala sheath placed. Coronary arteriography was performed using 6-Sinhala Althea, left 4.0 for the LAD, progressive right for the right coronary, Amplatz right modified for the anomalous left circumflex. The left ventriculography was done using a standard 6-Sinhala pigtail. Left subclavian angiography was done using a Althea right 4.0 catheter. There were no apparent, immediate complications. His arteriotomy site was closed with VASCADE. HEMODYNAMIC DATA: Left ventricle 215 with an end-diastolic pressure of 15. Aorta 211/50 with a mean of 117. There was no significant transvalvular aortic gradient on pullback of the pigtail catheter. CORONARY ARTERIOGRAPHY: The left circumflex appears to have anomalous takeoff from the right coronary cusp, and therefore there is no left main. The left anterior descending is a relatively small vessel with diffuse proximal disease resulting in up to 10% stenosis. In the mid-LAD, there is somewhat eccentric up to 40% stenosis. The LAD gives rise to a very large branching diagonal, which appears to be free of disease. There is a fairly small, anomalous left circumflex arising from the right coronary cusp with diffuse ostial to proximal disease resulting in up to 20% stenosis. The right coronary artery is a fairly large, dominant vessel demonstrating 2 widely patent stents distally. There are also 2 stents at the ostium and very proximal portion of this vessel. There maybe up to 20% restenosis at the true ostium. There was no definite pressure dampening on engagement of the vessel. LEFT VENTRICULOGRAPHY: Contrast injection of the left ventricle reveals no segmental wall motion abnormalities. Ejection fraction is estimated at 65%. LEFT SUBCLAVIAN ANGIOGRAPHY: Contrast injection of the left subclavian was done as there appeared to be a marked discrepancy (55 mm Hg) between the left arm cuff pressure and the intraaortic pressure. Angiography shows some disease right at the origin of the left subclavian, not appearing high-grade; however, on pullback of the Althea right 4.0 catheter across the origin of the left subclavian there is a 55 mm Hg drop in pressure. CONCLUSIONS: 1. 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 2. Overall, mild coronary artery disease including widely patent stents in the distal right coronary and ostial/proximal regions. 3. Normal left ventricular function with estimated ejection fraction of 65%. 4. Left subclavian lesion at the origin, which angiographically does not appear to be high-grade, but resulting in a marked (55 mmHg) drop in pressure across the stenosis. MD VICKI Scott/NICK , 02:42 PM , 02:49 PM MTDYaquelin
--- NOTE | 2018-01-16 17:04 | P.PNWCN ---
Wound Care Nurse Consult Description: Consult for Pressure ulcer of buttocks DTI per Dr Colby Communicated with: Chief Technical Officer Additional information: Attempted to see patient @1422 today for DTI to buttocks per Dr Colby. Patient was off unit in cardiac cath lab radiology technologist. Will attempt to see patient tomorrow.
[2018-01-16] MEDS ORDERED: Iohexol 350 MG/ML 100 ML Vial (for Cath Lab) IVCONTRAST ONE (18:06)
[2018-01-17] MEDS: Labetalol HCl Inj 100 MG/20 ML Vial IV.PUSH PRN (02:58)
[2018-01-17] MEDS: Oral Hygiene Kit OROPHARYNG SCH ×2 (03:47→04:38)
[2018-01-17] MEDS: Sod Chloride 0.9% Inj 1,000 ML IV.CONT SCH ×3 (03:49→05:08)
[2018-01-17] MEDS: Piperacil/Tazo 3.375 GM Premix 50 ML IV.SIG SCH ×2 (05:06→10:04)
[2018-01-17] MEDS: Chlorhexidine 0.12% Oral Kit 15 ML UDC OROPHARYNG SCH (07:21)
--- NOTE | 2018-01-17 08:20 | P.PNCA ---
Subjective Interval history: No CP, dyspnea, palpitations, dizziness. Slept fairly well. Physical Exam Vital signs: Vital Signs 01/16/18 09:00 01/16/18 09:01 01/16/18 10:00 Temperature Pulse Rate 84 73 Respiratory Rate 25 H 19 Blood Pressure 139/58 L Pulse Oximetry 98 80 L 95 01/16/18 10:01 01/16/18 11:01 01/16/18 12:00 Temperature 98.1 F Pulse Rate 72 75 75 Respiratory Rate 18 23 20 Blood Pressure 165/73 H 145/60 H 145/67 H Pulse Oximetry 98 97 96 01/16/18 13:00 01/16/18 14:50 01/16/18 14:52 Temperature Pulse Rate 81 82 87 Respiratory Rate 22 24 Blood Pressure 162/69 H 218/73 H Pulse Oximetry 81 L 94 L 91 L 01/16/18 15:00 01/16/18 15:15 01/16/18 15:30 Temperature Pulse Rate 82 82 84 Respiratory Rate 20 30 H 21 Blood Pressure 216/71 H 200/65 H 211/68 H Pulse Oximetry 93 L 93 L 91 L 01/16/18 15:45 01/16/18 16:00 01/16/18 16:31 Temperature 98.0 F Pulse Rate 87 86 81 Respiratory Rate 20 24 22 Blood Pressure 228/79 H 239/80 H 215/68 H Pulse Oximetry 90 L 95 92 L 01/16/18 17:00 01/16/18 17:15 01/16/18 17:20 Temperature Pulse Rate 77 86 Respiratory Rate 19 22 Blood Pressure 221/70 H 222/72 H Pulse Oximetry 96 90 L 01/16/18 17:21 01/16/18 17:30 01/16/18 18:00 Temperature Pulse Rate 84 81 82 Respiratory Rate 22 16 22 Blood Pressure 201/65 H 216/71 H Pulse Oximetry 97 93 L 93 L 01/16/18 18:31 01/16/18 19:31 01/16/18 20:00 Temperature 98.7 F Pulse Rate 80 84 85 Respiratory Rate 18 22 Blood Pressure 165/51 H 194/63 H Pulse Oximetry 85 L 94 L 01/16/18 20:31 01/16/18 21:31 01/16/18 22:00 Temperature Pulse Rate 83 88 76 Respiratory Rate 22 22 Blood Pressure 191/60 H 196/72 H Pulse Oximetry 92 L 96 01/17/18 00:00 01/17/18 00:43 01/17/18 02:00 Temperature 98.5 F Pulse Rate 62 61 61 Respiratory Rate 25 H 19 17 Blood Pressure 167/55 H 191/60 H 175/58 H Pulse Oximetry 96 98 100 01/17/18 03:00 01/17/18 04:00 01/17/18 05:00 Temperature 97.8 F Pulse Rate 66 67 61 Respiratory Rate 18 18 22 Blood Pressure 213/77 H 147/65 H 153/69 H Pulse Oximetry 97 98 98 01/17/18 06:00 Temperature Pulse Rate 61 Respiratory Rate 25 H Blood Pressure 166/51 H Pulse Oximetry 100 Intake & Output 01/16/18 01/17/18 01/17/18 18:59 06:59 18:59 Intake Total 1793 / 1793 1550 / 1550 Output Total 900 / 900 450 / 450 Balance 893 / 893 1100 / 1100 Weight 90.5 kg Intake: IV 1763 / 1763 1150 / 1150 Heparin/NS PF Inj 500 ML @ 0 100 / 100 mls/hr .ROUTE .STK-MED ONE Rx#: [id number] Heparin/D5W 25,000 U/250 mL 25, 563 / 563 000 unit In 250 ml @ 1,000 UNITS/HR 10 mls/hr IV.CONT TITRATE PRN Rx#:[id number] NS Inj 1,000 ML @ 100 mls/hr IV 1000 / 1000 1000 / 1000 .CONT .Q10H [facility] Rx#:[id number] Zosyn 3.375 GM Premix 50 ML @ 100 / 100 150 / 150 100 mls/hr IV.SIG Q6H [facility] Rx#: [id number] Oral 400 / 400 Output: Urine 900 / 900 450 / 450 Other: # Voids 2 Date of Last Bowel Movement 01/16/18 01/16/18 # Bowel Movements 1 2 - Constitutional no acute distress - Routine Neck Exam Absent: JVD - Routine Respiratory Exam Present: CTA bilaterally - Routine Cardiovascular Exam Present: RRR, S1, S2, murmur. Absent: gallop Comments: II/ TAHIR base with normal S2 - Routine Abdominal Exam Present: soft, normoactive bowel sounds. Absent: tenderness, organomegaly - Routine Extremities Exam Absent: cyanosis, clubbing, edema - Urinary Catheter Management Indwelling Urethral Catheter Cath placed during this visit: yes, but has since been removed by the nurse Reason for continuing: Decision to DC catheter Insertion date: 01/11/18 Insertion time: 03:15 Removal date: 01/14/18 Removal time: 09:30 Assessment and Plan - Assessment (1) CAD (coronary artery disease) Code(s): I25.10 - Atherosclerotic heart disease of [place] coronary artery without angina pectoris Status: Chronic Plan: Status post NSTEMI. Stable overnight. Favorable findings on cath yesterday with widely patent multiple stents in RCA. EF excellent. REC OK for discharge from CAD standpoint but will have Dr. Bradford or Mike see patient for his subclavian stenosis (2) Hypertension Code(s): I10 - Essential (primary) hypertension Status: Chronic Plan: Angiographically on cath yesterday, left subclavian origin stenosis does not appear severe but marked drop in pressure (55 mm Hg) across the stenosis. True aortic pressure, then, at least 50 mm Hg higher than measured left arm cuff pressure. So patient still hypertensive. On his cath earlier this year he had intra-aortic pressures as high as 300 mm Hg. REC add amlodipine 10 mg qd, consult Dr. Bradford to consider subclavian percutaneous intervention (3) Hyperlipidemia Code(s): E78.5 - Hyperlipidemia, unspecified Status: Chronic Plan: Continue high dose statin, monitoring as outpatient. - Plan Code Status: full code Discussed Condition With: patient (1) CAD (coronary artery disease) Qualifiers: Coronary Disease-Associated Artery/Lesion type: [place] artery [place] vs. transplanted heart: [place] heart Associated angina: with unstable angina Qualified Code(s): I25.110 - Atherosclerotic heart disease of [place] coronary artery with unstable angina pectoris (2) Hypertension Qualifiers: Hypertension type: essential hypertension Qualified Code(s): I10 - Essential (primary) hypertension (3) Hyperlipidemia Qualifiers: Hyperlipidemia type: mixed hyperlipidemia Qualified Code(s): E78.2 - Mixed hyperlipidemia
[2018-01-17] MEDS ORDERED: amLODIPine 10 MG Tablet PO SCH (09:00)
[2018-01-17] MEDS: Metoprolol Tartrate 100 MG Tablet PO SCH (09:42)
[2018-01-17] MEDS: Senna/Docusate Sodium 8.6/50 MG Tablet PO SCH (09:43)
--- NOTE | 2018-01-17 13:04 | P.DS ---
Date of admission: 01/11/18 04:47 Primary care physician: UNKNOWN Brief History from admission: 67 year old male presents with a history of chest pain and shortness of breath. In the emergency department he was profusely diaphoretic with severe chest pain, and shortness of breath. He was noted to be agitated, pale appearing, and diaphoretic. Per chart review he has had chest pain since he had a stent placed in October 2017. The patient was initially agitated and would not allow oxygen to be placed on his face and was intubated by ED attending for an airway protection and severe respiratory distress. He reports that he has had a heart attack in the past. He denies any history of COPD. He reports that he did take an adult dose aspirin today along with Plavix. DS: Summary Hospital Course: Patient was admitted to the ICU. Was intubated for acute respiratory failure. Was started on antibiotics for possible pneumonia given his initial fever. Was eventually extubated. Was noted to have a substantial and ST TAMMI as well as having hematochezia and melena. Cardiology gastrology were both following the patient. They performed left heart cath that was overall negative; noted to have left subclavian artery stenosis. Cardiology cleared the patient for discharge as well as for an EGD and colonoscopy with close outpatient follow-up regarding his BP discrepancines given his L subclavian artery stenosis. However patient refused to consider inpatient colonoscopy and before receiving further instruction he decided to leave AMA. He was informed that a wound care nurse would be coming to see him as well yet he left AMA nonetheless. - Time Spent with Patient Total time spent providing and/or coordinating discharge services: Less than 30 minutes Exam Vital signs: Vital Signs 01/16/18 14:50 01/16/18 14:52 01/16/18 15:00 Temperature Pulse Rate 82 87 82 Respiratory Rate 24 20 Blood Pressure 218/73 H 216/71 H Pulse Oximetry 94 L 91 L 93 L 01/16/18 15:15 01/16/18 15:30 01/16/18 15:45 Temperature Pulse Rate 82 84 87 Respiratory Rate 30 H 21 20 Blood Pressure 200/65 H 211/68 H 228/79 H Pulse Oximetry 93 L 91 L 90 L 01/16/18 16:00 01/16/18 16:31 01/16/18 17:00 Temperature 98.0 F Pulse Rate 86 81 77 Respiratory Rate 24 22 19 Blood Pressure 239/80 H 215/68 H 221/70 H Pulse Oximetry 95 92 L 96 01/16/18 17:15 01/16/18 17:20 01/16/18 17:21 Temperature Pulse Rate 86 84 Respiratory Rate 22 22 Blood Pressure 222/72 H Pulse Oximetry 90 L 97 01/16/18 17:30 01/16/18 18:00 01/16/18 18:31 Temperature Pulse Rate 81 82 80 Respiratory Rate 16 22 18 Blood Pressure 201/65 H 216/71 H 165/51 H Pulse Oximetry 93 L 93 L 85 L 01/16/18 19:31 01/16/18 20:00 01/16/18 20:31 Temperature 98.7 F Pulse Rate 84 85 83 Respiratory Rate 22 22 Blood Pressure 194/63 H 191/60 H Pulse Oximetry 94 L 92 L 01/16/18 21:31 01/16/18 22:00 01/17/18 00:00 Temperature 98.5 F Pulse Rate 88 76 71 Respiratory Rate 22 18 Blood Pressure 196/72 H 167/55 H Pulse Oximetry 96 96 01/17/18 00:02 01/17/18 00:31 01/17/18 00:43 Temperature Pulse Rate 69 61 61 Respiratory Rate 15 21 19 Blood Pressure 112/55 L 136/60 191/60 H Pulse Oximetry 88 L 98 01/17/18 01:01 01/17/18 01:31 01/17/18 02:00 Temperature Pulse Rate 58 L 61 62 Respiratory Rate 20 20 16 Blood Pressure 117/58 L 131/56 L 125/58 L Pulse Oximetry 99 94 L 97 01/17/18 02:30 01/17/18 02:56 01/17/18 03:00 Temperature Pulse Rate 63 67 65 Respiratory Rate 16 18 8 L Blood Pressure 158/68 H 183/77 H 162/69 H Pulse Oximetry 94 L 97 97 01/17/18 03:30 01/17/18 04:00 01/17/18 04:30 Temperature 97.8 F Pulse Rate 68 67 67 Respiratory Rate 16 15 16 Blood Pressure 147/65 H 151/70 H 148/67 H Pulse Oximetry 93 L 94 L 94 L 01/17/18 05:00 01/17/18 05:01 01/17/18 05:11 Temperature Pulse Rate 61 68 72 Respiratory Rate 22 17 15 Blood Pressure 153/69 H 186/81 H 153/69 H Pulse Oximetry 98 96 96 01/17/18 05:31 01/17/18 06:00 01/17/18 06:01 Temperature Pulse Rate 70 60 61 Respiratory Rate 21 15 20 Blood Pressure 158/68 H 166/51 H 111/51 L Pulse Oximetry 96 98 97 01/17/18 06:30 01/17/18 07:01 01/17/18 07:31 Temperature Pulse Rate 57 L 59 L 65 Respiratory Rate 18 16 8 L Blood Pressure 105/51 L 169/77 H 154/87 H Pulse Oximetry 98 99 97 01/17/18 08:00 01/17/18 08:01 01/17/18 08:31 Temperature 98.6 F Pulse Rate 58 L 62 63 Respiratory Rate 11 L 13 15 Blood Pressure 196/83 H 199/88 H Pulse Oximetry 96 99 95 01/17/18 09:01 01/17/18 09:47 01/17/18 10:00 Temperature Pulse Rate 61 63 58 L Respiratory Rate 15 15 18 Blood Pressure 172/80 H 129/60 Pulse Oximetry 99 96 87 L 01/17/18 10:01 01/17/18 10:31 01/17/18 11:00 Temperature Pulse Rate 59 L 58 L 63 Respiratory Rate 18 12 15 Blood Pressure 97/49 L 143/75 H 149/81 H Pulse Oximetry 94 L Intake & Output 01/16/18 01/17/18 01/17/18 18:59 06:59 18:59 Intake Total 1793 / 1793 1550 / 1550 Output Total 900 / 900 450 / 450 Balance 893 / 893 1100 / 1100 Weight 90.5 kg Intake: IV 1763 / 1763 1150 / 1150 Heparin/NS PF Inj 500 ML @ 0 100 / 100 mls/hr .ROUTE .STK-MED ONE Rx#: [id number] Heparin/D5W 25,000 U/250 mL 25, 563 / 563 000 unit In 250 ml @ 1,000 UNITS/HR 10 mls/hr IV.CONT TITRATE PRN Rx#:[id number] NS Inj 1,000 ML @ 100 mls/hr IV 1000 / 1000 1000 / 1000 .CONT .Q10H [facility] Rx#:[id number] Zosyn 3.375 GM Premix 50 ML @ 100 / 100 150 / 150 100 mls/hr IV.SIG Q6H [facility] Rx#: [id number] Oral 400 / 400 Output: Urine 900 / 900 450 / 450 Other: # Voids 2 Date of Last Bowel Movement 01/16/18 01/16/18 01/16/18 # Bowel Movements 1 2 Narrative: Heart sounds regular rate rhythm, no murmurs clear lungs bilaterally Stage I pressure ulcer injury on left buttock Results Procedures completed during hospitalization: intubation attempted [facility] Labs on day of discharge: Labs from last 24 hours 01/17/18 01/17/18 01/16/18 06:08 00:02 18:11 POC Glucose 140 H 203 H 109 Preliminary micro results at discharge 01/13/18 11:06 Aerobic Blood Culture - Preliminary Blood - Peripheral No growth in 4 days Anaerobic Blood Culture - Preliminary No growth in 4 days 01/13/18 11:13 Aerobic Blood Culture - Preliminary Blood - Peripheral No growth in 4 days Anaerobic Blood Culture - Preliminary No growth in 4 days - Impressions ITS Impressions Gallbladder Ultrasound 01/13/18 00:00 CONCLUSION: 1. Echogenic liver without ductal dilatation. 2. No ascites. 3. No gallstones Chest X-Ray 01/15/18 06:00 CONCLUSION: 1. Improved positive fluid balance. 2. Improved aeration of the lower lung zones. Discharge Plan - Discharge Disposition Patient Disposition: Left Against Medical Advice - Physicians Team Primary Care Provider: UNKNOWN, Attending Provider: Kashif Colby Other Providers: Krishna Beatty MD ; Maritza Linares MD ; Jerrell Bradford DO
--- NOTE | 2018-01-18 00:20 | MB ---
cc: Jerrell Bradford DO DATE: 01/17/2018 REASON FOR CONSULTATION: Consideration of subclavian stenosis intervention. HISTORY OF PRESENT ILLNESS: Mayank Ochoa is a pleasant 67-year-old male who sees my partner, Dr. Paul Brewer, in the office and presented to [facility] due to significant chest pain and shortness of breath. Apparently, the patient states that the episode happened just before coming to the emergency room. In the emergency room, he was profusely diaphoretic, agitated and pale and so he was intubated for airway protection as well as his respiratory distress. He was seen originally by Dr. 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 Brewer. Because of his elevated troponin, he underwent cardiac catheterization by Dr. Brewer and during this, he was found to have no significant coronary artery disease, but had left subclavian stenosis with a pressure gradient of 55 mmHg across it. I was consulted for the subclavian stenosis, as there was a significant difference between his central pressure and peripheral pressure on the left side. In seeing him, he is currently hemodynamically stable without chest pain or shortness of breath. In discussing his symptoms, he does not appear to have problems with his left arm during exercise or episodes of dizziness when using his left arm. PAST MEDICAL HISTORY: 1. Hypertension. 2. Hyperlipidemia. 3. Coronary artery disease/myocardial infarction. PAST SURGICAL HISTORY: 1. Cardiac catheterization (01/16/2018): LAD is a relatively small vessel with diffuse proximal disease up to 10%. Mid LAD has 40%. The left circumflex is anomalous off the right coronary tuft, with diffuse disease in the ostial to proximal portion up to 20%. RCA is a fairly large, dominant vessel with 2 widely patent stents distally. There are 2 stents at the ostium/very proximal portion of the vessel and there maybe up to 20% restenosis. LVEDP 15. 2. Appendectomy. 3. Bilateral common iliac artery intervention. 4. [place] tooth removal. 5. Carotid surgery. ALLERGIES: NO KNOWN DRUG ALLERGIES. MEDICATIONS: 1. Enalapril 20 mg daily. 2. Plavix 75 mg daily. 3. Lipitor 80 mg daily. 4. Metoprolol tartrate 100 mg b.i.d. 5. Lasix 40 mg b.i.d. 6. Aspirin 81 mg daily. FAMILY HISTORY: Father of a massive heart attack at the age of 49. SOCIAL HISTORY: Previously smoked 1/2 pack a day since the age of 18. No significant alcohol abuse. REVIEW OF SYSTEMS: Fourteen systems were reviewed including osteopathic. Pertinent and negatives as above, otherwise negative. PHYSICAL EXAMINATION: VITAL SIGNS: Temperature 98.6, heart rate 60, blood pressure 149/81, respirations 12, pulse oximetry 94% on room air. GENERAL: The patient appears well, in no acute distress. Alert, awake and oriented x3. HEENT: Extraocular muscles intact. Mucous membranes moist. NECK: Supple. No JVD at 45 degrees. No carotid bruits heard bilaterally. Carotid upstroke is brisk in nature. HEART: Regular rate and rhythm. Positive first and second heart sounds with no noted murmurs, gallops or rubs. LUNGS: Clear to auscultation bilaterally. No wheezes, rales or rhonchi. ABDOMEN: Soft, nontender, nondistended. No organomegaly noted. EXTREMITIES: Show no clubbing, cyanosis or edema. Femoral and distal pulses are intact bilaterally. NEUROLOGIC: No focal deficits. SKIN: Warm, dry and intact. OSTEOPATHIC: No kyphoscoliosis, lordosis or paraspinal tender points. LABORATORY DATA: Hemoglobin 10.2, hematocrit 32.6, platelets 377. Potassium 3.8, BUN 27, creatinine 1.14. Electrocardiogram (01/11/2018 at 0337): Mild sinus tachycardia, nonspecific ST and T-wave changes. IMPRESSIONS: 1. Left subclavian stenosis with a pullback gradient of 55 mmHg for which the patient appears asymptomatic. 2. Coronary artery disease with history of stenting, with most recent cardiac catheterization showing no significant disease. 3. Acute respiratory failure which may be due to pulmonary edema, status post intubation and eventual extubation. 4. Hypertensive emergency on admission. RECOMMENDATIONS: 1. Mr. Ochoa appears to have significant left subclavian stenosis at the ostium. I reviewed the films from Dr. Brewer's cardiac catheterization, which does show significant ostial stenosis. Overall, the patient appears asymptomatic from this, although it is difficult to elicit whether he does enough to have significant arm weakness or subclavian steal with dizziness due to this. 2. From my standpoint, he can be discharged home, and I will see him in the office in 6-8 weeks and further evaluate him for possible symptoms which would require intervention on his left subclavian. 3. He originally presented with significant shortness of breath and hypertensive urgency. Echo shows normal function. This may represent renal stenosis, and this can be further evaluated. Pulmonary edema in this situation may be due to renal stenosis, and this can be further evaluated in the outpatient setting once the patient has been stabilized to be discharged. 4. The patient will follow up with Dr. Brewer for his coronary artery disease management. Thank you for allowing me to see Mayank Ochoa. If there are any questions, please do not hesitate to call. Jerrell Bradford DO VGP/SM , 11:14 PM , 11:32 PM MTDYaquelin
== END 2018-01-17 12:00 | disposition left against medical advice (07) ==
LOC: NEPE 02:40 → NEDA 04:47 → HIMC 14:40
PROVIDERS: ADMIT Hospitalist; ATTEND Hospitalist
DX: G93.41 Metabolic encephalopathy; K44.9 Diaphragmatic hernia without obstruction or gangrene; I25.2 Old myocardial infarction; Z95.5 Presence of coronary angioplasty implant and graft; I10 Essential (primary) hypertension; Z78.1 Physical restraint status; E78.5 Hyperlipidemia, unspecified; Z86.010 Personal history of colon polyps; Y71.3 Surgical instruments, materials and cardiovascular devices (including sutures) associated with adverse incidents; I16.1 Hypertensive emergency; J18.9 Pneumonia, unspecified organism; K92.2 Gastrointestinal hemorrhage, unspecified; N17.9 Acute kidney failure, unspecified; E78.2 Mixed hyperlipidemia; I70.8 Atherosclerosis of other arteries; I25.110 Atherosclerotic heart disease of native coronary artery with unstable angina pectoris; T82.855A Stenosis of coronary artery stent, initial encounter; J96.01 Acute respiratory failure with hypoxia; Z82.49 Family history of ischemic heart disease and other diseases of the circulatory system; L89.321 Pressure ulcer of left buttock, stage 1; I21.4 Non-ST elevation (NSTEMI) myocardial infarction; D64.89 Other specified anemias; I44.4 Left anterior fascicular block